=== PATIENT | male | born 1940 | race Caucasian/White ===

== ENCOUNTER → 2019-09-15 | Outpatient (REF) | payer OTHER ==
[2019-09-15 18:08] LABS: BASO % 0.5 % (0.0-1.0); EOS # 0.2 10^3/uL (0.0-0.5); EOS % 2.5 % (0.0-3.0); HEMATOCRIT 38.3 % (42.0-52.0); HEMOGLOBIN 11.7 g/dl (13.5-17.5); LYMPH # 1.2 10^3/uL (1.5-5.0); LYMPH % 20.1 % (24.0-44.0); MEAN CORPUSCULAR HEMOGLOBIN 26.5 pg (27.0-33.0); MEAN CORPUSCULAR HGB CONC 30.5 g/dl (32.0-36.5); MEAN CORPUSCULAR VOLUME 86.8 fl (80.0-96.0); MONO # 0.7 10^3/uL (0.0-0.8); MONO % 12.1 % (0.0-5.0); NEUTROPHILS # 3.9 10^3/uL (1.5-8.5); NEUTROPHILS % 64.1 % (36.0-66.0); PLATELET COUNT, AUTOMATED 141 10^3/uL (150-450); RED BLOOD COUNT 4.41 10^6/uL (4.30-6.10); WHITE BLOOD COUNT 6.1 10^3/uL (4.0-10.0)
[2019-09-15 18:18] LABS: ALBUMIN 3.7 GM/DL (3.2-5.2); ALT/SGPT 19 U/L (12-78); BILIRUBIN,TOTAL 0.6 MG/DL (0.2-1.0); BLOOD UREA NITROGEN 36 MG/DL (7-18); CALCIUM LEVEL 9.2 MG/DL (8.8-10.2); CARBON DIOXIDE LEVEL 29 MEQ/L (21-32); CHLORIDE LEVEL 104 MEQ/L (98-107); CREATININE FOR GFR 1.66 MG/DL (0.70-1.30); GLOMERULAR FILTRATION RATE 42.9 (>42); GLUCOSE, FASTING 181 MG/DL (70-100); POTASSIUM SERUM 4.1 MEQ/L (3.5-5.1); SODIUM LEVEL 139 MEQ/L (136-145); TOTAL PROTEIN 7.9 GM/DL (6.4-8.2)
[2019-09-15 19:20] LABS: HEMOGLOBIN A1c 6.3 %
[2019-09-17 08:06] LABS: HEPATITIS A IgG TOTAL Positive (Negative); HEPATITIS B CORE ANTIBODY IGG Negative (Negative)
[2019-09-17 11:13] LABS: HEPATITIS B SURFACE ANTIBODY NEGATIVE (POSITIVE)
[2019-09-17 11:24] LABS: HEPATITIS B SURFACE ANTIGEN NEGATIVE (NEGATIVE)
[2019-09-17 11:53] LABS: HEPATITIS C VIRUS ABY INDEX 0.1 INDEX (<0.8)
== END ==
LOC: M LAB REF 17:05
PROVIDERS: ATTEND Family Medicine Addiction Medicine
DX: R94.5 Abnormal results of liver function studies (principal); K70.30 Alcoholic cirrhosis of liver without ascites; Z79.899 Other long term (current) drug therapy

== ENCOUNTER → 2020-02-25 | Outpatient (REF) | payer OTHER ==
[2020-02-25 13:00] LABS: ALBUMIN 3.8 GM/DL (3.2-5.2); BILIRUBIN,TOTAL 0.8 MG/DL (0.2-1.0); CALCIUM LEVEL 9.8 MG/DL (8.8-10.2); CHOLESTEROL RISK RATIO 7.2 (<5); CREATININE FOR GFR 2.04 MG/DL (0.70-1.30); GLOMERULAR FILTRATION RATE 33.7 (>42); POTASSIUM SERUM 3.8 MEQ/L (3.5-5.1); THYROID STIMULATING HORMONE 6.99 uIU/ML (0.358-3.740); TOTAL PROTEIN 8.9 GM/DL (6.4-8.2)
[2020-02-25 13:03] LABS: HEMOGLOBIN A1c 7.1 %
== END ==
LOC: M LAB REF 12:13
PROVIDERS: ATTEND Family Medicine Addiction Medicine
DX: E11.9 Type 2 diabetes mellitus without complications (principal)

== ENCOUNTER → 2020-04-04 | Outpatient (REF) | payer OTHER ==
[2020-04-04 19:15] LABS: ALBUMIN 3.3 GM/DL (3.2-5.2); BILIRUBIN,TOTAL 0.7 MG/DL (0.2-1.0); CALCIUM LEVEL 9.2 MG/DL (8.8-10.2); CREATININE FOR GFR 1.9 MG/DL (0.70-1.30); GLOMERULAR FILTRATION RATE 36.6 (>42); POTASSIUM SERUM 4.2 MEQ/L (3.5-5.1); TOTAL PROTEIN 7.6 GM/DL (6.4-8.2)
== END ==
LOC: M LAB REF 18:05
PROVIDERS: ATTEND Family Medicine Addiction Medicine
DX: N18.2 Chronic kidney disease, stage 2 (mild) (principal)

== ENCOUNTER → 2020-05-17 | Outpatient (REF) | payer OTHER ==
[2020-05-17 18:44] LABS: ALBUMIN 3.3 GM/DL (3.2-5.2); CALCIUM LEVEL 9.3 MG/DL (8.8-10.2); CREATININE FOR GFR 1.66 MG/DL (0.70-1.30); GLOMERULAR FILTRATION RATE 42.8 (>42); POTASSIUM SERUM 4.1 MEQ/L (3.5-5.1); THYROID STIMULATING HORMONE 6.22 uIU/ML (0.358-3.740); TOTAL PROTEIN 7.5 GM/DL (6.4-8.2)
== END ==
LOC: M LAB REF 17:19
PROVIDERS: ATTEND Family Medicine Addiction Medicine
DX: N18.2 Chronic kidney disease, stage 2 (mild) (principal); E11.9 Type 2 diabetes mellitus without complications; E78.2 Mixed hyperlipidemia; E03.9 Hypothyroidism, unspecified; R94.5 Abnormal results of liver function studies

== ENCOUNTER 2020-09-17 10:48 | Inpatient (IN) | payer OTHER ==
[2020-09-17] VITALS (7 sets, daily range): BP systolic 100–112; BP diastolic 52–63
[~2020-09-17] VITALS: Ht 180.3 cm; Wt 80.6 kg
--- NOTE | 2020-09-17 12:00 | REP ---
INDICATION: distention/ascites suspected COMPARISON: None. TECHNIQUE: CT Scan of the abdomen and pelvis was performed without intravenous contrast. Sagittal and coronal reconstruction images performed. FINDINGS: Lung bases: There is a small left pleural effusion. There is a small hiatal hernia. Mild cardiomegaly. Liver: Grossly unremarkable. Gallbladder: Collapsed. Spleen: There is mild splenomegaly, the length of the spleen is 14 cm. Adrenals: Normal. Pancreas: Grossly unremarkable.. Kidneys: No hydronephrosis or nephrolithiasis. Ureters demonstrate no dilatation or calculus. Focal cortical calcification is seen in the lower pole the left kidney. Small and large bowel: Grossly unremarkable. No evidence of obstruction. Free fluid: There is a very large amount of abdominal and pelvic ascites diffusely. Abdominal aorta: No aneurysm. Adenopathy: None. Appendix: Not visualized. Osseous structures: There are degenerative changes of the spine without compression deformity.. Pelvis: The prostate is enlarged.. No bladder calculus seen. IMPRESSION: Large amount of diffuse abdominal and pelvic ascites. Small left pleural effusion. Mild splenomegaly. <Electronically signed by Gatito Isaacs > 09/17/20 [id number]
--- NOTE | 2020-09-17 12:02 | REP ---
INDICATION: edema. COMPARISON: None. TECHNIQUE: SINGLE PORTABLE AP VIEW OF THE CHEST WAS PERFORMED. FINDINGS: There is mild cardiomegaly. There is mild diffuse vascular congestion. A small left pleural effusion. No consolidative infiltrate is seen. There is calcification of the thoracic aorta. The mediastinal silhouette is otherwise unremarkable. IMPRESSION: Mild cardiomegaly and vascular congestion. Small left pleural effusion. <Electronically signed by Gatito Isaacs > 09/17/20 [id number]
--- NOTE | 2020-09-17 12:05 | REP ---
INDICATION: lateral pain, trauma COMPARISON: None. TECHNIQUE: Four views right ankle. FINDINGS: There is no evidence of acute fracture, dislocation, or intrinsic bone disease.Small calcific density adjacent to the medial malleolus may represent an old avulsion fracture. The ankle mortise is anatomic. There is lateral soft tissue swelling. Moderate tendinous calcifications are seen of the distal Achilles tendon along the posterior calcaneus. There is a tiny inferior calcaneal spur. I suspect a joint effusion. IMPRESSION: No acute fracture visualized. Lateral soft tissue swelling. Suspected joint effusion. <Electronically signed by Gatito Isaacs > 09/17/20 1203
[2020-09-17 12:09] LABS: BASO % 0.5 % (0.0-1.0); EOS # 0.2 10^3/uL (0.0-0.5); EOS % 1.9 % (0.0-3.0); HEMOGLOBIN 9.8 g/dl (13.5-17.5); LYMPH # 0.6 10^3/uL (1.5-5.0); LYMPH % 7.2 % (24.0-44.0); MEAN CORPUSCULAR HEMOGLOBIN 23.6 pg (27.0-33.0); MEAN CORPUSCULAR HGB CONC 30.6 g/dl (32.0-36.5); MEAN CORPUSCULAR VOLUME 77.1 fl (80.0-96.0); MONO # 1.1 10^3/uL (0.0-0.8); MONO % 13.7 % (0.0-5.0); NEUTROPHILS # 6.1 10^3/uL (1.5-8.5); NEUTROPHILS % 76.4 % (36.0-66.0); PLATELET COUNT, AUTOMATED 185 10^3/uL (150-450); RED BLOOD COUNT 4.15 10^6/uL (4.30-6.10)
[2020-09-17 12:21] LABS: INR 3.38
[2020-09-17 12:22] LABS: PARTIAL THROMBOPLASTIN TIME 56.3 SECONDS (24.2-38.5)
[2020-09-17] MEDS ORDERED: LISI40TA4 PO (12:29)
[2020-09-17] MEDS ORDERED: TAMS1CAP17 PO (12:29)
[2020-09-17] MEDS ORDERED: ELIQ5TAB PO (12:29)
[2020-09-17] MEDS ORDERED: HYDR-3490 PO (12:29)
[2020-09-17] MEDS ORDERED: LEVO75TA4 PO (12:29)
[2020-09-17] MEDS ORDERED: AMLO1TAB25 PO (12:29)
[2020-09-17] MEDS ORDERED: METF10004 PO (12:29)
[2020-09-17] MEDS ORDERED: ROPI0.253 PO (12:29)
[2020-09-17] MEDS ORDERED: CARV25TA PO (12:29)
[2020-09-17 12:33] LABS: ALBUMIN 2.5 GM/DL (3.2-5.2); ALT/SGPT 14 U/L (12-78); BILIRUBIN,DIRECT 0.9 MG/DL (0.0-0.2); BILIRUBIN,TOTAL 1.2 MG/DL (0.2-1.0); NT-PRO BNP 24471 PG/ML (<450); TOTAL PROTEIN 7.1 GM/DL (6.4-8.2)
[2020-09-17] MEDS ORDERED: THERTAB20 PO (12:54)
[2020-09-17] MEDS ORDERED: CALCIUM GLUCONATE 1,000 MG in D5W MINI-BAG PLUS 100 ML IV ONE (13:00)
[2020-09-17] MEDS ORDERED: SOD POLYSTYRENE SULFONATE SUSP 15 GM/60 ML UD PO ONE (13:00)
[2020-09-17] MEDS ORDERED: methylPREDNISolone 125MG 2ML VIAL IV ONE (13:00)
[2020-09-17 14:36] LABS: ACETAMINOPHEN LEVEL < 2.0 UG/ML (10.0-30.0); FERRITIN 111 NG/ML (26-388); IRON (FE) 11 UG/DL (65-175); PERCENT SATURATION 4.1 % (19.7-50.0); TOTAL IRON BINDING CAPACITY 268 UG/DL (250-450)
--- NOTE | 2020-09-17 15:11 | HPEPDOC ---
[facility] Medical History & Physical Date of Admission Sep 17, 2020 Date of Service: Sep 17, 2020 History and Physical CHIEF COMPLAINT: 30 pound weight gain, abdominal distention, lower extremity edema, shortness of breath HISTORY OF PRESENT ILLNESS: 79-year-old, DO NOT RESUSCITATE, DO NOT INTUBATE male with history of alcoholic liver cirrhosis, hypertension, diabetes, chronic kidney disease stage III ,previously seen in [place] by ampoule filler named Dr. KNOWLES, was taken off his to diuretics by his primary care physician for the past 2 months and has had increasing lower extremity edema, abdominal distention, 30 pound weight gain and shortness of breath, unable to lie down flat in bed and has been sleeping on his side over 3-4 pillows at home. Patient's balance has been compromised and he fell down and injured his right foot which prompted him to come to the emergency room. Patient said that when he tried to get up. His foot was very crampy and he felt like he lost some strength when he tried to sit and stand. He fell on his right side, landing on the dresser without any head trauma, loss of conscio usness or lacerations. In the ER he was found to be in decompensated liver failure with increased abdominal girth, 3+ pitting edema to the sacrum. CT abdomen and pelvis showed large amount of ascites. Chest x-ray shows vascular congestion and bilateral pleural effusions. Patient otherwise denies any fevers, chills, cough, nausea, vomiting. He complains of abdominal pain which is diffuse, rated at 3 out of 10, achy. He has not taken any medications for abdominal pain. Denies any recent history of GI bleed. Denies any coffee-ground emesis, hematemesis, bright red blood per rectum, melena, or black tarry stools. He denies any dizziness or lightheadedness, chest pain, pressure, tightness. He also denies any dysuria, urgency, frequency. He admits to having loss of appetite but has had some weight gain. His usual weight is 175 pounds and currently he is 205 pounds. Hospitalist was asked to admit the patient for acute decompensated liver cirrhosis with refractory ascites, bilateral pleural ef fusions, acute on chronic renal failure, creatinine of 3.4, hyperkalemia, coagulopathy with INR of 3.38 and steatohepatitis with elevated bilirubin and aminotransferases. PAST MEDICAL HISTORY: Hypertension, diabetes, hypercholesterolemia, alcoholic liver cirrhosis, chronic kidney disease stage III PAST SURGICAL HISTORY: None SOCIAL HISTORY: , Lives with significant other named Shira Bryan not legally , phone number [phone]. Patient is DO NOT RESUSCITATE, DO NOT INTUBATE. History of alcohol abuse 3-4 shots a day. 6 pack every day for over 50 years, quit 8 years ago, previous smoker, 1-1/2-2 packs a day since the age of 15, quit 30 years ago. Retired, worked in [employer] FAMILY HISTORY: Unknown medical history. Patient left home as a teenager and had lost contact ALLERGIES: Please see below. REVIEW OF SYSTEMS: 12 point review of systems negative aside from positive findings in HPI HOME MEDICATIONS: Please see below. PHYSICAL EXAMINATION: VITAL SIGNS: See below GENERAL APPEARANCE: Cachectic with bitemporal wasting, disheveled, no respiratory distress or use of respiratory accessory muscles HEENT: Positive JVD, no thyromegaly, cervical lymphadenopathy. Poor dentition. Dry mucous membranes missing teeth. No stridor. No carotid bruit CARDIOVASCULAR: S1, S2, positive S3. Regular rate rhythm. No murmurs noted. Nondisplaced point of maximal impulse LUNGS: Air entry is equal bilaterally. Diminished breath sounds with rales bilateral bases. No wheezing ABDOMEN: Distended, positive fluid wave, tense. Normoactive bowel sounds 4 quadrants. Unable to assess for hepatosplenomegaly . No rebound or guarding, nontender EXTREMITIES: Clubbing is noted. Bilateral fingernails both hands, 3+ pitting edema to the sacrum. Chronic venous stasis changes LABORATORY DATA: See below. IMAGING: INDICATION: distention/ascites suspected COMPARISON: None. TECHNIQUE: CT Scan of the abdomen and pelvis was performed without intravenous contrast. Sagittal and coronal reconstruction images performed. FINDINGS: Lung bases: There is a small left pleural effusion. There is a small hiatal hernia. Mild cardiomegaly. Liver: Grossly unremarkable. Gallbladder: Collapsed. Spleen: There is mild splenomegaly, the length of the spleen is 14 cm. Adrenals: Normal. Pancreas: Grossly unremarkable.. Kidneys: No hydronephrosis or nephrolithiasis. Ureters demonstrate no dilatation or calculus. Focal cortical calcification is seen in the lower pole the left kidney. Small and large bowel: Grossly unremarkable. No evidence of obstruction. Free fluid: There is a very large amount of abdominal and pelvic ascites diffusely. Abdominal aorta: No aneurysm. Adenopathy: None. Appendix: Not visualized. Osseous structures: There are degenerative changes of the spine without compression deformity.. Pelvis: The prostate is enlarged.. No bladder calculus seen. IMPRESSION: Large amount of diffuse abdominal and pelvic ascites. Small left pleural effusion. Mild splenomegaly. <Electronically signed by Gatito Isaacs > 09/17/20 1157 MICROBIOLOGY: Please see below. ASSESSMENT/plan: 79-year-old, DO NOT RESUSCITATE, DO NOT INTUBATE male with history of alcoholic liver cirrhosis, hypertension, diabetes, chronic kidney disease stage III ,previously seen in [place] by ampoule filler named Dr. KNOWLES, was taken off his to diuretics by his primary care physician for the past 2 months and has had increasing lower extremity edema, abdominal distention, 30 pound weight gain and shortness of breath, unable to lie down flat in bed and has been sleeping on his side over 3-4 pillows at home. Patient's balance has been compromised and he fell down and injured his right foot which prompted him to come to the emergency room. Patient said that when he tried to get up. His foot was very crampy and he felt like he lost some strength when he tried to sit and stand. He fell on his right side, landing on the dresser without any head trauma, loss of consciousness or lacerations. In the ER he was found to be in decompensated liver failure with increased abdominal girth, 3+ pitting edema to the sacrum. CT abdomen and pelvis showed large amount of ascites. Chest x-ray shows vascular congestion and bilateral pleural effusions. Patient otherwise denies any fevers, chills, cough, nausea, vomiting. He complains of abdominal pain which is diffuse, rated at 3 out of 10, achy. He has not taken any medications for abdominal pain. Denies any recent history of GI bleed. Denies any coffee-ground emesis, hematemesis, bright red blood per rectum, melena, or black tarry stools. He denies any dizziness or lightheadedness, chest pain, pressure, tightness. He also denies any dysuria, urgency, frequency. He admits to having loss of appet ite but has had some weight gain. His usual weight is 175 pounds and currently he is 205 pounds. Hospitalist was asked to admit the patient for acute decompensated liver cirrhosis with refractory ascites, bilateral pleural effusions, acute on chronic renal failure, creatinine of 3.4, hyperkalemia, c oagulopathy with INR of 3.38 and steatohepatitis with elevated bilirubin and aminotransferases. Acute decompensated alcoholic liver cirrhosis with portal hypertension and ascites -Patient's meld score is 32 with 52% mortality rate -Lettyiscriminant function of 62 -Patient's more immediate concern is renal dysfunction with fluid overload. -Patient will be given intravenous albumin infusions to improve intravascular volume and allow for diuresis with Lasix. -Goal mean arterial pressure greater than 75, to allow for enough renal perfusion perfusion to allow for diuresis -Will start on midodrine 10 mg at 8 noon and 1600 -Patient will be kept on strict I's and O's, daily weights -Paracentesis on 09/18/2020 for therapeutic purposes and diagnostic peritoneal fluid analysis -Check other etiology of liver cirrhosis including autoimmune viral hepatitis, primary biliary cirrhosis by checking RAMBO, anti-mitochondrial antibody, anti- smooth muscle antibody, hepatitis serology Acute alcoholic steatohepatitis -Leonela's discriminant function of 62. Will benefit from steroids -Patient has been started on steroids -Serial liver function tests Coagulopathy due to end-stage alcoholic liver cirrhosis with INR of 3.3 -No active signs of bleeding -Meld score of 32 with 52% mortality rate -Monitor for GI bleed -Protonix 40 mg twice a day Acute on chronic kidney disease stage III -Due to decompensated liver cirrhosis with ascites causing decrease intravascular volume -IV albumin infusion admitted to returning to increased blood pressure to mean O2 or pressure greater than 75 -[place] to gravity, strict I's and O's and daily weights -once Patient's abdominal distention has improved with paracentesis. Check renal ultrasound Hyperkalemia -Due to renal failure -avoid dehydration, but will need Kayexalate -Telemetry Hypertension -Currently with low blood pressure Diabetes -Insulin sliding scale, fingersticks before every meal CHS Hyperlipidemia -Check liver profile History of tobacco abuse -Obtain records from patient's primary care physician to determine if he has underlying emphysema or COPD or prior pulmonary function testing History of alcohol abuse -Now with decompensated end-stage liver cirrhosis with portal hypertension Diet: Renal diet DVT prophylaxis: Compression stockings CODE STATUS: DO NOT RESUSCITATE, DO NOT INTUBATE. Most form signed. Healthcare proxy significant other, not Shira Bryan telephone number is [phone] Vital Signs Vital Signs Date Time Temp Pulse Resp B/P (MAP) Pulse Ox O2 Delivery O2 Flow Rate FiO2 09/17/20 14:03 57 96 09/17/20 14:00 97/56 (70) 09/17/20 11:04 97.0 18 Laboratory Data Labs 24H Laboratory Tests 2 09/17/20 11:43: Coronavirus (COVID-19)(PCR) NEGATIVE 09/17/20 11:53: Immature Granulocyte % (Auto) 0.3, Neutrophils (%) (Auto) 76.4H, Lymphocytes (%) (Auto) 7.2L, Monocytes (%) (Auto) 13.7H, Eosinophils (%) (Auto) 1.9, Basophils (%) (Auto) 0.5, Neutrophils # (Auto) 6.1, Lymphocytes # (Auto) 0.6L, Monocytes # (Auto) 1.1H, Eosinophils # (Auto) 0.2, Basophils # (Auto) 0.0, Reticulocyte # (auto) 41.1, Nucleated Red Blood Cells % (auto) 0.0, Percent Reticulocyte Count 1.0, Reticulocyte Hemoglobin Equivalent 22.2L, Prothrombin Time 35.0H, Prothromb Time International Ratio 3.38, Activated Partial Thromboplast Time 56.3H, Iron Level 11L, Total Iron Binding Capacity 268, Transferrin % Saturation 4.1L, Ferritin 111, Total Bilirubin 1.2H, Direct Bilirubin 0.9H, Aspartate Amino Transf (AST/SGOT) 14, Alanine Aminotransferase (ALT/SGPT) 14, Alkaline Phosphatase 132H, Ammonia 28, YE-Krr-M-Type Natriuretic Peptide 11834D, Total Protein 7.1, Albumin 2.5L, Albumin/Globulin Ratio 0.5, Acetaminophen Level < 2.0L 09/17/20 11:58: POC Glucose (Misc Panel) 128H, POC Sodium (Misc Panel) 136, POC Potassium (Misc Panel) 5.7H, POC Chloride (Misc Panel) 104, POC Total CO2 (Misc Panel) 23.0, POC Blood Urea Nitrogen (Misc Panel 82H, POC Ionized Calcium (Misc Panel) 4.9, POC Creatinine (Misc Panel) 3.4H, POC Hematocrit (Misc Panel) 34.0L 09/17/20 13:45: CBC/BMP Laboratory Tests 09/17/20 11:53 Home Medications Scheduled Amlodipine Besylate (Amlodipine Besylate) 10 Mg Tablet, 10 MG PO DAILY Apixaban (Eliquis) 5 Mg Tablet, 5 MG PO BID Carvedilol (Carvedilol) 25 Mg Tablet, 25 MG PO BID Hydrochlorothiazide (Hydrochlorothiazide) 25 Mg Tablet, 25 MG PO DAILY Levothyroxine Sodium (Levothyroxine Sodium) 75 Mcg Tablet, 75 MCG PO DAILY Lisinopril (Lisinopril) 40 Mg Tablet, 40 MG PO DAILY Metformin HCl (Metformin HCl) 1,000 Mg Tablet, 1,000 MG PO DAILY Multivit,Calc,Mins/Iron/Folic (Thera-M Tablet) 1 Each Tablet, 1 TAB PO DAILY Ropinirole HCl (Ropinirole HCl) 0.25 Mg Tablet, 0.25 MG PO QHS Tamsulosin Hcl (Tamsulosin HCl) 0.4 Mg Capsule, 0.4 MG PO DAILY Allergies Coded Allergies: No Known Drug Allergies (Verified Allergy, Unknown, 09/17/20) A-FIB/CHADSVASC A-FIB History Current/History of A-Fib/PAF?: No Current PO Anticoag Therapy: No Age/Risk Factor Scoring CHADSVASC: CHADSVASC Response (Comments) Value Age Risk Factor Age >/= 75 years old 2 Gender Risk Factor Male 0 Hx of CHF No 0 Hx of HTN No 0 Hx of Stroke/TIA/or VTE No 0 Hx of Vascular Disease No 0 Total 2 Treatment Treatment ordered: NONE BRANDON ACUÑA MD Sep 17, 2020 14:47
[2020-09-17] MEDS: MIDODRINE 5 MG TAB PO SCH ×2 (15:53→19:23)
[2020-09-17] MEDS ORDERED: SLF 3 ML SYR IV PRN (16:30)
[2020-09-17 16:47] LABS: APPEARANCE, URINE HAZY (CLEAR); BILIRUBIN, URINE AUTO NEGATIVE (NEGATIVE); BLOOD, URINE BLOOD NEGATIVE (NEGATIVE); COLOR, URINE AMBER (YELLOW); GLUCOSE, URINE (UA) AUTO NEGATIVE (NEGATIVE); KETONE, URINE AUTO NEGATIVE (NEGATIVE); LEUKOCYTE ESTERASE, URINE AUTO NEGATIVE (NEGATIVE); NITRITE, URINE AUTO NEGATIVE (NEGATIVE); PROTEIN, URINE AUTO NEGATIVE (NEGATIVE); SPECIFIC GRAVITY URINE AUTO 1.016 (1.002-1.035)
--- NOTE | 2020-09-17 17:09 | ECGEPIP ---
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 Order Number: [id number] Reading MD: Debby Liu Measurements Intervals [place] Rate: 69 P: CO: 0 QRS: 18 QRSD: 117 T: 9 QT: 431 QTc: 462 Interpretive Statements ATRIAL FIBRILLATION POSSIBLE ANTERIOR MYOCARDIAL INFARCTION, PROBABLY OLD ABNORMAL RHYTHM ECG LOW QRS VOLTAGE LIMB LEADS NONSPECIFIC ST T WAVE CHANGES PROLONGED QTC NO PRIOR ECG FOR COMPARISON Electronically Signed on 09-17-2020 17:08:57 EST by Debby Liu
[2020-09-17 17:56] LABS: SQUAMOUS EPITHELIAL CELL URINE NONE SEEN /hpf (SMALL AMT)
[2020-09-17] MEDS ORDERED: metOLazone 5 MG TAB PO ONE (18:00)
[2020-09-17] MEDS ORDERED: oxyCODONE 5MG TAB PO ONE (18:00)
[2020-09-17 18:01] LABS: BLADDER EPITHELIAL CELLS, UR LARGE AMOUNT /hpf; RENAL EPITHELIAL CELLS, URINE MOD AMOUNT /hpf
[2020-09-17 18:04] LABS: BACTERIA, URINE NONE SEEN
[2020-09-17] MEDS ORDERED: FUROSEMIDE 40MG/4ML VIAL (J1940) IV ONE (18:30)
[2020-09-17 19:16] LABS: CALCIUM LEVEL 9.7 MG/DL (8.8-10.2); CREATININE FOR GFR 3.31 MG/DL (0.70-1.30); GLOMERULAR FILTRATION RATE 19.3 (>42); POTASSIUM SERUM 5.9 MEQ/L (3.5-5.1)
[2020-09-17 19:22] LABS: CK-MB VALUE MASS 1.8 NG/ML (<3.6); MB/CK RELATIVE INDEX 3.05 (< OR =4); TROPONIN I 0.04 NG/ML (< 0.10)
[2020-09-17] MEDS: PANTOPRAZOLE 40MG VIAL (C9113 PER 1) IV SCH (21:23)
[2020-09-17] MEDS: SLF 3 ML SYR IV SCH (21:23)
[2020-09-18] VITALS (8 sets, daily range): BP systolic 94–115; BP diastolic 54–68
[2020-09-18] MEDS: oxyCODONE 5MG TAB PO PRN ×3 (01:02→21:05)
[2020-09-18 04:26] LABS: BASO % 0.1 % (0.0-1.0); HEMATOCRIT 31.3 % (42.0-52.0); HEMOGLOBIN 9.7 g/dl (13.5-17.5); LYMPH # 0.6 10^3/uL (1.5-5.0); LYMPH % 6.2 % (24.0-44.0); MEAN CORPUSCULAR VOLUME 77.5 fl (80.0-96.0); MONO # 0.2 10^3/uL (0.0-0.8); MONO % 1.8 % (0.0-5.0); NEUTROPHILS # 8.2 10^3/uL (1.5-8.5); NEUTROPHILS % 91.6 % (36.0-66.0); PLATELET COUNT, AUTOMATED 203 10^3/uL (150-450); RED BLOOD COUNT 4.04 10^6/uL (4.30-6.10)
[2020-09-18 05:05] LABS: CREATININE FOR GFR 3.34 MG/DL (0.70-1.30)
[2020-09-18 05:06] LABS: ALBUMIN 2.9 GM/DL (3.2-5.2); BILIRUBIN,TOTAL 1.3 MG/DL (0.2-1.0); CALCIUM LEVEL 9.2 MG/DL (8.8-10.2); CK-MB VALUE MASS 1.6 NG/ML (<3.6); GLOMERULAR FILTRATION RATE 19.1 (>42); MAGNESIUM LEVEL 2.9 MG/DL (1.8-2.4); MB/CK RELATIVE INDEX 3.33 (< OR =4); POTASSIUM SERUM 5.7 MEQ/L (3.5-5.1); TOTAL PROTEIN 7.7 GM/DL (6.4-8.2); TROPONIN I 0.02 NG/ML (< 0.10)
[2020-09-18 05:12] LABS: INR 2.63; PROTHROMBIN TIME 28.7 SECONDS (12.5-14.3)
[2020-09-18 05:13] LABS: PARTIAL THROMBOPLASTIN TIME 55.6 SECONDS (24.2-38.5)
[2020-09-18] MEDS: SLF 3 ML SYR IV SCH ×3 (05:15→21:04)
[2020-09-18] MEDS ORDERED: FUROSEMIDE 100MG/10ML VIAL (J1940) IV ONE (08:00)
[2020-09-18] MEDS ORDERED: FUROSEMIDE 40MG/4ML VIAL (J1940) IV SCH (08:00)
[2020-09-18] MEDS: MIDODRINE 5 MG TAB PO SCH ×3 (08:33→17:08)
[2020-09-18] MEDS: PANTOPRAZOLE 40MG VIAL (C9113 PER 1) IV SCH ×2 (08:34→21:04)
[2020-09-18] MEDS: predniSONE 20 MG TAB PO SCH (08:34)
[2020-09-18] MEDS ORDERED: LIDOCAINE 1% MDV 20ML VIAL As Ordered ONE (08:42)
[2020-09-18] MEDS ORDERED: SODIUM BICARBONATE 8.4% INJ 50MEQ 50 ML VIAL As Ordered ONE (08:44)
[2020-09-18] MEDS ORDERED: SOD POLYSTYRENE SULFONATE SUSP 15 GM/60 ML UD PO ONE (10:00)
[2020-09-18 11:01] LABS: HEPATITIS B SURFACE ANTIGEN NEGATIVE (NEGATIVE)
--- NOTE | 2020-09-18 11:24 | IPNPDOC ---
Date Seen The patient was seen on 09/18/20. Progress Note SUBJECTIVE: SOB only slightly improved after paracentesis today. no fever or chills overnight. denies cough. oliguric with 500ml urine output overnight. PICC line ordered. s/p albumin infusion w albumin 2.7 today. denies chest pain,pressure tightness still w 3 pillow orthopnea hard to breathe when hob lower. lays on his left side. TELE: chronic afib -off eliquis for paracentesis and picc line PHYSICAL EXAMINATION: VITAL SIGNS: See below GENERAL APPEARANCE: Cachectic with bitemporal wasting, disheveled, no respiratory distress or use of respiratory accessory muscles HEENT: no thyromegaly, cervical lymphadenopathy. Poor dentition. Dry mucous membranes missing teeth. No stridor. No carotid bruit CARDIOVASCULAR: S1, S2, irregularly irregular No murmurs noted. Nondisplaced point of maximal impulse LUNGS: Air entry is equal bilaterally. Diminished breath sounds bibasilar coarse breath soundsNo wheezing ABDOMEN: less Distended, soft . Normoactive bowel sounds 4 quadrants. Unable to assess for hepatosplenomegaly . No rebound or guarding, nontender EXTREMITIES: Clubbing is noted. Bilateral fingernails both hands, 3+ pitting edema to the sacrum. Chronic venous stasis changes right forearm peripheral iv-no erythema or tenderness. LABORATORY DATA: See below. IMAGING: INDICATION: distention/ascites suspected COMPARISON: None. TECHNIQUE: CT Scan of the abdomen and pelvis was performed without intravenous contrast. Sagittal and coronal reconstruction images performed. FINDINGS: Lung bases: There is a small left pleural effusion. There is a small hiatal hernia. Mild cardiomegaly. Liver: Grossly unremarkable. Gallbladder: Collapsed. Spleen: There is mild splenomegaly, the length of the spleen is 14 cm. Adrenals: Normal. Pancreas: Grossly unremarkable.. Kidneys: No hydronephrosis or nephrolithiasis. Ureters demonstrate no dilatation or calculus. Focal cortical calcification is seen in the lower pole the left kidney. Small and large bowel: Grossly unremarkable. No evidence of obstruction. Free fluid: There is a very large amount of abdominal and pelvic ascites diffusely. Abdominal aorta: No aneurysm. Adenopathy: None. Appendix: Not visualized. Osseous structures: There are degenerative changes of the spine without compression deformity.. Pelvis: The prostate is enlarged.. No bladder calculus seen. IMPRESSION: Large amount of diffuse abdominal and pelvic ascites. Small left pleural effusion. Mild splenomegaly. <Electronically signed by Gatito Isaacs > 09/17/20 [id number] MICROBIOLOGY: Please see below. 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 KNOWLES, was taken off his to diuretics by his primary care physician for the past 2 months and has had increasing lower extremity edema, abdominal distention, 30 pound weight gain and shortness of breath, unable to lie down flat in bed and has been sleeping on his side over 3-4 pillows at home. Patient's balance has been compromised and he fell down and injured his right foot which prompted him to come to the emergency room. Patient said that when he tried to get up. His foot was very crampy and he felt like he lost some strength when he tried to sit and stand. He fell on his right side, landing on the dresser without any head trauma, loss of consciousness or lacerations. In the ER he was found to be in decompensated liver failure with increased abdominal girth, 3+ pitting edema to the sacrum. CT abdomen and pelvis showed large amount of ascites. Chest x-ray shows vascular congestion and bilateral pleural effusions. Patient otherwise denies any fevers, chills, cough, nausea, vomiting. He complains of abdominal pain which is diffuse, rated at 3 out of 10, achy. He has not taken any medications for abdominal pain. Denies any recent history of GI bleed. Denies any coffee-ground emesis, hematemesis, bright red blood per rectum, melena, or black tarry stools. He denies any dizziness or lightheadedness, chest pain, pressure, tightness. He also denies any dysuria, urgency, frequency. He admits to having loss of appetite but has had some weight gain. His usual weight is 175 pounds and currently he is 205 pounds. Hospitalist was asked to admit the patient for acute decompensated liver cirrhosis with refractory ascites, bilateral pleural effusions, acute on chronic renal failure, creatinine of 3.4, hyperkalemia, coagulopathy with INR of 3.38 and steatohepatitis with elevated bilirubin and aminotransferases. Acute decompensated alcoholic liver cirrhosis with portal hypertension and ascites -Patient's meld score is 32 with 52% mortality rate -Lettyiscriminant function of 62 -Patient's more immediate concern is renal dysfunction with fluid overload. -s/p intravenous albumin infusions to improve intravascular volume - on midodrine 10 mg at 8 noon and 1600 - on strict I's and O's, daily weights -s/p Paracentesis 09/18/2020 for therapeutic purposes and diagnostic peritoneal fluid analysis, but per IR, not much removed -requested records from [place] [facility] Dr. Knowles and pt's pcp. Acute alcoholic steatohepatitis -Leonela's discriminant function of 62. -s/p iv solumedrol 09/17/20 -po prednisone daily Chronic Atrial Fibrillation -rate controlled -off eliquis for paracentesis and picc line 09/18/20 -no signs of gi bleed -may resume eliquis after picc line is placed Oliguric Acute on chronic kidney disease stage III -Due to decompensated liver cirrhosis with ascites causing decrease intravascular volume -s/p iv albumin -cruz -on midodrine to increase blood pressure, but urine output only 500ml/24hrs -nephrology consulted. picc line placed in case vasopressor needed to improve intravascular volume Hyperkalemia -Due to renal failure -telemetry metabolic acidosios -due to renal failure -nephrology consulted Hypertension -Currently with low blood pressure -on midodrine Diabetes -Insulin sliding scale, fingersticks before every meal and qhs -consistent carbs /renal diet Hyperlipidemia -reviewed liver profile History of tobacco abuse -Obtain records from patient's primary care physician to determine if he has underlying emphysema or COPD or prior pulmonary function testing History of alcohol abuse -Now with decompensated end-stage liver cirrhosis with portal hypertension Diet: Renal diet DVT prophylaxis: Compression stockings CODE STATUS: DO NOT RESUSCITATE, DO NOT INTUBATE. Most form signed. Healthcare proxy significant other, not Shira Bryan telephone number is [phone] VS, I&O, 24H, Fishbone Vital Signs/I&O Vital Signs Date Time Temp Pulse Resp B/P (MAP) Pulse Ox O2 Delivery O2 Flow Rate FiO2 09/18/20 10:30 83 18 98 Room Air 09/18/20 09:07 99.2 2/8/21 07:39 115/65 (82) I&O- Last 24 Hours up to 6 AM 09/18/20 06:00 Intake Total 250.0 ml Output Total 900 ml Balance -650.0 ml Laboratory Data 24H LABS Laboratory Tests 2 09/17/20 11:43: Coronavirus (COVID-19)(PCR) NEGATIVE 09/17/20 11:53: Immature Granulocyte % (Auto) 0.3, Neutrophils (%) (Auto) 76.4H, Lymphocytes (%) (Auto) 7.2L, Monocytes (%) (Auto) 13.7H, Eosinophils (%) (Auto) 1.9, Basophils (%) (Auto) 0.5, Neutrophils # (Auto) 6.1, Lymphocytes # (Auto) 0.6L, Monocytes # (Auto) 1.1H, Eosinophils # (Auto) 0.2, Basophils # (Auto) 0.0, Reticulocyte # (auto) 41.1, Nucleated Red Blood Cells % (auto) 0.0, Percent Reticulocyte Count 1.0, Reticulocyte Hemoglobin Equivalent 22.2L, Prothrombin Time 35.0H, Prothromb Time International Ratio 3.38, Activated Partial Thromboplast Time 56.3H, Iron Level 11L, Total Iron Binding Capacity 268, Transferrin % Saturation 4.1L, Ferritin 111, Total Bilirubin 1.2H, Direct Bilirubin 0.9H, Aspartate Amino Transf (AST/SGOT) 14, Alanine Aminotransferase (ALT/SGPT) 14, Alkaline Phosphatase 132H, Ammonia 28, ZE-Lnr-D-Type Natriuretic Peptide 34295L, Total Protein 7.1, Albumin 2.5L, Albumin/Globulin Ratio 0.5, Acetaminophen Level < 2.0L 09/17/20 11:58: POC Glucose (Misc Panel) 128H, POC Sodium (Misc Panel) 136, POC Potassium (Misc Panel) 5.7H, POC Chloride (Misc Panel) 104, POC Total CO2 (Misc Panel) 23.0, POC Blood Urea Nitrogen (Misc Panel 82H, POC Ionized Calcium (Misc Panel) 4.9, POC Creatinine (Misc Panel) 3.4H, POC Hematocrit (Misc Panel) 34.0L 09/17/20 13:45: 09/17/20 16:30: Urine Color SHERIE, Urine Appearance HAZY, Urine pH 5.0, Urine Specific Watkins 1.016, Urine Protein NEGATIVE, Urine Glucose (Auto)(UA) NEGATIVE, Urine Ketones (Auto) NEGATIVE, Urine Blood NEGATIVE, Urine Nitrite NEGATIVE, Urine Bilirubin NEGATIVE, Urine Urobilinogen 4.0H, Urine Leukocyte Esterase (Auto) NEGATIVE, Urine Sediment Examination PERFORMED, Urine RBC 3-5H, Urine WBC 3-5H, Urine Bladder Epithelial Cells LARGE AMOUNTH, Urine Squamous Epithelial Cells NONE SEE N, Urine Renal Epithelial Cells MOD AMOUNTH, Urine Bacteria NONE SEEN, Urine Cellular Casts , Urine Hyaline Casts 1-3H, Urine Granular Casts 1-3H, Urine Sperm (Auto) 09/17/20 18:33: Anion Gap 10, Glomerular Filtration Rate 19.3L, Calcium Level 9.7, Total Creatine Kinase 59, Creatine Kinase MB 1.8, Creatine Kinase MB Relative Index 3.05, Troponin I 0.04 09/18/20 03:56: Anion Gap 14, Glomerular Filtration Rate 19.1L, Calcium Level 9.2, Total Creatine Kinase 48, Creatine Kinase MB 1.6, Creatine Kinase MB Relative Index 3.33, Troponin I 0.02#, Immature Granulocyte % (Auto) 0.3, Neutrophils (%) (Auto) 91.6H, Lymphocytes (%) (Auto) 6.2L, Monocytes (%) (Auto) 1.8, Eosinophils (%) (Auto) 0.0, Basophils (%) (Auto) 0.1, Neutrophils # (Auto) 8.2, Lymphocytes # (Auto) 0.6L, Monocytes # (Auto) 0.2, Eosinophils # (Auto) 0.0, Basophils # (Auto) 0.0, Nucleated Red Blood Cells % (auto) 0.0, Prothrombin Time 28.7H, Prothromb Time International Ratio 2.63, Activated Partial Thromboplast Time 55.6H, Magnesium Level 2.9H, Total Bilirubin 1.3H, Aspartate Amino Transf (AST/SGOT) 8, Alanine Aminotransferase (ALT/SGPT) 13, Alkaline Phosphatase 110, Total Protein 7.7, Albumin 2.9L, Albumin/Globulin Ratio 0.6 CBC/BMP Laboratory Tests 09/17/20 11:53 09/17/20 18:33 09/18/20 03:56 BRANDON ACUÑA MD Sep 18, 2020 10:37
[2020-09-18 11:28] LABS: HEPATITIS B CORE ANTIBODY IGM NEGATIVE (NEGATIVE); HEPATITIS C VIRUS ABY INDEX 0.1 INDEX (<0.8)
[2020-09-18 11:31] LABS: HEPATITIS A ANTIBODY IGM NEGATIVE (NEGATIVE)
[2020-09-18 12:02] LABS: APPEARANCE, BODY FLUID HAZY (CLEAR); PERITONEAL FL COLOR YELLOW (COLORLESS); SOURCE, BODY FLUID PERITONEAL
--- NOTE | 2020-09-18 12:19 | REP ---
INDICATION: RENAL FAILURE. COMPARISON: None. TECHNIQUE: Real-time sonographic evaluation of the kidneys is performed. FINDINGS: Renal cortical echogenicity pattern is normal bilaterally and contours are smooth. There is no evidence of hydronephrosis, cyst, mass, or calculus in either kidney. The right kidney measures 13.3 x 5.1 x 5.4 cm. Left renal dimensions are 13.2 x 5.1 x 5.0 cm. Cummings catheter is seen in a collapsed urinary bladder. IMPRESSION: Negative renal ultrasound. <Electronically signed by Gatito Isaacs > 09/18/20 [id number]
--- NOTE | 2020-09-18 12:54 | REP ---
INDICATION: s/p thoracentesis sob. r/o ptx COMPARISON: 09/17/2020 TECHNIQUE: Portable AP view of the chest FINDINGS: PICC line via the left upper extremity extends into the superior vena cava. Mediastinum and cardiac silhouette are stable. Vascular congestion with interstitial edema again noted. No consolidation, obvious effusion, or pneumothorax. IMPRESSION: Moderate pulmonary vascular congestion/interstitial edema. <Electronically signed by Wagner Farias > 09/18/20 [id number]
[2020-09-18 13:00] LABS: SOURCE, BODY FLUID ALBUMIN PERITONEAL; SOURCE, BODY FLUID GLUCOSE PERITONEAL; SOURCE, BODY FLUID TOT PROTEIN PERITONEAL; TOTAL PROTEIN, BODY FLUID 4.9 G/DL (NOT ESTABLISHED)
[2020-09-18] MEDS ORDERED: SODIUM CHLORIDE 0.9% INJ 10 ML SYR IV PRN (13:00)
--- NOTE | 2020-09-18 13:34 | REP ---
INDICATION: ASCITES The patient has a history of ascites COMPARISON: None. TECHNIQUE: The procedure was performed by VAMSHI Sinha, under the direct supervision of Dr. Singh The risks and benefits of the procedure were explained to the patient and an informed consent was obtained both verbally and written. Additional attention was paid to the fact that the patient had only been off their Eliquis for 24 hours, and that their INR was above 2. Directly prior to the start of the procedure a formal time-out was completed in the procedure room. The largest pocket of fluid was localized in the right flank using ultrasound guidance. The skin was prepped and draped in a sterile fashion. Eleven ML of buffered lidocaine was used as a local anesthetic. An 8-Polish multi side-hole catheter was inserted using trocar technique. FINDINGS: 12,450 mL of green colored ascites was removed in total, 1,250 mL was sent to the laboratory for further analysis, and the rest was discarded. The patient tolerated the procedure well and there were no immediate complications. After the appropriate amount of monitored convalescence, the patient was discharged from the department. IMPRESSION: Ultrasound-guided paracentesis with removal of 12,450 mL of green colored ascites. <Electronically signed by Mari Don > 09/18/20 1252 <Electronically signed by Joseph Singh > 09/18/20 1339
--- NOTE | 2020-09-18 13:34 | REP ---
PROCEDURE NAME: PICC LINE INSERTION W/SITERITE CLINICAL INFORMATION: levophed iv gtt -. COMPARISON: None. PROCEDURE DESCRIPTION: The procedure was performed by VAMSHI Sinha, under the direct supervision of Dr. Singh. The risks and benefits of the procedure were explained to the patient and an informed consent was obtained both verbally and written. Directly prior to the start of the procedure a formal time-out was completed in the procedure room. The left basilic vein was localized using ultrasound guidance. The skin was prepped and draped in sterile fashion. One mL of 1% lidocaine 10 mg/mL was used as a local anesthetic. Using ultrasound guidance the left basilic vein was cannulated, and a 0.018 guidewire was inserted and advanced to the level of SVC using fluoroscopic guidance. The needle was removed and a 5.5 Cook Islander dilator and peel-away sheath was inserted over the guidewire. A 5.5 [place] Islander dual lumen catheter was cut to a length of 45 cm. The dilator was removed and the catheter was inserted over the guidewire with the tip ending at the level of the SVC. The peel-away sheath was removed and the catheter was flushed with heparinized saline as per hospital protocol. The catheter was affixed to the skin and a sterile dressing was applied. The patient tolerated the procedure well and there were no immediate complications. CONCLUSION: PICC line insertion into the left basilic vein. 0.1 minutes of fluoroscopy time was utilized for this procedure. Some fluoroscopic images are performed with last image hold technology. These images require no additional radiation. <Electronically signed by Mari Don > 09/18/20 1258 <Electronically signed by Joseph Singh > 09/18/20 [id number]
[2020-09-18] MEDS: OCTREOTIDE ACETATE 1,200 MCG in NS 238.8 ML IV SCH (14:22)
[2020-09-18] MEDS: APIXABAN 2.5 MG TAB (ELIQUIS) PO SCH ×2 (14:22→21:04)
[2020-09-18 14:25] LABS: CK-MB VALUE MASS 1.6 NG/ML (<3.6); MB/CK RELATIVE INDEX 3.08 (< OR =4); TROPONIN I 0.02 NG/ML (< 0.10)
[2020-09-18] MEDS: SODIUM CHLORIDE 0.9% INJ 10 ML SYR IV SCH (17:08)
[2020-09-18 18:26] LABS: CREATININE FOR GFR 3.46 MG/DL (0.70-1.30); GLOMERULAR FILTRATION RATE 18.3 (>42); POTASSIUM SERUM 5.6 MEQ/L (3.5-5.1)
[2020-09-18 19:42] LABS: CALCIUM LEVEL 9.7 MG/DL (8.8-10.2); CREATININE FOR GFR 3.49 MG/DL (0.70-1.30); GLOMERULAR FILTRATION RATE 18.1 (>42); POTASSIUM SERUM 5.8 MEQ/L (3.5-5.1)
[2020-09-19] VITALS (9 sets, daily range): BP systolic 96–126; BP diastolic 54–61
[2020-09-19 00:32] LABS: CALCIUM LEVEL 8.8 MG/DL (8.8-10.2); CREATININE FOR GFR 3.41 MG/DL (0.70-1.30); GLOMERULAR FILTRATION RATE 18.6 (>42); POTASSIUM SERUM 5.2 MEQ/L (3.5-5.1)
[2020-09-19] MEDS: oxyCODONE 5MG TAB PO PRN ×3 (03:07→20:42)
[2020-09-19 05:34] LABS: BASO % 0.1 % (0.0-1.0); HEMATOCRIT 34.9 % (42.0-52.0); HEMOGLOBIN 10.8 g/dl (13.5-17.5); LYMPH # 0.5 10^3/uL (1.5-5.0); LYMPH % 4.3 % (24.0-44.0); MEAN CORPUSCULAR HEMOGLOBIN 23.4 pg (27.0-33.0); MEAN CORPUSCULAR HGB CONC 30.9 g/dl (32.0-36.5); MEAN CORPUSCULAR VOLUME 75.5 fl (80.0-96.0); MONO # 1.3 10^3/uL (0.0-0.8); MONO % 10.5 % (0.0-5.0); NEUTROPHILS # 10.5 10^3/uL (1.5-8.5); NEUTROPHILS % 84.6 % (36.0-66.0); PLATELET COUNT, AUTOMATED 230 10^3/uL (150-450); RED BLOOD COUNT 4.62 10^6/uL (4.30-6.10)
[2020-09-19] MEDS: SLF 3 ML SYR IV SCH ×3 (05:34→20:43)
[2020-09-19] MEDS: SODIUM CHLORIDE 0.9% INJ 10 ML SYR IV SCH ×2 (05:34→16:37)
[2020-09-19 05:37] LABS: WHITE BLOOD COUNT 12.4 10^3/uL (4.0-10.0)
[2020-09-19 05:43] LABS: INR 2.21
[2020-09-19 06:00] LABS: ALBUMIN 2.5 GM/DL (3.2-5.2); BILIRUBIN,TOTAL 0.8 MG/DL (0.2-1.0); CALCIUM LEVEL 8.6 MG/DL (8.8-10.2); CREATININE FOR GFR 3.31 MG/DL (0.70-1.30); GLOMERULAR FILTRATION RATE 19.3 (>42); MAGNESIUM LEVEL 2.8 MG/DL (1.8-2.4); POTASSIUM SERUM 4.8 MEQ/L (3.5-5.1); TOTAL PROTEIN 6.7 GM/DL (6.4-8.2)
[2020-09-19] MEDS: PANTOPRAZOLE 40MG VIAL (C9113 PER 1) IV SCH ×2 (08:35→20:42)
[2020-09-19] MEDS: predniSONE 20 MG TAB PO SCH (08:35)
[2020-09-19] MEDS: APIXABAN 2.5 MG TAB (ELIQUIS) PO SCH ×2 (08:35→20:42)
[2020-09-19] MEDS: MIDODRINE 5 MG TAB PO SCH ×3 (08:35→16:36)
[2020-09-19] MEDS: OCTREOTIDE ACETATE 1,200 MCG in NS 238.8 ML IV SCH (11:07)
[2020-09-19 12:06] LABS: CREATININE,RANDOM URINE 38.1 MG/DL
--- NOTE | 2020-09-19 14:53 | CR.PDOC ---
General Date of Consultation: Sep 19, 2020 Referring Provider: Edel Stoll MD Attending Physician: LUIS CARBONE MD Consultation Referring physician/ hospitalist: Dr. Stoll Reason for consult: suspected decompensated Liver Cirrhosis HPI: 79 year old male with history of HTN, DM type 2, CKD stage III, and atrial fibrillation, previously told to have liver cirrhosis ( patient told he saw GI outside [facility] around a year ago and was suspected to have liver cirrhosis but never followed up), prior alcohol use which he quit more than 8 years ago, is currently admitted to hospital for abdominal distention with fluid. Patient presented to the hospital with a 6 month history of abdominal distension and recent fall out of his bed which prompted him to come to the ED. He states he was diagnosed with cirrhosis about 1 year ago and was told it was due to his history of heavy alcohol use. Patient states at that time he was started on two fluid pills due to his leg swelling and distended abdomen. He states the swelling improved quickly and he was changed to only one fluid pill. Patient states that 6 months ago he suddenly developed worsening abdominal distension and leg swelling. Patient states that 5 days ago he was trying to get out of bed when he slipped and fell off the side, landing on his right ankle. He reports an aching pain in his right ankle which has not improved and prompted his ED visit. He also notes that he was concerned about his abdominal swelling, but this has been there for a while and gradual. Patient notes some intermittent generalized abdominal aching. Patient also notes no appetite for the past few months, he drinks ensure supplements daily to replace most meals. He states he has gained weight with all of the swelling but has noticed his muscle mass decreasing over his body. Patient also notes chronic diarrhea which he attributes to the Ensure that he drinks daily. Pertinent negative GI symptoms: Patient denies nausea, vomiting, diarrhea, abdominal pain, early satiety or unintentional weight loss, hematemesis, melena, or hematochezia. Review of Systems: GI: as stated above CVS: No chest pain. No palpitations. No leg swelling. RS: Positive for shortness of breath when lying flat. No Wheezing. No cough. FITTER UP: No loss of consciousness. No focal motor or sensory loss. Hematology: No easy bruising. No gum bleeding. Musculoskeletal: Positive for right ankle pain since injury 5 days ago. : No hematuria. No burning sensation of the urine. ENT: No ear discharge/pain. No dysphagia. Eyes: No photophobia. Skin: Noted skin changes in both lower limbs with hyper pigmentation. Home medications: reviewed. On an anticoagulant: Eliquis. Medical h/o: As above. Surgical h/o: None on abdomen. Social h/o: Heavy alcohol use with 3-4 shots and 6 beers daily, quit 8 years ago. 1-2ppd smoker from age 15, quit 35 years ago. Denies IVDA/other illicit substances Family h/o of GI cancers - Pt unsure of family hx Prior Endoscopies: None Prior GI evaluations: seen by Dr. Green (outside [facility] GI for suspected alcoholic cirrhosis). Patient does not actively follow with GI Exam: Vitals: reviewed General: Alert and oriented x 3, not in acute distress HEENT: No pallor, no icterus. Normal oropharynx, No cervical lymphadenopathy. Chest: symmetric with bilateral air entry, clear to auscultation. CVS: irregularly irregular, normal S1 and S2 no murmurs. Abdomen: Distended, soft, non-tender, no rigidity or guarding, no palpable masses, normal bowel sounds auscultated. Rectal exam: Deferred at this time. Extremities: Pulses palpable. 2+ pitting edema bilateral lower extremities up to the mid calf. FITTER UP: No focal motor or sensory deficits. Moves all extremities Skin: No jaundice. Bilateral venous stasis changes on the calfs. Labs: reviewed. Imaging: reviewed. Patient did undergo inpatient paracentesis yesterday with approximately 12.5 L removed. Fluid analysis reviewed in [employer]. Impression: -- 79 year old male patient with atrial fibrillation on anticoagulation, remote heavy alcohol use and suspected liver cirrhosis, presented with gradually worsening abdominal distention, therapeutic paracentesis is done - which showed SAAG <1.1 and patient having worsening Creatinine -- DDx-- Likely non-portal hypertensive ascites. DDx-- rule out nephrogenic vs CHF vs rule out malignant ascites ( high total protein levels). there is no evidence of hepatic encephalopathy and no alcoholic hepatitis, and less likely hepatorenal syndrome. Recommendations: -- Avoid NSAIDs -- Consider Ultrasound doppler of abdomen and evaluate for portal hypertension. -- Obtain ascitic fluid cytology -- Cardiac and renal work up and management as per the cardiology and nephrology respectively. -- Patient is educated about the need for EGD and Colonoscopy procedures. Patient is explained in detail about the indications, risks, benefits and alternative. Patient did not want to do those at this time. He want to think about EGD in future. -- Fluid restriction and low sodium diet -- Diuretic therapy as tolerated by renal function. -- poor prognosis discussed with patient. -- Upon discharge patient to follow up with his primary GI clinic. -- Routine liver care as outpatient. Plan of care discussed with patient and primary team. Patient verbalized understanding and agreed with the plan. Vital Signs/I&O Vital Signs Date Time Temp Pulse Resp B/P (MAP) Pulse Ox O2 Delivery O2 Flow Rate FiO2 09/19/20 11:55 98.4 73 18 115/58 (77) 97 Room Air I&O- Last 24 Hours up to 6 AM 09/19/20 05:59 Intake Total 530.0 ml Output Total 2100 ml Balance -1570.0 ml Laboratory Data Labs 24H Laboratory Tests 2 09/18/20 17:48: Anion Gap 12, Glomerular Filtration Rate 18.3L, Calcium Level 9.0 09/18/20 23:45: Anion Gap 10, Glomerular Filtration Rate 18.6L, Calcium Level 8.8 09/19/20 05:18: Anion Gap 10, Glomerular Filtration Rate 19.3L, Calcium Level 8.6L, Immature Granulocyte % (Auto) 0.5, Neutrophils (%) (Auto) 84.6H, Lymphocytes (%) (Auto) 4.3L, Monocytes (%) (Auto) 10.5H, Eosinophils (%) (Auto) 0.0, Basophils (%) (Auto) 0.1, Neutrophils # (Auto) 10.5H, Lymphocytes # (Auto) 0.5L, Monocytes # (Auto) 1.3H, Eosinophils # (Auto) 0.0, Basophils # (Auto) 0.0, Nucleated Red Blood Cells % (auto) 0.0, Prothrombin Time 25.0H, Prothromb Time International Ratio 2.21, Activated Partial Thromboplast Time 40.0H, Magnesium Level 2.8H, Total Bilirubin 0.8, Aspartate Amino Transf (AST/SGOT) 8, Alanine Aminotransferase (ALT/SGPT) 11L, Alkaline Phosphatase 91, Total Protein 6.7, Albumin 2.5L, Albumin/Globulin Ratio 0.6 09/19/20 11:29: Urine Random Creatinine 38.1, Urine Random Sodium 54 CBC/BMP Laboratory Tests 09/18/20 17:48 09/18/20 23:45 09/19/20 05:18 Microbiology Microbiology 09/18/20 Fungal Smear, Received Pending 09/18/20 Fungal Culture, Received Pending 09/18/20 Anaerobic Culture, Received Pending 09/18/20 Gram Stain - Final, Resulted 09/18/20 Body Fluid Culture, Resulted Pending Allergies Coded Allergies: shellfish derived (Verified Allergy, Severe, FACIAL SWELLING, 09/18/20) Home Medications Scheduled Apixaban (Eliquis) 5 Mg Tablet, 5 MG PO BID, (Reported) Levothyroxine Sodium (Levothyroxine Sodium) 75 Mcg Tablet, 75 MCG PO DAILY, (Reported) Metformin HCl (Metformin HCl) 1,000 Mg Tablet, 1,000 MG PO DAILY, (Reported) Multivit,Calc,Mins/Iron/Folic (Thera-M Tablet) 1 Each Tablet, 1 TAB PO DAILY, (Reported) Pantoprazole Sodium (Protonix) 20 Mg Tablet.dr, 20 MG PO DAILY for 30 Days, #30 Ropinirole HCl (Ropinirole HCl) 0.25 Mg Tablet, 0.25 MG PO QHS, (Reported) Tamsulosin Hcl (Tamsulosin HCl) 0.4 Mg Capsule, 0.4 MG PO DAILY, (Reported) Scheduled PRN Morphine Sulfate (Morphine Sulfate) 2 Mg/1 Ml Vial, 1 MG IV Q6H PRN for MODERATE PAIN (PS 5-7) for 1 Days, #1 Ondansetron (Ondansetron Odt) 4 Mg Tab.rapdis, 4 MG SL Q6HP PRN for NAUSEA OR VOMITING for 2 Days, #4 ANEEM HYDE D.O. Sep 19, 2020 14:53 LUIS CARBONE MD Sep 22, 2020 16:16
--- NOTE | 2020-09-19 17:03 | IPNPDOC ---
Date Seen The patient was seen on 09/19/20. Progress Note SUBJECTIVE: Consulted GI to see while here, as patient has not followed up or plans on going back to [place] to see GI specialist. Cr slightly improved, on octreotide gtt. Denies chest pain, incr SOB, fevers, chills. PHYSICAL EXAMINATION: VITAL SIGNS: See below GENERAL APPEARANCE: NAD, resting in bed, AAOx3 HEENT: no thyromegaly, cervical lymphadenopathy. Poor dentition. Dry mucous membranes missing teeth. CARDIOVASCULAR: S1, S2, no M/r/G LUNGS: Diminished breath sounds, No W/r/R ABDOMEN: Distended, soft . Normoactive bowel sounds 4 quadrants. Unable to assess for hepatosplenomegaly. No rebound or guarding, nontender EXTREMITIES: Clubbing is noted. Bilateral fingernails both hands, 3+ pitting edema to the sacrum. Chronic venous stasis changes right forearm peripheral iv- no erythema or tenderness. NEURO: No focal deficits, CN 2-12 intact LABORATORY DATA: See below. IMAGING: CT abd/pelvis: Large amount of diffuse abdominal and pelvic ascites. Small left pleural effusion. Mild splenomegaly. MICROBIOLOGY: Paracentesis fluid cx pending ASSESSMENT: 79-year-old with PMH of alcoholic liver cirrhosis, hypertension, diabetes, chronic kidney disease stage III admitted for acute decompensated alcoholic liver cirrhosis, portal HTN, ascites, MAXIME on CKD. PLAN: Acute decompensated alcoholic liver cirrhosis with portal hypertension and ascites -Patient's meld score is 32 -Does not follow regularly with GI, only seen in [place] once -S/p Paracentesis 09/18/2020 for therapeutic purposes and diagnostic peritoneal fluid analysis, but per IR, not much removed. Not suspecting SBP -Unable to obtain but have requested records from [place] [facility] Dr. Green -S/p intravenous albumin infusions to improve intravascular volume -C/w octreotide gtt, rifaximine, midodrine, strict I's and O's, daily weights Oliguric Acute on chronic kidney disease stage III -Cr 3.3, decreased from 3.4 -Per nephrology, it is unknown what this patient's baseline is, as he has told them that his numbers have been going up for some time. -C/w cruz catheter, monitor U/O closely -Holding home HCTZ, ACEi -Nephrology following closely -Daily labs Acute alcoholic steatohepatitis -Leonela's discriminant function of 62. -s/p iv solumedrol 09/17/20 -Po prednisone daily Chronic Atrial Fibrillation -rate controlled -C/w eliquis -Holding CCB and BB due to hypotension Hypotension likely 2/2 to decompensating liver disease -Hx of HTN -On midodrine -Monitor closely with fluid overload -Holding home antihypertensives. Diabetes -Insulin sliding scale, fingersticks before every meal and qhs -Consistent carbs /renal diet Hyperlipidemia -Not on home statin History of tobacco abuse -Obtain records from patient's primary care physician to determine if he has underlying emphysema or COPD or prior pulmonary function testing History of alcohol abuse -Now with decompensated end-stage liver cirrhosis with portal hypertension GI px -PPI DVT px -Eliquis DISPOSITION: GI and nephrology consulted, f/u recommendations. Plan is likely d/c home when medically improved. VS, I&O, 24H, Fishbone Vital Signs/I&O Vital Signs Date Time Temp Pulse Resp B/P (MAP) Pulse Ox O2 Delivery O2 Flow Rate FiO2 09/19/20 15:48 98.6 73 18 96/54 (68) 95 Room Air I&O- Last 24 Hours up to 6 AM 09/19/20 06:00 Intake Total 530.0 ml Output Total 2275 ml Balance -1745.0 ml Laboratory Data 24H LABS Laboratory Tests 2 09/18/20 17:48: Anion Gap 12, Glomerular Filtration Rate 18.3L, Calcium Level 9.0 09/18/20 23:45: Anion Gap 10, Glomerular Filtration Rate 18.6L, Calcium Level 8.8 09/19/20 05:18: Anion Gap 10, Glomerular Filtration Rate 19.3L, Calcium Level 8.6L, Immature Granulocyte % (Auto) 0.5, Neutrophils (%) (Auto) 84.6H, Lymphocytes (%) (Auto) 4.3L, Monocytes (%) (Auto) 10.5H, Eosinophils (%) (Auto) 0.0, Basophils (%) (Auto) 0.1, Neutrophils # (Auto) 10.5H, Lymphocytes # (Auto) 0.5L, Monocytes # (Auto) 1.3H, Eosinophils # (Auto) 0.0, Basophils # (Auto) 0.0, Nucleated Red Blood Cells % (auto) 0.0, Prothrombin Time 25.0H, Prothromb Time International Ratio 2.21, Activated Partial Thromboplast Time 40.0H, Magnesium Level 2.8H, Total Bilirubin 0.8, Aspartate Amino Transf (AST/SGOT) 8, Alanine Aminotransferase (ALT/SGPT) 11L, Alkaline Phosphatase 91, Total Protein 6.7, Albumin 2.5L, Albumin/Globulin Ratio 0.6 09/19/20 11:29: Urine Random Creatinine 38.1, Urine Random Sodium 54 CBC/BMP Laboratory Tests 09/18/20 17:48 09/18/20 23:45 09/19/20 05:18 Microbiology Microbiology 09/18/20 Fungal Smear, Received Pending 09/18/20 Fungal Culture, Received Pending 09/18/20 Anaerobic Culture, Received Pending 09/18/20 Gram Stain - Final, Resulted 09/18/20 Body Fluid Culture, Resulted Pending Current Medications Current Medications Medications (Trade) Dose Ordered Sig/Samantha Route PRN Reason Start Time Stop Time Status Last Admin Dose Admin Apixaban (Eliquis) 2.5 mg BID PO 09/18/20 09:00 09/19/20 08:35 Furosemide (LASIX injection) 40 mg Q4H IV 09/18/20 08:00 09/18/20 07:20 DC Heparin Sodium (Heparin (Flush)) 200 units ASDIRECTED PRN IV SEE LABEL COMMENTS 09/18/20 13:00 Heparin Sodium (Heparin (Flush)) 200 units PICC IV 09/18/20 18:00 09/19/20 16:37 Home Med (Med Rec Complete!) ASDIRECTED XX 09/17/20 13:00 09/17/20 12:55 DC Midodrine (Proamatine) 10 mg 08,12,16 PO 09/18/20 08:00 09/19/20 16:36 Midodrine (Proamatine) 10 mg 1400,1800 PO 09/17/20 14:00 09/17/20 18:01 DC 09/17/20 19:23 Octreotide Acetate 1200 mcg/ Sodium Chloride 240 ml @ 10 mls/hr Q24H IV 09/18/20 13:00 09/19/20 11:07 Oxycodone HCl (Roxicodone, Oxyir) 5 mg Q6HP PRN PO PAIN 09/17/20 17:30 2/9/21 06:28 Pantoprazole Sodium (Protonix) 40 mg BID IV 09/17/20 21:00 09/19/20 08:35 Prednisone (Deltasone) 60 mg DAILY PO 09/18/20 09:00 09/19/20 08:35 Rifaximin (Xifaxan) 400 mg BID PO 09/18/20 09:00 09/19/20 08:35 Sodium Chloride (Saline Lock Flush) 2 ml ASDIRECTED PRN IV SEE LABEL COMMENTS 09/17/20 16:30 Sodium Chloride (Saline Lock Flush) 2 ml SLF IV 09/17/20 22:00 09/19/20 14:05 Sodium Chloride (Saline Lock Flush) 10 ml ASDIRECTED PRN IV SEE LABEL COMMENTS 09/18/20 13:00 Sodium Chloride (Saline Lock Flush) 10 ml PICC IV 09/18/20 18:00 09/19/20 16:37 Allergies Coded Allergies: shellfish derived (Verified Allergy, Severe, FACIAL SWELLING, 09/18/20) Edel Stoll MD Sep 19, 2020 17:03
[2020-09-19 17:07] LABS: ANTI-SMOOTH MUSCLE ANTIBODY 13 Units (0-19); ANTINUCLEAR ANTIBODIES DIRECT Negative (Negative)
--- NOTE | 2020-09-19 20:56 | DS.PDOC ---
Discharge Summary General Date of Admission Sep 17, 2020 at 12:36 Date of Discharge 09/20/20 Attending Physician: Edel Stoll MD Vital Signs/I&Os Vital Signs Date Time Temp Pulse Resp B/P (MAP) Pulse Ox O2 Delivery O2 Flow Rate FiO2 09/19/20 20:42 18 09/19/20 20:00 99.1 93 100/55 (70) 95 Room Air I&O- Last 24 Hours up to 6 AM 09/19/20 06:00 Intake Total 530.0 ml Output Total 2275 ml Balance -1745.0 ml Laboratory Data Labs 24H Laboratory Tests 2 09/18/20 23:45: Anion Gap 10, Glomerular Filtration Rate 18.6L, Calcium Level 8.8 09/19/20 05:18: Anion Gap 10, Glomerular Filtration Rate 19.3L, Calcium Level 8.6L, Immature Granulocyte % (Auto) 0.5, Neutrophils (%) (Auto) 84.6H, Lymphocytes (%) (Auto) 4.3L, Monocytes (%) (Auto) 10.5H, Eosinophils (%) (Auto) 0.0, Basophils (%) (Auto) 0.1, Neutrophils # (Auto) 10.5H, Lymphocytes # (Auto) 0.5L, Monocytes # (Auto) 1.3H, Eosinophils # (Auto) 0.0, Basophils # (Auto) 0.0, Nucleated Red Blood Cells % (auto) 0.0, Prothrombin Time 25.0H, Prothromb Time International Ratio 2.21, Activated Partial Thromboplast Time 40.0H, Magnesium Level 2.8H, Total Bilirubin 0.8, Aspartate Amino Transf (AST/SGOT) 8, Alanine Aminotransferase (ALT/SGPT) 11L, Alkaline Phosphatase 91, Total Protein 6.7, Albumin 2.5L, Albumin/Globulin Ratio 0.6 09/19/20 11:29: Urine Random Creatinine 38.1, Urine Random Sodium 54 CBC/BMP Laboratory Tests 09/18/20 23:45 09/19/20 05:18 Microbiology Microbiology 09/18/20 Fungal Smear, Received Pending 09/18/20 Fungal Culture, Received Pending 09/18/20 Anaerobic Culture, Received Pending 09/18/20 Gram Stain - Final, Resulted 09/18/20 Body Fluid Culture, Resulted Pending Discharge Medications Scheduled Amlodipine Besylate (Amlodipine Besylate) 10 Mg Tablet, 10 MG PO DAILY, (Reported) Apixaban (Eliquis) 5 Mg Tablet, 5 MG PO BID, (Reported) Carvedilol (Carvedilol) 25 Mg Tablet, 25 MG PO BID, (Reported) Hydrochlorothiazide (Hydrochlorothiazide) 25 Mg Tablet, 25 MG PO DAILY, (Reported) Levothyroxine Sodium (Levothyroxine Sodium) 75 Mcg Tablet, 75 MCG PO DAILY, (Reported) Lisinopril (Lisinopril) 40 Mg Tablet, 40 MG PO DAILY, (Reported) Metformin HCl (Metformin HCl) 1,000 Mg Tablet, 1,000 MG PO DAILY, (Reported) Multivit,Calc,Mins/Iron/Folic (Thera-M Tablet) 1 Each Tablet, 1 TAB PO DAILY, (Reported) Ropinirole HCl (Ropinirole HCl) 0.25 Mg Tablet, 0.25 MG PO QHS, (Reported) Tamsulosin Hcl (Tamsulosin HCl) 0.4 Mg Capsule, 0.4 MG PO DAILY, (Reported) Allergies Coded Allergies: shellfish derived (Verified Allergy, Severe, FACIAL SWELLING, 09/18/20) Edel Stoll MD Sep 19, 2020 20:56
[2020-09-19] MEDS ORDERED: rOPINIRole 0.25 MG TAB(REQUIP) PO SCH (21:00)
[2020-09-19] MEDS ORDERED: ONDANSETRON 4 MG ORAL DISINTEGRATING TAB SL ONE (22:15)
[2020-09-19 23:08] LABS: CK-MB VALUE MASS 1.5 NG/ML (<3.6); CPK CREATINE PHOSPHOKINASE 37 U/L (39-308); MB/CK RELATIVE INDEX 4.05 (< OR =4); TROPONIN I < 0.02 NG/ML (< 0.10)
[2020-09-20] VITALS (12 sets, daily range): BP systolic 100–128; BP diastolic 56–74
[2020-09-20] MEDS ORDERED: ONDANSETRON 4MG/2ML VIAL IV PRN
[2020-09-20] MEDS ORDERED: ONDANSETRON 4MG/2ML VIAL IV ONE (00:15)
[2020-09-20 02:46] LABS: HEMATOCRIT 37.3 % (42.0-52.0); HEMOGLOBIN 11.3 g/dl (13.5-17.5); LYMPH # 0.4 10^3/uL (1.5-5.0); LYMPH % 4.7 % (24.0-44.0); MEAN CORPUSCULAR HEMOGLOBIN 23.4 pg (27.0-33.0); MEAN CORPUSCULAR HGB CONC 30.3 g/dl (32.0-36.5); MEAN CORPUSCULAR VOLUME 77.2 fl (80.0-96.0); MONO # 0.6 10^3/uL (0.0-0.8); MONO % 7.4 % (0.0-5.0); NEUTROPHILS # 7.2 10^3/uL (1.5-8.5); NEUTROPHILS % 87.2 % (36.0-66.0); PLATELET COUNT, AUTOMATED 209 10^3/uL (150-450); RED BLOOD COUNT 4.83 10^6/uL (4.30-6.10); WHITE BLOOD COUNT 8.2 10^3/uL (4.0-10.0)
[2020-09-20 02:57] LABS: INR 2.13; PARTIAL THROMBOPLASTIN TIME 38.4 SECONDS (24.2-38.5); PROTHROMBIN TIME 24.3 SECONDS (12.5-14.3)
[2020-09-20 03:08] LABS: ALBUMIN 2.9 GM/DL (3.2-5.2); ALT/SGPT 11 U/L (12-78); BLOOD UREA NITROGEN 88 MG/DL (7-18); CALCIUM LEVEL 9.1 MG/DL (8.8-10.2); CARBON DIOXIDE LEVEL 26 MEQ/L (21-32); CHLORIDE LEVEL 104 MEQ/L (98-107); CK-MB VALUE MASS 1.6 NG/ML (<3.6); CPK CREATINE PHOSPHOKINASE 32 U/L (39-308); CREATININE FOR GFR 2.91 MG/DL (0.70-1.30); GLOMERULAR FILTRATION RATE 22.4 (>42); GLUCOSE, FASTING 275 MG/DL (70-100); MAGNESIUM LEVEL 2.7 MG/DL (1.8-2.4); POTASSIUM SERUM 4.2 MEQ/L (3.5-5.1); SODIUM LEVEL 139 MEQ/L (136-145); TOTAL PROTEIN 7.2 GM/DL (6.4-8.2); TROPONIN I < 0.02 NG/ML (< 0.10)
[2020-09-20] MEDS: SLF 3 ML SYR IV SCH ×2 (05:57→13:04)
[2020-09-20] MEDS ORDERED: LEVOTHYROXINE 75MCG TABLET (0.075MG) PO SCH (06:00)
--- NOTE | 2020-09-20 07:42 | ECGEPIP ---
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
[2020-09-20] MEDS: MIDODRINE 5 MG TAB PO SCH ×2 (08:47→13:04)
[2020-09-20] MEDS: APIXABAN 2.5 MG TAB (ELIQUIS) PO SCH (08:47)
[2020-09-20] MEDS: PANTOPRAZOLE 40MG VIAL (C9113 PER 1) IV SCH (08:47)
[2020-09-20] MEDS: SODIUM CHLORIDE 0.9% INJ 10 ML SYR IV SCH ×2 (08:47→18:30)
[2020-09-20] MEDS: predniSONE 20 MG TAB PO SCH (08:47)
--- NOTE | 2020-09-20 09:27 | IPN ---
PROGRESS NOTE DATE: 09/19/2020 SUBJECTIVE: The patient is seen and examined this morning at the bedside. His urine output is significantly improving. He denies any shortness of breath at rest. PHYSICAL EXAMINATION: VITAL SIGNS: Temperature 98.0, pulse 73, respiratory rate 16, blood pressure 118/56, saturating 95% on room air. INTAKE AND OUTPUT: Intake yesterday was 530, urine output yesterday was 1975. Urine output thus far today is already more than 2.5 liters. Weight on the bed scale today is 80.6 kg. GENERAL APPEARANCE: The patient is seen sitting up in bed, elderly, frail male with bitemporal wasting, poor dentition. HEENT: Extraocular muscles are intact. Tongue is moist. NECK: Jugular veins are elevated. HEART: Heart sounds are S1 and S2, irregularly irregular with 1 to 2+ peripheral edema. LUNGS: Symmetric breath sounds which are diminished at the bases bilaterally. No accessory muscle use or tachypnea, seen comfortable on room air. ABDOMEN: Significantly distended and there is at least moderate ascites present. GENITOURINARY: Indwelling Cummings catheter. EXTREMITIES: Chronic venous stasis changes of the legs along with 1 to 2+ leg edema. NEUROLOGIC: He is oriented x3 and is at baseline mentation. LABORATORY DATA: Sodium is 137, potassium 4.8, bicarbonate 24, BUN 96, creatinine 3.3, magnesium 2.8, albumin 2.5, hemoglobin 10.8. INPATIENT MEDICATIONS: Patient continues on Octreotide drip, Midodrine 10 mg p.o. three times a day. He continues on albumin infusions, Eliquis, Synthroid, Protonix, prednisone 60 mg p.o. daily and he was started by primary team on Ropinirole 0.25 mg p.o. q.h.s. The remainder of medications are unchanged as compared to yesterday. PROBLEMS: 1. Non-oliguric acute renal failure superimposed on CKD Stage IIIB with baseline creatinine of 1.6 to 2.0. Patient reports heavy NSAID use at home prior to this admission (Ibuprofen 600 mg p.o. twice daily for at least one week). He also has decompensated cirrhosis with ascites and is status post his first large volume paracentesis was 12.5 liters of fluid drained yesterday. His ascitic cell count was not suspicious for peritonitis. He is being treated with Midodrine, Octreotide infusion and albumin q. 8 hourly and I note that his urine output is improving nicely. I would hold off on diuretic at this time. 2. Decompensated alcoholic liver cirrhosis with large volume ascites status post 12.5 liter therapeutic and diagnostic paracentesis. Continue at this time Midodrine, albumin and Octreotide. He is also on Rifaximin by the primary service and he is also on prednisone by the primary service. 3. Fluid overload in the setting of decompensated cirrhosis. I see no echocardiogram in the system. He is not suitable for diuresis at this time due to very large volume paracentesis yesterday (12.5 liters) and concomitant kidney injury in the setting of heavy NSAID use and cirrhosis. However, he does appear to be having improved urine output on the current treatment plan. 4. Hypertension. Blood pressures are all acceptable and he is not suitable for NAJMA or ARB going forward given that he is a cirrhotic patient with high risk of kidney injury. He does continue on Midodrine at this time because of hypotension associated with decompensated cirrhosis.
[2020-09-20] MEDS: OCTREOTIDE ACETATE 1,200 MCG in NS 238.8 ML IV SCH (10:25)
--- NOTE | 2020-09-20 11:36 | ECHO ---
DATE OF PROCEDURE: 09/18/2020 Age: 79 Gender: Male Height: 71 inches Weight: 209 pounds Body Surface Area: 2.15 m2 PATIENT LOCATION: Inpatient PCU Room 3225. REFERRING PHYSICIAN: Lizz Boss MD. INDICATION: Edema. MEASUREMENTS: 2D Measurements: RV 4.6 cm. LV 4.3 cm Septum 1.2 cm Posterior wall 1.2 cm Aortic Root 3.2 cm LA 4.0 cm LVEF 65% Doppler Measurements: AV 3.59 m/s LVOT velocity 0.79 m/s LVOT diameter 1.8 cm Mean AV systolic gradient 33 mmHg Dimensionless index 0.22 MV-E 108 Early mitral deceleration time 206 msec E prime medial 7.1, E prime lateral 10 Average E/E prime ratio 12.6/PCWP 17.6 mmHg PV 0.4 m/s Pulmonary artery acceleration time 66 msec RVSP 67 mmHg IVC 2.8 cm COMMENTS: Underlying atrial fibrillation with controlled ventricular response. No intraventricular conduction disturbance. M-mode and 2-dimensional echocardiography was performed with pulse, continuous wave, color flow, and tissue Doppler studies. Mild concentric left ventricular hypertrophy with slight straightening of the septum suggestive of a right ventricular pressure overload yet preserved global resting left ventricular systolic function. Mildly dilated left atrium with current estimated mean left atrial pressure borderline increased. At least mildly dilated right ventricle and moderately dilated right atrium with Doppler evidence of severe pulmonary hypertension. Prominently dilated inferior vena cava with absent respiratory collapse in keeping with significantly elevated central venous pressure/right heart failure. Normal aortic dimensions. Severely thickened three equal size aortic cusps with reduced cusp separation and Doppler evidence of severe aortic stenosis. No apparent insufficiency. Mildly thickened mitral valvular apparatus with adequate leaflet excursion and no posterior systolic buckling but moderate mitral insufficiency. Normal appearing tricuspid valve with moderately severe insufficiency. No apparent intracardiac mass or pericardial effusion. Based on the above test findings we would recommend consideration of referral for cardiac catheterization and tentative aortic valve replacement, possibly transaortic. MTDD
--- NOTE | 2020-09-20 11:39 | CR ---
CONSULTATION DATE: 09/18/2020 REQUESTING PHYSICIAN: BRANDON ACUÑA MD REASON FOR CONSULTATION: MAXIME superimposed on CKD Stage IIIB in this patient with hyperkalemia and decompensated cirrhosis with large volume ascites. HISTORY OF PRESENT ILLNESS: Naeem Robbins is previously unknown to me. He is a 79-year-old male with a past medical history of alcoholic liver cirrhosis with first lifetime paracentesis done today (12.5 liters of ascitic fluid removed), hypertension, Type 2 diabetes mellitus, hypothyroidism, CKD Stage IIIB with baseline creatinine 1.6 to 2.0 and other comorbid conditions mentioned below. The patient tells me that since the new year he has had progressive abdominal distention, weight gain and leg edema and that his water pills have been adjusted by his primary care provider. He also complains of a lot of pain and tenderness in his foot and says he was taking Ibuprofen 600 mg twice daily for at least one week. His foot pain was not subsiding and he also had increased dyspnea even at rest and subsequently came to the Emergency Room where he was found to have acute renal failure with potassium of 5.9, BUN 95 and creatinine of 3.3. His most recently prior blood work was in May 2020 which showed a creatinine of about 1.7. CT of the abdomen and pelvis subsequently demonstrated extremely large amount of abdominopelvic ascites along with an enlarged prostate. Cummings catheter was placed and primary team started the patient on albumin infusions along with Midodrine as his systolic blood pressures were mostly in the 90s and serum albumin was only 2.5. He had a large volume paracentesis this morning with 12.5 liters of fluid removed. His renal function shows no improvement and Nephrology evaluation was subsequently requested. PAST MEDICAL HISTORY: Alcoholic liver cirrhosis with ascites, hypertension, Type 2 diabetes mellitus, CKD Stage IIIB, baseline creatinine from 1.6 to 2.0, hypothyroidism, enlarged prostate, iron deficiency anemia. PAST SURGICAL HISTORY: Paracentesis x1. SOCIAL HISTORY: Lives with his significant other. 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 History of alcohol abuse. Drinks three to four shots a day. He is an ex-smoker. FAMILY HISTORY: Denies a family history of kidney failure. ALLERGIES: Shellfish. HOME MEDICATIONS: 1. Amlodipine 10 mg p.o. daily. 2. Eliquis 5 mg p.o. b.i.d. 3. Carvedilol 25 mg p.o. b.i.d. 4. Hydrochlorothiazide 25 mg p.o. daily. 5. Levothyroxine 75 mcg p.o. daily. 6. Lisinopril 40 mg p.o. daily. 7. Metformin 1000 mg p.o. daily. 8. Ropinirole 0.25 mg p.o. q.h.s. 9. Flomax 0.4 mg p.o. daily. REVIEW OF SYSTEMS: Constitutional: He reports fatigue. He denies fevers or chills. Eyes: He denies visual changes or tearing. ENT: He denies rhinorrhea or epistaxis. Cardiac: He reports leg swelling, shortness of breath or dyspnea. He could not tell me why he is on anticoagulant. Respiratory: He reports shortness of breath. He denies hemoptysis. Gastrointestinal: He reports cirrhosis and ascites and first of paracentesis. He denies nausea or vomiting. Musculoskeletal: He reports foot pain along with NSAID use. He denies a history of gout. Endocrine: He reports diabetes and hypothyroidism. Hematologic: There is iron deficiency anemia. The patient is on anticoagulant. Neurologic: He denies seizures or syncope. Psychiatric: He denies anxiety or depression. The remainder of the review of systems was negative or as per HPI. PHYSICAL EXAMINATION: VITAL SIGNS: Temperature 97.0, pulse 76, respiratory rate 20, blood pressure is 106/57, saturating 94 to 97% on room air. Intake was not recorded. Urine output thus far today was 1.4 liters. Weight on the bed scale today is 95.9 kg. GENERAL: The patient is seen lying on the stretcher, awake, alert and oriented, frail male in no apparent distress. He is cachectic with bitemporal wasting. HEENT: Extraocular muscles are intact. There is poor dentition. Mucous membranes are moist. NECK: Supple. Jugular veins are elevated. HEART: Heart sounds are regular S1 and S2. There is 2+ pitting edema in the peripheries. LUNGS: Symmetric air entry. No crackles or rales. ABDOMEN: Soft. He has just had a large volume paracentesis. GENITOURINARY: Indwelling Cummings catheter with clear yellow urine. NEUROLOGIC: He is oriented x3, interactive and at baseline mentation. LABORATORY DATA: Hemoglobin is 9.7, platelets are 203,000, sodium 136, potassium 5.6, bicarbonate 22, BUN 100, creatinine is 3.4. Total bilirubin 1.3. Albumin 2.9. BNP 24,000. Urinalysis negative for blood. Negative for protein. Ultrasound guided paracentesis removed 12.5 liters of fluid today. Chest x-ray today shows vascular congestion with interstitial edema. Renal ultrasound shows Cummings catheter and collapsed bladder and no other significant finding. INPATIENT MEDICATIONS: 1. Octreotide drip. 2. Eliquis 2.5 mg p.o. b.i.d. 3. Lasix 60 mg IV x1. 4. Midodrine 10 mg p.o. three times a day. 5. Oxycodone p.r.n. 6. Protonix 40 mg IV b.i.d. 7. Prednisone 60 mg p.o. daily. 8. Rifaximin 400 mg p.o. b.i.d. 9. Kayexalate 30 grams p.o. x1. PROBLEMS: 1. Acute kidney injury superimposed on CKD Stage IIIB. Review of prior labs from May 2020 shows baseline creatinine 1.6 to 2.0. Patient notes recent heavy NSAID use at home (Ibuprofen 600 mg twice daily for the past one week). He is also admitted with decompensated cirrhosis and status post first lifetime large volume paracentesis with 12.5 liters of fluid drained from the abdomen this morning. Renal failure is most likely due to NSAID use along with decompensated cirrhosis. He has as Cummings catheter placed and his urine output is adequate with 1.5 liters. I would hold off on any diuretic at this time given that the patient just had a large volume paracentesis. Please continue with albumin infusion. The patient is ordered for 25% albumin 25 grams x6 doses. He is also appropriately on Midodrine and Octreotide. There is no urgent indication for dialysis and indeed he would be a very poor candidate for dialysis given his concomitant liver failure. His current kidney injury is related to NSAID use at home along with NAJMA inhibitor and in the setting of decompensated cirrhosis. Please keep him off any nephrotoxic at this time. 2. Hyperkalemia. It is related to renal failure and use of Lisinopril and high dose Ibuprofen at home in the setting of decompensated cirrhosis. He has received a dose of Kayexalate and his hyperkalemia is slowly improving. He is making urine. He did receive one dose of Lasix this morning. I would hold off on further Lasix at this time given he just had a very large volume paracentesis earlier today. There is no significant acidosis predisposing him to hyperkalemia at this time. 3. Decompensated alcoholic liver cirrhosis with very large volume ascites. Patient is status post 12.5 liter large volume paracentesis. He is receiving albumin, he is receiving Midodrine and Octreotide, hold diuretic at this time. His MELD score is significantly elevated at 30. Primary team has started him also on steroids. His blood urea nitrogen may continue to rise with high dose steroids. 4. Coagulopathy related to alcoholic liver cirrhosis with supratherapeutic INR. He is on Protonix prophylaxis. His hemoglobin is stable. He is not thrombocytopenic. 5. Hypotension. It is mostly like due to cirrhosis. Otherwise I see no infectious signs. There is no leukocytosis. There is no fever. His cultures are pending. His ascitic cell count is noted. He is already appropriately on Midodrine and albumin. Thank you for involving me in the care of Mr. Rbobins. I would be happy to follow him along with you.
[2020-09-20] MEDS: MORPHINE 2 MG/ML 1ML VIAL (J2270) IV PRN ×2 (11:50→18:30)
[2020-09-20 12:05] LABS: C REACTIVE PROTEIN QUANTITATIV 7.04 MG/DL (0.00-0.30)
--- NOTE | 2020-09-20 12:49 | REP ---
INDICATION: WITHOUT CONTRAST, r/o fx. COMPARISON: None. TECHNIQUE: Axial CT right ankle performed, with sagittal and coronal reconstruction images. FINDINGS: There is a tiny calcific density adjacent to the inferolateral cuboid bone. A tiny avulsion fracture cannot totally be excluded. There are 2 tiny calcific densities just distal to the medial malleolus. Tiny avulsion fractures cannot be excluded. Otherwise no acute fracture or dislocation is seen. The ankle mortise is anatomic. There is moderate calcification in the distal Achilles tendon. There is mild inferior calcaneal spurring. There is mild arthritic change at the talocalcaneal joint with mild joint space narrowing, subchondral sclerosis and cystic change. There is diffuse edema in the soft tissues. There is mild joint effusion at the tibiotalar joint. IMPRESSION: Tiny calcific density adjacent to the inferolateral cuboid bone. Two tiny calcific densities just distal to the medial malleolus. Tiny avulsion fractures cannot be excluded. <Electronically signed by Gatito Isaacs > 09/20/20 [id number]
--- NOTE | 2020-09-20 12:55 | REP ---
INDICATION: WITHOUT CONTRAST, r/o fx. COMPARISON: None. TECHNIQUE: Axial CT right foot performed with sagittal and coronal reconstruction images. FINDINGS: Tiny calcific density at the inferolateral margin of the cuboid bone could represent a tiny avulsion fracture. Similarly a tiny calcific density at the medial base of the 1st proximal phalanx could represent a tiny avulsion fracture. There is no other evidence of acute fracture or dislocation. There is mild degenerative change at the 1st metatarsophalangeal joint. There is mild diffuse edema and soft tissues. IMPRESSION: Tiny calcific density adjacent to the inferolateral cuboid bone and another along the medial base of the 1st proximal phalanx could represent tiny avulsion fractures, of indeterminate age. No other evidence of acute fracture or dislocation. <Electronically signed by Gatito Isaacs > 09/20/20 [id number]
[2020-09-20] MEDS: ONDANSETRON 4 MG ORAL DISINTEGRATING TAB SL PRN ×2 (13:04→21:02)
--- NOTE | 2020-09-20 16:34 | DS.PDOC ---
Discharge Summary General Date of Admission Sep 17, 2020 at 12:36 Date of Discharge 09/20/20 Attending Physician: Edel Stoll MD Discharge Summary HISTORY OF PRESENT ILLNESS: 79-year-old M with PMH alcohol abuse, liver cirrhosis, hypertension, diabetes, chronic kidney disease stage III ,previously seen in [place] by adult basic education teacher named Dr. KNOWLES, was taken off his to diuretics by his primary care physician for the past 2 months and has had increasing lower extremity edema, abdominal distention, 30 pound weight gain and shortness of breath, unable to lie down flat in bed and has been sleeping on his side over 3- 4 pillows at home. Patient's balance has been compromised and he fell down and injured his right foot which prompted him to come to the emergency room. Patient said that when he tried to get up. His foot was very crampy and he felt like he lost some strength when he tried to sit and stand. He fell on his right side, landing on the dresser without any head trauma, loss of consciousness or lacerations. In the ER he was found to be in decompensated liver failure with increased abdominal girth, 3+ pitting edema to the sacrum. CT abdomen and pelvis showed large amount of ascites. Chest x-ray shows vascular congestion and bilateral pleural effusions. Patient otherwise denies any fevers, chills, cough, nausea, vomiting. He complains of abdominal pain which is diffuse, rated at 3 out of 10, achy. He has not taken any medications for abdominal pain. Denies any recent history of GI bleed. Denies any coffee-ground emesis, hematemesis, bright red blood per rectum, melena, or black tarry stools. He denies any dizziness or lightheadedness, chest pain, pressure, tightness. He also denies any dysuria, urgency, frequency. He admits to having loss of appetite but has had some weight gain. His usual weight is 175 pounds and currently he is 205 pounds. Hospitalist was asked to admit the patient for acute liver cirrhosis with refractory ascites, bilateral pleural effusions, ? CHF with elevated BNP, acute on chronic renal failure, creatinine of 3.4, hyperkalemia, coagulopathy with INR of 3.38 with elevated bilirubin and aminotransferases. HOSPITAL COURSE: Patient was treated for acute liver cirrhosis with severe ascites. States last alcohol drink was 8 years ago. He does not follow regularly with GI, only seen in [place] once. On 09/18/2020 he went for paracentesis and 12 L removed, for therapeutic purposes and diagnostic peritoneal fluid analysis. Not suspecting SBP. We were unsuccessful at obtaining requested records from [place] [facility] Dr. Knowles, have sent several requests. Dr. Pagan (gastroenterology) consulted here and believed this didn't look like alcoholic hepatitis or advanced liver disease per ascitic fluid analysis- therefore unlikely hepatorenal syndrome with MAXIME. The steroids he was previously on were stopped. He was treated with intravenous albumin infusions to improve intravascular volume as he remained slightly hypotensive this stay. Octreotide gtt, rifaximine, midodrine were also stopped. Strict I's and O's, daily weights were ordered. Nephrology followed closely for oliguric acute on chronic kidney disease stage III, Cr improved with cruz cath alone to 2.9. Per nephrology, it is unknown what this patient's baseline is, as he has told them that his numbers have been going up for some time. He was unable to be diuresed due to MAXIME but numbers improved with only rcuz catheter, monitoring U/O closely. His home HCTZ, ACEi was held. BNP was >24K, echocardiogram ordered. On 09/19/20 preliminary report was called to Dr. Stoll (myself) with concerning results: severe pulmonary HTN, EF 65%, severe , IVC 2.8 cm. Acute on chronic HFpEF (EF 65%) possible cardiac cirrhosis in addition to new findings of severe pulmonary HTN (PAP 67), severe (diameter 0.22). When further discussed with GI, this would explain ascitic fluid findings. Cardiology recommended transfer for cardiac cath, assessment for c ardiac surgery with findings above. Official echo report is currently being transcribed. On 09/20/20 [facility] was called, discussed case with Dr. Jones in great detail. He was ultimately transferred to [facility] under the care of Dr. Jones, hospitalist. At time of transfer, patient denied chest pain, n/v/d, shortness of breath, fevers, chills. PAST MEDICAL HISTORY: Hypertension, diabetes, hypercholesterolemia, alcoholic liver cirrhosis, chronic kidney disease stage III PAST SURGICAL HISTORY: None SOCIAL HISTORY: Lives with significant other named Shira Bryan not legally , phone number [phone]. Patient is DO NOT RESUSCITATE, DO NOT INTUBATE. History of alcohol abuse 3-4 shots a day. 6 pack every day for over 50 years, quit 8 years ago, previous smoker, 1-1/2-2 packs a day since the age of 15, quit 30 years ago. Retired, worked in [employer] industry FAMILY HISTORY: Unknown medical history. Patient left home as a teenager and had lost contact ALLERGIES: Please see below. DISCHARGE MEDICATIONS: Please see below. PHYSICAL EXAMINATION: VITAL SIGNS: See below GENERAL APPEARANCE: NAD, resting in bed, AAOx3 HEENT: no thyromegaly, cervical lymphadenopathy. Poor dentition. Dry mucous membranes missing teeth. CARDIOVASCULAR: S1, S2, no M/r/G LUNGS: Diminished breath sounds, No W/r/R ABDOMEN: Distended, soft . Normoactive bowel sounds 4 quadrants. Unable to assess for hepatosplenomegaly. No rebound or guarding, nontender EXTREMITIES: Clubbing is noted. Bilateral fingernails both hands, 3+ pitting edema in lower ext. Chronic venous stasis changes right forearm peripheral iv-no erythema or tenderness. NEURO: No focal deficits, CN 2-12 intact LABORATORY DATA: See below. IMAGING: CT right foot without: Tiny calcific density adjacent to the inferolateral cuboid bone and another along the medial base of the 1st proximal phalanx could represent tiny avulsion fractures, of indeterminate age. No other evidence of acute fracture or dislocation. CT right ankle without: Tiny calcific density adjacent to the inferolateral cuboid bone. Two tiny calcific densities just distal to the medial malleolus. Tiny avulsion fractures cannot be excluded. Echocardiogram: EF 65% Underlying atrial fibrillation with controlled ventricular response. No intraventricular conduction disturbance. M-mode and 2-dimensional echocardiography was performed with pulse, continuous wave, color flow, and tissue Doppler studies. Mild concentric left ventricular hypertrophy with slight straightening of the septum suggestive of a right ventricular pressure overload yet preserved global resting left ventricular systolic function. Mildly dilated left atrium with current estimated mean left atrial pressure borderline increased. At least mildly dilated right ventricle and moderately dilated right atrium with Doppler evidence of severe pulmonary hypertension. Prominently dilated inferior vena cava with absent respiratory collapse in keeping with significantly elevated central venous pressure/right heart failure. Normal aortic dimensions. Severely thickened three equal size aortic cusps with reduced cusp separation and Doppler evidence of severe aortic stenosis. No apparent insufficiency. Mildly thickened mitral valvular apparatus with adequate leaflet excursion and no posterior systolic buckling but moderate mitral insufficiency. Normal appearing tricuspid valve with moderately severe insufficiency. No apparent intracardiac mass or pericardial effusion. Based on the above test findings we would recommend consideration of referral for cardiac catheterization and tentative aortic valve replacement, possibly transaortic. CT abd/pelvis: Large amount of diffuse abdominal and pelvic ascites. Small left pleural effusion. Mild splenomegaly. MICROBIOLOGY: ascites fluid cx: NG ASSESSMENT: 79-year-old with PMH of alcoholic liver cirrhosis, hypertension, diabetes, chronic kidney disease stage III admitted for acute decompensated liver cirrhosis, alcohol abuse hx, portal HTN, ascites, MAXIME on CKD. Transferring today to [facility]. 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 -BNP >24K, trop neg -Echo above -Cardiology recommended transfer for cardiac cath, assessment for cardiac surgery with findings above -Holding off on BB due to soft BP, have been unable to diurese due to MAXIME, cruz in place Liver cirrhosis r/o 2/2 to cardiac cirrhosis vs. alcohol related -Patient's meld score is 32 -Quit alcohol 8 years ago per patient -Does not follow regularly with GI, only seen in [place] once. Unable to obtain but have requested records from [place] [facility] Dr. Knowles -S/p Paracentesis (12 L removed) 09/18/2020 for therapeutic purposes and diagnostic peritoneal fluid analysis. Not suspecting SBP -S/p intravenous albumin infusions to improve intravascular volume early this admission -GI here has seen him, do not believe he has advanced liver disease. Cirrhosis could be also from alcohol but possibly from cardiac cause with findings on echo? -C/ed octreotide gtt, rifaximine, midodrine. C/w Strict I's and O's, daily weights Acute on chronic kidney disease stage III possibly 2/2 to severe CHF- no longer suspecting hepatorenal syndrome -With ascitic fluid analysis fluid findings, unlikely 2/2 to hepatorenal syndrome -Cr 2.9, decreased from 3.4 -Per nephrology, it is unknown what this patient's baseline is, as he has told them that his numbers have been going up for some time. -Has cruz catheter, monitoring U/O closely -Holding home HCTZ, ACEi -Nephrology was consulted here Avulsion fractures of inferolateral cuboid bone and medial base of the 1st proximal phalanx -Please see CT above -Curbsided orthopedic surgery here. As patient was on way to be transferred, recommend hard soled shoe, pain control for now. -Would benefit from equalizer boot by orthopedics upon arrival to [facility], official ortho consult. -NWB on RLE for now Chronic Atrial Fibrillation -Rate controlled -C/w eliquis -Holding CCB and BB due to hypotension Hypotension likely 2/2 to decompensating liver disease -Hx of HTN -On midodrine -Monitor closely with fluid overload -Holding home antihypertensives. Diabetes -Insulin sliding scale, fingersticks before every meal and qhs -Consistent carbs /renal diet Hyperlipidemia -Not on home statin History of tobacco abuse -Obtain records from patient's primary care physician to determine if he has underlying emphysema or COPD or prior pulmonary function testing History of alcohol abuse -Now with decompensated end-stage liver cirrhosis with portal hypertension GI px -PPI DVT px -Eliquis DISPOSITION: Transferring today to [facility], Dr. Jones, Hospitalist TOTAL TIME SPENT ON DISCHARGE: 40 mins. Vital Signs/I&Os Vital Signs Date Time Temp Pulse Resp B/P (MAP) Pulse Ox O2 Delivery O2 Flow Rate FiO2 09/20/20 14:43 98.3 78 20 124/61 94 Room Air I&O- Last 24 Hours up to 6 AM 09/20/20 06:00 Intake Total 1224.0 ml Output Total 2800 ml Balance -1576.0 ml Laboratory Data Labs 24H Laboratory Tests 2 09/19/20 22:30: Total Creatine Kinase 37L, Creatine Kinase MB 1.5, Creatine Kinase MB Relative Index 4.05H, Troponin I < 0.02 09/20/20 02:26: Total Creatine Kinase 32L, Creatine Kinase MB 1.6, Creatine Kinase MB Relative Index 5.00H, Troponin I < 0.02, Immature Granulocyte % (Auto) 0.7, Neutrophils (%) (Auto) 87.2H, Lymphocytes (%) (Auto) 4.7L, Monocytes (%) (Auto) 7.4H, Eosinophils (%) (Auto) 0.0, Basophils (%) (Auto) 0.0, Neutrophils # (Auto) 7.2, Lymphocytes # (Auto) 0.4L, Monocytes # (Auto) 0.6, Eosinophils # (Auto) 0.0, Basophils # (Auto) 0.0, Nucleated Red Blood Cells % (auto) 0.0, Prothrombin Time 24.3H, Prothromb Time International Ratio 2.13, Activated Partial Thromboplast Time 38.4, Anion Gap 9, Glomerular Filtration Rate 22.4L, Calcium Level 9.1, Magnesium Level 2.7H, Total Bilirubin 1.0, Aspartate Amino Transf (AST/SGOT) 6L, Alanine Aminotransferase (ALT/SGPT) 11L, Alkaline Phosphatase 91, Total Protein 7.2, Albumin 2.9L, Albumin/Globulin Ratio 0.7 09/20/20 11:32: Uric Acid 13.0H, C-Reactive Protein, Quantitative 7.04H 09/20/20 11:33: Erythrocyte Sedimentation Rate 15 CBC/BMP Laboratory Tests 09/20/20 02:26 Microbiology Microbiology 09/18/20 Fungal Smear, Received Pending 09/18/20 Fungal Culture, Received Pending 09/18/20 Anaerobic Culture - Final, Complete 09/18/20 Gram Stain - Final, Complete 09/18/20 Body Fluid Culture - Final, Complete Discharge Medications Scheduled Amlodipine Besylate (Amlodipine Besylate) 10 Mg Tablet, 10 MG PO DAILY, (Reported) Apixaban (Eliquis) 5 Mg Tablet, 5 MG PO BID, (Reported) Carvedilol (Carvedilol) 25 Mg Tablet, 25 MG PO BID, (Reported) Hydrochlorothiazide (Hydrochlorothiazide) 25 Mg Tablet, 25 MG PO DAILY, (Reported) Levothyroxine Sodium (Levothyroxine Sodium) 75 Mcg Tablet, 75 MCG PO DAILY, (Reported) Lisinopril (Lisinopril) 40 Mg Tablet, 40 MG PO DAILY, (Reported) Metformin HCl (Metformin HCl) 1,000 Mg Tablet, 1,000 MG PO DAILY, (Reported) Multivit,Calc,Mins/Iron/Folic (Thera-M Tablet) 1 Each Tablet, 1 TAB PO DAILY, (Reported) Ropinirole HCl (Ropinirole HCl) 0.25 Mg Tablet, 0.25 MG PO QHS, (Reported) Tamsulosin Hcl (Tamsulosin HCl) 0.4 Mg Capsule, 0.4 MG PO DAILY, (Reported) Allergies Coded Allergies: shellfish derived (Verified Allergy, Severe, FACIAL SWELLING, 09/18/20) Edel Stoll MD Sep 20, 2020 16:34
[2020-09-20] MEDS ORDERED: MORP2INJ4 IV (16:40)
[2020-09-20] MEDS ORDERED: PROT20TA11 PO (16:40)
[2020-09-20] MEDS ORDERED: ONDA4TAB6 SL (16:40)
--- NOTE | 2020-09-20 23:32 | IPN ---
PROGRESS NOTE DATE: 09/20/2020 SUBJECTIVE: Patient is seen and examined this morning at the bedside. He complains of right foot pain. He is pending transfer to [place]. His renal function is improving. He denies shortness of breath. OBJECTIVE: VITAL SIGNS: Temperature 98.9, pulse 83, respiratory rate 18, blood pressure 126/56, saturating 95% on room air. INTAKE AND OUTPUT: Intake yesterday was 1.2 liters. Urine output yesterday was 2.9 liters. Net negative 1.7 liters. Weight in the bed scale today is 80.6 kg. GENERAL: Patient is seen awake, alert, in bed. An elderly frail male, cachectic appearing with prominent ascites and lean muscle wasting, HEENT: Bitemporal wasting. Poor dentition. Extraocular muscles are intact. NECK: Jugular veins are elevated. HEART: S1, S2. There is 1 to 2+ leg edema. LUNGS: Diminished breath sounds at the bases. No accessory muscle use or tachypnea. Seen comfortable on room air. ABDOMEN: Distended with moderate ascites. GENITOURINARY: Shows indwelling Cummings catheter. NEUROLOGIC: He is oriented x3 and at baseline mentation. LABORATORY STUDIES: Sodium 139, potassium 4.2, bicarbonate 26, BUN 88, creatinine 2.9. Magnesium 2.7. Hemoglobin 11.3. INPATIENT MEDICATIONS: Reviewed by myself. He was started on Morphine 1 mg I.V. every 6 hours p.r.n. pain and Zofran p.r.n. Nausea. The remainder of his medications are unchanged as compared to yesterday. PROBLEMS: 1. Nonoliguric acute renal failure superimposed on CKD stage 3B with baseline creatinine of 1.6 to 2.0. Patient reports recent heavy NSAID use at home. Ibuprofen 600 mg p.o. twice daily for at least one week due to right foot pain. Patient also has decompensated cirrhosis with ascites. His urine output is improving over the past day, he made almost 3 liters of urine and his renal function is improving as well. I would hold off on actively diuresing him given that he recently had large volume paracentesis. 2. Right heart failure with severe pulmonary hypertension and severe aortic stenosis. Patient is pending transfer to [facility].
== END 2020-09-20 22:04 | disposition short-term general hospital (02) | DRG 432 ==
LOC: EDBD 10:48 → M ED 10:48 → M ED INP 12:36 → M PCU 15:14
PROVIDERS: ADMIT General Practice; ATTEND General Practice
PROC: 30233J1 Transfusion of Nonautologous Serum Albumin into Peripheral Vein, Percutaneous Approach (ICD-10-PCS; 2020-09-17)
PROC: 0W9G3ZX Drainage of Peritoneal Cavity, Percutaneous Approach, Diagnostic (ICD-10-PCS; 2020-09-18)
PROC: 02HV33Z Insertion of Infusion Device into Superior Vena Cava, Percutaneous Approach (ICD-10-PCS; principal; 2020-09-18 14:40)
DX: K70.31 Alcoholic cirrhosis of liver with ascites (principal); I50.33 Acute on chronic diastolic (congestive) heart failure; J90 Pleural effusion, not elsewhere classified; N17.9 Acute kidney failure, unspecified; D68.4 Acquired coagulation factor deficiency; I48.20 Chronic atrial fibrillation, unspecified; E87.2 Acidosis; K76.6 Portal hypertension; R64 Cachexia; I13.0 Hypertensive heart and chronic kidney disease with heart failure and stage 1 through stage 4 chronic kidney disease, or unspecified chronic kidney disease; Z66 Do not resuscitate; E11.22 Type 2 diabetes mellitus with diabetic chronic kidney disease; N18.32 Chronic kidney disease, stage 3b; K76.1 Chronic passive congestion of liver; N40.0 Benign prostatic hyperplasia without lower urinary tract symptoms; I27.20 Pulmonary hypertension, unspecified; E87.5 Hyperkalemia; Z87.891 Personal history of nicotine dependence; Z79.84 Long term (current) use of oral hypoglycemic drugs; Z79.899 Other long term (current) drug therapy; Z91.013 Allergy to seafood; S92.211A Displaced fracture of cuboid bone of right foot, initial encounter for closed fracture; W19.XXXA Unspecified fall, initial encounter; Y92.9 Unspecified place or not applicable

== ENCOUNTER 2020-09-29 09:13 | Emergency (ER) | payer OTHER ==
[~2020-09-29] VITALS: Ht 180.3 cm; Wt 77.3 kg
[~2020-09-29 09:13] MED LIST: AMLO1TAB25 PO; CARV25TA PO; ELIQ5TAB PO; HYDR-3490 PO; LEVO75TA4 PO; LISI40TA4 PO; METF10004 PO; MORP2INJ4 IV; ONDA4TAB6 SL; PROT20TA11 PO; ROPI0.253 PO; TAMS1CAP17 PO; THERTAB20 PO
--- OUTSIDE RECORDS SUMMARY | 2020-09-29 09:20 | CCD ---
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 Name Role Phone ELIZABETH GILBERT MD Unavailable Unavailable ELIZABETH GILBERT MD Unavailable Unavailable ELIZABETH GILBERT MD Unavailable Unavailable ELIZABETH GILBERT MD Unavailable Unavailable ELIZABETH GILBERT MD Unavailable Unavailable ELIZABETH GILBERT MD Unavailable Unavailable ELIZABETH GILBERT MD Unavailable Unavailable ELIZABETH GILBERT MD Unavailable Unavailable ELIZABETH GILBERT MD Unavailable Unavailable ELIZABETH GILBERT MD Unavailable Unavailable ELIZABETH GILBERT MD Unavailable Unavailable ELIZABETH GILBERT MD Unavailable Unavailable ELIZABETH GILBERT MD Unavailable Unavailable ELIZABETH GILBERT MD Unavailable Unavailable ELIZABETH GILBERT MD Unavailable Unavailable Sue Hall MD Unavailable Unavailable Sue Hall MD Unavailable Unavailable Sue Hall MD Unavailable Unavailable Sue Hall MD Unavailable Unavailable Sue Hall MD Unavailable Unavailable Sue Hall MD Unavailable Unavailable Sue Hall MD Unavailable Unavailable Sue Hall MD Unavailable Unavailable Sue Hall MD Unavailable Unavailable Sue Hall MD Unavailable Unavailable Sue Hall MD Unavailable Unavailable Sue Hall MD Unavailable Unavailable Sue Hall MD Unavailable Unavailable Sue Hall MD Unavailable Unavailable Sue Hall MD Unavailable Unavailable Sue Hall MD Unavailable Unavailable Sue Hall MD Unavailable Unavailable Sue Hall MD Unavailable Unavailable Sue Hall MD Unavailable Unavailable Sue Hall MD Unavailable Unavailable Sue Hall MD Unavailable Unavailable Sue Hall MD Unavailable Unavailable Sue Hall MD Unavailable Unavailable Sue Hall MD Unavailable Unavailable Sue Hall MD Unavailable Unavailable Sue Hall MD Unavailable Unavailable Sue Hall MD Unavailable Unavailable Sue Hall MD Unavailable Unavailable Sue Hall MD Unavailable Unavailable Sue Hall MD Unavailable Unavailable Sue Hall MD Unavailable Unavailable Sue Hall MD Unavailable Unavailable Sue Hall MD Unavailable Unavailable Sue Hall MD Unavailable Unavailable Sue Hall MD Unavailable Unavailable Sue Hall MD Unavailable Unavailable Sue Hall MD Unavailable Unavailable Sue Hall MD Unavailable Unavailable Sue Hall MD Unavailable Unavailable Sue Hall MD Unavailable Unavailable Sue Hall MD Unavailable Unavailable Sue Hall MD Unavailable Unavailable Sue Hall MD Unavailable Unavailable Sue Hall MD Unavailable Unavailable Sue Hall MD Unavailable Unavailable Sue Hall MD Unavailable Unavailable Sue Hall MD Unavailable Unavailable Sue Hall MD Unavailable Unavailable Sue Hall MD Unavailable Unavailable Sue Hall MD Unavailable Unavailable uSe Hall MD Unavailable Unavailable Sue Hall MD Unavailable Unavailable Sue Hall MD Unavailable Unavailable Sue Hall MD Unavailable Unavailable Sue Hall MD Unavailable Unavailable Sue Hall MD Unavailable Unavailable Sue Hall MD Unavailable Unavailable Sue Hall MD Unavailable Unavailable Sue Hall MD Unavailable Unavailable Sue Hall MD Unavailable Unavailable Sue Hall MD Unavailable Unavailable Sue Hall MD Unavailable Unavailable Sue Hall MD Unavailable Unavailable Sue Hall MD Unavailable Unavailable Sue Hall MD Unavailable Unavailable Sue Hall MD Unavailable Unavailable Sue Hall MD Unavailable Unavailable Sue Hall MD Unavailable Unavailable Sue Hall MD Unavailable Unavailable Sue Hall MD Unavailable Unavailable Sue Hall MD Unavailable Unavailable Sue Hall MD Unavailable Unavailable Sue Hall MD Unavailable Unavailable Sue Hall MD Unavailable Unavailable Sue Hall MD Unavailable Unavailable Sue Hall MD Unavailable Unavailable Sue Hall MD Unavailable Unavailable Sue Hall MD Unavailable Unavailable Sue Hall MD Unavailable Unavailable Sue Hall MD Unavailable Unavailable Sue Hall MD Unavailable Unavailable Sue Hall MD Unavailable Unavailable Sue Hall MD Unavailable Unavailable Sue Hall MD Unavailable Unavailable Sue Hall MD Unavailable Unavailable Sue Hall MD Unavailable Unavailable Sue Hall MD Unavailable Unavailable Sue Hall MD Unavailable Unavailable Sue Hall MD Unavailable Unavailable Sue Hall MD Unavailable Unavailable Sue Hall MD Unavailable Unavailable Sue Hall MD Unavailable Unavailable Sue Hall MD Unavailable Unavailable Sue Hall MD Unavailable Unavailable Sue Hall MD Unavailable Unavailable Sue Hall MD Unavailable Unavailable Sue Hall MD Unavailable Unavailable Sue Hall MD Unavailable Unavailable Sue Hall MD Unavailable Unavailable Sue Hall MD Unavailable Unavailable Sue Hall MD Unavailable Unavailable Sue Hall MD Unavailable Unavailable Sue Hall MD Unavailable Unavailable Sue Hall MD Unavailable Unavailable Sue Hall MD Unavailable Unavailable Sue Hall MD Unavailable Unavailable Sue Hall MD Unavailable Unavailable Sue Hall MD Unavailable Unavailable Sue Hall MD Unavailable Unavailable Sue Hall MD Unavailable Unavailable Sue Hall MD Unavailable Unavailable Sue Hall MD Unavailable Unavailable Sue Hall MD Unavailable Unavailable Sue Hall MD Unavailable Unavailable Sue Hall MD Unavailable Unavailable Sue Hall MD Unavailable Unavailable Sue Hall MD Unavailable Unavailable Sue Hall MD Unavailable Unavailable Sue Hall MD Unavailable Unavailable Sue Hall MD Unavailable Unavailable Sue Hall MD Unavailable Unavailable Sue Hall MD Unavailable Unavailable Sue Hall MD Unavailable Unavailable Sue Hall MD Unavailable Unavailable Sue Hall MD Unavailable Unavailable Sue Hall MD Unavailable Unavailable Sue Hall MD Unavailable Unavailable Sue Hall MD Unavailable Unavailable Sue Hall MD Unavailable Unavailable Sue Hall MD Unavailable Unavailable Sue Hall MD Unavailable Unavailable Sue Hall MD Unavailable Unavailable Sue Hall MD Unavailable Unavailable Sue Hall MD Unavailable Unavailable Sue Hall MD Unavailable Unavailable Sue Hall MD Unavailable Unavailable Sue Hall MD Unavailable Unavailable Sue Hall MD Unavailable Unavailable Sue Hall MD Unavailable Unavailable Sue Hall MD Unavailable Unavailable Sue Hall MD Unavailable Unavailable Sue Hall MD Unavailable Unavailable Sue Hall MD Unavailable Unavailable Sue Hall MD Unavailable Unavailable Sue Hall MD Unavailable Unavailable Sue Hall MD Unavailable Unavailable Sue Hall MD Unavailable Unavailable Sue Hall MD Unavailable Unavailable Sue Hall MD Unavailable Unavailable Sue Hall MD Unavailable Unavailable Sue Hall MD Unavailable Unavailable Sue Hall MD Unavailable Unavailable Sue Hall MD Unavailable Unavailable Sue Hall MD Unavailable Unavailable Sue Hall MD Unavailable Unavailable Sue Hall MD Unavailable Unavailable Sue Hall MD Unavailable Unavailable Sue Hall MD Unavailable Unavailable Sue Hall MD Unavailable Unavailable Sue Hall MD Unavailable Unavailable Sue Hall MD Unavailable Unavailable Sue Hall MD Unavailable Unavailable Sue Hall MD Unavailable Unavailable Sue Hall MD Unavailable Unavailable Sue Hall MD Unavailable Unavailable Sue Hall MD Unavailable Unavailable Sue Hall MD Unavailable Unavailable Sue Hall MD Unavailable Unavailable Sue Hall MD Unavailable Unavailable Sue Hall MD Unavailable Unavailable Sue Hall MD Unavailable Unavailable Sue Hall MD Unavailable Unavailable Sue Hall MD Unavailable Unavailable Sue Hall MD Unavailable Unavailable Sue Hall MD Unavailable Unavailable Sue Hall MD Unavailable Unavailable Sue Hall MD Unavailable Unavailable Sue Hall MD Unavailable Unavailable Fred Francoism MD Unavailable Unavailable Hamad, Henry MD Unavailable Unavailable Hamad, Henry MD Unavailable Unavailable Hamad, Henry MD Unavailable Unavailable Hamad, Henry MD Unavailable Unavailable Hamad, Henry MD Unavailable Unavailable Hamad, Henry MD Unavailable Unavailable Hamad, Henry MD Unavailable Unavailable Hamad, Henry MD Unavailable Unavailable Hamad, Henry MD Unavailable Unavailable Hamad, Henry MD Unavailable Unavailable Hamad, Henry MD Unavailable Unavailable Bradleyad, Henry MD Unavailable Unavailable Haley DENNIS MD Unavailable Unavailable Haley DENNIS MD Unavailable Unavailable Haley DENNIS MD Unavailable Unavailable Haley DENNIS MD Unavailable Unavailable Haley DENNIS MD Unavailable Unavailable Haley DENNIS MD Unavailable Unavailable Haley DENNIS MD Unavailable Unavailable Haley DENNIS MD Unavailable Unavailable Haley DENNIS MD Unavailable Unavailable Haley DENNIS MD Unavailable Unavailable Haley DENNIS MD Unavailable Unavailable Haley DENNIS MD Unavailable Unavailable Haley DENNIS MD Unavailable Unavailable Haley DENNIS MD Unavailable Unavailable Haley DENNIS MD Unavailable Unavailable Haley DENNIS MD Unavailable Unavailable Haley DENNIS MD Unavailable Unavailable JASSAR, HARSHAL Unavailable Unavailable Terence, Alli MD Unavailable Unavailable Terence, Alli MD Unavailable Unavailable Terence, Alli MD Unavailable Unavailable Terence, Alli MD Unavailable Unavailable Terence, Alli MD Unavailable Unavailable Terence, Alli MD Unavailable Unavailable Terence, Alli MD Unavailable Unavailable Terence, Alli MD Unavailable Unavailable Terence, Alli MD Unavailable Unavailable Terence, Alli MD Unavailable Unavailable Terence, Alli MD Unavailable Unavailable Terence, Alli MD Unavailable Unavailable Terence, Alli MD Unavailable Unavailable Terence, Alli MD Unavailable Unavailable Terence, Alli MD Unavailable Unavailable Terence, Alli MD Unavailable Unavailable Terence, Alli MD Unavailable Unavailable Terence, Alli MD Unavailable Unavailable Terence, Alli MD Unavailable Unavailable Terence, Alli MD Unavailable Unavailable Terence, Alli MD Unavailable Unavailable Terence, Alli MD Unavailable Unavailable Terence, Alli MD Unavailable Unavailable Terence, Alli MD Unavailable Unavailable Terence, Alli MD Unavailable Unavailable Terence, Alli MD Unavailable Unavailable Terence, Alli MD Unavailable Unavailable Terence, Alli MD Unavailable Unavailable Terence, Alli MD Unavailable Unavailable Terence, Alli MD Unavailable Unavailable Terence, Alli MD Unavailable Unavailable Terence, Alli MD Unavailable Unavailable Terence, Alli MD Unavailable Unavailable Terence, Alli MD Unavailable Unavailable Terence, Alli MD Unavailable Unavailable Terence, Alli MD Unavailable Unavailable Terence, Alli MD Unavailable Unavailable Terence, Alli MD Unavailable Unavailable Terence, Alli MD Unavailable Unavailable Terence, Alli MD Unavailable Unavailable Terence, Alli MD Unavailable Unavailable Terence, Alli MD Unavailable Unavailable Terence, Alli MD Unavailable Unavailable Terence, Alli MD Unavailable Unavailable Terence, Alli MD Unavailable Unavailable Terence, Alli MD Unavailable Unavailable Terence, Alli MD Unavailable Unavailable Terence, Alli MD Unavailable Unavailable Terence, Alli MD Unavailable Unavailable Terence, Alli MD Unavailable Unavailable Re-disclosure Warning The records that you are about to access may contain information from federally-assisted alcohol or drug abuse programs. If such information is present, then the following federally mandated warning applies: This information has been disclosed to you from records protected by federal confidentiality rules (42 CFR part 2). The federal rules prohibit you from making any further disclosure of this information unless further disclosure is expressly permitted by the written consent of the person to whom it pertains or as otherwise permitted by 42 CFR part 2. A general authorization for the release of medical or other information is NOT sufficient for this purpose. The Federal rules restrict any use of the information to criminally investigate or prosecute any alcohol or drug abuse patient.The records that you are about to access may contain highly sensitive health information, the redisclosure of which is protected by Article 27-F of the [place] State Public Health law. If you continue you may have access to information: Regarding HIV / AIDS; Provided by facilities licensed or operated by the [facility] Office of Mental Health; or Provided by the [facility] Office for People With Developmental Disabilities. If such information is present, then the following [facility] mandated warning applies: This information has been disclosed to you from confidential records which are protected by state law. State law prohibits you from making any further disclosure of this information without the specific written consent of the person to whom it pertains, or as otherwise permitted by law. Any unauthorized further disclosure in violation of state law may result in a fine or nursing home sentence or both. A general authorization for the release of medical or other information is NOT sufficient authorization for further disc losure. Allergies and Adverse Reactions Type Description Substance Reaction Status Data Source(s ) Propensity to adverse reactions SHELLFISH-DERIVED PRODUCTS S hellfish-Derived Products Swelling High Active [facility] High Food allergy SHELLFISH SHELLFISH swelling [facility] Encounters Encounter Providers Location Date Indications Data Source(s ) Inpatient Attender: Henry Francois MDAtt fauzia: ELIZABETH GILBERT MDAttender: BHARATH DENNIS MDAttender: HARSHAL DOHERTYdmitter: BHARATH DENNIS MDConsultant: Alli Pratt MD [id number] 09/20/2020 11:22:56 PM [facility] 05:50:00 PM [facility] Patient discharged. Outpatient Attender: Mich Hall MD 06/27/2020 11:23:01 AM [facility] Mich Hall MD: [address] [place] [address] [phone], Ph. Attender: Mich Hall MD [facility] 06/16/2020 12:00:00 AM EST [facility] ([facility]) Mich Hall MD: [address] [place] [address] [phone], Ph. Attender: Mich Hall MD [facility] 06/16/2020 12:00:00 AM EST [facility] ([facility]) Outpatient Attender: Mich Hall MD 05/19/2020 08:39:00 AM EDT [facility] Outpatient Attender: Mich Hall MD FP 05/18/2020 04:39:04 PM EDT [facility] Outpatient Attender: Mich Hall MD FP 05/18/2020 04:39:02 PM EDT [facility] Outpatient Attender: Mich Hall MD FP 05/17/2020 01:21:02 PM EDT [facility] Outpatient Attender: Mich Hall MD FP 05/17/2020 08:19:01 AM EDT [facility] Outpatient Attender: Mich Hall MD FP 05/11/2020 10:54:01 AM EDT [facility] Outpatient Attender: Mich Hall MD FP 05/05/2020 08:01:23 PM EDT [facility] Outpatient Attender: Mich Hall MD FP 04/27/2020 08:14:01 AM EDT [facility] Outpatient Attender: Mich Hall MD FP 04/10/2020 05:25:03 PM EDT [facility] Outpatient Attender: Mich Hall MD FP 04/10/2020 05:25:00 PM EDT [facility] Outpatient Attender: Mich Hall MD FP 04/04/2020 05:30:04 PM EDT [facility] Outpatient Attender: Mich Hall MD FP 03/24/2020 08:01:23 PM EDT [facility] Outpatient Attender: Mich Hall MD FP 03/06/2020 08:31:00 AM EDT [facility] Outpatient Attender: Mich Hall MD FP 03/03/2020 11:15:03 AM EDT [facility] Outpatient Attender: Mich Hall MD FP 03/03/2020 11:06:01 AM EDT [facility] Outpatient Attender: Mich Hall MD FP 02/29/2020 12:36:01 PM EDT [facility] Outpatient Attender: Mich Hall MD FP 02/25/2020 04:57:01 PM EDT [facility] Outpatient Attender: Mich Hall MD FP 02/25/2020 04:57:00 PM EDT [facility] Outpatient Attender: Mich Hall MD FP 02/15/2020 04:33:01 PM EDT [facility] Outpatient Attender: Mich Hall MD FP 02/10/2020 05:51:02 PM EDT [facility] Outpatient Attender: Mich Hall MD FP 02/02/2020 11:12:00 AM EDT [facility] Outpatient Attender: Mich Hall MD FP 12/22/2019 08:38:01 AM EDT [facility] Outpatient Attender: Mich Hall MD FP 12/20/2019 02:45:00 PM EDT [facility] Outpatient Attender: Mich Hall MD FP 12/20/2019 09:18:00 AM EDT [facility] Outpatient Attender: Mich Hall MD FP 12/14/2019 04:14:01 PM EDT [facility] Outpatient Attender: Mich Hall MD FP 12/14/2019 04:06:59 PM EDT [facility] Outpatient Attender: Mich Hall MD FP 11/05/2019 11:41:00 AM EDT [facility] Outpatient Attender: Mich Hall MD FP 11/05/2019 07:48:00 AM EDT [facility] Outpatient Attender: Mich Hall MD FP 11/05/2019 07:47:02 AM EDT [facility] Outpatient Attender: Mich Hall MD FP 11/02/2019 09:15:01 AM EDT [facility] Outpatient Attender: Mich Hall MD FP 10/13/2019 11:06:04 AM EST [facility] Outpatient Attender: Mich Hall MD FP 10/13/2019 11:06:02 AM EST [facility] Outpatient Attender: Mich Hall MD FP 10/13/2019 09:11:01 AM [facility] Outpatient Attender: Mich Hall MD FP 10/01/2019 08:01:47 PM [facility] Outpatient Attender: Mich Hall MD FP 09/24/2019 08:02:22 PM EST [facility] Outpatient Attender: Mich Hall MD FP 09/18/2019 11:54:00 AM EST [facility] Outpatient Attender: Mich Hall MD FP 09/18/2019 11:53:59 AM [facility] [address] [place] [id number] 09/17/2019 12:00:00 AM EST eCW1 ([facility]) Outpatient Attender: Mich Hall MD FP 09/16/2019 12:07:00 PM EST [facility] Outpatient Attender: Mich Hall MD FP 09/16/2019 12:00:26 AM EST [facility] Outpatient Attender: Mich Hall MD FP 09/15/2019 01:25:02 PM [facility] Outpatient Attender: Mich Hall MD FP 09/15/2019 09:30:03 AM [facility] Outpatient Attender: Mich Hall MD FP 09/15/2019 09:26:00 AM [facility] Outpatient Attender: Mich Hall MD FP 09/15/2019 09:24:00 AM [facility] Outpatient Attender: Mich Hall MD FP 09/15/2019 09:23:00 AM [facility] Outpatient Attender: Mich Hall MD FP 09/15/2019 09:12:00 AM [facility] Outpatient Attender: Mich Hall MD FP 09/15/2019 08:50:01 AM [facility] Outpatient Attender: Mich Hall MD FP 09/15/2019 08:30:00 AM [facility] [address] [place] [id number] 09/13/2019 12:00:00 AM EST eCW1 ([facility]) Outpatient Attender: Mich Hall MD 09/08/2019 09:01:14 PM [facility] Outpatient Attender: Mich Hall MD FP 09/08/2019 12:04:01 PM [facility] [address] [place] [id number] 08/19/2019 12:00:00 AM EST eCW1 ([facility]) [facility] [address] [place] [address] [place] [id number] 08/18/2019 12:00:00 AM EST eCW1 ([facility]) Medications Medication Brand Name Start Date Product Form Dose Route Admi nistrative Instructions Pharmacy Instructions Status Indications Reaction Description Data Source(s) Folic Acid 1 MG Oral Tablet folic acid (FOLVITE) 1 MG tablet folic acid (FOLVITE) 1 MG tablet 09/29/2020 12:00:00 AM EST 1 mg Oral active Take 1 tablet (1 mg total) by mouth daily [facility] Lisinopril 2.5 MG Oral Tablet lisinopril (PRINIVIL,ZES TRIL) 2.5 MG tablet lisinopril (PRINIVIL,ZESTRIL) 2.5 MG tablet 09/29/2020 12:00:00 AM EST 2.5 mg Oral active Take 1 tablet (2.5 m g total) by mouth daily [facility] Thiamine 100 MG Oral Tablet thiamine 100 MG tablet thiamine 100 MG tablet 09/29/2020 12:00:00 AM EST 100 mg Oral active Take 1 tablet (100 mg total) by mouth daily [facility] Furosemide 40 MG Oral Tablet furosemide (LASIX) tablet 40 mg furosemide (LASIX) tablet 40 mg 09/28/2020 11:00:00 AM EST 40 mg Oral activ e 40 mg, Oral, Every morning, First dose on Silvana 09/28/20 at 1100 [facility] Medication administered onsite Spironolactone 25 MG Oral Tablet spironolactone (ALDAC TONE) tablet 25 mg spironolactone (ALDACTONE) tablet 25 mg 09/28/2020 11:00:00 AM EST 25 mg Oral active 25 mg, Oral, Da mode, First dose on Silvana 09/28/20 at 1100
For administration and preparation considerations, refer to Hazardous Drugs in the Workplace Policy on Intranet.
[facility] Medication administered onsite Lisinopril 5 MG Oral Tablet lisinopril (PRINIVIL,ZESTR IL) tablet 2.5 mg lisinopril (PRINIVIL,ZESTRIL) tablet 2.5 mg 09/28/2020 09:00:00 AM EST 2.5 mg Oral active 2.5 mg, Oral, Daily, First dose on Silvana 09/28/20 at 0900
Hold if SBP<90
[facility] Medication administered onsite Acetaminophen 325 MG / Hydrocodone Gustavo trate 7.5 MG Oral Tablet HYDROcodone- acetaminophen (NORCO) 7.5-325 MG per tablet HYDROcodone-acetaminophen (NORCO) 7.5-325 MG per tablet 09/28/2020 12:00:00 AM EST 1 {tbl} Oral active Take 1 tablet by mouth every 4 (four) hours as needed Max Daily Amount: 6 tablets [facility] gabapentin 100 MG Oral Capsule gabapentin (NEURONTIN) 100 MG capsule gabapentin (NEURONTIN) 100 MG capsule 09/28/2020 12:00:00 AM EST 200 mg Oral active Take 2 capsules (200 mg total) by mouth 3 (three) times a day [facility] Furosemide 40 MG Oral Tablet furosemide (LASIX) 40 MG tablet furosemide (LASIX) 40 MG tablet 09/28/2020 12:00:00 AM EST 40 mg Oral activ e Take 1 tablet (40 mg total) by mouth every morning [facility] Spironolactone 25 MG Oral Tablet spironolactone (ALDAC TONE) 25 MG tablet spironolactone (ALDACTONE) 25 MG tablet 09/28/2020 12:00:00 AM EST 25 mg Oral active Take 1 tablet (25 mg tota l) by mouth daily [facility] lidocaine (ASPERCREME) 4 % [facility] [id number] 09/28/2020 12:00:00 AM EST 1 {patch} Transdermal active Place 1 patch on the skin Every 24 hours as needed [facility] carvedilol 3.125 MG Oral Tablet carvedilol (COREG) 3.1 25 MG tablet carvedilol (COREG) 3.125 MG tablet 09/28/2020 12:00:00 AM EST 3.125 mg Oral active Take 1 tablet (3.125 mg total) by mouth 2 (two) times a day [facility] Dexamethasone 4 MG Oral Tablet dexamethasone (DECADRON ) tablet 4 mg dexamethasone (DECADRON) tablet 4 mg 09/27/2020 07:00:00 AM EST 4 mg Oral completed 4 mg, Oral, Once, Fri09/27/20 at 0700, For 1 dose [facility] Medication administered onsite normal saline flush 0.9 % injection 3 mL [id number] 09/26/2020 10:00:00 PM EST 3 mL Intravenous active 3 mL , Intravenous, Every 8 hours (scheduled), First dose on Fri09/26/20 at 2200, Pre-op
Rapid push positive pressure flushing shall be performed with a 10 cc normal saline syringe to check the PATENCY of a PIV site prior to any infusion therapy initiation unless resistance is met.
[facility] Medication administered onsite normal saline flush 0.9 % injection 3 mL [id number] 09/26/2020 10:00:00 PM EST 3 mL Intravenous active 3 mL , Intravenous, Every 8 hours (scheduled), First dose on Fri09/26/20 at 2200, Pre-op
Rapid push positive pressure flushing shall be performed with a 10 cc normal saline syringe to check the PATENCY of a PIV site prior to any infusion therapy initiation unless resistance is met.
[facility] Medication administered onsite normal saline flush 0.9 % injection 3 mL [id number] 09/26/2020 10:00:00 PM EST 3 mL Intravenous active 3 mL , Intravenous, PROTOCOL, First dose on Fri09/26/20 at 2200, Pre-op
flush per protocol, D/C Main IV fluid if appropriate
[facility] Medication administered onsite Dexamethasone 4 MG Oral Tablet dexamethasone (DECADRON ) tablet 4 mg dexamethasone (DECADRON) tablet 4 mg 09/26/2020 09:00:00 PM EST 4 mg Oral completed 4 mg, Oral, Once, Fri09/26/20 at 2100, For 1 dose [facility] Medication administered onsite gabapentin 100 MG Oral Capsule gabapentin (NEURONTIN) capsule 200 mg gabapentin (NEURONTIN) capsule 200 mg 09/26/2020 03:00:00 PM EST 200 mg Oral active 200 mg, Oral, 3 times daily, First dose on Fri09/26/20 at 1500 [facility] Medication administered onsite Acetaminophen 325 MG / Hydrocodone Gustavo trate 7.5 MG Oral Tablet HYDROcodone- acetaminophen (NORCO) 7.5-325 MG per tablet 1 tablet HYDROcodone-acetaminophen (NORCO) 7.5-325 MG per tablet 1 tablet 09/26/2020 09:03:16 AM EST 1 {tbl} Oral active 1 tablet, Oral , Every 4 hours PRN, severe pain (7-10), Starting Fri09/26/20 at 0903, For 7 days [facility] Medication administered onsite lidocaine (ASPERCREME) 4 % 1 patch [id number] 09/26/2020 05:54:18 AM EST 1 {patch} Transdermal active 1 patch, Transdermal, Administer over 12 Hours, Every 24 hours as needed, pain, Starting Fri09/26/20 at 0554
For right ankle pain
[facility] Medication administered onsite potassium chloride SA (K-DUR,KLOR-CON) CR tablet 40 mEq [id number] 09/25/2020 12:00:00 PM EST 40 meq Oral completed 40 mEq, Oral, Once, 09/25/20 at 1200, For 1 dose [facility] Medication administered onsite carvedilol 3.125 MG Oral Tablet carvedilol (COREG) tab let 3.125 mg carvedilol (COREG) tablet 3.125 mg 09/24/2020 10:00:00 AM EST 3.125 mg Oral active 3.125 mg, Oral, 2 times daily, First dose on Sun at 1000 [facility] Medication administered onsite Oxycodone Hydrochloride 5 MG Oral Tablet oxyCODONE (ROXICODONE) immediate release tablet 2.5 mg oxyCODONE (ROXICODONE) immediate release tablet 2.5 mg 09/24/2020 04:00:00 AM EST 2.5 mg Oral completed 2.5 mg, Oral, Once, 09/24/20 at 0400, For 1 dose [facility] Medication administered onsite Acetaminophen 325 MG / Oxycodone Hydroch loride 5 MG Oral Tablet oxyCODONE- acetaminophen (PERCOCET) 5-325 MG 1 tablet oxyCODONE-acetaminophen (PERCOCET) 5- 325 MG 1 tablet 09/23/2020 10:00:00 AM EST 1 {tbl} Oral a borted 1 tablet, Oral, Every 4 hours PRN, severe pain (7-10), Starting 09/23/20 at 1000, For 48 hours [facility] Medication administered onsite Diphenhydramine Hydrochloride 25 MG Oral Capsule diphenhydrAMINE (BENADRYL) capsule 25 mg diphenhydrAMINE (BENADRYL) capsule 25 mg 09/23/2020 10 :00:00 AM EST 25 mg Oral completed 25 mg, Oral, Once, 09/23/20 at 1000, For 1 dose [facility] Medication administered onsite 500 ML heparin sodium, porcine 50 UNT/ML Injection heparin infusion 25,000 units in 500 mL 0.45% NaCl heparin infusion 25,000 units in 500 mL 0.45% NaCl 09/23/2020 07:00:00 AM EST 22.9 U/kg/h Intravenous activ e 22.9 Units/kg/hr 83.9 kg (38.4262 mL/hr, rounded to 38.4 mL/hr), Intravenous, at 38.4 mL/hr, Continuous, Starting 09/23/20 at 0700
For Cardiac/BridgeaPTT (seconds) Heparin Dose (weight based)< 34 Bolus: 60 units/kg IV (Maximum bolus: 5,000 units) and increase infusion 3 units/kg/hr IV34 - 50 Bolus: 30 units/kg IV (Maximum bolus: 5,000 units) and increase infusion 2 units/kg/hr IV50.1 - 58 No bolus. Increase infusion 1 unit/kg/hr IV58.1 - 87 Therapeutic, No Meaugl47.1 - 97 Decrease infusion 1 unit/kg/hr IV 97.1 - 110Hold infusion for 30 minutes & decrease infusion 2 units/kg/hr IV> 110 Call MD if patient is bleeding. Hold infusion for 60 minutes & decrease infusion 3 units/kg/hr IVInitial heparin IV infusion rate:Do not exceed 1000 units/hr or 12 units/kg/hr initially (whichever is less)Infuse this medication only through single port tubing (SmartSite Infusion Set ref [id number]). Medication and tubing is to be discarded if infusion off for 4 hours.
[facility] Medication administered onsite Ceftriaxone 2000 MG Injection cefTRIAXone (ROCEPHIN) i njection 2 g cefTRIAXone (ROCEPHIN) injection 2 g 09/23/2020 01:00:00 AM EST 2 g active Bacteremia 2 g, Intravenous Push, Every 24 hours (relative), First dose on 09/23/20 at 0100, Until Discontinued [facility] Bacteremia Medication administered onsite ondansetron (ZOFRAN) injection 4 mg [id number] 09/22/2020 09:38:3 0 AM EST 4 mg Intravenous active 4 mg, In travenous, Every 6 hours PRN, nausea, vomiting, Starting Fri09/22/20 at 0938 [facility] Medication administered onsite Acetaminophen 325 MG / Oxycodone Hydroch loride 5 MG Oral Tablet oxyCODONE- acetaminophen (PERCOCET) 5-325 MG 1 tablet oxyCODONE-acetaminophen (PERCOCET) 5- 325 MG 1 tablet 09/22/2020 09:38:05 AM EST 1 {tbl} Oral a borted 1 tablet, Oral, Every 6 hours PRN, severe pain (7-10), Starting Fri09/22/20 at 0938, For 7 days [facility] Medication administered onsite ropinirole 0.25 MG Oral Tablet rOPINIRole (REQUIP) tab let 0.25 mg rOPINIRole (REQUIP) tablet 0.25 mg 09/21/2020 09:00:00 PM EST 0.25 mg Oral active 0.25 mg, Oral, Nightly, First dose on Fri09/21/20 at 2 100 [facility] Medication administered onsite Thiamine 100 MG Oral Tablet thiamine tablet 100 mg thiamine tablet 100 mg 09/21/2020 02:00:00 PM EST 100 mg Oral active 100 mg, Oral, Daily, First dose on Silvana 09/21/20 at 1400 [facility] Medication administered onsite Folic Acid 1 MG Oral Tablet folic acid (FOLVITE) table t 1 mg folic acid (FOLVITE) tablet 1 mg 09/21/2020 02:00:00 PM EST 1 mg Oral active 1 mg, Oral, Daily, First dose on Silvana 09/21/20 at 1400 [facility] Medication administered onsite Daily Veronica (THERAGRAN) 1 tablet [id number] 09/21/2020 02:00:00 PM EST 1 {tbl} Oral active 1 tablet, Oral, Daily, First dose on Silvana 09/21/20 at 1400 [facility] Medication administered onsite 1 ML Lorazepam 2 MG/ML Injection LORazepam (ATIVAN) in jection 1-3 mg LORazepam (ATIVAN) injection 1-3 mg 09/21/2020 01:13:50 PM EST Intrave nous completed 1-3 mg, Intravenous, As needed, GMAW, Starting Silvana 09/21/20 at 1313, For 7 days
GMAW Score IVP/IM dose 0 None 1 to 3 1 mg 4 to 7 2 mg 8 to 10 3 mg GMAW reassessment is every 2 hours for 5 days.If treatment is neededprior, notify provider.
[facility] Medication administered onsite Tamsulosin hydrochloride 0.4 MG Oral Cap andreina tamsulosin (FLOMAX) 24 hr capsule 0.4 mg tamsulosin (FLOMAX) 24 hr capsule 0.4 mg 09/21/2020 09:00:00 AM EST 0.4 mg Oral active 0.4 mg, Oral, Daily, Fir st dose on Silvana 09/21/20 at 0900 [facility] Medication administered onsite Amlodipine 10 MG Oral Tablet amLODIPine (NORVASC) tabl et 10 mg amLODIPine (NORVASC) tablet 10 mg 09/21/2020 09:00:00 AM EST 10 mg Oral aborted 10 mg, Oral, Daily, First dose on Silvana 09/21/20 at 0900 [facility] Medication administered onsite Insulin Lispro 100 UNT/ML Injectable Noelle ution insulin lispro (HumaLOG) injection 1-6 Units insulin lispro (HumaLOG) injection 1-6 Units 08:00:00 AM EST Subcutaneous active 1-6 Units, Subcutaneous, MEALSS, First dose on Silvana 09/21/20 at 0800
Frail 3 units Nutritional and Correction Insulin ScaleBlood Glucose (mg/dl) <70 start hypoglycemiaprotocolGlucose Eats >=50% Eats <50%Eats Nothing (mg/dl) of meal of mealor [id number] units 1 units 0 ewunw959- 1703 units 2 units 0 uukhx007-4727 units 2 units 1 lahzb294- 2704 units 3 units 1 yrozs593-3320 units 3 units 2 - 3705 units 4 units 2 [id number] units 4 units 3 units>420 call MD6 units 5 units 3 unitsTest glucose within 30 minutes of insulin administration.Administer insulin within 15 minutes (before or after) of the patient starting to eat.For patients that are NPO, use theNPO (correction) scale to cover POC glucose at 08:00, 12:00, 17:00.
[facility] Medication administered onsite 1 ML heparin sodium, porcine 1000 UNT/ML Injection heparin (porcine) injection 5,000 Units heparin (porcine) injection 5,000 Units 09/21/2020 07:00:00 AM EST 60 U/kg Intravenous completed 5,000 Unit s (rounded from 5,034 Units = 60 Units/kg 83.9 kg), Intravenous, Once, Silvana 09/21/20 at 0700, For 1 dose
Do not exceed 5,000 units or 60 units/kg (whichever is less)
[facility] Medication administered onsite 500 ML heparin sodium, porcine 50 UNT/ML Injection heparin infusion 25,000 units in 500 mL 0.45% NaCl heparin infusion 25,000 units in 500 mL 0.45% NaCl 09/21/2020 07:00:00 AM EST 16.91 U/kg/h Intravenous abor frank 16.91 Units/kg/hr 83.9 kg (28.375 mL/hr, rounded to 28.4 mL/hr), Intravenous, at 28.4 mL/hr, Continuous, Starting Silvana 09/21/20 at 0700
For Cardiac/BridgeaPTT (seconds) Heparin Dose (weight based)< 34 Bolus: 60 units/kg IV (Maximum bolus: 5,000 units) and increase infusion 3 units/kg/hr IV34 - 50 Bolus: 30 units/kg IV (Maximum bolus: 5,000 units) and increase infusion 2 units/kg/hr IV50.1 - 58 No bolus. Increase infusion 1 unit/kg/hr IV58.1 - 87 Therapeutic, No Egpwbq59.1 - 97 Decrease infusion 1 unit/kg/hr IV 97.1 - 110Hold infusion for 30 minutes & decrease infusion 2 units/kg/hr IV> 110 Call MD if patient is bleeding. Hold infusion for 60 minutes & decrease infusion 3 units/kg/hr IVInitial heparin IV infusion rate:Do not exceed 1000 units/hr or 12 units/kg/hr initially (whichever is less)Infuse this medication only through single port tubing (SmartSite Infusion Set ref [id number]). Medication and tubing is to be discarded if infusion off for 4 hours.
[facility] Medication administered onsite Levothyroxine Sodium 0.075 MG Oral Table t levothyroxine (SYNTHROID, LEVOTHROID) tablet 75 mcg levothyroxine (SYNTHROID, LEVOTHROID) tablet 75 mcg 07:00:00 AM EST 75 ug Oral active 75 mcg, Oral, Daily, First dose on Silvana 09/21/20 at 0700 [facility] Medication administered onsite 1 ML heparin sodium, porcine 1000 UNT/ML Injection heparin (porcine) injection 100-5,000 Units heparin (porcine) injection 100-5,000 Units 09/21/2020 06:25:07 AM EST Intravenous active 100- 5,000 Units, Intravenous, As needed, other, Starting Silvana 09/21/20 at 0625
Round dose to nearest 100 unitsaPTT:< 34 Bolus: 60 units/kg IV (Maximum bolus: 5,000 units) 34 - 50 Bolus: 30 units/kg IV (Maximum bolus: 5,000 units)
[facility] Medication administered onsite Morphine Sulfate (PF) injection 4 mg [id number] 09/21/2020 06:16: 46 AM EST 4 mg Intravenous completed 4 mg, In travenous, Every 4 hours PRN, severe pain (7-10), Starting Silvana 09/21/20 at 0616, For 1 day [facility] Medication administered onsite Acetaminophen 325 MG / Oxycodone Hydroch loride 5 MG Oral Tablet oxyCODONE- acetaminophen (PERCOCET) 5-325 MG 1 tablet oxyCODONE-acetaminophen (PERCOCET) 5- 325 MG 1 tablet 09/21/2020 04:00:00 AM EST 1 {tbl} Oral c ompleted 1 tablet, Oral, Once, Silvana 09/21/20 at 0400, For 1 dose [facility] Medication administered onsite Levothyroxine Sodium 0.025 MG Oral Tablet levothyroxin e 25 mcg tablet levothyroxine 25 mcg tablet completed levothyroxine sodium 0.025 MG Oral Tablet ANDRÉS ([facility]) Trazodone Hydrochloride 50 MG Oral Tablet trazodone 50 mg tablet trazodone 50 mg tablet completed trazodone hydro chloride 50 MG Oral Tablet ANDRÉS ([facility]) Trazodone Hydrochloride 50 MG Oral Tablet trazodone 50 mg tablet trazodone 50 mg tablet completed trazodone hydro chloride 50 MG Oral Tablet IRVINE ([facility]) Levothyroxine Sodium 0.025 MG Oral Tablet levothyroxin e 25 mcg tablet levothyroxine 25 mcg tablet completed levothyroxine sodium 0.025 MG Oral Tablet ANDRÉS ([facility]) Amlodipine 10 MG Oral Tablet amLODIPine (NORVASC) 10 M G tablet amLODIPine (NORVASC) 10 MG tablet 10 mg Oral aborted T german 10 mg by mouth daily [facility] apixaban 5 MG Oral Tablet [Eliquis] Eliquis 5 mg tablet Eliquis 5 m g tablet completed apixaban 5 MG Oral Tab let [Eliquis] IRVINE ([facility]) apixaban 5 MG Oral Tablet [Eliquis] Eliquis 5 mg tablet Eliquis 5 m g tablet completed apixaban 5 MG Oral Tab let [Eliquis] IRVINE ([facility]) carvedilol 25 MG Oral Tablet carvedilol (COREG) 25 MG tablet carvedilol (COREG) 25 MG tablet 25 mg Oral aborted Robert e 25 mg by mouth 2 (two) times a day [facility] Hydrochlorothiazide 25 MG Oral Tablet hy drochlorothiazide (HYDRODIURIL) 25 MG tablet hydrochlorothiazide (HYDRODIURIL) 25 MG tablet 25 mg O ral aborted Take 25 mg by mouth daily [facility] Lisinopril 40 MG Oral Tablet lisinopril (PRINIVIL,ZEST RIL) 40 MG tablet lisinopril (PRINIVIL,ZESTRIL) 40 MG tablet 40 mg Oral aborted Take 40 mg by mouth daily [facility] Insurance Providers Payer name Policy type / Coverage type Policy ID Covered constitution party ID Covered constitution party's relationship to gastelum Policy Gastelum Plan Information [employer] GOLD [id number] SP [id number] HUMANA MEDICARE [id number] HUMANA MEDICARE [id number] [facility] [id number] HUMANA GOLD [id number] SP [id number] [employer] P [id number] S [id number] [employer] P [id number] S [id number] [facility] MEDICARE ADVANTAGE [id number] S [id number] Problems, Conditions, and Diagnoses Code Display Name Description Problem Type Effective Dates Data Source(s) R78.81 Bacteremia due to Streptococcus pneumoni ae Bacteremia due to Streptococcus pneumoniae [id number] 09/23/2020 12:00:00 AM [facility] E03.9 Hypothyroidism Hypothyroidism [id number] 09/21/2020 12:00: 00 AM [facility] R18.8 Ascites Ascites [id number] 09/21/2020 12:00:[address] [facility] E11.9 Diabetes mellitus Diabetes mellitus 89767579 09/21/2020 12:00:00 AM [facility] K70.30 Alcoholic cirrhosis Alcoholic cirrhosis [id number] 0 09/21/2020 12:00:00 AM [facility] N18.30 CKD (chronic kidney disease) stage 3, GF R 30-59 ml/min CKD (chronic kidney disease) stage 3, GFR 30-59 ml/min [id number] 09/21/2020 12:00:0 0 AM [facility] I10 HTN (hypertension) HTN (hypertension) 75630303 12:00:00 AM [facility] I48.91 Atrial fibrillation Atrial fibrillation 66935227 0 09/21/2020 12:00:00 AM [facility] R53.1 Weakness Weakness [id number] 09/21/2020 12:00:[address] [facility] W19.XXXA Fall at home Fall at home [id number] 09/21/2020 12:00:00 A M [facility] M79.671 Right foot pain Right foot pain [id number] 09/21/2020 12:0 0:00 AM [facility] I51.7 LVH (left ventricular hypertrophy) LVH (left kalie tricular hypertrophy) [id number] 09/21/2020 12:00:00 AM [facility] I36.1 Nonrheumatic tricuspid valve regurgitati on Nonrheumatic tricuspid valve regurgitation 36271023 09/21/2020 12:00:00 AM [facility] I34.0 Moderate mitral insufficiency Moderate mitral insuffic iency [id number] 09/21/2020 12:00:00 AM [facility] I35.0 Aortic valve stenosis Aortic valve stenosis 59100421 09/21/2020 12:00:00 AM [facility] D64.9 Anemia Anemia 90882083 09/21/2020 12:00:[address] 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 Ascites due t o alcoholic cirrhosis [id number] 09/20/2020 12:00:00 AM [facility] D50.9 Iron deficiency anemia Iron deficiency anemia 09007869 09/20/2020 12:00:00 AM [facility] R68.81 Early satiety Early satiety 08490564 09/20/2020 12:00:00 AM [facility] [id number] Chronic atrial fibrillation Chronic Atrial Fibrillatio n Problem 06/09/2020 12:00:00 AM EDT ANDRÉS ([facility]) 235328728 Chronic atrial fibrillation Chronic Atrial Fibrillatio n Problem 06/09/2020 12:00:00 AM EDT ANDRÉS ([facility]) N18.2 Chronic kidney disease, stage 2 (mild) C hronic kidney disease, stage 2 (mild) 03/03/2020 11:04:17 AM EDT [facility] [id number] Chronic kidney disease stage 2 Chronic Kidney Disease Stage 2 Problem 03/03/2020 12:00:00 AM EDT ANDRÉS ([facility]) 699137165 Chronic kidney disease stage 2 Chronic Kidney Disease Stage 2 Problem 03/03/2020 12:00:00 AM EDChristiano BOWEN ([facility]) R25.2 Cramp and spasm Bilateral cramp of muscle of lower varner bs 10/13/2019 11:05:18 AM [facility] [id number] Cramp Cramp Problem 10/13/2019 12:00:00 AM MICHAEL BOWEN ([facility]) 75243210 Cramp Cramp Problem 10/13/2019 12:00:00 AM MICHAEL BOWEN ([facility]) 250.00 Diabetes mellitus without me ntion of complication, type II or unspecified type, not stated as uncontrolled Diabetes mellitus without mention of complication, type II or unspecified type, not stated as uncontrolled 09/15/2019 09:28:20 AM [facility] [id number] Mixed hyperlipidemia Mixed hyperlipidemia 09/15/2019 09:28:20 AM [facility] [id number] Hypothyroidism, unspecified Hypothyroidism, unspecifie d 09/15/2019 09:28:20 AM [facility] 794.8 Liver function tests abnormal Liver function tests abn ormal 09/15/2019 08:49:51 AM [facility] K70.30 Alcoholic cirrhosis of liver without asc ites Alcoholic cirrhosis of liver without ascites 09/15/2019 08:49:51 AM [facility] [id number] Clinical finding Clinical Finding Problem 09/15/2019 12 :00:00 AM FAMILIA BOWEN ([facility]) [id number] Liver function tests abnormal Liver Function Tests Abn ormal Problem 09/15/2019 12:00:00 AM EST ANDRÉS ([facility]) [id number] Alcoholic cirrhosis Alcoholic Cirrhosis Problem 0 09/15/2019 12:00:00 AM EST ANDRÉS ([facility]) [id number] Mixed hyperlipidemia Mixed Hyperlipidemia Problem 09/15/2019 12:00:00 AM EST ANDRÉS ([facility]) [id number] Hypothyroidism Hypothyroidism Problem 09/15/2019 12:00: 00 AM FAMILIA BOWEN ([facility]) [id number] Clinical finding Clinical Finding Problem 09/15/2019 12 :00:00 AM FAMILIA BOWEN ([facility]) [id number] Liver function tests abnormal Liver Function Tests Abn ormal Problem 09/15/2019 12:00:00 AM EST ANDRÉS ([facility]) [id number] Alcoholic cirrhosis Alcoholic Cirrhosis Problem 0 09/15/2019 12:00:00 AM EST ANDRÉS ([facility]) [id number] Mixed hyperlipidemia Mixed Hyperlipidemia Problem 09/15/2019 12:00:00 AM EST ANDRÉS ([facility]) 69176838 Hypothyroidism Hypothyroidism Problem 09/15/2019 12:00: 00 AM FAMILIA IRVINE ([facility]) I35.0 Nonrheumatic aortic (valve) stenosis Nonrheumati c aortic (valve) stenosis Diagnosis 09/20/2020 11:22:56 PM [facility] K70.31 Alcoholic cirrhosis of liver with ascite s Alcoholic cirrhosis of liver with ascite Diagnosis 09/20/2020 11:22:56 PM [facility] D50.9 Iron deficiency anemia, unspecified Iron deficie ncy anemia, unspecified Diagnosis 09/20/2020 11:22:56 PM [facility] R68.81 Early satiety Early satiety Diagnosis 09/20/2020 11:22:56 PM [facility] I27.20 Pulmonary hypertension, unspecified Pulmonary hy pertension, unspecified Diagnosis 09/20/2020 11:22:56 PM [facility] Surgeries/Procedures Procedure Description Date Indications Data Source(s) THROMBOPLASTIN TIME PARTIAL PLASMA/WHOLE BLOOD APTT STAT 09/28/2020 9:36 AM EST 09/28/2020 02:36:00 PM [facility] GLUC BLD GLUC MNTR DEV CLEARED FDA SPEC HOME USE POCT GLUCOSE Routine 09/28/2020 9:27 AM EST 09/28/2020 02:27:00 PM [facility] THROMBOPLASTIN TIME PARTIAL PLASMA/WHOLE BLOOD APTT Routine 09/28/2020 2:51 AM EST 09/28/2020 07:51:00 AM [facility] BLOOD COUNT COMPLETE AUTOMATED CBC Timed 09/28/2020 2:51 A M EST 09/28/2020 07:51:00 AM [facility] BASIC METABOLIC PANEL CALCIUM TOTAL BASIC METABOLIC PANEL Timed 09/28/2020 2:51 AM EST 09/28/2020 07:51:00 AM [facility] POTASSIUM SERUM PLASMA/WHOLE BLOOD POTASSIUM STAT 09/27/2020 10: 36 PM EST 09/28/2020 03:36:00 AM EST [facility] MAGNESIUM MAGNESIUM STAT 09/27/2020 10:36 PM EST 09/28/2020 03:36:00 AM EST [facility] GLUC BLD GLUC MNTR DEV CLEARED FDA SPEC HOME USE POCT GLUCOSE Routine 09/27/2020 7:02 PM EST 09/28/2020 12:02:00 AM EST [facility] GLUC BLD GLUC MNTR DEV CLEARED FDA SPEC HOME USE POCT GLUCOSE Routine 09/27/2020 2:38 PM EST 09/27/2020 07:38:00 PM EST [facility] GLUC BLD GLUC MNTR DEV CLEARED FDA SPEC HOME USE POCT GLUCOSE Routine 09/27/2020 11:38 AM EST 09/27/2020 04:38:00 PM EST [facility] GLUC BLD GLUC MNTR DEV CLEARED FDA SPEC HOME USE POCT GLUCOSE Routine 09/27/2020 8:28 AM EST 09/27/2020 01:28:00 PM [facility] ABDOM PARACENTESIS DX/THER W IMAGING GUIDANCE IR PARACENTESIS R outine 09/27/2020 8:20 AM EST 09/27/2020 01:20:00 PM [facility] BLOOD COUNT COMPLETE AUTOMATED CBC Timed 09/27/2020 2:30 A M EST 09/27/2020 07:30:00 AM [facility] BASIC METABOLIC PANEL CALCIUM TOTAL BASIC METABOLIC PANEL Timed 09/27/2020 2:30 AM EST 09/27/2020 07:30:00 AM [facility] THROMBOPLASTIN TIME PARTIAL PLASMA/WHOLE BLOOD APTT STAT 09/27/2020 12:28 AM EST 09/27/2020 05:28:00 AM [facility] THROMBOPLASTIN TIME PARTIAL PLASMA/WHOLE BLOOD APTT STAT 09/26/2020 6:07 PM EST 09/26/2020 11:07:00 PM EST [facility] GLUC BLD GLUC MNTR DEV CLEARED FDA SPEC HOME USE POCT GLUCOSE Routine 09/26/2020 5:50 PM EST 09/26/2020 10:50:00 PM EST [facility] GLUC BLD GLUC MNTR DEV CLEARED FDA SPEC HOME USE POCT GLUCOSE Routine 09/26/2020 1:13 PM EST 09/26/2020 06:13:00 PM EST [facility] GLUC BLD GLUC MNTR DEV CLEARED FDA SPEC HOME USE POCT GLUCOSE Routine 09/26/2020 8:59 AM EST 09/26/2020 01:59:00 PM [facility] THROMBOPLASTIN TIME PARTIAL PLASMA/WHOLE BLOOD APTT STAT 09/26/2020 7:00 AM EST 09/26/2020 12:00:00 PM [facility] BLOOD COUNT COMPLETE AUTOMATED CBC Routine 09/26/2020 4:30 A M EST 09/26/2020 09:30:00 AM [facility] BASIC METABOLIC PANEL CALCIUM TOTAL BASIC METABOLIC PANEL Timed 09/26/2020 4:30 AM EST 09/26/2020 09:30:00 AM [facility] THROMBOPLASTIN TIME PARTIAL PLASMA/WHOLE BLOOD APTT STAT 09/26/2020 12:00 AM EST 09/26/2020 05:00:00 AM EST [facility] GLUC BLD GLUC MNTR DEV CLEARED FDA SPEC HOME USE POCT GLUCOSE Routine 09/25/2020 5:37 PM EST 09/25/2020 10:37:00 PM [facility] LEVEL IV SURG PATHOLOGY GROSS&MICROSCOPIC EXAM [facility] HISTOLOGY Routine 09/25/2020 4:07 PM EST 09/25/2020 09:07:00 PM [facility] UPPER GI NDSC DX W/WO COLLECTION SPECIMEN ESOPHAGOGASTRODUODENO SCOPY (EGD) 09/25/2020 2:45 PM EST Early satiety Iron deficiency anemia, unspecified iron deficiency anemia type Ascites due to alcoholic cirrhosis 09/25/2020 07:45:00 PM EST - 09/25/2020 08:24:00 PM EST Ascites due to alcoholic cirrhosisIron d eficiency anemia, unspecified iron deficiency anemia typeEarly satiety [facility] Ascites due to alcoholic cirrhosis Iron deficiency anemia, unspecified iron deficiency anemia type Early satiety GLUC BLD GLUC MNTR DEV CLEARED FDA SPEC HOME USE POCT GLUCOSE Routine 09/25/2020 12:17 PM EST 09/25/2020 05:17:00 PM EST [facility] GLUC BLD GLUC MNTR DEV CLEARED FDA SPEC HOME USE POCT GLUCOSE Routine 09/25/2020 9:26 AM EST 09/25/2020 02:26:00 PM [facility] IAAD EIA MULT STEP METHOD NOS EACH ORGANISM LEGIONELLA ANTIGEN, URINE Routine 09/25/2020 8:35 AM EST 09/25/2020 01:35:00 PM [facility] ALPHA-FETOPROTEIN SERUM AFP TUMOR MARKER Add-On 09/25/2020 4:52 A M EST 09/25/2020 09:52:00 AM [facility] THROMBOPLASTIN TIME PARTIAL PLASMA/WHOLE BLOOD APTT STAT 09/25/2020 4:52 AM EST 09/25/2020 09:52:00 AM [facility] BLOOD COUNT COMPLETE AUTOMATED CBC Routine 09/25/2020 4:52 A M EST 09/25/2020 09:52:00 AM [facility] URIC ACID BLOOD URIC ACID Add-On 09/25/2020 4:52 AM EST 09/25/2020 09:52:00 AM [facility] CARCINOEMBRYONIC ANTIGEN CEA CEA Add-On 09/25/2020 4:52 AM EST 09/25/2020 09:52:00 AM [facility] COMPREHENSIVE METABOLIC PANEL COMPREHENSIVE METABOLIC PANEL Rou javon 09/25/2020 4:52 AM EST 09/25/2020 09:52:00 AM [facility] 2019 NCOV AMPLIFIED 2019 NCOV AMPLIFIED STAT 09/25/2020 12:59 AM EST 09/25/2020 05:59:00 AM EST [facility] THROMBOPLASTIN TIME PARTIAL PLASMA/WHOLE BLOOD APTT STAT 09/24/2020 6:22 PM EST 09/24/2020 11:22:00 PM EST [facility] GLUC BLD GLUC MNTR DEV CLEARED FDA SPEC HOME USE POCT GLUCOSE Routine 09/24/2020 6:20 PM EST 09/24/2020 11:20:00 PM EST [facility] THROMBOPLASTIN TIME PARTIAL PLASMA/WHOLE BLOOD APTT STAT 09/24/2020 12:10 PM EST 09/24/2020 05:10:00 PM EST [facility] GLUC BLD GLUC MNTR DEV CLEARED FDA SPEC HOME USE POCT GLUCOSE Routine 09/24/2020 10:38 AM EST 09/24/2020 03:38:00 PM EST [facility] THROMBOPLASTIN TIME PARTIAL PLASMA/WHOLE BLOOD APTT Add-On 09/24/2020 1:30 AM EST 09/24/2020 06:30:00 AM [facility] BLOOD COUNT COMPLETE AUTOMATED CBC Add-On 09/24/2020 1:30 A M EST 09/24/2020 06:30:00 AM EST [facility] BASIC METABOLIC PANEL CALCIUM TOTAL BASIC METABOLIC PANEL Add-O n 09/24/2020 1:30 AM EST 09/24/2020 06:30:00 AM EST [facility] GLUC BLD GLUC MNTR DEV CLEARED FDA SPEC HOME USE POCT GLUCOSE Routine 09/23/2020 6:41 PM EST 09/23/2020 11:41:00 PM EST [facility] THROMBOPLASTIN TIME PARTIAL PLASMA/WHOLE BLOOD APTT STAT 09/23/2020 6:40 PM EST 09/23/2020 11:40:00 PM EST [facility] THROMBOPLASTIN TIME PARTIAL PLASMA/WHOLE BLOOD APTT STAT 09/23/2020 12:38 PM EST 09/23/2020 05:38:00 PM EST [facility] GLUC BLD GLUC MNTR DEV CLEARED FDA SPEC HOME USE POCT GLUCOSE Routine 09/23/2020 12:36 PM EST 09/23/2020 05:36:00 PM EST [facility] GLUC BLD GLUC MNTR DEV CLEARED FDA SPEC HOME USE POCT GLUCOSE Routine 09/23/2020 10:52 AM EST 09/23/2020 03:52:00 PM EST [facility] CULTURE BACTERIAL BLOOD AEROBIC W/ID ISOLATES BLOOD CULTURE R outine 09/23/2020 2:40 AM EST 09/23/2020 07:40:00 AM EST [facility] CULTURE BACTERIAL BLOOD AEROBIC W/ID ISOLATES BLOOD CULTURE R outine 09/23/2020 2:40 AM EST 09/23/2020 07:40:00 AM [facility] THROMBOPLASTIN TIME PARTIAL PLASMA/WHOLE BLOOD APTT STAT 09/23/2020 2:40 AM EST 09/23/2020 07:40:00 AM [facility] BLOOD COUNT COMPLETE AUTOMATED CBC Routine 09/23/2020 2:40 A M EST 09/23/2020 07:40:00 AM [facility] BASIC METABOLIC PANEL CALCIUM TOTAL BASIC METABOLIC PANEL Routi ne 09/23/2020 2:40 AM EST 09/23/2020 07:40:00 AM [facility] MRI ABDOMEN W/O CONTRAST MATERIAL MRI ABDOMEN WO CONTRAST Routi ne 09/22/2020 8:34 PM EST 09/23/2020 01:34:05 AM [facility] URINE CULTURE HOLD SPECIMEN URINE CULTURE HOLD SPECIMEN Routine 09/22/2020 7:22 PM EST 09/23/2020 12:22:00 AM [facility] CHLORIDE URINE URINE ELECTROLYTES Routine 09/22/2020 7:22 PM EST 09/23/2020 12:22:00 AM [facility] CREATININE OTHER SOURCE CREATININE, URINE, RANDOM Routine 09/22/2020 7:22 PM EST 09/23/2020 12:22:00 AM [facility] URNLS DIP STICK/TABLET REAGENT AUTO MICROSCOPY URINALYSIS, MICROSCOPIC ONLY Routine 09/22/2020 7:22 PM EST 09/23/2020 12:22:00 AM [facility] CULTURE BCT ISOL&PRSMPTV ID ISOLATE EA URINE URINE CULTURE Ro utine 09/22/2020 7:22 PM EST 09/23/2020 12:22:00 AM [facility] GLUC BLD GLUC MNTR DEV CLEARED FDA SPEC HOME USE POCT GLUCOSE Routine 09/22/2020 6:41 PM EST 09/22/2020 11:41:00 PM EST [facility] THROMBOPLASTIN TIME PARTIAL PLASMA/WHOLE BLOOD APTT STAT 09/22/2020 6:30 PM EST 09/22/2020 11:30:00 PM EST [facility] GLUC BLD GLUC MNTR DEV CLEARED FDA SPEC HOME USE POCT GLUCOSE Routine 09/22/2020 1:28 PM EST 09/22/2020 06:28:00 PM EST [facility] THROMBOPLASTIN TIME PARTIAL PLASMA/WHOLE BLOOD APTT STAT 09/22/2020 9:14 AM EST 09/22/2020 02:14:00 PM EST [facility] GLUC BLD GLUC MNTR DEV CLEARED FDA SPEC HOME USE POCT GLUCOSE Routine 09/22/2020 9:05 AM EST 09/22/2020 02:05:00 PM EST [facility] PROCALCITONIN (PCT) PROCALCITONIN Routine 09/22/2020 6:25 AM EST 09/22/2020 11:25:00 AM [facility] BLOOD COUNT COMPLETE AUTOMATED CBC Routine 09/22/2020 6:25 A M EST 09/22/2020 11:25:00 AM [facility] LACTATE LACTIC ACID Timed 09/22/2020 6:25 AM EST 09/22/2020 11:25:00 AM [facility] BASIC METABOLIC PANEL CALCIUM TOTAL BASIC METABOLIC PANEL Routi ne 09/22/2020 6:25 AM EST 09/22/2020 11:25:00 AM [facility] CULTURE BACTERIAL BLOOD AEROBIC W/ID ISOLATES BLOOD CULTURE R outine 09/22/2020 1:52 AM EST 09/22/2020 06:52:00 AM [facility] CULTURE BACTERIAL BLOOD AEROBIC W/ID ISOLATES BLOOD CULTURE R outine 09/22/2020 1:52 AM EST 09/22/2020 06:52:00 AM EST [facility] THROMBOPLASTIN TIME PARTIAL PLASMA/WHOLE BLOOD APTT STAT 09/21/2020 11:10 PM EST 09/22/2020 04:10:00 AM EST [facility] GLUC BLD GLUC MNTR DEV CLEARED FDA SPEC HOME USE POCT GLUCOSE Routine 09/21/2020 7:28 PM EST 09/22/2020 12:28:00 AM EST [facility] PERITONEAL FLUID PERITONEAL FLUID Routine 09/21/2020 3:15 PM EST 09/21/2020 08:15:00 PM EST [facility] FLUID SOURCE FLUID SOURCE Routine 09/21/2020 3:15 PM EST 09/21/2020 08:15:00 PM EST [facility] CUL BACT XCPT URINE BLOOD/STOOL AEROBIC ISOL AEROBIC FLUID CULTURE / GS Routine 09/21/2020 3:15 PM EST 09/21/2020 08:15:00 PM EST [facility] CULTURE BACTERIAL ANY SOURCE ANAEROBIC ISO&ID ANAEROBIC CULTURE Routine 09/21/2020 3:15 PM EST 09/21/2020 08:15:00 PM EST [facility] SPECIFIC GRAVITY EXCEPT URINE SPECIFIC GRAVITY, BODY FLUID Rout ine 09/21/2020 3:15 PM EST 09/21/2020 08:15:00 PM [facility] PROTEIN TOTAL XCPT REFRACTOMETRY OTH SRC PROTEIN, BODY FLUID Ro utine 09/21/2020 3:15 PM EST 09/21/2020 08:15:00 PM EST [facility] LACTATE DEHYDROGENASE LDH LACTATE DEHYDROGENASE, BODY FLUID Rou javon 09/21/2020 3:15 PM EST 09/21/2020 08:15:00 PM EST [facility] GLUCOSE BODY FLUID OTHER THAN BLOOD GLUCOSE, BODY FLUID Routine 09/21/2020 3:15 PM EST 09/21/2020 08:15:00 PM EST [facility] AMYLASE AMYLASE, BODY FLUID Routine 09/21/2020 3:15 PM EST 09/21/2020 08:15:00 PM EST [facility] ALBUMIN URINE/OTHER SOURCE BHASKAR EACH SPECIMEN ALBUMIN, FLUID R outine 09/21/2020 3:15 PM EST 09/21/2020 08:15:00 PM EST [facility] GLUC BLD GLUC MNTR DEV CLEARED FDA SPEC HOME USE POCT GLUCOSE Routine 09/21/2020 2:13 PM EST 09/21/2020 07:13:00 PM EST [facility] XR CHEST PORTABLE XR CHEST PORTABLE STAT 09/21/2020 10:28 AM EST 09/21/2020 03:28:33 PM EST [facility] ECHO TTHRC R-T 2D W/WOM-MODE COMPL SPEC&COLR DOP ECHOCARDIO GRAM TRANSTHORACIC Routine 09/21/2020 10:00 AM EST 09/21/2020 03:00:47 PM EST [facility] GLUC BLD GLUC MNTR DEV CLEARED FDA SPEC HOME USE POCT GLUCOSE Routine 09/21/2020 9:38 AM EST 09/21/2020 02:38:00 PM EST [facility] RADEX FOOT COMPLETE MINIMUM 3 VIEWS XR FOOT COMPLETE RIGHT Rout ine 09/21/2020 8:22 AM EST 09/21/2020 01:22:51 PM [facility] THROMBOPLASTIN TIME PARTIAL PLASMA/WHOLE BLOOD APTT Routine 09/21/2020 6:40 AM EST 09/21/2020 11:40:00 AM [facility] PROTHROMBIN TIME PROTIME-INR Add-On 09/21/2020 6:40 AM EST 09/21/2020 11:40:00 AM [facility] NT PRO BNP NT PRO BNP Routine 09/21/2020 4:45 AM EST 09/21/2020 09:45:00 AM [facility] TROPONIN QUANTITATIVE TROPONIN I Timed 09/21/2020 4:45 AM EST 09/21/2020 09:45:00 AM [facility] BLOOD COUNT COMPLETE AUTO&AUTO DIFRNTL WBC COUNT CBC AND DIFFER ENTIAL STAT 09/21/2020 4:45 AM EST 09/21/2020 09:45:00 AM EST [facility] THYROID STIMULATING HORMONE TSH TSH Routine 09/21/2020 4:45 AM EST 09/21/2020 09:45:00 AM EST [facility] MAGNESIUM MAGNESIUM Routine 09/21/2020 4:45 AM EST 09/21/2020 09:45:00 AM EST [facility] HEMOGLOBIN GLYCOSYLATED A1C HEMOGLOBIN A1C Routine 09/21/2020 4:45 AM EST 09/21/2020 09:45:00 AM EST [facility] COMPREHENSIVE METABOLIC PANEL COMPREHENSIVE METABOLIC PANEL STA T 09/21/2020 4:45 AM EST 09/21/2020 09:45:00 AM EST [facility] CYTOLOGY [facility] CYTOLOGY Routine 09/21/2020 12:00 AM EST 09/21/2020 05:00:00 AM EST [facility] ECG ROUTINE ECG W/LEAST 12 LDS W/I&R ECG 12-LEAD Routine 09/20/2020 11:30 PM EST 09/21/2020 04:30:40 AM EST [facility] Results ID Date Data Source [id number] 09/28/2020 11:35:24 AM EST [facility] NT INFORMATIONPatient MRN Name Date of Age Gend*PT [id number] Naeem Robbins 1940 79 years M IPPT Location Admission Date/Time Visit ID Attending [id number] 09/20/202321 --- Henry Francois MD([id number]) EPI ID CSN Admitting Provider [id number] Bharath Dennis MD([id number]) [facility] DISCHARGE SUMMARYPatient Name: Naeem Robbins of : 1940 Age 79 yearsPrimary Physician: Mich Hall MD PCP Wbnylmqpi Date: 09/20/2020 Discharge Date:He will be discharged from [facility] to [facility] Diagnoses:Principal Problem: Aortic valve stenosisActive Problems: Anemia Moderate mitral insufficiency Nonrheumatic tricuspid valve regurgitation LVH (left ventricular hypertrophy) Right foot pain Fall at home Weakness Atrial fibrillation HTN (hypertension) CKD (chronic kidney disease) stage 3, GFR 30-59 ml/min Alcoholic cirrhosis Diabetes mellitus Ascites Hypothyroidism Bacteremia due to Streptococcus pneumoniae Early satiety Iron deficiency anemia Ascites due to alcoholic cirrhosis Nonrheumatic aortic valve stenosisDischarge Medications:Current Discharge Medication ListSTART taking these medications Detailsfolic acid (FOLVITE) 1 MG tablet Take 1 tablet (1 mg total) by mouth dailyQty: 30 tablet, Refills: 5furosemide (LASIX) 40 MG tablet Take 1 tablet (40 mg total) by mouth everymorningQty: 30 tablet, Refills: 0gabapentin (NEURONTIN) 100 MG capsule Take 2 capsules (200 mg total) by mouth 3(three) times a dayQty: 180 capsule, Refills: 0HYDROcodone-acetaminophen (NORCO) 7.5-325 MG per tablet Take 1 tablet by mouthevery 4 (four) hours as needed Max Daily Amount: 6 tabletsQty: 30 tablet, Refills: 0lidocaine (ASPERCREME) 4 % PTCH Place 1 patch on the skin Every 24 hours asneededQty: 15 patch, Refills: 0spironolactone (ALDACTONE) 25 MG tablet Take 1 tablet (25 mg total) by mouthdailyQty: 30 tablet, Refills: 0thiamine 100 MG tablet Take 1 tablet (100 mg total) by mouth dailyQty: 30 tablet, Refills: 0CONTINUE these medications which have CHANGED Detailscarvedilol (COREG) 3.125 MG tablet Take 1 tablet (3.125 mg total) by mouth 2(two) times a dayQty: 60 tablet, Refills: 0lisinopril (PRINIVIL,ZESTRIL) 2.5 MG tablet Take 1 tablet (2.5 mg total) bymouth dailyQty: 30 tablet, Refills: 0CONTINUE these medications which have NOT CHANGED DetailsApixaban (ELIQUIS) 5 MG TABS tablet Take by mouth 2 (two) times a dayDaily Veronica (THERAGRAN) per tablet Take 1 tablet by mouth dailylevothyroxine (SYNTHROID, LEVOTHROID) 75 MCG tablet Take 75 mcg by mouth dailymelatonin 3 MG tablet Take 6 mg by mouth nightlymetFORMIN (GLUCOPHAGE) 1000 MG tablet Take 1,000 mg by mouth daily withbreakfastOmega-3 Fatty Acids (FISH OIL PO) Take 1 tablet by mouth dailyrOPINIRole (REQUIP) 0.25 MG tablet Take 0.25 mg by mouth nightlytamsulosin (FLOMAX) 0.4 MG CAPS Take 0.4 mg by mouth dailySTOP taking these medications amLODIPine (NORVASC) 10 MG tablet hydrochlorothiazide (HYDRODIURIL) 25 MG tabletFollow Up Instructions:The patient was given an after visit summary.Patient will follow up with PCP in 3-7 days.Cardiology consultItems needing special attention:F/u cbc/bmp with pcpBrief Hospital Course:In summary this is 79 year old male with a PMH of alcohol use, smoking hx,atrial fibrillation chronically on AC, CKD, HTN, DM hypothyroidism presentsintially to outside facility with weakness and falls. The patient was found isaac fluid overload and ascites. Paracentesis was done. TTE was obtained whichshowed severe . The patient was transferred to [facility] for evaluation. GI andcardiology and nephrology are on board. GI states there does not look like thereis cirrhosis enough to cause the amount of ascites noted. Checking if malignancyinvolved. Patient found to have bacteremia of unknown source which was deemed ascontaminantPatient has cardiomyopathy EF 35% secondary to alcohol versus ischemia remainscompensated currently being treated appropriately and medications were adjustedHis alcoholic cirrhosis and ascites is stable he is being followed by GI he hadparacentesis for 3 L of clear yellow peritoneal fluidHe had an EGD that revealed long segment of Rucker's esophagus no evidence ofcirrhosis thus far per GIHis creatinine is stable and he has underlying CKD stage IIIRest of comorbidities appears to be stableHis right foot pain is currently controlled with gabapentin and pain medicationsPatient has severe aortic stenosis and he was deemed a poor candidate forprocedure, continue medical management-patient is hemodynamically stable todayfor discharge and can follow-up as an outpatientPrognosis guarded given multiple comorbiditiesDischarge Exam:Blood Pressure: BP: 136/71 Pulse: Heart Rate: 68Temperature: Temp: 97.5 F Respirations: Resp: 16Admission Weight: Weight: 83.9 kg (185 lb) O2 Saturation: SpO2: 95 %Discharge Weight: Weight: 79.7 kg (175 lb 12.8 oz) BMI: Body mass index is 24.52kg/m .Physical Exam General alert, in no apparent distress HEENT Normal Lungs normal Heart S1-S2 heard Abdomen soft, +ve ascites Musculoskeletal negative Neuro mental status, speech normal, alert and oriented [id number]:Imaging :Echocardiogram done 09/21/2020Interpretation Summary There is moderate mitral valve leaflet thickening. There is mild mitralannular calcification, mild MR Left ventricular ejection fraction is moderate to severely (30-35%) decreased,mild LVH, rhythm is atrial fibrillation. Mild biatrial enlargement. Severe aortic stenosis. Moderate elevation in PA systolic pressure.Procedures:EGDCons ultants:CardsCTSPalliativeGIRecent Labs:BMP:Lab ResultsComponent Value Date NA 150 (H) 09/28/2020 K 4.9 09/28/2020 CL 115 (H) 09/28/2020 CO2 28 09/28/2020 ANIONGAP 7 09/28/2020 CALCIUM 7.9 (L) 09/28/2020 GLU 155 (H) 09/28/2020 BUN 26 (H) 09/28/2020 CREATININE 1.24 09/28/2020 GFRAA >60 09/28/2020 GFRNONAA 56 (L) 09/28/2020ardiac:Lab ResultsComponent Value Date TROPONINI <0.05 09/21/2020 PROBNP 48,954 (H) 09/21/2020BC with Diff:Lab ResultsComponent Value Date WBC 9.1 09/28/2020 RBC 3.65 (L) 09/28/2020 HGB 8.8 (L) 09/28/2020 HCT 27.1 (L) 09/28/2020 MCV 74.2 (L) 09/28/2020 MCH 24.0 (L) 09/28/2020 MCHC 32.4 09/28/2020 RDW 18.2 (H) 09/28/2020 PLT 200 09/28/2020 MPV 8.2 09/28/2020 LYMPHOPCT 33 09/21/2020 LYMPHOPCT 3.0 (L) 09/21/2020 MONOPCT 10.4 (H) 09/21/2020 EOSPCT 0.0 09/21/2020 BASOPCT 2.2 09/21/2020 NEUTROABS 9.4 (H) 09/21/2020 MONOABS 1.2 (H) 09/21/2020 BASOSABS 0.2 09/21/2020HgbA1c:Lab ResultsComponent Value Date HGBA1C 5.8 09/21/2020Thyroid:Lab ResultsComponent Value Date TSH 0.380 09/21/2020Henry Francois MD11:08 AMTotal time spent for discharge on date of discharge: 40 minutes Name Value Range Interpretation Code Description Data Erlinda rce(s) Supporting Document(s) ID Date Data Source [id number] 09/28/2020 10:52:24 AM EST [facility] Name Value Range Interpretation Code Description Data Erlinda rce(s) Supporting Document(s) APTT 52.4 s (22.0-34.3) H [facility] ID Date Data Source [id number] 09/28/2020 09:36:20 AM EST [facility] Name Value Range Interpretation Code Description Data Erlinda rce(s) Supporting Document(s) POC NOVA GLU 122 mg/dL (70-99) H [facility] [place] PERFORMED BY [facility] CLINICAL STAFF ID Date Data Source [id number] 09/28/2020 04:49:20 AM EST [facility] Name Value Range Interpretation Code Description Data Erlinda rce(s) Supporting Document(s) SODIUM 150 mmol/L (136-145) H [facility] POTASSIUM 4.9 mmol/L (3.6-5.2) [facility] CHLORIDE 115 mmol/L (100-108) H [facility] CO2 28 mmol/L (22-31) [facility] ANION GAP 7 mmol/L (7-16) [facility] UREA NITROGEN 26 mg/dL (7-24) H [facility] CREATININE 1.24 mg/dL (0.80-1.30) [facility] BUN/CREAT RATIO 21.0 RATIO (10.0-20.0) H [facility] GLUCOSE 155 mg/dL (70-99) H [facility] CALCIUM 7.9 mg/dL (8.4-10.2) L [facility] GFR 56 ml/min/1.73m2 (>59) L [facility] GFR ( AMER) >60 ml/min/1.73m2 (>59) [facility] GFR INTERPRETATION [facility] --NORMAL KIDNEY FUNCTION OR MILD DISEASE - GFR >OR= 60CHRONIC KIDNEY DISEASE - GFR 15 - 59RENAL FAILURE - GFR <15 Est. GFR calculation based on the MDRDstudy equation, which assumes a steadystate for creatinine. Est. GFR should notbe used for medication dosing. ID Date Data Source [id number] 09/28/2020 03:24:18 AM EST [facility] Name Value Range Interpretation Code Description Data Erlinda rce(s) Supporting Document(s) APTT 88.1 s (22.0-34.3) H [facility] ID Date Data Source [id number] 09/28/2020 03:18:00 AM EST [facility] Name Value Range Interpretation Code Description Data Erlinda rce(s) Supporting Document(s) WBC 9.1 10*3/uL (4.1-11.0) [facility] RBC 3.65 10*6/uL (4.60-6.10) L [facility] HGB 8.8 g/dL (13.5-18.0) L [facility] HCT 27.1 % (41.0-53.0) L [facility] MCV 74.2 fL (80.0-95.0) L [facility] MCH 24.0 pg (27.0-32.0) L [facility] MCHC 32.4 g/dL (32.0-36.0) [facility] RDW 18.2 % (10.5-14.5) H [facility] PLT 200 10*3/uL (150-450) [facility] MPV 8.2 fL (7.1-10.7) [facility] ID Date Data Source [id number] 09/28/2020 12:38:37 AM EST [facility] Name Value Range Interpretation Code Description Data Erlinda rce(s) Supporting Document(s) MAGNESIUM 2.0 mg/dL (1.7-2.4) [facility] ID Date Data Source [id number] 09/28/2020 12:36:02 AM EST [facility] Name Value Range Interpretation Code Description Data Erlinda rce(s) Supporting Document(s) POTASSIUM 4.9 mmol/L (3.6-5.2) [facility] ID Date Data Source [id number] 09/27/2020 07:05:29 PM EST [facility] Name Value Range Interpretation Code Description Data Erlinda rce(s) Supporting Document(s) POC NOVA GLU 230 mg/dL (70-99) H [facility] CLINICAL STAFF ID Date Data Source [id number] 09/27/2020 02:43:19 PM EST [facility] Name Value Range Interpretation Code Description Data Erlinda rce(s) Supporting Document(s) POC NOVA GLU 196 mg/dL (70-99) H [facility] CLINICAL STAFF ID Date Data Source [id number] 09/27/2020 11:43:21 AM EST [facility] Name Value Range Interpretation Code Description Data Erlinda rce(s) Supporting Document(s) POC NOVA GLU 163 mg/dL (70-99) H [facility] CLINICAL STAFF ID Date Data Source [id number] 09/27/2020 10:14:22 AM EST [address] [address]Jgltzsh Name: NAEEM TRUJILLOOB: 1940ex: MOrdering Provider: ELIZABETH WALKERuthorigab Prov: ELIZABETH CANALESNReferring Provider: Procedure Performed: IR PARACENTESISExam Date: 09/27/2020 08:20MRN: [id number] Number: [id number] Class: InpatientAccount #: [id number] for Exam: distentionTechnique: Real-time sonographic images recordedComparison: NoneProcedure: This is a 79-year-old male with history of cirrhosis with ascites . Paracentesis has been requested. Informed consent was obtained. Potential complications of the procedure were explained to the patient to include but are not limited to: bleeding, infection, injury to surrounding blood vessels or adjacent structures or reaction to medication or products used. Patient expressed understanding of these risk factors. Ultrasound was used to localize a safe site in the abdomen for draining ascites. The overlying skin was marked, prepped and draped in the usual sterile fashion. A time out was performed verifying patient identity and procedure to be performed. Sterile barrier technique was utilized throughout the procedure. Local anesthesia was obtained with 1% Lidocaine. Under ultrasound guidance with image documentation, a 5-Niuean catheter was inserted into the right abdomen peritoneal space. Fluid was able to be aspirated through the catheter. The catheter was connected to wall suction and approximately 3 L of clear yellow fluid was drained. A fluid sample sent to lab for analysis The catheter was removed. Dressing was applied. There were no immediate complications noted. Patient tolerated procedure well.Procedure was performed by Gene COBOS under the direct supervision of Dr. Victoria.Impression: Ultrasound guided paracentesis as described above with no acute complications.Report electronically approved by: GENE MERIDA On 09/27/2020 9:02 AMThe procedure described above was performed under my supervision and I agree with this reportReport electronically signed by: JESSICA VICTORIA On 09/27/2020 10:14 AMWorkstation ID: [id number] Name Value Range Interpretation Code Description Data Erlinda rce(s) Supporting Document(s) ID Date Data Source [id number] 09/27/2020 08:31:42 AM EST [facility] Name Value Range Interpretation Code Description Data Erlinda rce(s) Supporting Document(s) POC NOVA GLU 170 mg/dL (70-99) H [facility] PERFORMED BY [facility] CLINICAL STAFF ID Date Data Source [id number] 09/27/2020 03:51:20 AM EST [facility] Name Value Range Interpretation Code Description Data Erlinda rce(s) Supporting Document(s) SODIUM 141 mmol/L (136-145) [facility] POTASSIUM 4.5 mmol/L (3.6-5.2) [facility] CHLORIDE 105 mmol/L (100-108) [facility] CO2 30 mmol/L (22-31) [facility] ANION GAP 6 mmol/L (7-16) L [facility] UREA NITROGEN 24 mg/dL (7-24) [facility] CREATININE 1.25 mg/dL (0.80-1.30) [facility] BUN/CREAT RATIO 19.2 RATIO (10.0-20.0) [facility] GLUCOSE 155 mg/dL (70-99) H [facility] CALCIUM 8.3 mg/dL (8.4-10.2) L [facility] GFR 56 ml/min/1.73m2 (>59) L [facility] GFR ( AMER) >60 ml/min/1.73m2 (>59) [facility] GFR INTERPRETATION [facility] --NORMAL KIDNEY FUNCTION OR MILD DISEASE - GFR >OR= 60CHRONIC KIDNEY DISEASE - GFR 15 - 59RENAL FAILURE - GFR <15 Est. GFR calculation based on the MDRDstudy equation, which assumes a steadystate for creatinine. Est. GFR should notbe used for medication dosing. ID Date Data Source [id number] 09/27/2020 03:03:32 AM EST [facility] Name Value Range Interpretation Code Description Data Erlinda rce(s) Supporting Document(s) WBC 8.7 10*3/uL (4.1-11.0) [facility] RBC 3.99 10*6/uL (4.60-6.10) L [facility] HGB 9.7 g/dL (13.5-18.0) L [facility] HCT 30.2 % (41.0-53.0) L [facility] MCV 75.7 fL (80.0-95.0) L [facility] MCH 24.4 pg (27.0-32.0) L [facility] MCHC 32.2 g/dL (32.0-36.0) [facility] RDW 18.2 % (10.5-14.5) H [facility] PLT 185 10*3/uL (150-450) [facility] MPV 8.5 fL (7.1-10.7) [facility] ID Date Data Source [id number] 09/27/2020 01:11:03 AM EST [facility] Name Value Range Interpretation Code Description Data Erlinda rce(s) Supporting Document(s) APTT 62.9 s (22.0-34.3) H [facility] ID Date Data Source [id number] 09/26/2020 07:08:40 PM EST [facility] Name Value Range Interpretation Code Description Data Erlinda rce(s) Supporting Document(s) APTT 59.3 s (22.0-34.3) H [facility] ID Date Data Source [id number] 09/26/2020 06:21:52 PM EST [facility] Name Value Range Interpretation Code Description Data Erlinda rce(s) Supporting Document(s) POC NOVA GLU 132 mg/dL (70-99) H [facility] [place] [facility] CLINICAL STAFF ID Date Data Source [id number] 09/26/2020 03:11:39 PM EST [facility] HospitalPAT[facility] NT INFORMATIONPatient MRN Name Date of Age Gend*PT [id number] Naeem Robbins 1940 79 years M IPPT Location Admission Date/Time Visit ID Attending [id number] 09/20/202321 --- Henry Francois MD([id number]) EPI ID CSN Admitting Provider [id number] Bharath Dennis MD([id number])PALLIATIVE CARE CONSULT NOTEREASON FOR CONSULTATION: Goals of care / advanced care planning and Education /counseling / supportConsultsASSESSMENT / RECOMMENDATIONS:Naeem Robbins is a 79 year old male with PMH of alcohol abuse, tobacco abuse,atrial fibrillation, cirrhosis, CKD III, HTN, DM II, hypothyroidism who wastransferred to [facility] on 09/20 for TAVR work up. The patient has undergoneextensive work-up for multiple services, including GI, nephrology, andcardiology. He is being considered for a TAVR procedure, and his preference isto proceed with this if it is offered. Overall, he wishes to continue withrestorative care in order to live as long as possible, and maintain as muchfunctional independence as possible.1. Primary or principal disease process: Management as per primary team. Proceed with TAVR procedure if this is a viable option.2. Pain and symptom management: Consider longer acting agent, like OxyContin, at bedtime for ankle pain.3. Coordination/goals of care: Remains full code. Wishes to pursue restorative care.PCP: Mich Hall, ROSSIONSULTING PROVIDERS: ROSSI VictorOMMUNICATION / DISCUSSION AREAPeople Present: PatientItems Discussed:Code Status: Patient presents remain full codeGoals of Care: YesOther discussion: I introduced myself to the patient, and was able to describefor him palliative care services. He appreciated my presence, and explained herfrustration "no one explains anything to me". We talked about his many problemsthat have been worked on during his admission, and he was relieved to know thathis EGD yesterday was essentially unremarkable. He did explain that thecardiology service has described the TAVR procedure for him quite well, and hismain concern about that his not feeling any pain. He is relieved to know thathe would be sedated and not aware of his surroundings during the TAVRprocedure.We talked about the different pathways, 1 including proceeding withthe TAVR procedure if offered, and the other being managed medically. Patriciaas able to voice to me that he prefer having the procedure done, understandingthat "it is not going to get any better" being treated medically.He also complained about pain in his ankle, which has been present during theadmi ssion and he wishes he had better pain control options. He states themedication he currently takes helps but wears off quickly.Daniel was able to share with me his treatment for his liver disease as anoutpatient, and having been on 2 diuretics previously. These were reduced toone after he experienced significant weight loss attributed to overdiuresis. Hestates he was lost to follow-up, and his PCP was unwilling to continue toprescribe his diuretic. As such, he ran out, and subsequently profound asciteswhich warranted his most recent admission. He admits to being somewhatconfused, and that he thought he had liver cirrhosis, though now is being toldthat perhaps he does not have this disease. We talked about his hope to returnhome with his significant other, and resume his previous lifestyle.Palliative recommendation: As per patient's above-stated values and goals,continue with restorative care. If TAVR is an option, patient wishes to proceedwith this procedure.CODE STATUS: Full CodeFAMILY C ONTACT/HCR/POA: Shira Montejojono (SO).HISTORY OF PRESENT ILLNESS:Naeem Robbins is a 79 year old male with PMH of alcohol abuse, tobacco abuse,atrial fibrillation, cirrhosis, CKD III, HTN, DM II, hypothyroidism who wastransferred to [facility] on [facility] for TAVR work up. Because of the patient's multiplecomorbidities, he has been followed closely by cardiology, nephrology, andgastroenterology. Work-up has included an MRI abdomen and liver, as well asparacentesis which was negative for malignancy, and not suggestive of cirrhosisas the etiology. The MRI showed slight nodularity of the surface of the liver,the rest was relatively unremarkable. Given his early satiety and weight loss,an EGD was performed on 09/25 and other than evidence of Rucker's esophagus,wasessentially normal. His renal function has steadily improved and diureticshave been held. It was opined that he likely does not have hepatorenalsyndrome. Of note, the patient was followed by a GI specialist and no other [place], and had been on 2 diuretics at one time. Because of significant weightloss, he was reduced down to 1 diuretic, and then he was lost to follow-up.Cardiology work-up has included a transthoracic echocardiogram whichdemonstrated severe aortic stenosis, moderate mitral insufficiency, moderate tosevere tricuspid insufficiency, and severe pulmonary hypertension. He is beingconsidered for a TAVR, and the GI service has essentially cleared him for thisprocedure. There has been some question as to whether or not the patient wantedto pursue TAVR if available, and the palliative care team was consulted to helpwith clarification of goals and assist with treatment decision making.PAST MEDICAL HISTORY: PAST SURGICAL HISTORYPast Medical History:Diagnosis Date Alcohol abuse Alcoholic cirrhosis Ascites Atrial fibrillation CKD (chronic kidney disease) stage 3, GFR 30-59 ml/min Diabetes mellitus HTN (hypertension) Hypothyroidism Moderate to severe pulmonary hypertension Tobacco abuse Past Surgical History:Procedure Laterality Date CATARACT EXTRACTION ESOPHAGOGASTRODUODENOSCOPY N/A 09/25/2020 Procedure: ESOPHAGOGASTRODUODENOSCOPY (EGD) W/ BIOPSY; Surgeon: Sheikh Chris MD; Laterality: N/A;SPIRITUALITY: Not explored.FAMILY/SOCIAL HISTORYSocial HistorySocioeconomic History Marital status: Single Spouse name: Not on file Number of children: Not on file Years of education: Not on file Highest education level: Not on fileOccupational History Not on fileSocial Needs Financial resource strain: Not on file Food insecurity: Worry: Not on file Inability: Not on file Transportation needs: Medical: Not on file Non-medical: Not on fileTobacco Use Smoking status: Former Smoker Packs/day: 2.00 Years: 30.00 Pack years: 60.00 Types: Cigarettes Last attempt to quit: 1980 Years since quittin.1 Smokeless tobacco: Never UsedSubstance and Sexual Activity Alcohol use: Not Currently Comment: scotch or beer Drug use: Not Currently Sexual activity: Not on fileLifestyle Physical activity: Days per week: Not on file Minutes per session: Not on file Stress: Not on fileRelationships Social connections: Talks on phone: Not on file Gets together: Not on file Attends mormonism service: Not on file Active member of club or organization: Not on file Attends meetings of clubs or organizations: Not on file Relationship status: Not on file Intimate partner violence: Fear of current or ex partner: Not on file Emotionally abused: Not on file Physically abused: Not on file Forced sexual activity: Not on fileOther Topics Concern Not on fileSocial History Narrative Not on fileFamily HistoryFamily history unknown: YesCURRENT MEDICATIONS:Scheduled Meds: carvedilol 3.125 mg Oral BID cefTRIAXone (ROCEPHIN) IV 2 g Intravenous Push Q24H Daily Veronica 1 tablet Oral Daily folic acid 1 mg Oral Daily gabapentin 200 mg Oral TID insulin lispro 1-6 Units Subcutaneous With meals sliding scale levothyroxine 75 mcg Oral Daily rOPINIRole 0.25 mg Oral Nightly tamsulosin 0.4 mg Oral Daily thiamine 100 mg Oral DailyContinuous Infusions: heparin (porcine) in NaCl 22.9 Units/kg/hr (09/26/20 1012)PRN Meds:heparin (porcine), HYDROcodone-acetaminophen, lidocaine, LORazepam,ondansetronALLERGIES:AllergiesAllergen Reactions Shellfish-Derived Products SwellingCLINICAL DATA: Laboratory data, microbiology, and diagnostic imaging reviewed.Labs Reviewed:BMP:Lab ResultsComponent Value Date NA 143 09/26/2020 K 4.0 09/26/2020 CL 107 09/26/2020 CO2 30 09/26/2020 ANIONGAP 6 (L) 09/26/2020 CALCIUM 7.9 (L) 09/26/2020 GLU 136 (H) 09/26/2020 BUN 22 09/26/2020 CREATININE 1.20 09/26/2020 GFRAA >60 09/26/2020 GFRNONAA 58 (L) 09/26/2020ardiac:Lab ResultsComponent Value Date TROPONINI <0.05 09/21/2020 PROBNP 48,954 (H) 09/21/2020BC Brief:Lab ResultsComponent Value Date WBC 8.6 09/26/2020 HGB 9.7 (L) 09/26/2020 HCT 29.6 (L) 09/26/2020 PLT 195 09/26/2020Imaging Reviewed: YesSignificant Findings:MRI abdomen without contrast, 09/22/2020:IMPRESSION:1. Moderate abdominal ascites. Small left pleu ral effusion.2. Liver slightly undulating surface contour. This is suggestive of but notpathognomonic for cirrhosis.Transthoracic echocardiogram, 09/21/2020:Interpretation Summary There is moderate mitral valve leaflet thickening. There is mild mitralannular calcification, mild MR Left ventricular ejection fraction is moderate to severely (30-35%) decreased,mild LVH, rhythm is atrial fibrillation. Mild biatrial enlargement. Severe aortic stenosis. 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: Had been relatively independentIndependent in ADL's: YesAssistive Devices: NoneDiet: Diet Regular; Not Thickened; Consistent Carb (Diabetic), Low SodiumPHYSICAL EXAM:BP 116/60 (BP Location: Right upper arm, Patient Position: Sitting) | Pulse 82| Temp 97.5 F (Tympanic) | Resp 17 | Ht 1.803 m (5' 11") | Wt 79.5 kg (175lb 3.2 oz) | SpO2 96% | BMI 24.44 kg/m Intake/Output Summary (Last 24 hours) at 09/26/2020 1447Last data filed at 09/26/2020 1400Gross per 24 hourIntake 877.47 mlOutput 920 mlNet -42.53 mlPleasant, comfortable, not in acute distress.General appearance: alert, no distress and Elderly appearing, converses easilyLungs: Breathing not labored, no audible wheezingNeurologic: Grossly normalThank you for this consult, and the opportunity to participate in this patient'scare.I spent 55 minutes on this encounter; 30 minutes were spent on counseling ongoals of care, assistance with treatment decision making, emotional support, andcoordination of care.Deni Lemus MD212:47 PM Name Value Range Interpretation Code Description Data Erlinda rce(s) Supporting Document(s) ID Date Data Source [id number] 09/26/2020 01:15:45 PM EST [facility] [place] [facility] [place] Name Value Range Interpretation Code Description Data [facility] rce(s) Supporting Document(s) POC NOVA GLU 166 mg/dL (70-99) H [facility] [place] [facility] [place] PERFORMED BY [facility] CLINICAL STAFF ID Date Data Source [id number] 09/26/2020 09:11:41 AM EST [facility] [place] [facility] [place] Name Value Range Interpretation Code Description Data Erlinda rce(s) Supporting Document(s) POC NOVA GLU 184 mg/dL (70-99) H [facility] [place] [facility] [place] PERFORMED BY [facility] CLINICAL STAFF ID Date Data Source [id number] 09/26/2020 10:01:00 AM EST [facility] [place] [facility] [place] Name Value Range Interpretation Code Description Data Erlinda rce(s) Supporting Document(s) APTT 54.1 s (22.0-34.3) H [facility] [place] [facility] [place] ID Date Data Source [id number] 09/26/2020 06:58:29 AM EST [facility] [place] [facility] [place] Name Value Range Interpretation Code Description Data Erlinda rce(s) Supporting Document(s) SODIUM 143 mmol/L (136-145) [facility] [place] [facility] POTASSIUM 4.0 mmol/L (3.6-5.2) [facility] [place] [facility] [place] CHLORIDE 107 mmol/L (100-108) [facility] [place] [facility] [place] CO2 30 mmol/L (22-31) [facility] [place] [facility] [place] ANION GAP 6 mmol/L (7-16) L [facility] [place] [facility] UREA NITROGEN 22 mg/dL (7-24) [facility] [place] [facility] [place] CREATININE 1.20 mg/dL (0.80-1.30) [facility] [place] [facility] [place] BUN/CREAT RATIO 18.3 RATIO (10.0-20.0) [facility] [place] GLUCOSE 136 mg/dL (70-99) H [facility] [place] [facility] [place] CALCIUM 7.9 mg/dL (8.4-10.2) L [facility] [place] [facility] [place] GFR 58 ml/min/1.73m2 (>59) L [facility] [place] [facility] [place] GFR ( AMER) >60 ml/min/1.73m2 (>59) [facility] [place] [facility] [place] GFR INTERPRETATION [facility] [place] --NORMAL KIDNEY FUNCTION OR MILD DISEASE - GFR >OR= 60CHRONIC KIDNEY DISEASE - GFR 15 - 59RENAL FAILURE - GFR <15 Est. GFR calculation based on the MDRDstudy equation, which assumes a steadystate for creatinine. Est. GFR should notbe used for medication dosing. ID Date Data Source [id number] 09/26/2020 06:35:42 AM EST [facility] [place] [facility] [place] Name Value Range Interpretation Code Description Data Erlinda rce(s) Supporting Document(s) WBC 8.6 10*3/uL (4.1-11.0) [facility] [place] [facility] [place] RBC 4.01 10*6/uL (4.60-6.10) L [facility] [place] [facility] [place] HGB 9.7 g/dL (13.5-18.0) L [facility] [place] [facility] [place] HCT 29.6 % (41.0-53.0) L [facility] [place] [facility] [place] MCV 73.8 fL (80.0-95.0) L [facility] [place] [facility] [place] MCH 24.2 pg (27.0-32.0) L [facility] [place] [facility] [place] MCHC 32.8 g/dL (32.0-36.0) [facility] [place] [facility] [place] RDW 18.1 % (10.5-14.5) H [facility] [place] [facility] [place] PLT 195 10*3/uL (150-450) [facility] [place] [facility] [place] MPV 8.7 fL (7.1-10.7) [facility] [place] [facility] [place] ID Date Data Source [id number] 09/26/2020 12:57:45 AM EST [facility] [place] [facility] [place] Name Value Range Interpretation Code Description Data Erlinda rce(s) Supporting Document(s) APTT 51.7 s (22.0-34.3) H [facility] [place] [facility] [place] ID Date Data Source [id number] 09/25/2020 07:04:18 PM EST [facility] [place] [facility] [place] Name Value Range Interpretation Code Description Data Erlinda rce(s) Supporting Document(s) POC NOVA GLU 114 mg/dL (70-99) H [facility] [place] [facility] [place] PERFORMED BY [facility] CLINICAL STAFF ID Date Data Source [id number] 09/26/2020 02:40:41 PM EST [facility] [place] [facility] [place] [facility] [place], [place] [address]Tel# Surgical Pathology ReportPatient Name: BERNADINE ROBBINS: 1940ccession #:[id number](s) ReceivedA: Esophageal biopsyClinical Diagnosis and HistoryAnemia, (for Rucker's esophagus)DIAGNOSISESOPHAGUS, BIOPSY: COLUMNAR MUCOSA WITH INTESTINAL METAPLASIA, NO ATYPIA ORDYSPLASIA IS PRESENT Gross DescriptionSpecimen is labeled "A esophageal biopsy for Rucker's esophagus". Thespecimen consists of a 0.3 cm wispy white fragment of tissue. Entirelysubmitted as A1, multilevel. jglpms/skl Reported: 09/26/2020Electronically Signed Out By Ramos Anderson MD [facility], [place] [address]conQusebzvmb component performed at [facility] bounce.io [facility] CenterCollect.itHENNEPIN COUNTY [facility], Histopathology, [address] [place] [address], [id number].Reported at [facility], [address] [place], [place], [address]. This report may includeimmunohistochemical or in-situ hybridization results. Testing wasdeveloped and the performance characteristics determined by [facility] CenterKaymbu as required by CLIA '88. The FDA hasdetermined that approval for specific use is not necessary for clinicaluse. The quality of Hematoxylin and Eosin stains and as applicable, forall immunohistochemical and/or special stains, including positive andnegative controls, were reviewed and considered appropriate.ICD codes D64.9 K22.70CPT codesA: 19369H Name Value Range Interpretation Code Description Data Erlinda rce(s) Supporting Document(s) ID Date Data Source [id number] 09/25/2020 03:11:34 PM EST [facility] HospitalPATI NT INFORMATIONPatient MRN Name Date of Age Gend*PT [id number] Naeem Robbins 1940 79 years M IPPT Location Admission Date/Time Visit ID Attending [id number] 09/20/202321 --- Elizabeth Gilbert MD([id number]) EPI ID CSN Admitting Provider [id number] Bharath Dennis MD([id number])EGD Procedure NoteIndication: 79-year-old male having EGD done for evaluation of his anemia,weight loss and varices.A full consultation was placed in the chart. 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 Risks included, but are not limited to bleeding,infection, perforation, possible need for immediate corrective surgery, andrisks of cardiopulmonary events. These were explained to the patient in detail.The patient requests that we proceed with the procedure.Sedation: MAC per anesthesiologist.Procedure description: Vital signs and pulse oximetry were monitored throughoutthe procedure, and they remained acceptable. The patient was placed in the leftlateral decubitus position, and a bite block was put in place. After adequatemonitored sedation wa s obtained, the endoscope was introduced into oropharynxand advanced under direct visualization to the 3rd portion of the duodenum. Thefindings are listed below. Subsequently, the endoscope was withdrawn withcareful examination of the mucosa.Findings:Duodenum: No ulcer, mass or erosions seen. No blood seen.Stomach: No ulcer, mass or erosions seen. No blood seen.Retroflexion: No mass or varices seen.Esophagus: Diaphragmatic pinch was at 40 cm, GE junction extended to 35 cmconsistent with long segment Rucker's esophagus-superficial biopsies were done.The tubular esophagus was otherwise normal. No esophageal varices seen.Specimens:ID Type Source Tests Collected by [facility] : ESOPHAGEAL BIOPSY ( FOR BARRETTS ESOPHAGUS) Tissue Tissue SURGICAL PATHOLOGYEXSUNIL Perez MD 09/25/2020 1459Grafts/Implants:NoneComplications: None; patient tolerated the procedure well.Impression:1. Long segment Rucker's esophagus- biopsies done2. No esophageal varices seen3. No ulcer, mass or blood seen on upper GI endoscopic examinationRecommendations:1. Return the patient to the inpatient [place] for ongoing care.2. Resume diet as tolerated.3. Follow pathology report.4. PPI daily5. Based on the work-up done so far unlikely to have liver cirrhosis and do notsee any contraindication to proceed with TAVR from liver standpoint6. Patient will benefit with a colonoscopy as part of work-up of his anemiawhich can be done after his valve replacement. No reported overt GI bleeding.7 Call with any questions..Sheikh Chris MD3:02 PM 09/25/2020 Name Value Range Interpretation Code Description Data Erlinda rce(s) Supporting Document(s) ID Date Data Source [id number] 09/25/2020 12:20:46 PM EST [facility] [place] [facility] Name Value Range Interpretation Code Description Data Erlinda rce(s) Supporting Document(s) POC NOVA GLU 124 mg/dL (70-99) H [facility] [place] [facility] [place] PERFORMED BY [facility] CLINICAL STAFF ID Date Data Source [id number] 09/25/2020 09:29:42 AM EST Lab [facility] [place] Name Value Range Interpretation Code Description Data Erlinda rce(s) Supporting Document(s) POC NOVA GLU 120 mg/dL (70-99) H [facility] [place] PERFORMED BY [facility] CLINICAL STAFF ID Date Data Source [id number] 09/26/2020 02:11:38 PM EST Lab [facility] [place] SPECIMEN DESCRIPTION URINE, COLLE CTION METHOD NOT SPECIFIEDRESULT NEGATIVE FOR LEGIONELLA PNEUMOPHILA TYPE 1 ANTIG EN BY EIAA NEGATIVE RESULT DOES NOT EXCLUDE INFECTION WITH LEGIONELLAPNEUMOPHILA SEROGROUP 1 NOR DOES IT RULE OUT OTHER MICROBIAL CAUSEDRESPIRATORY INFECTIONS OR DISEASE CAUSED BY OTHER SEROGROUPS OFLEGIONELLA PNEUMOPHILA. REPORT STATUS FINAL 09/26/2020 Name Value Range Interpretation Code Description Data Erlinda rce(s) Supporting Document(s) ID Date Data Source [id number] 09/28/2020 10:19:39 PM EST [facility] Name Value Range Interpretation Code Description Data Erlinda rce(s) Supporting Document(s) CANCER AG GI 19 9 13 [facility] Reference range: 0 to 37Unit: U/mL INTER PRETIVE INFORMATION: Cancer Antigen-GI (CA 19-9) This test uses Shelia CA 19-9 electrochemiluminescent immunoassay. Results obtained with different test methods or kits cannot be used interchangeably. CA 19-9 value is useful in monitoring pancreatic, hepatobiliary, gastric, hepatocellular, and colorectal cancer. CA 19-9 value, regardless of level, should not be interpreted as absolute evidence of the presence or absence of malignant disease. Performed By: [facility] [employer] [address] [place] [address] Court Magistrate: Venice Wagner MD ID Date Data Source [id number] 09/25/2020 08:04:47 AM EST [facility] [place] [facility] [place] Name Value Range Interpretation Code Description Data Erlinda rce(s) Supporting Document(s) SODIUM 142 mmol/L (136-145) [facility] [place] [facility] POTASSIUM 3.5 mmol/L (3.6-5.2) L [facility] [place] [facility] [place] CHLORIDE 104 mmol/L (100-108) [facility] [place] [facility] [place] CO2 30 mmol/L (22-31) [facility] [place] [facility] [place] ANION GAP 8 mmol/L (7-16) [facility] [place] [facility] [place] UREA NITROGEN 29 mg/dL (7-24) H [facility] [place] [facility] [place] CREATININE 1.40 mg/dL (0.80-1.30) H [facility] [place] [facility] [place] BUN/CREAT RATIO 20.7 RATIO (10.0-20.0) H [facility] GLUCOSE 147 mg/dL (70-99) H [facility] [place] [facility] [place] CALCIUM 8.2 mg/dL (8.4-10.2) L [facility] [place] [facility] [place] TOTAL PROTEIN 5.5 g/dL (6.4-8.2) L [facility] [place] [facility] [place] ALBUMIN 2.0 g/dL (3.2-4.5) L [facility] [place] [facility] [place] GLOBULIN 3.5 g/dL (2.7-4.3) [facility] [place] [facility] [place] ALB/GLOB RATIO 0.6 RATIO [facility] [place] [facility] [place] ALKALINE PHOSPHATASE 94 U/L (45-117) [facility] BILIRUBIN,TOTAL 2.7 mg/dL (0.0-1.0) H [facility] [place] [facility] [place] PLEASE NOTE:Total bilirubin results may be falselyelevated in patients taking Eltrombopag. AST (SGOT) 13 U/L (11-39) [facility] [place] [facility] [place] ALT (SGPT) 10 U/L (12-78) L [facility] [place] [facility] [place] GFR 49 ml/min/1.73m2 (>59) L [facility] [place] [facility] [place] GFR ( AMER) 59 ml/min/1.73m2 (>59) L [facility] [place] [facility] [place] GFR INTERPRETATION [facility] [place] --NORMAL KIDNEY FUNCTION OR MILD DISEASE - GFR >OR= 60CHRONIC KIDNEY DISEASE - GFR 15 - 59RENAL FAILURE - GFR <15 Est. GFR calculation based on the MDRDstudy equation, which assumes a steadystate for creatinine. Est. GFR should notbe used for medication dosing. ID Date Data Source [id number] 09/25/2020 07:12:56 AM EST [facility] [place] [facility] [place] Name Value Range Interpretation Code Description Data Erlinda rce(s) Supporting Document(s) APTT 62.6 s (22.0-34.3) H [facility] [place] [facility] [place] ID Date Data Source [id number] 09/25/2020 06:51:02 AM EST [facility] [place] [facility] [place] Name Value Range Interpretation Code Description Data Erlinda rce(s) Supporting Document(s) WBC 7.2 10*3/uL (4.1-11.0) [facility] [place] [facility] [place] RBC 3.83 10*6/uL (4.60-6.10) L [facility] [place] [facility] [place] HGB 9.4 g/dL (13.5-18.0) L [facility] [place] [facility] [place] HCT 28.3 % (41.0-53.0) L [facility] [place] [facility] [place] MCV 74.0 fL (80.0-95.0) L [facility] [place] [facility] [place] MCH 24.5 pg (27.0-32.0) L [facility] [place] [facility] [place] MCHC 33.1 g/dL (32.0-36.0) [facility] [place] [facility] [place] RDW 18.3 % (10.5-14.5) H [facility] [place] [facility] [place] PLT 178 10*3/uL (150-450) [facility] [place] [facility] [place] MPV 8.8 fL (7.1-10.7) [facility] [place] [facility] [place] ID Date Data Source [id number] 09/25/2020 02:54:15 PM EST Lab [place] Name Value Range Interpretation Code Description Data Erlinda rce(s) Supporting Document(s) URIC ACID 9.3 mg/dL (3.5-7.2) H [facility] [place] ID Date Data Source [id number] 09/25/2020 02:53:35 PM EST [facility] [place] Name Value Range Interpretation Code Description Data Erlinda rce(s) Supporting Document(s) AFP-TUMOR MARKER @ 1.1 ng/mL (<6.0) Lab [facility] [place] ASSAY BY IMMUNOCHEMILUMINOMETRIC ASSAYON THE SIEMENS IMMULITE 2000 XPi. VALUESOBTAINED WITH DIFFERENT METHODS OR KITSCANNOT BE USED INTERCHANGEABLY FOR PATIENTMONITORING. RESULTS CANNOT BE INTERPRETEDAS ABSOLUTE EVIDENCE OF THE PRESENCE ORABSENCE OF MALIGNANCY. THE TEST IS NOTINTERPRETABLE IN . AFP CAN BE INCREASED IN A VARIETY OFBENIGN DISEASES. SPECIFICITY FOR THE DETECTION OF MALIGNANCY INCREASES WITHINCREASING LEVELS. ID Date Data Source [id number] 09/25/2020 01:56:57 PM EST [facility] [place] Name Value Range Interpretation Code Description Data Erlinda rce(s) Supporting Document(s) CEA @ <0.5 ng/mL (0.0-10.1) [facility] Jose Manuel grover [facility] CEA REFERENCE RANGE: NON-SMOKERS 0.0 - 5.0 NG/ML SMOKERS 0.0 - 10.1 NG/MLSERUM CEA LEVEL SHOULD NOT BE INTERPRETEDAS ABSOLUTE EVIDENCE FOR THE PRESENCEOR ABSENCE OF MALIGNANCY. METHODIS ADVIA HuzcoAUR XPT CHEMILUMINOMETRICIMMUNOASSAY. VALUES OBTAINED WITHDIFFERENT ASSAY METHODS OR KITS CANNOTBE USED INTERCHANGEABLY. ID Date Data Source [id number] 09/25/2020 12:59:00 AM EST [facility] Name Value Range Interpretation Code Description Data Erlinda rce(s) Supporting Document(s) SARS coronavirus 2 RNA [Presence] in Res piratory specimen by TAY with probe detection NOT DETECTED [facility] This lab was reported by [facility]. ID Date Data Source [id number] 09/25/2020 08:39:34 AM EST [facility] Name Value Range Interpretation Code Description Data Erlinda rce(s) Supporting Document(s) SPECIMEN DESCRIPTION [facility] COVID19 RESULT (NDET) [facility] [place] [facility] NEGATIVE COVID-19 RESULTS DONOT PRECLUDE COVID-2019 INFECTION ANDSHOULD NOT BE USED THE SOLE BASISFOR PATIENT MANAGEMENT DECISIONS.THIS ASSAY AMPLIFIES AND DETECTS THE TARGETRNA USING ISOTHERMAL HELICASE DEPENDENTAMPLIFICATION.TESTING PERFORMED ON THE ZEKE.THE U.[place] FDA HAS MADE THIS TEST AVAILABLEUNDER AN EMERGENCY USE AUTHORIZATION(EUA) FOR THE DETECTION AND/OR DIAGNOSISOF THE VIRUS THAT CAUSES COVID-19. FIRST TEST [facility] [place] [facility] IN [facility] SYMPTOMATIC [facility] [place] DATE OF SYMPT ONSET [facility] HOSPITALIZED [facility] [place] [facility] [place] ICU [facility] [place] CONGREGATE CARE SET [facility] ID Date Data Source [id number] 09/24/2020 07:31:33 PM EST [facility] [place] Name Value Range Interpretation Code Description Data Erlinda rce(s) Supporting Document(s) APTT 61.7 s (22.0-34.3) H [facility] ID Date Data Source [id number] 09/24/2020 06:57:20 PM EST [facility] [place] [place] Name Value Range Interpretation Code Description Data Erlinda rce(s) Supporting Document(s) POC NOVA GLU 144 mg/dL (70-99) H [facility] [place] [facility] [place] PERFORMED BY [facility] CLINICAL STAFF ID Date Data Source [id number] 09/24/2020 01:39:24 PM EST [facility] [place] [facility] Name Value Range Interpretation Code Description Data Erlinda rce(s) Supporting Document(s) APTT 84.6 s (22.0-34.3) H [facility] [place] [facility] ID Date Data Source [id number] 09/24/2020 10:48:11 AM EST [facility] [place] [facility] [place] Name Value Range Interpretation Code Description Data Erlinda rce(s) Supporting Document(s) POC NOVA GLU 124 mg/dL (70-99) H [facility] [place] [facility] [place] [facility]FORMED [facility] CLINICAL STAFF ID Date Data Source [id number] 09/24/2020 02:35:20 AM EST [facility] [place] [facility] [place] Name Value Range Interpretation Code Description Data Erlinda rce(s) Supporting Document(s) APTT 49.7 s (22.0-34.3) H [facility] [place] [facility] ID Date Data Source [id number] 09/24/2020 02:33:20 AM EST [facility] Name Value Range Interpretation Code Description Data Erlinda rce(s) Supporting Document(s) WBC 6.5 10*3/uL (4.1-11.0) [facility] [place] [facility] [place] RBC 3.87 10*6/uL (4.60-6.10) L [facility] [place] HGB 9.5 g/dL (13.5-18.0) L [facility] [place] HCT 28.7 % (41.0-53.0) L [facility] MCV 74.2 fL (80.0-95.0) L [facility] [place] MCH 24.5 pg (27.0-32.0) L [facility] [place] MCHC 33.1 g/dL (32.0-36.0) [facility] RDW 18.2 % (10.5-14.5) H [facility] [place] PLT 152 10*3/uL (150-450) [facility] [place] MPV 8.2 fL (7.1-10.7) [facility] ID Date Data Source [id number] 09/24/2020 02:30:40 AM EST [facility] Name Value Range Interpretation Code Description Data Erlinda rce(s) Supporting Document(s) SODIUM 143 mmol/L (136-145) [facility] [place] [facility] POTASSIUM 3.7 mmol/L (3.6-5.2) [facility] [place] CHLORIDE 107 mmol/L (100-108) [facility] [place] [facility] CO2 28 mmol/L (22-31) [facility] [place] [facility] ANION GAP 8 mmol/L (7-16) [facility] [place] [facility] UREA NITROGEN 39 mg/dL (7-24) H [facility] [place] [facility] CREATININE 1.48 mg/dL (0.80-1.30) H [facility] BUN/CREAT RATIO 26.4 RATIO (10.0-20.0) H [facility] GLUCOSE 118 mg/dL (70-99) H [facility] [place] CALCIUM 7.8 mg/dL (8.4-10.2) L [facility] [place] [facility] GFR 46 ml/min/1.73m2 (>59) L [facility] [place] [facility] GFR ( AMER) 55 ml/min/1.73m2 (>59) L [facility] GFR INTERPRETATION [facility] --NORMAL KIDNEY FUNCTION OR MILD DISEASE - GFR >OR= 60CHRONIC KIDNEY DISEASE - GFR 15 - 59RENAL FAILURE - GFR <15 Est. GFR calculation based on the MDRDstudy equation, which assumes a steadystate for creatinine. Est. GFR should notbe used for medication dosing. ID Date Data Source [id number] 09/23/2020 06:52:39 PM EST [facility] Name Value Range Interpretation Code Description Data Erlinda rce(s) Supporting Document(s) POC NOVA GLU 135 mg/dL (70-99) H [facility] [place] [facility] [place] [facility] CLINICAL STAFF ID Date Data Source [id number] 09/23/2020 07:18:20 PM EST [facility] Name Value Range Interpretation Code Description Data Erlinda rce(s) Supporting Document(s) APTT 80.6 s (22.0-34.3) H [facility] [place] [facility] ID Date Data Source [id number] 09/23/2020 01:26:23 PM EST [facility] Name Value Range Interpretation Code Description Data Erlinda rce(s) Supporting Document(s) APTT 75.3 s (22.0-34.3) H [facility] [place] [facility] ID Date Data Source [id number] 09/23/2020 12:46:07 PM EST [facility] Name Value Range Interpretation Code Description Data Erlinda rce(s) Supporting Document(s) POC NOVA GLU 130 mg/dL (70-99) H [facility] [place] [facility] [place] [facility] CLINICAL STAFF ID Date Data Source [id number] 09/23/2020 12:13:04 PM EST [facility] Name Value Range Interpretation Code Description Data Erlinda rce(s) Supporting Document(s) POC NOVA GLU 138 mg/dL (70-99) H [facility] [place] [facility] [place] [facility] CLINICAL STAFF ID Date Data Source [id number] 09/28/2020 10:13:45 AM EST [facility] SPECIMEN DESCRIPTION BLOODSPECIAL REQUESTS NONECULTURE RESULTS NO GROWTH 5 DAYSREPORT STATUS FINAL 09/28/2020 Name Value Range Interpretation Code Description Data Erlinda rce(s) Supporting Document(s) ID Date Data Source [id number] 09/28/2020 10:13:45 AM EST [facility] SPECIMEN DESCRIPTION BLOODSPECIAL REQUESTS NONECULTURE RESULTS NO GROWTH 5 DAYSREPORT STATUS FINAL 09/28/2020 Name Value Range Interpretation Code Description Data Erlinda rce(s) Supporting Document(s) ID Date Data Source [id number] 09/23/2020 05:26:54 AM EST [facility] Name Value Range Interpretation Code Description Data Erlinda rce(s) Supporting Document(s) SODIUM 141 mmol/L (136-145) [facility] [place] [facility] POTASSIUM 3.8 mmol/L (3.6-5.2) [facility] [place] CHLORIDE 103 mmol/L (100-108) [facility] [place] CO2 30 mmol/L (22-31) [facility] [place] [facility] ANION GAP 8 mmol/L (7-16) [facility] [place] [facility] UREA NITROGEN 50 mg/dL (7-24) H [facility] [place] [facility] CREATININE 1.66 mg/dL (0.80-1.30) H [facility] [place] [facility] BUN/CREAT RATIO 30.1 RATIO (10.0-20.0) H [facility] GLUCOSE 126 mg/dL (70-99) H [facility] [place] [facility] CALCIUM 8.1 mg/dL (8.4-10.2) L [facility] [place] [facility] GFR 40 ml/min/1.73m2 (>59) L [facility] [place] [facility] GFR ( AMER) 49 ml/min/1.73m2 (>59) L [facility] [place] [facility] GFR INTERPRETATION [facility] --NORMAL KIDNEY FUNCTION OR MILD DISEASE - GFR >OR= 60CHRONIC KIDNEY DISEASE - GFR 15 - 59RENAL FAILURE - GFR <15 Est. GFR calculation based on the MDRDstudy equation, which assumes a steadystate for creatinine. Est. GFR should notbe used for medication dosing. ID Date Data Source [id number] 09/23/2020 05:10:38 AM EST [facility] Name Value Range Interpretation Code Description Data Erlinda rce(s) Supporting Document(s) WBC 10.8 10*3/uL (4.1-11.0) [facility] [place] [facility] RBC 4.17 10*6/uL (4.60-6.10) L [facility] [place] [facility] HGB 10.1 g/dL (13.5-18.0) L [facility] [place] [facility] HCT 31.4 % (41.0-53.0) L [facility] [place] [facility] MCV 75.4 fL (80.0-95.0) L [facility] [place] [facility] MCH 24.3 pg (27.0-32.0) L [facility] [place] [facility] MCHC 32.3 g/dL (32.0-36.0) [facility] [place] [facility] RDW 17.6 % (10.5-14.5) H [facility] [place] [facility] PLT 145 10*3/uL (150-450) L [facility] [place] [facility] MPV 8.6 fL (7.1-10.7) [facility] ID Date Data Source [id number] 09/23/2020 05:10:28 AM EST [facility] Name Value Range Interpretation Code Description Data Erlinda rce(s) Supporting Document(s) APTT 44.0 s (22.0-34.3) H [facility] [place] [facility] ID Date Data Source [id number] 09/22/2020 09:06:08 PM EST [address] [address] Name: Naeem TrujilloOB: 1940ex: MOrdering Provider: ELIZABETH WALKERuthtanjazing Prov: ELIZABETH DONALDeferring Provider: Procedure Performed: MRI ABDOMEN WO CONTRASTExam Date: 09/22/2020 20:00MRN: [id number] Number: [id number] Class: INFORMATION: Exam: MR Abdomen Without Contrast Exam date and time: 09/22/2020 8:00 PM Age: 79 years old Clinical indication: Condition or disease; Liver condition; Cirrhosis; Alcoholic; Additional info: Cirrhosis evaluation TECHNIQUE: Imaging protocol: MR of the abdomen without contrast. COMPARISON: NoneFINDINGS: Limitations: Motion artifact compromises the examination. No intravenous contrast administered. No prior diagnostic imaging studies for comparison Liver: Liver slightly undulating surface contour. No intrahepatic appreciated on this noncontrast examination. Gallbladder and bile ducts: Unremarkable. Pancreas: Unremarkable. No ductal dilation. Spleen: Spleen upper normal size. Adrenal glands: Unremarkable. No mass. Kidneys and ureters: No hydronephrosis. Left renal upper pole 1 cm cyst appears benign. No follow-up suggested. Stomach and bowel: No obstruction. Retroperitoneal space: No retroperitoneal bulky adenopathy. Intraperitoneal space: Moderate abdominal ascites. Arteries: No abdominal aortic aneurysm. Veins: Portal vein and splenic vein unremarkable flow void. Bones/joints: Degenerative changes thoracic lumbar spine.Other findings: Small left pleural effusion. IMPRESSION: 1. Moderate abdominal ascites. Small left pleural effusi on.2. Liver slightly undulating surface contour. This is suggestive of but not pathognomonic for cirrhosis. COMMENTS: Consistent with the [place] [employer] [employer]'s Incidental Findings Committee white paper (J Am Artem Radiol 2018): Any incidental renal lesion less than 1 cm or classified as too small to characterize, or any incidental cystic renal lesion characterized as simple- appearing, is likely benign. No follow-up imaging is recommended for these lesions per consensus recommendations based on imaging criteria. Report electronically signed by: BETO CHAMBERS MD on 09/22/2020 21:06:08 Name Value Range Interpretation Code Description Data Erlinda rce(s) Supporting Document(s) ID Date Data Source [id number] 09/24/2020 11:18:49 AM EST [facility] [place] [facility] SPECIMEN DESCRIPTION CATHETERIZED URINECULTURE RESULTS <10,000 CFU/ML REPRESENTING URETHRAL FLORAREPORT STATUS FINAL 09/24/2020 Name Value Range Interpretation Code Description Data Erlinda rce(s) Supporting Document(s) ID Date Data Source [id number] 09/23/2020 12:03:20 AM EST [facility] [facility] Name Value Range Interpretation Code Description Data Erlinda rce(s) Supporting Document(s) COLOR [facility] APPEARANCE [facility] SPEC GRAV URINE 1.020 (1.003-1.030) [facility] PH URINE 5.0 (5.0-7.5) [facility] [place] [facility] LEUK ESTERASE 2+ (NEG) A [facility] NITRITE URINE (NEG) [facility] PROTEIN URINE (NEG) A [facility] GLUCOSE URINE (NEG) [facility] KETONE URINE (NEG) [facility] [place] [facility] [place] UROBILINOGEN 1.0 mg/dL (0-1.0) [facility] [place] [facility] [place] BILIRUBIN URINE 1+ (NEG) A [facility] INTERFERING SUBSTANCES MAY CAUSE FALSEPO SITIVE BILIRUBIN, WHICH HAS BEENSHOWN TO BE CLINICALLY INSIGNIFICANT.CORRELATE WITH OTHER TESTING. BLOOD/HGB URINE (NEG) A [facility] [place] [facility] URINE WBC (0-5) [facility] URINE RBC (0-2) [facility] EPITHELIAL CELLS 1+ [HPF] [facility] [place] [facility] BACTERIA 1+ [HPF] [facility] AMORPHOUS 1+ [HPF] [facility] ID Date Data Source [id number] 09/22/2020 11:50:45 PM EST [facility] [place] [place] Name Value Range Interpretation Code Description Data Erlinda rce(s) Supporting Document(s) RANDOM URINE CREAT 71.10 mg/dL [facility] ID Date Data Source [id number] 09/22/2020 11:50:45 PM EST [facility] Name Value Range Interpretation Code Description Data Erlinda rce(s) Supporting Document(s) RANDOM URINE SODIUM 48 mmol/L [facility] RAND URINE POTASSIUM 30.5 mmol/L [facility] RAND. URINE CHLORIDE 47 mmol/L [facility] ID Date Data Source [id number] 09/22/2020 10:41:13 PM EST [facility] Name Value Range Interpretation Code Description Data Erlinda rce(s) Supporting Document(s) URN CULTURE HOLD [facility] [place] FOR ADD ON CULTURE ID Date Data Source [id number] 09/22/2020 06:49:43 PM EST [facility] Name Value Range Interpretation Code Description Data Erlinda rce(s) Supporting Document(s) POC NOVA GLU 169 mg/dL (70-99) H [facility] [place] [facility] [place] [facility] CLINICAL STAFF ID Date Data Source [id number] 09/22/2020 10:43:53 PM EST [facility] Name Value Range Interpretation Code Description Data Erlinda rce(s) Supporting Document(s) APTT 61.2 s (22.0-34.3) H [facility] [place] [facility] ID Date Data Source [id number] 09/22/2020 03:51:49 PM EST [facility] INFORMATIONPatient MRN Name Date of Age Gend*PT [id number] Naeem Robbins 1940 79 years M IPPT Location Admission Date/Time Visit ID Attending [id number] 09/20/202321 --- Elizabeth Gilbert MD([id number]) EPI ID CSN Admitting Provider [id number] Bharath Dennis MD([id number]) Attestation signed by Sheikh Chris MD at 09/22/2020 3:51 PMI saw and evaluated the patient and reviewed MARK[employer] RESEARCH ASSOCIATE's note. I agree with thehistory, physical and medical decision making with the following additions,exceptions, and/or observations: 79-year-old male with multiple medicalconditions including history of severe aortic stenosis, heart failure,pulmonary hypertension, hypothyroidism, hypertension on whom we have beenconsulted for evaluation of his ascites. Ascitic fluid examination fromparacentesis done on 09/21/2020 shows SAAG<1.1 and ascitic fluid protein of 3.8which does not suggest ascites secondary to portal hypertension/cirrhosis.Consider other possibilities for his ascites including malignancy andtuberculosis. Fluid count is not suggestive of SBP either. Patient does nothave any thrombocytopenia. CT abdomen done at [facility] notsuggestive of cirrhosis either. Can consider getting MRI liver to see if hehas early cirrhosis/liver nodularity.Call for any questions.Signature: Sheikh Chris MDDate: September 22, 2020Time: 3:44 PM Gastroenterology Nurse Practitioner Consult NoteLotan Robbins79 years, male, 1940MRN: [id number] Galindo Consulting MD: Dr. PerezInformant: PatientReason For Consult: AscitesHPI:This is a 79 year old male with a PMH significant for alcohol abuse, tobaccoabuse, possible cirrhosis, severe aortic stenosis, chronic kidney disease, DM,hypertension, hypothyroidism, and pulmonary hypertension. We are asked toconsult on the patient due to ascites.Patient initially presented to [facility] for right ankle pain after afall and increased abdominal girth. He was found to have abdominal and pelvicascites which was attributed to alcoholic cirrhosis. [facility] [place] [facility] but never followed up.He was on diuretic which he said was killing his kidneys.Patient denies fever. Reports chills, hot showed helps. Appetite is poor. Hasonly been drinking Ensure for the past 8 months. Reports gaining about 40 lbsover the past 6 months.Denies abdominal pain.Denies heartburn, dysphagia, odynophagia, regurgitation of food or foodimpaction, nausea or vomiting.Denies change in bowel habits. Reports constipation which he attributes to onlyconsuming Ensure. Denies diarrhea, brbpr or melena. Never had EGD/colonoscopybefore - says he never wants one.Denies chest pain or pressure, SOB, MARKHAM.Was taking ibuprofen 600 mg BID for 3-4 days prior to admission. Denies tylenoluse.No IV drug use or cocaine use. Reports no tobacco use for 40 years. Used todrink 3-4 beers daily but says he hasn't for nine years other than one oc casiontwo years ago.Past Medical History:Past Medical History:Diagnosis Date Alcohol abuse Alcoholic cirrhosis Ascites Atrial fibrillation CKD (chronic kidney disease) stage 3, GFR 30-59 ml/min Diabetes mellitus HTN (hypertension) Hypothyroidism Moderate to severe pulmonary hypertension Tobacco abusePast Surgical History:Past Surgical History:Procedure Laterality Date CATARACT EXTRACTIONMedications:Medications Prior to AdmissionMedication Sig Dispense Refill Last Dose amLODIPine (NORVASC) 10 MG tablet Take 10 mg by mouth daily Apixaban (ELIQUIS) 5 MG TABS tablet Take by mouth 2 (two) times a day carvedilol (COREG) 25 MG tablet Take 25 mg by mouth 2 (two) times a day Daily Veronica (THERAGRAN) per tablet Take 1 tablet by mouth daily hydrochlorothiazide (HYDRODIURIL) 25 MG tablet Take 25 mg by mouth daily levothyroxine (SYNTHROID, LEVOTHROID) 75 MCG tablet Take 75 mcg by mouth daily lisinopril (PRINIVIL,ZESTRIL) 40 MG tablet Take 40 mg by mouth daily melatonin 3 MG tablet Take 6 mg by mouth nightly metFORMIN (GLUCOPHAGE) 1000 MG tablet Take 1,000 mg by mouth daily withbreakfast Randolph-3 Fatty Acids (FISH OIL PO) Take 1 tablet by mouth daily rOPINIRole (REQUIP) 0.25 MG tablet Take 0.25 mg by mouth nightly tamsulosin (FLOMAX) 0.4 MG CAPS Take 0.4 mg by mouth dailyAllergies:Shellfish-derived productsFamily History:Family HistoryFamily history unknown: YesSocial History:Social HistorySocioeconomic History Marital status: Single Spouse name: None Number of children: None Years of education: None Highest education level: NoneOccupational History NoneSocial Needs Financial resource strain: None Food insecurity: Worry: None Inability: None Transportation needs: Medical: None Non-medical: NoneTobacco Use Smoking status: Former Smoker Packs/day: 2.00 Years: 30.00 Pack years: 6 0.00 Types: Cigarettes Last attempt to quit: 1980 Years since quittin.1 Smokeless tobacco: Never UsedSubstance and Sexual Activity Alcohol use: Not Currently Comment: scotch or beer Drug use: Not Currently Sexual activity: NoneLifestyle Physical activity: Days per week: None Minutes per session: None Stress: NoneRelationships Social connections: Talks on phone: None Gets together: None Attends mormonism service: None Active member of club or organization: None Attends meetings of clubs or organizations: None Relationship status: None Intimate partner violence: Fear of current or ex partner: None Emotionally abused: None Physically abused: None Forced sexual activity: NoneOther Topics Concern NoneSocial History Narrative NonePhysical Exam:Vitals: Temp: [99 F-100.7 F] 99.4 FHeart Rate: [81-109] 106Resp: [18-22] 22BP: (104-126)/(51-68) 112/58GENERAL PHYSICAL EXAM: NAD, sitting in chair, urinary catheterSKIN: warm and dryEYES: pink conjunctiva, sclera without ictericHEENT: oral mucosa is moist.CARDIOVASCULAR: + S1, + S2 irregular, +murmur heard best over left upper sternalborderRESPIRATORY: scattered wheezesABDOMINAL: + bowel sounds, soft, ascites, NTEXT: No edema, right foot in bootMENTAL: Alert, oriented X 3Labs, Imaging, and other Diagnostics:The most recent diagnostic tests were reviewed, including:Lab ResultsComponent Value Date WBC 9.5 09/22/2020 HGB 10.2 (L) 09/22/2020 HCT 31.3 (L) 09/22/2020 MCV 74.1 (L) 09/22/2020 PLT 163 09/22/2020esults from last 7 daysLab Units 09/21/2103SODIUM mmol/L 143 144POTASSIUM mmol/L 3.8 3.9CHLORIDE mmol/L 106 108CO2 mmol/L 28 29BUN mg/dL 55* 69*CREATININE mg/dL 1.83* 2.17*CALCIUM mg/dL 8.6 8.9ALK PHOS U/L -- 84ALT U/L -- 12AST U/L -- 6*Lab ResultsComponent Value Date LABBILI 1.4 (H) 09/21/2020 ALKPHOS 84 09/21/2020 ALT 12 09/21/2020 AST 6 (L) 09/21/2020 ALBUMIN 2.6 (L) 09/21/2020No results found for: LIPASENo results found for: AMYLASELab ResultsComponent Value Date PROTIME 15.6 (H) 09/21/2020 INR 1.52 09/21/2020 APTT 33.8 09/21/2020ssessment/Plan:This is a 79 year old male with a PMH significant for alcohol abuse, tobaccoabuse, possible cirrhosis, severe aortic stenosis, chronic kidney disease, DM,hypertension, hypothyroidism, and pulmonary hypertension.Recommend1. Ascites- ? Alcoholic cirrhosis diagnosis. Liver grossly unremarkable on CT scan [facility]. Drank 3-4 beers daily but stopped 9 years ago. Autoimmune hepatitismarkers negative at [facility].- S/p paracentesis with 3 L clear yellow fluid off yesterday.- Fluid analysis not suggestive of cirrhosis or portal hypertension. Wouldconsider cardiac, nephrotic, malignancy, hypothyroidism, TB, or malignancy, ascause. Has known severe aortic stenosis with CHF, BNP >48,000. Also has MAXIME onCKD. Hypothyroidism with normal TSH but would check T4.- Further recommendations per Dr. Perez.-We want to thank the primary team for allowing us the opportunity toparticipate in the care of this patient.-The care of plan was discussed at length with the patient, all questions wereanswered to satisfaction and they are in agreement.-The above stated care of plan was discussed at length with Dr. Perez,recommendations were made, and he will see and evaluate the patient.Signature: Yelitza Owusu, NPDate: September 22, 2020Time: 8:48 AMGastroenterology and Hepatology of [id number] Name Value Range Interpretation Code Description Data Erlinda rce(s) Supporting Document(s) ID Date Data Source [id number] 09/22/2020 01:30:38 PM EST [facility] [place] [facility] Name Value Range Interpretation Code Description Data Erlinda rce(s) Supporting Document(s) POC NOVA GLU 145 mg/dL (70-99) H [facility] [place] [facility] [place] [facility]FOR[facility] BY [facility] CLINICAL STAFF ID Date Data Source [id number] 09/22/2020 10:28:17 AM EST [facility] [place] [facility] Name Value Range Interpretation Code Description Data Erlinda rce(s) Supporting Document(s) APTT 41.9 s (22.0-34.3) H [facility] [place] [facility] ID Date Data Source [id number] 09/22/2020 09:08:03 AM EST [facility] [place] [facility] Name Value Range Interpretation Code Description Data Erlinda rce(s) Supporting Document(s) POC NOVA GLU 173 mg/dL (70-99) H [facility] [place] [facility] [place] [facility] CLINICAL STAFF ID Date Data Source [id number] 09/22/2020 08:42:56 AM EST [facility]PAT[facility] NT INFORMATIONPatient MRN Name Date of Age Gend*PT [id number] Naeem Robbins 1940 79 years M IPPT Location Admission Date/Time Visit ID Attending [id number] 09/20/202321 --- Hossein Galindo([id number]) EPI ID CSN Admitting Provider [id number] Bharath Dennis MD([id number]) Attestation signed by Jessica Victoria MD at 09/22/2020 8:42 AMProcedure performed under my supervision, I agree with above report.Jessica Victoria MD 09/22/2020 8:42 AMDepartment of Interventional Radiology ---------Brief Operative/Invasive Procedure NoteLonnlexi TrujilloATE OF : 1940MRN # [id number] DATE: 09/21/2020ROVIDER:Gene Merida NP 09/21/2020 4:05 PMASSISTANCE(S): NonePROCEDURE:Ultrasound guided paracentesis.Drained 3 liters of clear yellowperitoneal fluid.PRE-PROCEDURE DIAGNOSIS:AscitesPOST PROCEDURE DIAGNOSIS:AscitesANESTHESIA TYPE:local-1% Lidocaine (5cc)DRAINS:NoneSPECIMENS:Fluid sent to lab for analysis.ESTIMATED BLOOD LOSS: MinimalGRAFTS OR IMPLANTS:NoneFINDINGS: Consistent with operative diagnosisCOMPLICATIONS: NoneSee dictated note.Gene Merida NPDepartment of Interventional Radiology Name Value Range Interpretation Code Description Data Erlinda rce(s) Supporting Document(s) ID Date Data Source [id number] 09/22/2020 08:14:53 AM EST [facility] [place] [facility] [place] Name Value Range Interpretation Code Description Data Erlinda rce(s) Supporting Document(s) PROCALCITONIN @ 0.22 ng/mL (<0.10) H [facility] [place] [facility] INTERPRETATION OF RESULT < 0.51 Sepsis is not likely.0.51-2.00 Sepsis is possible, but other conditions are known to elevate PCT.2.01-9.99 Sepsis is likely, unless other causes are known. > 9.99 Important systemic inflammatory response, almost exclusively due to severe bacterial sepsis or septic shock.PERFORMED AT [address] [place] [address] ID Date Data Source [id number] 09/22/2020 08:09:27 AM EST [facility] Name Value Range Interpretation Code Description Data Erlinda rce(s) Supporting Document(s) SODIUM 143 mmol/L (136-145) [facility] POTASSIUM 3.8 mmol/L (3.6-5.2) [facility] CHLORIDE 106 mmol/L (100-108) [facility] CO2 28 mmol/L (22-31) [facility] ANION GAP 9 mmol/L (7-16) [facility] UREA NITROGEN 55 mg/dL (7-24) H [facility] CREATININE 1.83 mg/dL (0.80-1.30) H [facility] BUN/CREAT RATIO 30.1 RATIO (10.0-20.0) H [facility] GLUCOSE 191 mg/dL (70-99) H [facility] CALCIUM 8.6 mg/dL (8.4-10.2) [facility] GFR 36 ml/min/1.73m2 (>59) L [facility] GFR ( AMER) 43 ml/min/1.73m2 (>59) L [facility] GFR INTERPRETATION [facility] --NORMAL KIDNEY FUNCTION OR MILD DISEASE - GFR >OR= 60CHRONIC KIDNEY DISEASE - GFR 15 - 59RENAL FAILURE - GFR <15 Est. GFR calculation based on the MDRDstudy equation, which assumes a steadystate for creatinine. Est. GFR should notbe used for medication dosing. ID Date Data Source [id number] 09/22/2020 07:20:04 AM EST [facility] Name Value Range Interpretation Code Description Data Erlinda rce(s) Supporting Document(s) LACTIC ACID 1.1 mmol/L (0.4-2.0) [facility] ID Date Data Source [id number] 09/22/2020 07:07:24 AM EST [facility] Name Value Range Interpretation Code Description Data Erlinda rce(s) Supporting Document(s) WBC 9.5 10*3/uL (4.1-11.0) [facility] RBC 4.23 10*6/uL (4.60-6.10) L [facility] HGB 10.2 g/dL (13.5-18.0) L [facility] HCT 31.3 % (41.0-53.0) L [facility] MCV 74.1 fL (80.0-95.0) L [facility] MCH 24.0 pg (27.0-32.0) L [facility] MCHC 32.4 g/dL (32.0-36.0) [facility] RDW 17.9 % (10.5-14.5) H [facility] Shea Flores PLT 163 10*3/uL (150-450) [facility] She[facility] Flores MPV 8.1 fL (7.1-10.7) Lab [facility] ID Date Data Source [id number] 09/24/2020 10:57:08 AM EST [facility] lenore DAVIS SPECIMEN DESCRIPTION PERIPHERAL 1SPECIAL REQUESTS NONEGRAM STAIN GRAM POSITIVE COCCI IN CHAINSALERTED CRITICAL RESULT TO Stan HURTADO, ON [address] OF [facility] AT 19:39 ON09.22.20 [place] [id number]. CULTURE RESULTS STREPTOCOCCUS PNEUMONIAE STREPTOCOCCUS PNEUMONIAE BY MOLECULAR METHOD.MOLECULAR TESTING IS BEING PERFORMED WITH POSSIBLE PRELIMINARYIDENTIFICATION TO FOLLOWTHI MOLECULAR TEST SCREENS FOR THE FOLLOWING GRAM POSITIVE BACTERIA:STAPH SPECIES, STAPH AUREUS, STAPH EPIDERMIDIS, STAPH LUGDUNENSIS,STREP SPECIES, STREP PNEUMONIAE, STREP PYOGENES, STREP AGALACTIAE,STREP ANGINOSUS GROUP, ENTEROCOCCUS FAECALIS, ENTEROCOCCUS FAECIUM,LISTERIA SPECIES.ALL MOLECULAR TEST RESULTS WILL BE CONFIRMED USING CONVENTIONALLABORATORY METHODS.THIS MOLECULAR TEST SCREENS FOR THE FOLLOWING RESISTANCE GENES: mecA(MRSA AND MRSE), Corry (VRE), vanB (VRE).CALLED Stan HURTADO, ON [place] [address] OF [facility] AT 23:25 ON 09.22.20 BY [id number] EMAILED TO [facility] IC AT [id number] ON 09/23/20 [id number]. REPORT STATUS FINAL 09/24/2020ORGANISM STREPTOCOCCUS PNEUMONIAEMETHOD LANG BAUERERYTHROMYCIN RESISTANTCLINDAMYCIN RESISTANTORGANISM STREPTOCOCCUS PNEUMONIAEMETHOD MICCEFTRIAXONE 0.25 SUSCEPTIBLE FOR NONMENINGITIS INFECTIONSCLINDAMYCIN >=1 RESISTANTERYTHROMYCIN >=8 RESISTANTLEVOFLOXACIN 0.5 SUSCEPTIBLEMOXIFLOXACIN 0.12 SUSCEPTIBLETETRACYCLINE >=16 RESISTANT ISOLATES RESISTANT TO TETRACYCLINE MAY BE SUSCEPTIBLE TO DOXYCYCLINE AND MINOCYCLINE. TESTING WILL BE PERFORMED UPON REQUEST.TRIMETH/SULFA <=.5/9.5 SUSCEPTIBLEVANCOMYCIN 0.5 SUSCEPTIBLEPENICILLIN (STP) <=0.06 SUSCEPTIBLE FOR NONMENINGITIS INFECTIONS A PENICILLIN JEYSON OF LESS THAN OR EQUAL TO 0.06 MCG/ML PREDICTS SUSCEPTIBILITY TO AMPICILLIN, AMPICILLIN/SULBACTAM, AMOXICILLIN, AND AMOXICILLIN/CLAVULANATE. Name Value Range Interpretation Code Description Data Erlinda rce(s) Supporting Document(s) ID Date Data Source [id number] 09/24/2020 06:43:40 AM EST [facility] SPECIMEN DESCRIPTION PERIPHERAL 2SPECIAL REQUESTS NONEGRAM STAIN GRAM POSITIVE COCCI IN CHAINSALERTED CRITICAL RESULT TO GENESIS Stan, ON [address] OF [facility] AT 19:39 ON2.12.21 [place] [id number]. CULTURE RESULTS STREPTOCOCCUS PNEUMONIAEMOLECULAR TESTING IS BEING PERFORMED WITH POSSIBLE PRELIMINARYIDENTIFICATION TO FOLLOW REPORT STATUS FINAL 09/24/2020ORGANISM STREPTOCOCCUS PNEUMONIAEMETHOD LANG BAUERERYTHROMYCIN RESISTANTCLINDAMYCIN RESISTANTORGANISM STREPTOCOCCUS PNEUMONIAEMETHOD MICCEFTRIAXONE 0.5 SUSCEPTIBLE FOR NONMENINGITIS INFECTIONSCLINDAMYCIN >=1 RESISTANTERYTHROMYCIN >=8 RESISTANTLEVOFLOXACIN 0.5 SUSCEPTIBLEMOXIFLOXACIN 0.12 SUSCEPTIBLETETRACYCLINE >=16 RESISTANT ISOLATES RESISTANT TO TETRACYCLINE MAY BE SUSCEPTIBLE TO DOXYCYCLINE AND MINOCYCLINE. TESTING WILL BE PERFORMED UPON REQUEST.TRIMETH/SULFA <=.5/9.5 SUSCEPTIBLEVANCOMYCIN 0.5 SUSCEPTIBLEPENICILLIN (STP) <=0.06 SUSCEPTIBLE FOR NONMENINGITIS INFECTIONS A PENICILLIN JEYSON OF LESS THAN OR EQUAL TO 0.06 MCG/ML PREDICTS SUSCEPTIBILITY TO AMPICILLIN, AMPICILLIN/SULBACTAM, AMOXICILLIN, AND AMOXICILLIN/CLAVULANATE. Name Value Range Interpretation Code Description Data Erlinda rce(s) Supporting Document(s) ID Date Data Source [id number] 09/22/2020 12:19:23 AM EST [facility] NT INFORMATIONPatient MRN Name Date of Age Gend*PT [id number] Naeem Robbins 1940 79 years M IPPT Location Admission Date/Time Visit ID Attending [id number] 09/20/202321 --- Hossein Galindo([id number]) EPI ID CSN Admitting Provider [id number] Bharath Dennis MD([id number]) Attestation signed by Bharath Dennis MD at 09/22/2020 12:19 AMCase d/w MARKET RESEARCH ASSOCIATE Radhikajpchirag on 09/21 and I was immediately available for any questionsor concerns. Agree with H&P below. ------Inpatient History & PhysicalLonny GrJorge AlbertoRN: [id number] and Plan:Principal Problem: Severe aortic stenosisActive Problems: Anemia Moderate mitral insufficiency Nonrheumatic tricuspid valve regurgitation LVH (left ventricular hypertrophy) Right foot pain Fall at home Weakness Atrial fibrillation HTN (hypertension) CKD (chronic kidney disease) stage 3, GFR 30- 59 ml/min Alcoholic cirrhosis Diabetes mellitus Ascites Hypothyroidism1. Severe aortic stenosis: sent for cardiac catheterization/TAVR work up.Patient has multiple medical problems and is non-compliant. He has very poorinsight and judgment. His biggest concern is his foot pain and getting painmedication. He was disinterested in discussing the cardiac findings. TTEdemonstrated severe aortic stenosis, moderate mitral insufficiency, andmoderately severe tricuspid insufficiency, severe pulmonary HTN. Consultcardiology in am.2. Alcoholic cirrhosis: does not follow with GI. Had 30 lb weight gain over 2months. Underwent paracentesis at [facility]- it is unclear how much fluid wastaken off-- some reports indicate 1-2 liters, other reports say 3 liters, andyet other reports say twelve liters were removed. He reports that he "only dranka little" and quit years ago. The notes say he is taking 3-4 shots per day. Willneed GI consult for management.3. Acute on CKD III: has been taking large qty of ibuprofen for his foot pain.Avoid nephrotoxic agents. Monitor BMP. Baseline creatinine is reportedly1.6-2.0. Consult nephrology. Pt does not follow with nephrology outpatient.4. Atrial fibrillation: Rate controlled. Hold eliqius and start heparin gtt.Continue carvedilol with parameters5. DM II: hold oral agents and start SS coverage6. HTN: continue carvedilol and amlodipine and monitor7. Hypothyroidism: continue levothyroxine. Check TSH8. Right foot pain: S/p fall at home. Continue morphine for pain. Imaging wasnot sent from [facility]. xrays ordered. Notes mentioned possible avulsionfracture. Pt states he only had 10 minutes of relief with oxycodone and only had10 minutes of relief with morphine. States he wants to speak to a "pain doctor"and wants to know what his medication schedule will be so he can watch the clockfor his next dose.9. Malnutrition: has been taking only Ensure for weeks. Severely diminishedappetite. Dietitian consult for malnutrition score10. Weakness: Fall at home, injured right foot (see above). Has hadprogressive weakness. Worsening activity intolerance. Will need PT eval.DVT px: HeparinPatient was covid negative at [facility] on 09/18/20Patient is FULL CODE verified by discussion with patient.History of Present Illness: Naeem is a 79 year old male with PMH of alcoholabuse, tobacco abuse, atrial fibrillation, cirrhosis, CKD, HTN, DM II,hypothyroidism who was transferred to [facility] for TAVR work up. The patient had afall at home and injured his foot and had also had a 30 lb weight gain over 2months which he "figured he better get looked at". He has a longstandinghistory of CKD and alcoholic cirrhosis. It is unclear if he is still drinkingalcohol at this time. He does not follow with GI nor does he follow withnephrology. He had been on a diuretic, however, stopped it because his fluidstatus had improved, but it "crept right back" as soon as he stopped taking themedication which is when he gained the 30 lb. Last week the generalized weaknesswas worsening and he had a fall at home injuring his right foot. He finallypresented to the ED for the foot pain and weight gain. His creatinine isreportedly 1.6 to 2.0 at baseline, however, he has taking high amounts of NSAIDsfor the foot pain and his creatinine was 3.4 on arrival to [facility]. Nephrologywas consulted. He had paracentesis done on 09/18 but it is not clear how muchfluid was actually removed. Records indicate anywhere from 1 liter to 12 literswere removed- documentation is very poor. He was treated with octreotide andrifaximine. Due to the acute on chronic heart failure, he was referred forpossible surgical work up.Past Medical History:Past Medical History:Diagnosis Date Alcohol abuse Alcoholic cirrhosis Ascites Atrial fibrillation CKD (chronic kidney disease) stage 3, GFR 30-59 ml/min Diabetes mellitus HTN (hypertension) Hypothyroidism Moderate to severe pulmonary hypertension Tobacco abusePast Surgical History:Past Surgical History:Procedure Laterality Date CATARACT EXTRACTIONMedications:Medications Prior to AdmissionMedication Sig Dispense Refill Last Dose amLODIPine (NORVASC) 10 MG tablet Take 10 mg by mouth daily Apixaban (ELIQUIS) 5 MG TABS tablet Take by mouth 2 (two) times a day carvedilol (COREG) 25 MG tablet Take 25 mg by mouth 2 (two) times a day hydrochlorothiazide (HYDRODIURIL) 25 MG tablet Take 25 mg by mouth daily levothyroxine (SYNTHROID, LEVOTHROID) 75 MCG tablet Take 75 mcg by mouth daily lisinopril (PRINIVIL,ZESTRIL) 20 MG tablet Take 40 mg by mouth daily metFORMIN (GLUCOPHAGE) 1000 MG tablet Take 1,000 mg by mouth daily withbreakfast rOPINIRole (REQUIP) 0.25 MG tablet Take 0.25 mg by mouth nightly tamsulosin (FLOMAX) 0.4 MG CAPS Take 0.4 mg by mouth dailyAllergies :Shellfish-derived productsFamily History:Family HistoryFamily history unknown: YesSocial History:Social HistorySocioeconomic History Marital status: Single Spouse name: Not on file Number of children: Not on file Years of education: Not on file Highest education level: Not on fileOccupational History Not on fileSocial Needs Financial resource strain: Not on file Food insecurity: Worry: Not on file Inability: Not on file Transportation needs: Medical: Not on file Non-medical: Not on fileTobacco Use Smoking status: Former Smoker Packs/day: 2.00 Years: 30.00 Pack years: 60.00 Types: Cigarettes Last attempt to quit: 1980 Years since quittin.1 Smokeless tobacco: Never UsedSubstance and Sexual Activity Alcohol use: Not Currently Comment: scotch or beer Drug use: Not Currently Sexual activity: Not on fileLifestyle Physical activity: Days per week: Not on file Minutes per session: Not on file Stress: Not on fileRelationships Social connections: Talks on phone: Not on file Gets together: Not on file Attends mormonism service: Not on file Active member of club or organization: Not on file Attends meetings of clubs or organizations: Not on file Relationship status: Not on file Intimate partner violence: Fear of current or ex partner: Not on file Emotionally abused: Not on file Physically abused: Not on file Forced sexual activity: Not on fileOther Topics Concern Not on fileSocial History Narrative Not on fileReview of SystemsConstitutional: Positive for activity change, appetite change and unexpectedweight change (30 lb in 2 months). Negative for chills, diaphoresis, fatigue andfever.HENT: Negative for sore throat and trouble swallowing.Respiratory: Negative for cough, choking, chest tightness, shortness of breath,wheezing and stridor.Cardiovascular: Positive for leg swelling. Negative for chest pain andpalpitations.Gastrointestinal: Positive for constipation and nausea. Negative for abdominalpain, diarrhea and vomiting.Genitourinary: Positive for difficulty urinating.Musculoskeletal: Negative for arthralgias and myalgias.Skin: Negative for rash.Neurological: Negative for dizziness, syncope and light-headedness.Heart Rate: [79] 79Resp: [20] 20BP: (134)/(65) 134/65Physical ExamConstitutional:Frail, chronically ill appearingHENT:Head: Normocephalic.Eyes: Pupils are equal, round, and reactive to light. EOM are normal.Cardiovascular:Irregular rate and rhythm Peripheral Edema: lower extremity edema.Pulmonary/Chest: Effort normal and breath sounds normal.Abdominal: He exhibits distension. There is no tenderness. There is no guarding.Neurological: He is alert.Skin: He is not diaphoretic.BLE- Hyperpigmentation, dry, scalyPsychiatric:Exhibits poor insight and poor judgement with regard to medical conditionsVitals reviewed.Labs, Imaging and Other Diagnostic Tests:Diagnostic test reviewed for today's visit include: ECG and Labs.Significantfindings: [facility]. .Signature: DOREEN QuinonesDate: September 21, 2020Time: 6:17 AM Name Value Range Interpretation Code Description Data Erlinda rce(s) Supporting Document(s) ID Date Data Source [id number] 09/21/2020 11:59:52 PM EST [facility] Name Value Range Interpretation Code Description Data Erlinda rce(s) Supporting Document(s) APTT 33.8 s (22.0-34.3) [facility] ID Date Data Source [id number] 09/21/2020 07:31:10 PM EST [facility] Name Value Range Interpretation Code Description Data Erlinda rce(s) Supporting Document(s) POC NOVA GLU 149 mg/dL (70-99) H [facility] [place] PERFORMED BY [facility] CLINICAL STAFF ID Date Data Source [id number] 09/22/2020 09:17:35 PM EST [facility] Name Value Range Interpretation Code Description Data Erlinda rce(s) Supporting Document(s) COLOR [facility] APPEAR [facility] RBC (0) [facility] TOTAL NUCLEATED CNT 467 U/L (0-300) H [facility] NEUT % 29 % (0-25) H [facility] LYMPH % 33 % [facility] MONO/HISTIO % 32 % [facility] MESOTHELIAL CELLS % 6 % [facility] COMMENT [facility] PATHOLOGIST COMM [facility] Yenni CHAWLA 09/22/20PERFORMED AT [address] [place] [address] ID Date Data Source [id number] 09/21/2020 10:18:52 PM EST [facility] Name Value Range Interpretation Code Description Data Erlinda rce(s) Supporting Document(s) FLUID SG 1.025 [facility] ID Date Data Source [id number] 09/21/2020 09:49:37 PM EST [facility] Name Value Range Interpretation Code Description Data Erlinda rce(s) Supporting Document(s) FLUID GLUCOSE 167 mg/dL [facility] ID Date Data Source [id number] 09/21/2020 09:49:37 PM EST [facility] Name Value Range Interpretation Code Description Data Erlinda rce(s) Supporting Document(s) FLUID LDH 123 U/L [facility] FOR PLEURAL AND PERICARDIAL FLUID:<60% O F SERUM LD REPRESENTS TRANSUDATE>60% OF SERUM LD REPRESENTS EXUDATE ID Date Data Source [id number] 09/21/2020 09:49:37 PM EST [facility] Name Value Range Interpretation Code Description Data Erlinda rce(s) Supporting Document(s) FLUID ALBUMIN 1.8 g/dL [facility] ID Date Data Source [id number] 09/21/2020 09:49:37 PM EST [facility] Name Value Range Interpretation Code Description Data Erlinda rce(s) Supporting Document(s) FLUID TOTAL PROTEIN 3.8 g/dL [facility] FOR PLEURAL AND PERCARDIAL FLUID: <50% O F SERUM PROTEIN INDICATES TRANSUDATE >50% OF SERUM PROTEIN INDICATES EXUDATE ID Date Data Source [id number] 09/21/2020 09:49:37 PM EST [facility] Name Value Range Interpretation Code Description Data Erlinda rce(s) Supporting Document(s) FLUID AMYLASE 10 U/L [facility] ID Date Data Source [id number] 09/21/2020 09:12:22 PM EST [facility] Name Value Range Interpretation Code Description Data Erlinda rce(s) Supporting Document(s) FLUID SOURCE [facility] [place] ID Date Data Source [id number] 09/27/2020 08:34:24 AM EST [facility] SPECIMEN DESCRIPTION PERITONEAL F LUIDSPECIAL REQUESTS NONECULTURE RESULTS NO ANAEROBES ISOLATED AFTER 5 DAYSREPORT STATUS FINAL 09/27/2020 Name Value Range Interpretation Code Description Data Erlinda rce(s) Supporting Document(s) ID Date Data Source [id number] 09/27/2020 08:34:03 AM EST [facility] SPECIMEN DESCRIPTION PERITONEAL F LUIDSPECIAL REQUESTS NONEGRAM STAIN RARE (<1/LPF) WHITE BLOOD CELLS NO BACTERIACULTURE RESULTS NO GROWTH 5 DAYSREPORT STATUS FINAL 09/27/2020 Name Value Range Interpretation Code Description Data Erlinda rce(s) Supporting Document(s) ID Date Data Source [id number] 09/21/2020 03:13:48 PM EST [facility]PAT[facility] NT INFORMATIONPatient MRN Name Date of Age Gend*PT [id number] RobbinsNaeem zaldivar 1940 79 years M IPPT Location Admission Date/Time Visit ID Attending ProviderD-[id number] 09/20/202321 --- Elizabeth Gilbert MD([id number]) EPI ID CSN Admitting Provider [id number] Bharath Dennis MD([id number])Inpatient Consult NoteConsultLonnlexi [id number]/23/[id number] yearsReason for consult: MAXIME vs CKD.History:HPI:Mr. Robbins is a 79 year old male with PMH of alcohol abuse, tobacco abuse,atrial fibrillation, cirrhosis, CKD III, HTN, DM II, hypothyroidism who wastransferred to [facility] for TAVR work [facility].He never followed with a Taxi Dancer, his baseline creatinine is reportedly ~1.6-2.0 mg/dl, he presented to [facility] with weight gain/increased abdominalgirth, he had paracentesis done there, I am not sure if he was on diureticsthere, patient claimed that his legs edema has much improved c/w previous. [facility] he stopped diuretics fwe months ago as he was told so by his PCP becauseof worsening renal function and since then he has been noticing increasedabdominal girth. Workup in [facility] showed severe and he was transferredhere for evaluation of TAVR, he had paracentesis there, reportedly ~ 1 L offluids removed.Patient's creatinine today is 2.17 mg/dl, he has cruz catheter placed.Past Medical History:Past Medical History:Diagnosis Date Alcohol abuse Alcoholic cirrhosis Ascites Atrial fibrillation CKD (chronic kidney disease) stage 3, GFR 30-59 ml/min Diabetes mellitus HTN (hypertension) Hypothyroidism Moderate to severe pulmonary hypertension Tobacco abusePast Surgical History:Past Surgical History:Procedure La terality Date CATARACT EXTRACTIONMedications:Medications Prior to AdmissionMedication Sig Dispense Refill Last Dose amLODIPine (NORVASC) 10 MG tablet Take 10 mg by mouth daily Apixaban (ELIQUIS) 5 MG TABS tablet Take by mouth 2 (two) times a day carvedilol (COREG) 25 MG tablet Take 25 mg by mouth 2 (two) times a day Daily Veronica (THERAGRAN) per tablet Take 1 tablet by mouth daily hydrochlorothiazide (HYDRODIURIL) 25 MG tablet Take 25 mg by mouth daily levothyroxine (SYNTHROID, LEVOTHROID) 75 MCG tablet Take 75 mcg by mouth daily lisinopril (PRINIVIL,ZESTRIL) 40 MG tablet Take 40 mg by mouth daily melatonin 3 MG tablet Take 6 mg by mouth nightly metFORMIN (GLUCOPHAGE) 1000 MG tablet Take 1,000 mg by mouth daily withbreakfast Randolph-3 Fatty Acids (FISH OIL PO) Take 1 tablet by mouth daily rOPINIRole (REQUIP) 0.25 MG tablet Take 0.25 mg by mouth nightly tamsulosin (FLOMAX) 0.4 MG CAPS Take 0.4 mg by mouth dailyCurrent Meds: Scheduled Meds: amLODIPine 10 mg Oral Daily Daily Veronica 1 tablet Oral Daily folic acid 1 mg Oral Daily insulin lispro 1-6 Units Subcutaneous With meals sliding scale levothyroxine 75 mcg Oral Daily rOPINIRole 0.25 mg Oral Nightly tamsulosin 0.4 mg Oral Daily thiamine 100 mg Oral DailyContinuous Infusions: heparin (porcine) in NaCl Stopped (09/21/20 9578)PRN Meds:.atropine sulfate, heparin (porcine), LORazepam, Morphine Sulfate (PF)Allergies:Shellfish-derived productsFamily History:Family HistoryFamily history unknown: YesSocial History:Social HistorySocioeconomic History Marital status: Single Spouse name: None Number of children: None Years of education: None Highest education level: NoneOccupational History NoneSocial Needs Financial resource strain: None Food insecurity: Worry: None Inability: None Transportation needs: Medical: None Non-medical: NoneTobacco Use Smoking status: Former Smoker Packs/day: 2.00 Years: 30.00 Pack years: 60.00 Types: Cigarettes Last attempt to quit: 1980 Years since quittin.1 Smokeless tobacco: Never UsedSubstance and Sexual Activity Alcohol use: Not Currently Comment: scotch or beer Drug use: Not Currently Sexual activity: NoneLifestyle Physical activity: Days per week: None Minutes per session: None Stress: NoneRelationships Social connections: Talks on phone: None Gets together: None Attends mormonism service: None Active member of club or organization: None Attends meetings of clubs or organizations: None Relationship status: None Intimate partner violence: Fear of current or ex partner: None Emotionally abused: None Physically abused: None Forced sexual activity: NoneOther Topics Concern NoneSocial History Narrative NoneReview of Systems:Worsening abdominal girth.Physical Examination:Blood Pressure: BP: 119/68 Pulse: Heart Rate: 81Temperature: Temp: 98 F Respirations: Resp: 20Admission Weight: Weight: 83.9 kg (185 lb) O2 Saturation: SpO2: 94 %Today's Weight: Weight: 83.9 kg (185 lb) BMI: Body mass index is 25.8 kg/m .Physical Examination:General appearance - Malnourished, disheveled.Eyes - pupils reactive, EOMI, sclera anictericMouth - mucous membranes moist, pharynx without lesionsNeck - supple, no masses or thyromegalyChest - clear, diminished at bases, symmetric air entryHeart - normal S1, S2, no murmur or rubAbdomen - + ascites, nontender, mildly distended, no reboundNeurological - alert, oriented, normal speech, no movement disorder notedMusculoskeletal - no joint tenderness or swellingExtremities - 1+ peripheral pulses, + trace woody LEs edema b/l, extremitiesnot cold.Skin - normal coloration and turgor, no rash notedLabs, Imaging and Diagnostic Review:Diagnostic tests reviewed for today's visit:Results from last 7 daysLab Units SODIUM mmol/L 144POTASSIUM mmol/L 3.9CHLORIDE mmol/L 108CO2 mmol/L 29BUN mg/dL 69*CREATININE mg/dL 2.17*CALCIUM mg/dL 8.9ALBUMIN g/dL 2.6*Results from last 7 daysLab Units WBC 10*3/uL 11.1*HEMOGLOBIN g/dL 11.6*HEMATOCRIT % 35.5*PLATELETS 10*3/uL 202Impression & PlanPrincipal Problem: Severe aortic stenosisActive Problems: Anemia Moderate mitral insufficiency Nonrheumatic tricuspid valve regurgitation LVH (left ventricular hypertrophy) Right foot pain Fall at home Weakness Atrial fibrillation HTN (hypertension) CKD (chronic kidney disease) stage 3, GFR 30-59 ml/min Alcoholic cirrhosis Diabetes mellitus Ascites HypothyroidismMrLatha Robbins is a 79 year old male with PMH of alcohol abuse, tobacco abuse,atrial fibrillation, cirrhosis, CKD III, HTN, DM II, hypothyroidism who wastransferred [facility] for [facility]R work [facility].He never followed with a Tax[employer], his baseline creatinine is reportedly ~1.6-2.0 mg/dl, he presented to [facility] with weight gain/increased abdominalgirth, he had paracentesis done there, I am not sure if he was on diureticsthere, patient claimed that his legs edema has much improved c/w previous. Heclaims he stopped diuretics fwe months ago as he was told so by his PCP becauseof worsening renal function and since then he has been noticing increasedabdominal girth. Workup in [facility] showed severe and he was transferredhere for evaluation of TAVR, he had paracentesis there, reportedly ~ 1 L offluids removed.Patient's creatinine today is 2.17 mg/dl, he has cruz catheter placed.1. MAXIME on CKD: Reportedly his baseline creatinine is ~ 1.6-2.0 mg/dl, and his crtoday is 2.17 mg/dl.I am not sure if he has been receiving diuretic at [facility].He has trace woody edema, large ascites, 2D echo showed EF of 30-35% and severeaortic stenosis which complicates management and treatment.Recommenda tions:I don't think he is in heart failure at current time, I think he needs largevolume paracentesis (with albumin to prevent further worsening of renal functionif paracentesis volume is > 4 L).I recommend not to give IVF or diuretics at this time, I will order urineelectrolytes, BP is not low, do NOT start midodrine or octreotide at currenttime. I think his MAXIME is pre-renal (but again I am not sure if he was givendiuretics and how much at [facility]).Monitor BMP daily and UOP, tomorrow I may try gentle IV hydration and see ifthis improves his renal function (for diagnostic purposes), eventually he willneed to be on diuretics to prevent recurrent paracentesis. Severe Aorticstenosis and systolic dysfunction further complicates management.GI consult.2. Cirrhosis: With ascites, plan as above.3. CHF: Compensated. Cardio on board, await GI input to decide on TAVR.Avoid nonsteroidals and IV contrast. Adjust Meds and Abx for GFR < 20 ml/minuntil renal recovery.Thank you for this consult. Will follow.Cherelle Mitchelluary :54 PM Name Value Range Interpretation Code Description Data Erlinda rce(s) Supporting Document(s) ID Date Data Source [id number] 09/21/2020 02:23:37 PM EST [facility] [place] [facility] Name Value Range Interpretation Code Description Data Erlinda rce(s) Supporting Document(s) POC NOVA GLU 152 mg/dL (70-99) H [facility] [place] [facility] [place] PERFORMED BY [facility] CLINICAL STAFF ID Date Data Source [id number] 09/21/2020 10:47:12 AM EST [address] [place], [place] [address]Guewudf Name: NAEEM TRUJILLOOB: 1940ex: MOrdering Provider: ELIZABETH Salazar Prov: ELIZABETH Marx Provider: Procedure Performed: XR CHEST PORTABLEExam Date: 09/21/2020 10:28MRN: [id number] Number: [id number] Class: InpatientAccount #: [id number] for Exam: verify picc placement Left upper armTechnique: AP portable view obtained.Comparison: NoneFindings: A left-sided PICC line is present with the tip projecting over the superior vena cava. Lungs are clear. There are no pleural effusions.Cardiac and mediastinal contours are within normal limits.IMPRESSION: The PICC line is in satisfactory position. The lungs are clear.Report electronically signed by: ADAMA ROWLEY On 09/21/2020 10:47 AMWorkstation ID: [id number] Name Value Range Interpretation Code Description Data Erlinda rce(s) Supporting Document(s) ID Date Data Source [id number] 09/21/2020 10:14:01 AM EST [facility] Name Value Range Interpretation Code Description Data Erlinda rce(s) Supporting Document(s) &PDF [facility] JWIZHp6rUlNEAwQr50/DLNrtTWVlm9TvRHajNGj0KNmsKABwB8PpjPdoHSyIHB7RWqqXY00NFEIxQNCa waW [file] AgICAgICAgICAgICAgICAgICAgICAgICAgICAgICAg ICAgICAgICAgICAgICAgICAgICAgICAgICAgICAgICAgDQogICAgICAgICAgICAgICAgICAgICAgICAg ICAgICAgICAgICAgICAgICAgICAgICAgICAgICAgICAgICAgICAgICAgICAgICAgICAgICAgICAgICAg ICAgICAgICAgICAgICAgDQogICAgICAgICAgICAgIC AgICAgICAgICAgICAgICAgICAgICAgICAgICAgICAgICAgICAgICAgICAgICAgICAgICAgICAgICAgIC AgICAgICAgICAgICAgICAgICAgICAgICAgDQogICAgICAgICAgICAgICAgICAgICAgICAgICAgICAgIC AgICAgICAgICAgICAgICAgICAgICAgICAgICAgICAg ICAgICAgICAgICAgICAgICAgICAgICAgICAgICAgICAgICAgDQogICAgICAgICAgICAgICAgICAgICAg ICAgICAgICAgICAgICAgICAgICAgICAgICAgICAgICAgICAgICAgICAgICAgICAgICAgICAgICAgICAg ICAgICAgICAgICAgICAgICAgDQogICAgICAgICAgIC AgICAgICAgICAgICAgICAgICAgICAgICAgICAgICAgICAgICAgICAgICAgICAgICAgICAgICAgICAgIC AgICAgICAgICAgICAgICAgICAgICAgICAgICAgDQogICAgICAgICAgICAgICAgICAgICAgICAgICAgIC AgICAgICAgICAgICAgICAgICAgICAgICAgICAgICAg ICAgICAgICAgICAgICAgICAgICAgICAgICAgICAgICAgICAgICAgDQogICAgICAgICAgICAgICAgICAg ICAgICAgICAgICAgICAgICAgICAgICAgICAgICAgICAgICAgICAgICAgICAgICAgICAgICAgICAgICAg ICAgICAgICAgICAgICAgICAgICAgDQogICAgICAgIC AgICAgICAgICAgICAgICAgICAgICAgICAgICAgICAgICAgICAgICAgICAgICAgICAgICAgICAgICAgIC AgICAgICAgICAgICAgICAgICAgICAgICAgICAgICAgDQogICAgICAgICAgICAgICAgICAgICAgICAgIC AgICAgICAgICAgICAgICAgICAgICAgICAgICAgICAg WMJbSLEwWCOeSXAnGNYySYPfNXHbVSZnVANnRLYzXZXgLOZhELZsQIXfSWo9E9tjOOGmREJcXZ5rHOi6 Jz8+SXjAUlSgBTI3tkJxiU5YZA4ft0HuLVtiNHFpe0WtVFo3DT9YOYPmMUhsDK8LOGldgt5KEECyKSOp bVHOi7awZhIbQXY2HPBiFiruUE8MKMNmI9xzlqTcUA LyILVXXXcuCDBSYW6BUdJdD0AwdX84SWWJVi4+XTisreXnLekVFuH2BQSmb8NfEFh8PJ2SDTFuOPgwKW 0LYIVxrA7wYUqnSC7TSkNzSHIlDQTJZsCwE37lnGEaWRe9D6TqQxErEVClGfnzMVBlFWpoEyFkMQHoUu BdDQogID4+ID4+AUdfTF0NXFfnvvUzQSObLv5FWDKo CHX8MEQroOIbIpFjTSSVITtsFT4JsMLmZWS0zD4uRCqcFANuVCNvH8cWBcRleKvtKU16cYdxdjTvdAFz DQo+Cb7FEW6op0QbCWq3tiXyPSlrECM7IXkxYKKeZSRiPWNlORP3PBC8VIFMZjAhLNUeESUiRDitOVLf STQeiz2NWQZnELZwVMA2SCMnXQGlIHUaZDeuWYByMF G9MnY6SMVwKETtQT0UGoNzQMMfYZRtTLhkDRJjGSBkti9SGURwCBVfBnV0NOWnYOTiVSBlOZwjHYIlAT WoUcS4EPTkCTDjRM1IHyRwDYCsPPTgLiIaSQRwBDTdjh3NYAQcYRPaTgV8LROaQBYfEOKbCWldSQBnVT D9OwQ8URDfLSZdMB0LHzPaXUFhJJy6VxFrMDUvXOFz ym6KPAPoHGFtErpvBqHjPVPqZNXnIVgbDJXuWAL2Fdy3CJDhUMDzZW9GIgPgYZTaWUy3NakhFUZyLHRq vu1YLUKeAWMqXCZ2CUGeMQZgZKMzPIfyJEVdQMGiDWGdTRTzUYVfAO9VMhUnWKHrMJLuBolnWBUjQUVq id6HSWRvSNDyBZT9RHFwBRZhDFMzQLinMUQlKMF7Br flBYOuQZUtSP6MXkUwHSIwUNG2DglwRJLrSLUatw5FDRHxMCJvJDv5JWQlUOBsTRZdGWenPHQmRNL6DC P5QELnVNDbCW2OEpDsKSYuRIZpYyadKNMvXKUjvd4LJCRwVEBhWAPySqCeBVJlIUPhUZfsNQFxIPR4UK N1JALnIKMhRN7YWlOjCAEsIdBvCPUgSPWiYVJlhc8U DHUvXDYcFjG8VHNtYVXwCRSeJPn1ozQznFLwPAp9TH4IN7RnkyNzYtmVFu9Um292FTY3YUTrLw5ZE5qn Pv9pXSKsASIHAj5ARMs4Hne8GKzpRmS6YhAmBds4RIw7YDe1YLxsKIVfYgzlRJJ+BOg4HLXnLNQnGORz QPT5Pvn5MicqXKjnLVIfIKUoAjAgXB1sYRNHLu9+VNuwvOXssZbvNLXGNuL5ZhR4SMyoLDYRJf7G ID Date Data Source [id number] 09/21/2020 10:03:00 AM EST [facility] Name Value Range Interpretation Code Description Data Erlinda rce(s) Supporting Document(s) EKG [facility] CTLTCy9lPmIEWgFdq0EuAyFkDCVnHA3cpms4G6S4cYAqG7BuhYCkc2zyR3QkS5ApQWSzRDYMUO5XdFXw jb2 [file] tJ2Z86C+5X3G+790Xh47Ibat8G+7Kin3vW1+14vn2i /KJ8bDYs1/01bekC3jg8dKukqi0dhZlo9C18g+0919/3Q3qdt0d5OtUs2uXrm+30pIeD1/nkjgnqaP3y fQ7ia+80XX/juoAGr87z9wOsxoEj8/kftzYkwO5gl2L701/7XR83+Ak0Rn22eb8r9VEDR2CjjIELXXKV jZSecq59h8ydTQk1y2muvhUR/JQFlGVM/235EBBn40 9o9fev/QUn62Agpp8/z7OUurb+P/1h2QrldI0p2+nv/myr4m95GeC78rv0y9p506K/y47ta145CwBNT5 +0ff827Ea1UOE+vsyLmbdNbSTvgr1c/T1K4U/t199/v/f0/P08YO94/J4b3ut//M3Gdf1hW0n8J56zwl /v3+8r//71d+S9+j6ksMe2rJQJWvsOxYj3aKQ3G3T+ 7f89I/zp2x0pSQ2xSgotZO/X3+g125zpVX/d78ng+/v9/TmfWN8q71/klH8Ak70+dbD7Hun473H8ydc4 45G/4sopbz2h59/4xp3wCy/f5/fzHzo/5/7ev3+/P3lN3t/1401lI81yqb/9rb9D+pStj9mqszp4EhG6 h82vmS9+7/J7/+tvN50j5oi2BVp0/fu7f+1v/vXrp+ lzn1Xss61+rZRz8UD5owbJ+hUfz/309zsNocbLOQzh+9u/v0536Sw+CbWA83514j6dykB8wh4kk9kEDX HsO8O1U57s3k5c5tpYZhox7G4/pL/jkd/bd/2Q/o7+6AOHo1g+fvp7/5brTcox+d3lev/6lfrq/i3lr3 s46Wou0y5ex/W/PWFg950kXuZ/TVtia/f+vR Vy3R1uojys7mfpM/D/n9W4/M9Vpx2j0/n/XorAXnaIOaw8/FCxKJr7KILxyjn+T3feb5/H3L7yG/x7su cJJD2i5ZN9JFM1+a29J1wGbpLg/k9kMeOxP+fdajlteMr/1HX71/y+8u10t/j756//74Ofrq/ds/3y2/ 74/n1FfJ/9TJno7MM5UB1ifHm6rhK7cqn/r73N+d1/ Tvvqe+qt+HXH/iuco0+d2nmInc80pD5Qwjc+T6JfV+fpj5al8LN/VMEURx7KjbRbEYzueH+nbHVS9Yo/ dvXCzpb+qr+/fE34HV16l0yxroanbs928GewQT2z+X/L6k/C2/x9xqFUcfzxg3O0fdZN269jJ/t69fu7 36/qiL4E9k/d3jq3d/o7XoFQJn1ho70jB7s8+n/D6l PUt+A9G24GbY/d3xyN/a0gP7C5F/IfNVyHwV/ZG/6PmL05s0pb/qp8FJrV3P8bSwO+U30Jg0gclBhfXU 95ot12/5PeT6b/ye4wa+v9/ee5CW00/vPHCOGniv7/L7kN+HlG/vvHROGXj/kbty9tn8dfpbwZXuI24B TdXhcaAU7kj5QG/p52Wh2pf/6KucD8/JAu/l4HhU5L l13t1Er/PzOVTg+/fj33VC29/y+/g4uA4OkHPfXTyk/c07fbNvxyHpY1e99hjPecJmO2++6oid1sugu1 5fMiIwe3it01/yj756/64Rj3A9sUhK+fe3y/Uu13/k5el87ZmpY4/1hug5aDI72ZU/j76q34++qj6Ob/ 56Tmd586q/l48598l+evqe/s7627+/TX4//F4SMIzq [file] LJ60xb23Pmk2951f3m2i8sfo4qqvtQM5a7BK4GcDj8 feHfbr4q93Gab+zbi6/nqP1c7sY+OF7V/pIZprS6ao/1v+h3a5Vhhd5FTC+Kr6yrOI723mlV1e3ee4qU v/28jAmuu0Mb+Oqptnq/H0/d3hv2Y9+L4kVroYcjOssbAPC1Kya2lNnNU+nSulL740uL1c5qc0wysg7q ph5d8mo4xw+rqb+ouTG6qyCxiu1h2vy/aAqoqm1kv/ 7wqlJR2jn2l80q/yg5T9o1w2e/9/5Xob/C5zyf7UI51fpA0clOy//BAk3PtmUvMc4Jm0ljH2C4/kg31q tO9Qh2laLWL96p0f18ncJvFWo+vwf/6gECa5y0ZuZsKo1H7/R+UE/v9/LyySgO4h9bPnXQDulz8496Il Ya5dB4CFe2pfJm61+W+OqGv/MYSwX2bW8O4Ts83UxS 3BSlmmlw7WwZ05q6iH2Kx1p1jnohgL7+SO/21Pfb49b2SceArSSO1Z0/w5k6Pr22B4+m9/4onrvVHiRe u9V/JB67LZ+ZJ/PBV0EZ0pX/umHrPPE/jev6WQ9yfRx92X/SzL+RHv+juiIe+1Otd7suOzwkypO5kojk F4qjDVHkBD/l9zpqZuT1j9ZeVuRBuZnID1l4gI9lVj 0L+Mtwk3W35Y9q9LUMKimpd/kQ+NdGBq9SKtl2wO0YD/u7BL4q/ge++sLWeRz5/kFJ0W0pc8jK7w50Pm IQ+YuU9445v1k4Jvmpj4OsyxXMr48rg2l+fpFiwT3tKzjPwYOqADFVqWxJ6j/BE6VhbbljWcqeJ/l3z6 QZH6QtuZ4k/V61Yul6a7I6WJrMGR0BJme7Veh0z5km N1Qp4m39qqPDtcw8HHneB+kb/dmo/aR24QyrTh5UIV/gqy/c/Vh66p4fxB4hOfK/nQfW3i0gRWgJoccs Jkxcvm7w+Pj96Y4ljPP8I/2gXcjzgjyn/rkKjLzjadx9B4tT31Wbjf2w4uggE/Wk9fH6wb3iqENPT78w qb+qYPJ20Lnoh+sgvfVXtlu/XLmuAh97NRCq/1fiq/ x/OX0bemZ/BA4A7IUbGZSR0rvrzuC0H3oE+bw3bCPE4srqdFS4zaGvGM5B+rhPxQTvqdKKi0kZhGpkE0 OHe9poV3qebgu6skOD9KMD5ckJX9vx/mK4wZksn4CI7i3yi/an97/+2V1Cd11/+wAX1llOS7V6wd/1xF gTjt9nJ67e+dPz1x+zDvsn//60PkgxIi6/rW/3p/U5 jvNBz/PBJ9uN+9Uzy7Ixa/o5036VvqWs7QQzo3n6oAE558g5nD5flw0Pwc/Elaina/lo+/dYU8DKrdlEt8f 5bgCX+Ue1vN+e/Gs0VSh9mrb0tw1Eg1ZqQxsH8p7zb31y6/ey4pigY/udk540qE+u+o23zROrD+uFf7u t3veb4/zX8/54zCB6yroEadmMb+3Wj5irJX+vef99s rzjndU/XG//WFo4u93foNI4/8tM78dG0gK++60Mod8eD7636ldMf3dm1b8agQ6qOuipNN9jNSwuqZ+n+ Oz9XWO+1c+e//rs/N2jlfwFygR90x2hLsK0vM4Sa9Nib+RwRIVfHf6WkzNY3ponlvw49XRqkO/389x7f Tz34MPmkfuX/As7aG1wah6i9zP8k0yP/M3zwcr/SB/ 3yf01F/xpHs28op3ub2IUb3iJeaM236nfZgn+afKw93AqMw0new7x2wp/ZWX/lzQrrrSaiEY2PqSilty me6vMP72dIxV562/9yuerMB5+qawe1DD6frJ/Tf5KU8s3o/7k+3YD1t1aEfA610k53/cD+jytmar6hd9 laPi53H32o8FJ26/w+v+VYb7/pWvPu/15dv4viVpqt /42V0Y1ESnzO+B2pwvhhnqM2T3vG9zi18CkFt5vo2B9U1i0flsjb/NM442mlBIPP2R/Pj/6upMoe088I e5Du8+L/PtH+7yvZB/oZ4+D/XEV5V+3X6oArpkg85fKW0E9QwoNqIV8vaTOl9R+hw/rc/x0/cZ/OD7Qn /lB9/9UFPB0ay7fbNCF5ii4prL9fdu6LlH16v6Bs+f j1fqo5PU4/Y2DAX2KKDc+7VuMeF1iUbE+7xsPX3/hV1Y3PgdCA/Xs5F+kL/9aOf3G6r++n+6nvN2NFvh vf+/C/am2hd38tI+QtTYh8LrQr6D/U78VS4TzE6aO7fD66LB28DPVjhy6c7i6qscG/r/u6T/L9dI9OD9 1Ut60jyu1ojwkwkzLARCeVrd4J/kx/fF/fbG18QIkt /ST/xwMt8JfU2X8E6aFkMDKp7tch505+f5Qqb3+6LA1bb6zda4qZQcU3rzBeR50FmfG+Rf1uF+r7HmRv 1pzaLCnV/7fcrSfp+c0l9e7LoEV3qInWy8mRQyWaVr1ycRqd+sdEN+L5yd0SY/xqsL+TfSN/IfjKvvT6 58P+hlJ8C+vhnGa/2kQsbVy4M4/V5yWe+VapZ7tYFq B/PvuHGm2ziIXnru2x0IMfOw74q7qi/4vnm//vnasGTfyiyuTe8uuY/Ij/G6vhzUz07zqYe6ivKE62U7 guecp2YpIrQa/R5n+VN08Zy2Mp0F89JKpon06u2BssQ+bi8nVee/u3KyURf4kk+q6pbfqHoem0+r76us mOhx2i01QK5BB/Ht3rgeH07DH13Y/lA87810cHyzjx 9bga/y/tKvuM1sNsi2xgK8Hdf1K/RO3pdA2Mj3I181cfCXxscH09LCx/c8280eaymL4xu84qI7Xd5aG+ Cr6tvO+8/Bs5a1M3wj+OqxrPMdb+7fV+Cr3C+uL27COZlA+77igmz3+Dn6eLWN+h0lihzb7P86vgooS3 A9w2/6yPTxnUevk/v9qP/Kiw0i12O9a+wY71j17vNc 3/1+guVtwu2uOedlor68dk27uuRg0fF6bqem16lT3nVbenuree/hj5nEd1d/dTuG40Jk+knulTs1QP92 wIan89R9f9m17xI9G3U9+ejNuk4UF89R8/02lbHpxt6q4tu7F8cWgS66zwV9JHWN2a/oz/7m+3428h/U 0/D9a01Zz7zU2GW6Bf02dk+3JvPZexckZ5FRYA21W3 f/f/xc5Rx21/1gpi/Gh5QCasbF5tvfb0+Ajxr5umAU4Yum7WlHfmp80dhQcX+Wd6kqBp8/0ZLsN2XoV8 j21k6a23vopwygb/RnI/9wLxlm6Yq6AxvJ9haR9gr/aM++o7Sf3708X/Aw2jEEp+74AyhIjNa0A+1ivH Lz5cTtv/D29C94QhnM/h9tfZA+sT4qN0vhmjx+8OTW fo+qkbrBH5m/sKG/2hy6ju6X2Q2kpyFDmwK/2pKIkzHW0XK75/GOq5VFn8Y9td2unPlA3/gDpz8g2Tm1 32w2owJm/nY6We1qB+8CA5MnqY3f5960brK7krj90gc97TF+i7Vz8Rqr+64oKt9ZhYkP+z3O9n6/v73f /27v/zK02fss5Q+125h68UoaF4+lLAFfbeCrnfqrKr oHH1303btmoquNc9ILwJ310sjUQqhS+6p48wY5zfpo+OX6f4XNgw5k3UL/1oA8TDP3/I+Ar/bCeBfGu/ z9883McymJ38NeSk5JI82VI0da/oLAU9l85eZj1em85hfim+41FlayPWRHxVryI0Hh+iBlp0KbzVes8G /9xt6Yv/gnz89g3jchWl0/7xd97tw4/nfn+8FT4e7/ bQ90mh5PwgDhKHU2hbDZo+/T+ud9+u4dOmrmJdrg+qvq/8a4IM+p14HbaNi+T6/P5+n3++jguT7Zg+8+ zbX9xn88h0Ne/v+exFdlmbD/v+fp/t29vw50Knb9T/1Z1m31/ug8G+kH/Mi6hSbktAM3T7cH4750r/HG gX2Gk/fJRjeNf6P7IO/AeAfGOwzpjnRH/WkfqcIfTj 6Jr+Ic8yS+3dwr4gVtvU2hlztAG/QW1a4wQ+iXOZ84F9VSjN93m2A5vtTn6ksN4eyC9+ehB/jfWJ2m9G [facility]+gC7EqwS+pTz0I7xBD5vdbb/Pg4fYgYvKN7B7+d2fv9M/H7Q7V1AxCwqFUdv9J6O+OdGC/z2Fi8Jb [file] 7Rdti3FiaUK/Sandra/LF+EZdoWiJQ/cdtpYcixMTqcpulvgKDONYKuslGvVOv0W6W0cPvLx9OvtpgEFxdR VqBtN0/EU9rnG2nPD39tnRwa/li+iH0/8fTHUr/39M tCivZEve74evALhEsqAjbAgW8ypAFYGmWI0HLuFYcBPA1nEQab+HdgD6uDJ8uZ2SHnWvrIvOdYDrIH6c aEpD+Xh2KFMaNK7rw+KMEQdWkriDROzLysOGlyhqVm8lpkd+BCKN9mxVKexyzg/Jason+WL5sA1/OKQeOO5 rlj+ZUDWhYLbVoI37y75McmY26Tn5ajBW+YvljuWU2 2+Co0AQzFqedjFucRWNkB4FFXVWC9Zhpm+SvqnFYrdy4gByWwR/YIg+Om7S0KC9EYxmdRZtsRGqxY+cL Jvg8Ozp11ElIMSu19QJfa4oYQogMKvDbezGvHOC1suHuAGU125LrFRSpeOhwCQ7oZ9XIB1mWQxarMQ0W m3Qq6rBEKdG/UjAhi1xe5oDV6zmpWZ4MeDV9ZJjdFg 5ks2UcTW5Zf8xp8s9HdQ+CC2X0N90w55w3g+iCjCEeDuBBiUqOv1zpn+OgKi1tyodQHC6NHAFXwQK/UR j4S4SaD3JGD7a2fnHoL2l+9c9//diOcAYQ36h//r9//uO/x//58+//9+e//u1CjO68L/performance test consultant//4TT1x+/5 CwivEiyB8/VoZ/6SffjL/51qvf9Lmtyp/eVDCmD4x0 IU3P8C/6Yz3yfyYAtJVzP52ddEicV31b+K1/AY891280S3CV455fko7D7ZB51QWfW35J1gz+5Ho3BqT/ C9kmMK6tpG+fIcNv+p00d5dWSb/nnv89eHo/6CebR24qgL8qnXQjv0GyucL+eRB+0zXzTOR/xytpWejF wI83hdZ1yPX2Uy/gOoTdo7vovZk44DVnRj560dKK44 p6SiYq6NntJaeqfUa0+70Hda9xZHzrYNLAN5v1V6yinonrnwTcPAWr+M4nFNwpduUaeSAg5Uz4cFUrd+ 94LWXphYNf+umnA9VUCa3QY60d+CI7uYvbMeOx55nylEaoihcHmqF10T/4xuEXGs6e2DX0WZUF0WwhyT DS3/H+an7CrnCU+e873h+0azU9XUQi6eJh5d3gA55w b1a3Q5D5pMU18kHv+2w674O8fFq7suFhsgugzu92UbQQvK0Ez4QXhLLk3064+qwZtm+UYoLzR49h8fu6 FauDDzQVKHzd4elm96TM011rhATBU7wx71ShgSgiRcEshF6v2z++99ocsz9syi9U8Vz/Q57Lt0/Is1a4 +aHo1ahKv+shzzlnPeTZ0+DC6W41kRy7Hf07Wp87Xh 81brRuPh2YjFrr8+ou23gFvMyEhap52256LX+hB7lKp5b+9XS76+z9T02iLX/PK1cisX6gShjr+bK058 rGiqhcYn0toFxX9u+AUjEUTh52y/ZgRnyy4ZbVat3lIW+bCfqDgdLaj9N9Q9Sd/GK22+5AvU86ohFdrN z3b1zy9Tu8EF33/OtqDquo5m1g36aa52gm708nhQz/ [file] RqOBVbWOFDZc5Ht289YNPmURKFGfs+OtzffQOtiUpmSXMNCWrnGjuJNUIQO1J= ID Date Data Source [id number] 09/21/2020 09:40:31 AM EST Lab [facility] Name Value Range Interpretation Code Description Data Erlinda rce(s) Supporting Document(s) POC NOVA GLU 150 mg/dL (70-99) H [facility] [place] [facility] PERFORMED BY [facility] CLINICAL STAFF ID Date Data Source [id number] 09/21/2020 09:27:26 AM EST [facility] NT INFORMATIONPatient MRN Name Date of Age Gend*PT [id number] Naeem Robbins 1940 79 years M IPPT Location Admission Date/Time Visit ID Attending [id number] 09/20/202321 --- Elizabeth Gilbert MD([id number]) EPI ID CSN Admitting Provider [id number] Bharath Dennis MD([id number])Cardiology NoteLonny TusMRN: [id number]: 79-year-old quit alcohol abuse 8 years ago still smoking atrialfibrillation cirrhosis CKD ascites hypertension diabetes hypothyroidism wastransferred from outside hospital for TAVR work-up after was found to severe ASis unclear if he is compliant with medications had a peritoneal tap in [facility] 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 denies any angina has complainedof fatigue shortness of breath and abdominal distentionROS:As above otherwise negativePhysical Exam:Body mass index is 25.8 kg/m .Weight: [83.9 kg (185 lb)] 83.9 kg (185 lb)Intake/Output Summary (Last 24 hours) at 09/21/2020 0922Last data filed at 09/21/2020 0705Gross per 24 hourIntake Output 1100 mlNet -1100 mlTemp: [98 F-98.8 F] 98 FHeart Rate: [79-86] 86Resp: [20] 20BP: (126-134)/(65-71) 126/71CachecticNeck: No JVD, no bruitsChest: GAE, no added soundsCardiac: PMI present, RRR, S1 and S2, 4 out of 6 systolic murmurAbdomen: B distended plus fluid wave in the abdomen positiveExtremities: No Cyanosis, no clubbing, no edemaNeurological: AAOx3, CN II-VII are grossly intact, no focal motor or sensorydeficitAllergiesAllergen Reactions Shellfish-Derived Products SwellingPast Medical History:Diagnosis Date Alcohol abuse Alcoholic cirrhosis Ascites Atrial fibrillation CKD (chronic kidney disease) stage 3, GFR 30-59 ml/min Diabetes mellitus HTN (hypertension) Hypothyroidism Moderate to severe pulmonary hypertension Tobacco abusePast Surgical History:Procedure Laterality Date CATARACT EXTRACTIONSocial HistorySocioeconomic History Marital status: Single Spouse name: Not on file Number of children: Not on file Years of education: Not on file Highest education level: Not on fileOccupational History Not on fileSocial Needs Financial resource strain: Not on file Food insecurity: Worry: Not on file Inability: Not on file Transportation needs: Medical: Not on file Non-medical: Not on fileTobacco Use Smoking status: Former Smoker Packs/day: 2.00 Years: 30.00 Pack years: 60.00 Types: Cigarettes Last attempt to quit: 1979 Years since quittin.1 Smokeless tobacco: Never UsedSubstance and Sexual Activity Alcohol use: Not Currently Comment: scotch or beer Drug use: Not Currently Sexual activity: Not on fileLifestyle Physical activity: Days per week: Not on file Minutes per session: Not on file Stress: Not on fileRelationships Social connections: Talks on phone: Not on file Gets together: Not on file Attends mormonism service: Not on file Active member of club or organization: Not on file Attends meetings of clubs or organizations: Not on file Relationship status: Not on file Intimate partner violence: Fear of current or ex partner: Not on file Emotionally abused: Not on file Physically abused: Not on file Forced sexual activity: Not on fileOther Topics Concern Not on fileSocial History Narrative Not on fileFamily HistoryFamily history unknown: YesMedications: Scheduled Meds: amLODIPine 10 mg Oral Daily insulin lispro 1-6 Units Subcutaneous With meals sliding scale levothyroxine 75 mcg Oral Daily rOPINIRole 0.25 mg Oral Nightly tamsulosin 0.4 mg Oral DailyContinuous Infusions: heparin (porcine) in NaCl 11.91 Units/kg/hr (09/21/20 0904)PRN Meds:.atropine sulfate, heparin (porcine), Morphine Sulfate (PF)Labs, Imaging, and other Diagnostics:Labs reviewed at 9:22 AMLab ResultsComponent Value Date WBC 11.1 (H) 09/21/2020 HGB 11.6 (L) 09/21/2020 HCT 35.5 (L) 09/21/2020 MCV 73.7 (L) 09/21/2020 PLT 202 1Results from last 7 daysLab Units [id number] I ng/mL <0.05Results from last 7 daysLab Units SODIUM mmol/L 144POTASSIUM mmol/L 3.9CHLORIDE mmol/L 108CO2 mmol/L 29BUN mg/dL 69*CREATININE mg/dL 2.17*GFRAA ml/min/1.73m2 36*GFRNAA ml/min/1.73m2 29*GLUCOSE mg/dL 174*CALCIUM mg/dL 8.9Results from last 7 daysLab Units [id number] I ng/mL <0.05Assessment and Plan:Principal Problem: Severe aortic stenosisActive Problems: Anemia Moderate mitral insufficiency Nonrheumatic tricuspid valve regurgitation LVH (left ventricular hypertrophy) Right foot pain Fall at home Weakness Atrial fibrillation HTN (hypertension) CKD (chronic kidney disease) stage 3, GFR 30-59 ml/min Alcoholic cirrhosis Diabetes mellitus Ascites HypothyroidismClinically severe with evidence of CKD and cirrhosis and ascites post.Per[facility] we will order a repeat echo since the echo report isnot available. I spoke with the attending hospitalist to get GI and nephrologyon board cirrhosis midodrine end-stage in light of the severe abdominaldistention and ascites we will ask GI for GI assessment of cirrhosis outcome.If patient is end-stage we will not proceed with TAVR work-up. We will continuefollowing up along with you.Signature: Júnior Shaw MDDate: September 21, 2020Time: 9:22 AM Name Value Range Interpretation Code Description Data Erlinda rce(s) Supporting Document(s) ID Date Data Source [id number] 09/21/2020 08:40:[address] [address]Ytborvs Name: NAEEM TRUJILLOOB: 1940ex: MOrdering Provider: AHSAN Laddhorizing Prov: AHSAN FRARCHINReferrmyron Provider: Procedure Performed: XR FOOT COMPLETE RIGHTExam Date: 09/21/2020 08:22MRN: [id number] Number: [id number] Class: InpatientAccount #: [id number] for Exam: s/p fall at home/traumaTechnique: AP, lateral and obliques obtained.Comparison: NoneFINDINGS:The osseous structures of the foot are unremarkableNo fractures identifiedThere are degenerative changes in the talonavicular joint with proliferative changes. Dorsal osteophytes are noted.Calcifications noted in the distal Achilles tendon.No foreign body identifiedSoft tissues within normal limitsIMPRESSION:Degenerative changes. No acute diseaseReport electronically signed by: ALYSSA EDGE On 09/21/2020 8:40 AMWorkstation ID: [id number] Name Value Range Interpretation Code Description Data Erlinda rce(s) Supporting Document(s) ID Date Data Source [id number] 09/21/2020 02:30:05 PM EST [facility] [place] [facility] Name Value Range Interpretation Code Description Data Erlinda rce(s) Supporting Document(s) PT 15.6 s (9.2-11.9) H [facility] [place] [facility] INR 1.52 [facility] [place] SUGGESTED THERAPEUTIC RANGES USING INR F ORSTABILIZED ANTICOAGULATED PATIENTS:STANDARD DOSE THERAPY INR 2.0-3.0 DVT, PE, PREVENT DVT OR EMBOLISMHIGH DOSE THERAPY INR 2.5-3.5 PREVENT EMBOLISM FROM MECHANICAL HEART VALVE ID Date Data Source [id number] 09/21/2020 07:49:23 AM EST [facility] [place] [facility] Name Value Range Interpretation Code Description Data Erlinda rce(s) Supporting Document(s) APTT 31.4 s (22.0-34.3) [facility] [place] [facility] ID Date Data Source [id number] 09/21/2020 06:50:38 AM EST [facility] Name Value Range Interpretation Code Description Data Erlinda rce(s) Supporting Document(s) NT PRO BNP 31771 pg/mL (0-450) H [facility] [place] [facility] [place] ID Date Data Source [id number] 09/21/2020 06:50:38 AM EST [facility] [place] [facility] Name Value Range Interpretation Code Description Data Erlinda rce(s) Supporting Document(s) TSH,ULTRASENSITIVE @ 0.380 mIU/L (0.360-4.170) [facility] [place] PERFORMED AT [address] [place] [address] ELEONORA Flores [id number] ID Date Data Source [id number] 09/21/2020 06:50:38 AM EST [facility] Name Value Range Interpretation Code Description Data Erlinda rce(s) Supporting Document(s) SODIUM 144 mmol/L (136-145) [facility] POTASSIUM 3.9 mmol/L (3.6-5.2) [facility] CHLORIDE 108 mmol/L (100-108) [facility] CO2 29 mmol/L (22-31) [facility] [place] ANION GAP 7 mmol/L (7-16) [facility] UREA NITROGEN 69 mg/dL (7-24) H [facility] [place] [facility] CREATININE 2.17 mg/dL (0.80-1.30) H [facility] [place] BUN/CREAT RATIO 31.8 RATIO (10.0-20.0) H [facility] GLUCOSE 174 mg/dL (70-99) H [facility] [place] [facility] CALCIUM 8.9 mg/dL (8.4-10.2) [facility] TOTAL PROTEIN 6.5 g/dL (6.4-8.2) [facility] ALBUMIN 2.6 g/dL (3.2-4.5) L [facility] GLOBULIN 3.9 g/dL (2.7-4.3) [facility] ALB/GLOB RATIO 0.7 RATIO [facility] ALKALINE PHOSPHATASE 84 U/L (45-117) [facility] BILIRUBIN,TOTAL 1.4 mg/dL (0.0-1.0) H [facility] [place] [facility] PLEASE NOTE:Total bilirubin results may be falselyelevated in patients taking Eltrombopag. AST (SGOT) 6 U/L (11-39) L [facility] [place] [facility] ALT (SGPT) 12 U/L (12-78) [facility] GFR 29 ml/min/1.73m2 (>59) L [facility] [place] GFR ( AMER) 36 ml/min/1.73m2 (>59) L [facility] GFR INTERPRETATION [facility] --NORMAL KIDNEY FUNCTION OR MILD DISEASE - GFR >OR= 60CHRONIC KIDNEY DISEASE - GFR 15 - 59RENAL FAILURE - GFR <15 Est. GFR calculation based on the MDRDstudy equation, which assumes a steadystate for creatinine. Est. GFR should notbe used for medication dosing. ID Date Data Source [id number] 09/21/2020 06:50:38 AM EST [facility] [place] Name Value Range Interpretation Code Description Data Erlinda rce(s) Supporting Document(s) TROPONIN I <0.05 ng/mL (<0.05) [facility] [place] [facility] [place] Less than 0.05: Myocardial injury unlike lyGreater than or equal to 0.05: Highly suggestive of myocardial injuryCorrelation with rise and/or fall ofserial troponins, clinical symptomsand ECG changes is necessary. ID Date Data Source [id number] 09/21/2020 06:32:20 AM EST Lab [facility] Name Value Range Interpretation Code Description Data Erlinda rce(s) Supporting Document(s) MAGNESIUM 2.5 mg/dL (1.7-2.4) H [facility] [place] [facility] [place] ID Date Data Source [id number] 09/21/2020 06:06:37 AM EST [facility] [place] [facility] Name Value Range Interpretation Code Description Data Erlinda rce(s) Supporting Document(s) HEMOGLOBIN A1C @ 5.8 % (4.0-6.0) [facility] [place] [facility] Performed using Siemens Conifer immunoassa y.Care must be taken when interpreting [id number] in patients with a hemoglobin variantor decreased erythrocyte lifespan. Values 5.7 - 6.4% suggest prediabetes.Values >=6.5% are diagnostic for diabetes.REFERENCE: DIABETES CARE 2018: 41(S13-S27).PERFORMED AT [address] [place] [id number] EST AVERAGE GLUCOSE 120 mg/dL [facility] [place] ID Date Data Source [id number] 09/21/2020 05:35:02 AM EST [facility] [place] [facility] [place] Name Value Range Interpretation Code Description Data Erlinda rce(s) Supporting Document(s) WBC 11.1 10*3/uL (4.1-11.0) H [facility] [place] [facility] [place] RBC 4.82 10*6/uL (4.60-6.10) [facility] [place] [facility] [place] HGB 11.6 g/dL (13.5-18.0) L [facility] [place] [facility] [place] HCT 35.5 % (41.0-53.0) L [facility] [place] [facility] [place] MCV 73.7 fL (80.0-95.0) L [facility] [place] [facility] [place] MCH 24.1 pg (27.0-32.0) L [facility] [place] [facility] [place] MCHC 32.7 g/dL (32.0-36.0) [facility] [place] [facility] [place] RDW 18.1 % (10.5-14.5) H [facility] [place] [facility] [place] PLT 202 10*3/uL (150-450) [facility] [place] [facility] [place] MPV 8.1 fL (7.1-10.7) [facility] [place] [facility] [place] NEUT % 84.4 % (35.0-75.0) H [facility] [place] [facility] [place] LYMPH % 3.0 % (16.0-52.0) L [facility] [place] [facility] [place] MONO % 10.4 % (0.0-8.0) H [facility] [place] [facility] [place] EOS % 0.0 % (0.0-5.0) [facility] [place] [facility] [place] BASO % 2.2 % (0.0-4.0) [facility] [place] [facility] NEUT # 9.4 10*3/uL (1.8-7.7) H [facility] [place] [facility] [place] LYMPH # 0.3 10*3/uL (1.2-4.8) L [facility] [place] [facility] [place] MONO # 1.2 10*3/uL (0.0-0.8) H [facility] [place] [facility] [place] Eosinophils [#/volume] in Blood by Automated count 0.0 10*3/uL (0.0-0 .5) [facility] [place] [facility] [place] BASO # 0.2 10*3/uL (0.0-0.2) [facility] [place] [facility] [place] ID Date Data Source [id number] 09/22/2020 05:04:23 PM EST [facility] [place] [facility] [facility] [place], [place] [address]Tel# MISCELLANEOUS CYTOLOGY REPORTAccession Number: [id number] of Specimen(s): A: Ascites FluidClinical Diagnosis and History: Ascites, paracentesisGross DescriptionAscites Fluid: 35 cc of cloudy yellow fluid with 2 prepared slidesreceived Final DiagnosisSpecimen AdequacySatisfactoryFinal DiagnosisNEGATIVE FOR MALIGNANCYMesothelial cells, histiocytes, scant neutrophils and lymphocytes. Processed and screened at [facility] [place] [facility],Cytology, [address] [place] [address], [facility].As applicable, positive and negative controls for all immunohistochemicaland/or special stains were reviewed and considered appropriate. Reported: 09/22/2020E lectronically Signed Out By Beto Chawla MDEastern [facility] PatholoCytotechnologist: Liseth Nicolas CT(ASCP)[facility].jjfICD code: R18.8CPT code: A: 54476A Name Value Range Interpretation Code Description Data Erlinda rce(s) Supporting Document(s) ID Date Data Source [id number] 09/17/2020 11:43:00 AM EST [place] Name Value Range Interpretation Code Description Data Erlinda rce(s) Supporting Document(s) SARS coronavirus 2 RNA [Presence] in Res piratory specimen by TAY with probe detection NEGATIVE [place] This lab was ordered by [facility] a nd reported by [facility]. ID Date Data Source [id number] 05/17/2020 01:17:38 PM EDT [facility] Labs In-House Blood TestsDate/Time Colle cted: May 17, 2020 1:18 PMTest Result Reference Range Normal ValueComments: bood drawn in right AC Pt tolerated well. Denver Chen AVIONICS SUPERVISOR, May 17, 2020 1:18 PMAssessment & Plan Orders:[id number] Vst-Est Level I [CPT-82973] 08079 - Venipuncture [CPT- 34559] Name Value Range Interpretation Code Description Data Erlinda rce(s) Supporting Document(s) ID Date Data Source [id number] 05/17/2020 12:00:00 PM EDT [facility] Name Value Range Interpretation Code Description Data Erlinda rce(s) Supporting Document(s) HGBA1C 6.0 % N [facility] ID Date Data Source [id number] 05/17/2020 12:00:00 PM EDT [facility] Name Value Range Interpretation Code Description Data Erlinda rce(s) Supporting Document(s) BG FASTING 83 mg/dL 70-100 N [facility] TSH 6.220 microintl units/mL 0.358-3.740 H [facility] ID Date Data Source [id number] 04/04/2020 11:28:15 AM EDT [facility] Labs In-House Blood TestsDate/Time Colle cted: April 04, 2020 10:50 AMTest Result Reference Range Normal ValueComments: Taken in office. Taken from L[facility]. Tolerated well Linn Salazar MA, April 04, 2020 11:29 AMAssessment & Plan Orders:[id number] Vst-Est Level I [CPT-52103] 53733 - Venipuncture [CPT-34266] Name Value Range Interpretation Code Description Data Erlinda rce(s) Supporting Document(s) ID Date Data Source [id number] 04/04/2020 10:50:00 AM EDT [facility] Name Value Range Interpretation Code Description Data Erlinda rce(s) Supporting Document(s) BG FASTING 120 mg/dL 70-100 H [facility] ID Date Data Source [id number] 03/03/2020 10:33:05 AM EDT [facility] Vital SignsPulse Rate: 65 beats/ minuteBlood Pressure: 109/57 left arm sitting automaticO2 Saturation: 97% room air sittingVital Signs performed by: Carmelita Gallo , March 03, 2020 10:34 AMInformation From: patientPhone Number: Visit Type: phone/audio onlyTechnology Used: PhoneStart Time: 10:33 AMConsent Provided by PtMedical Necessity ReviewedPatient Location: HomeProvider Location: HomeInfectious Disease / Travel ScreeningRecent travel for you or any close contacts? NoHave you had any close contact with anyone diagnosed with or under investigation for COVID-19 (coronavirus)? NoFever? NoRespiratory symptoms: cough, cold, congestion, shortness of breath, difficulty breathing? NoLoss of smell? NoLoss of taste? NoSmoking, Tobacco, Vaping or Smoke Exposure StatusSmoke Status: never smokerTobacco Use: NoDo you vape? NoHealthcare HistorySince your last office visit...Have you been admitted to the hospital? NoHave you been to an emergency room (ER) or urgent care clinic? NoHave you seen another healthcare provider? NoHave you seen a dentist? NoIntake performed by: Carmelita Gallo , March 03, 2020 10:34 AMRate Your HealthIn general, would you say your health is? GoodPain AssessmentAre you currently having any pain which... You would like your provider to address? No Affects your activity level? NoDepression Screening - PHQ-2Over the last two weeks, have you... Had little interest or pleasure in doing things? Not at all Been feeling down, depressed, or hopeless? Not at all PHQ-2 Score: 0Anxiety Screening - NIKOLAS-2Over the last two weeks, have you been... Feeling nervous, anxious, or on edge? Not at all Unable to stop or control worrying? Not at all NIKOLAS-2 Score: 0Screening, Brief Intervention, & Referral to Treatment (SBIRT)Pre-Screening Questions How many times have you have 5 or more drinks in a day? 0How many times have you used an illegal drug or used a prescription medication for a non-medical reason? 0Performed by: Carmelita Gallo , March 03, 2020 10:35 AMPatient History Medical History:liver dxSurgical History:eye sxFamily History:Social/Personal History: History of Present Illness (HPI)Has been taking an old Xanax presription from 5 years ago lately for his leg cramps at night with some relief. I explain that this is not safe for him because of the risk of dizziness, confusion and falls with severe injury. He voices understanding but does not seem to commit to stopping this.Has been having issues lately with weight gain and leg swelling. Increased his furosemide from 1/2 pill daily to 1 pill daily with good results.His labs show an elevated TSH and a depressed kidney function.This visit was conducted via telephone. The VS as noted were vitals the patient took himself at home and gave us over the phone.Mich Hall MD has received verbal consent from the patient/guardian to conduct this visit via telehealth. The patient has been made aware that they have the right to refuse telehealth; of my location and the security of the telehealth software; any other parties present in the session; and that they have a right to select another provider if chosen for a face to face visit.HPI performed by: Mich Hall MD, March 03, 2020 11:06 AMProblem ReviewProblem List was reviewed and/or updated during this visit.Medication Reconciliation & ReviewMedication List was reviewed and/or updated during this visit, including review of any vwce-pue-yxxfxvg medications, herbal therapies, and/or supplements.Allergy ReviewAllergy List was reviewed and/or updated during this visit.Review of Systems General: Denies chills, dizziness, fatigue, fever. Cardiovascular: Denies chest pain. Respiratory: Denies shortness of breath. Gastrointestinal: Denies diarrhea, constipation. Rate Your HealthIn general, would you say your health is? GoodAssessment & Plan Problems:Added: Chronic kidney disease, stage 2 (mild) (RTB09-Q08.2) Assessment: Instructions: I am wondering if this is to some extent his increasing his Lasix.He will stop the Lasix and we will recheck his kidney function in 2 weeks. If it is the Lasux then this should improve. If not we need to explore other etiologies.15 minutes spend on phone with patient.Assessed:Hypothyroidism, unspecified (UTK90-A31.9) Assessment: Instructions: Poor control and this may be some of the cauase of his weight gain, leg swelling and possibly his leg discomfort.Increase levothyroxine from 25 to 50 daily and recheck labs in 2-3 months.Diabetes mellitus without mention of complication, type II or unspecified type, not stated as uncontrolled (ICD- 250.00) (CBV30-I25.9) Assessment: Instructions: A1C is 7.1.Continued efforts at diet and exercise.We will continue Metformin for now although we should keep an eye on his kidney function.Recheck CMP in 2 weeks and if persistently low will switch to a different medication for his diabetes.Patient Instructions/Care Plan: Hypothyroidism- unspecified: Poor control and this may be some of the cauase of his weight gain, leg swelling and possibly his leg discomfort.Increase levothyroxine from 25 to 50 daily and recheck labs in 2-3 months.Diabetes mellitus without mention of complication- type II or unspecified type- not stated as uncontrolled: A1C is 7.1.Continued efforts at diet and exercise.We will continue Metformin for now although we should keep an eye on his kidney function.Recheck CMP in 2 weeks and if persistently low will switch to a different medication for his diabetes.Chronic kidney disease- stage 2 (mild): I am wondering if this is to some extent his increasing his Lasix.He will stop the Lasix and we will recheck his kidney function in 2 weeks. If it is the Lasux then this should improve. If not we need to explore other etiologies.15 minutes spend on phone with patient. Plan developed in collaboration with patient and/or familyMedications:LEVO-T 50 MCG ORAL TABLETCENTRUM SILVER 50+MEN ORAL TABLETFISH OIL 1200 MG ORAL CAPSULEKETOCONAZOLE 2 % EXTERNAL SHAMPOOTRAZODONE HCL 50 MG ORAL TABLETTAMSULOSIN HCL 0.4 MG ORAL CAPSULEELIQUIS 5 MG ORAL TABLETCARVEDILOL 25 MG ORAL TABLETLISINOPRIL 40 MG ORAL TABLETAMLODIPINE BESYLATE 10 MG ORAL TABLETHYDROCHLOROTHIAZIDE 12.5 MG ORAL TABLETMETFORMIN HCL 1000 MG ORAL TABLETMedication Changes:Refilled:LEVO-T 50 MCG ORAL TABLET-One tablet by mouth every day Qty: 30[Tablet] Refills: 2 Method: ElectronicKETOCONAZOLE 2 % EXTERNAL SHAMPOO-Aplly every other day as needed to scalp seborrhea. Qty: 2[Container] Refills: 1 Method: ElectronicRemoved:FUROSEMIDE 40 MG ORAL TABLET-one half tab daily Qty: 90[Tablet] Refills: 0Changed:From: ORAL LEVOTHYROXINE SODIUM 25 MCG ORAL TABLET Qty: [id number] Refills: 30[Tablet] To: LEVO-T 50 MCG ORAL TABLET-One tablet by mouth every day Qty: 30[Tablet] Refills: 2 To: KETOCONAZOLE 2 % EXTERNAL SHAMPOO-Aplly every other day as needed to scalp seborrhea. Qty: 2[Container] Refills: 1Allergies:* SHELLFISH (Severe)Orders:Telephone E&M 11-20 min Medical Discussion [CPT-07366] COMP METABOLIC PANEL [CPT-42484] Medications:KETOCONAZOLE 2 % EXTERNAL SHAMPOO (KETOCONAZOLE) Aplly every other day as needed to scalp seborrhea. #2[Container] x 1 Entered and Authorized by: Mich Hall MD Method used: Electronically to [facility] (retail) [address] [place] [address] Note to Pharmacy: Route: EXT; RxID: [id number] FUROSEMIDE 40 MG ORAL TABLET (FUROSEMIDE) one half tab daily #90[Tablet] x 0 Route:ORAL Entered and Authorized by: Mich Hall MD Method used: Electronically to [facility] (retail) [address] [place] [address] RxID: [id number] 50 MCG ORAL TABLET (LEVOTHYROXINE SODIUM) One tablet by mouth every day #30[Tablet] x 2 Route:ORAL Entered and Authorized by: Mich Hall MD Method used: Electronically to [facility] (retail) [address] [place] [address] Fax: Note to Pharmacy: Route: ORAL; RxID: [id number] signed by Mich Hall MD on 03/03/2020 at 11:14 AM Name Value Range Interpretation Code Description Data Erlinda rce(s) Supporting Document(s) ID Date Data Source [id number] 02/25/2020 11:05:37 AM EDT [facility] Labs In-House Blood TestsDate/Time Colle cted: February 25, 2020 9:42 AMTest Result Reference Range Normal ValueComments: Blood drawn in office. Taken from left forearm. Tolerated well.Linn Salazar MA, February 25, 2020 11:06 AMAssessment & Plan Orders:[id number] Vst-Est Level I [CPT-48758] 79888 - Venipuncture [CPT-09371] Name Value Range Interpretation Code Description Data Erlinda rce(s) Supporting Document(s) ID Date Data Source [id number] 02/25/2020 09:42:00 AM EDT [facility] Name Value Range Interpretation Code Description Data Erlinda rce(s) Supporting Document(s) BG FASTING 108 mg/dL 70-100 H [facility] TSH 6.990 microintl units/mL 0.358-3.740 H [facility] ID Date Data Source [id number] 02/25/2020 09:42:00 AM EDT [facility] Name Value Range Interpretation Code Description Data Erlinda rce(s) Supporting Document(s) HGBA1C 7.1 % N [facility] ID Date Data Source [id number] 10/13/2019 10:20:10 AM EST [facility] Measurements & CalculationsHeight: 71 inches (5 ft. 11 in.) 180.34 cm Weight: 183 pounds 83.18 kg Body Mass Index (BMI): 25.62BMI Interpretation: OverweightBody Surface Area (BSA): 2.03Weight Management Education Done (Nutrition/Physical Activity)Vital SignsTemperature: 97.0F oral Pulse Rate: 58 beats/minuteRespiratory Rate: 18 respirations/minuteBlood Pressure: 130/67 left arm sitting automaticO2 Saturation: 96% room airVital Signs performed by: Brian Gastelum LPN, October 13, 2019 10:25 AMInitial Intake Information from: patientRoom #: 15Smoking, Tobacco, Vaping or Smoke Exposure StatusSmoke Status: never smokerTobacco Use: NoDo you vape? NoPassive Smoke Exposure: NoHealthcare HistorySince your last office visit...Have you been admitted to the hospital? NoHave you been to an emergency room (ER) or urgent care clinic? NoHave you seen another healthcare provider? NoHave you seen a dentist? NoIntake performed by: Brian Gastelum LPN, October 13, 2019 10:22 AMRate Your HealthIn general, would you say your health is? GoodPain AssessmentAre you currently having any pain which... You would like your provider to address? No Affects your activity level? NoDepression Screening - PHQ-2Over the last two weeks, have you... Had little interest or pleasure in doing things? Not at all Been feeling down, depressed, or hopeless? Not at all PHQ-2 Score: 0Anxiety Screening - NIKOLAS-2Over the last two weeks, have you been... Feeling nervous, anxious, or on edge? Not at all Unable to stop or control worrying? Not at all NIKOLAS-2 Score: 0Infectious Disease / Travel ScreeningRecent travel for you, your family, and/or any sexual partners? NoScreening, Brief Intervention, & Referral to Treatment (SBIRT)Pre- Screening Questions How many times have you have 5 or more drinks in a day? 0How many times have you used an illegal drug or used a prescription medication for a non-medical reason? 0Performed by: Brian Gastelum LPN, October 13, 2019 10:22 AMPatient History Medical History:liver dxSurgical History:eye sxFamily History:Social/Personal History: Chief Complaintf/u labs, psoriasis, scorsisHistory of Present Illness (HPI)Main concern today is that for the past few years the great toes on both feet extend almost every night shorttly after he gets in to bed. Not painful but enough to keep him awake. Hss seen doctors in the past and was given klonopin for this as well as to help him sleep. I have reviewed his labs and his potassium and calcium are normal. His kidney function is depressed with a GFR of 42.He has had problem last year with sudden onset bilateral leg swelling that extended into his lower abdomen. He was put on diuretics and this helped. He was told that he had chronic liver disease and this was the cause. His LFTs are normal.Problem ReviewProblem List was reviewed and/or updated during this visit.Medication Reconciliation & ReviewMedication List was reviewed and/or updated during this visit, including review of any zzkh-yjx-usdokaz medications, herbal therapies, and/or supplements.Allergy ReviewAllergy List was reviewed and/or updated during this visit.Adult Preventive CareProvider Calculated and Reviewed all Clinical Protocols for patient today. Labs/Meds/Other Counseling-Nutrition and Physical Activity:BMI Interpretation: Overweight (10/13/2019) Counseling: Done (10/13/2019) Physical Activity: Done (10/13/2019)Review of Systems General: Denies dizziness, fatigue. Cardiovascular: Denies chest pain. Respiratory: Denies shortness of breath. Physical ExamGeneral Appearance: well nourished, well hydrated, no acute distressRespiratory, Auscultation: clear to auscultation bilaterally; no rales, rhonchi, or wheezesRespiratory, Effort: no intercostal retractions or use of accessory musclesCardiovascular, Auscultation: S1, S2 audible; no murmur, rub, or gallop; RRRPeripheral Circulation: no clubbing, cyanosis, edema, or varicosities. Good Dp and tP pulses bilaterally.Gait & Station: normalSkin, Inspection: no rashes, lesions, or ulcerationsOrientation: oriented to time, place, and personMood & Affect: no depression, anxiety, or agitationJudgment & Insight: intactRate Your HealthIn general, would you say your health is? GoodAssessment & Plan Problems:Added: Bilateral cramp of muscle of lower limbs (NKB26-A90.2) Assessment: Instructions: Drink more fluids and work on stretching.No evidence of electrolyte disturbance in spite of being on diuretics.Does have some renal insufficiency so there may be an element of mild dehydration.We discussed how Klonopin and Xanax are not indicated for the treatment of leg cramps or anxiety and that they are risky medications to use in general.Recheck one month, sooner as needed.Patient Instructions/Care Plan: Bilateral cramp of muscle of lower limbs: Drink more fluids and work on stretching.No evidence of electrolyte disturbance in spite of being on diuretics.Does have some renal insufficiency so there may be an element of mild dehydration.We discussed how Klonopin and Xanax are not indicated for the treatment of leg cramps or anxiety and that they are risky medications to use in general.Recheck one month, sooner as needed. Plan developed in collaboration with patient and/or familyMedications:CENTRUM SILVER 50+MEN ORAL TABLETFISH OIL 1200 MG ORAL CAPSULEKETOCONAZOLE 2 % EXTERNAL SHAMPOOSPIRONOLACTONE 25 MG ORAL TABLETFUROSEMIDE 40 MG ORAL TABLETTRAZODONE HCL 50 MG ORAL TABLETTAMSULOSIN HCL 0.4 MG ORAL CAPSULEELIQUIS 5 MG ORAL TABLETCARVEDILOL 25 MG ORAL TABLETLISINOPRIL 40 MG ORAL TABLETAMLODIPINE BESYLATE 10 MG ORAL TABLETHYDROCHLOROTHIAZIDE 12.5 MG ORAL TABLETMETFORMIN HCL 1000 MG ORAL TABLETMedication Changes:Refilled:ELIQUIS 5 MG ORAL TABLET-twice daily Qty: 90[Tablet] Refills: 0 Method: ElectronicRemoved:SIMVASTATIN 20 MG ORAL TABLET-once a day 90 day supplyAllergies:* SHELLFISH (Severe)Orders:Adult - Ofc Vst, EST, Level III [CPT-90699] Medications:ELIQUIS 5 MG ORAL TABLET (APIXABAN) twice daily #90[Tablet] x 0 Route:ORAL Entered and Authorized by: Mich Hall MD Method used: Electronically to [facility] ([facility]) [address] [place] [address] Note to Pharmacy: Route: ORAL; RxID: [id number]] Name Value Range Interpretation Code Description Data Erlinda rce(s) Supporting Document(s) ID Date Data Source [id number] 09/15/2019 09:20:00 AM [facility] Name Value Range Interpretation Code Description Data Erlinda rce(s) Supporting Document(s) HCT 38.3 % 42.0-52.0 L [facility] HGB 11.7 g/dL 13.5-17.5 L [facility] MCH 30.5 G/DL pg 32.0-36.5 L [facility] MCHC 26.5 PG % 27.0-33.0 L [facility] PLATELETS 141 10 10*3/mm3 150-450 L [facility] RBC 4.41 10 10*6/mm3 4.30-6.10 N [facility] RDW 18.9 % 11.5-14.5 H [facility] WBC TOTAL 6.1 4.0-10.0 N [facility] ID Date Data Source [id number] 09/15/2019 09:20:00 AM [facility] Name Value Range Interpretation Code Description Data Erlinda rce(s) Supporting Document(s) HGBA1C 6.3 % N [facility] ID Date Data Source [id number] 09/15/2019 09:20:00 AM [facility] Name Value Range Interpretation Code Description Data Erlinda rce(s) Supporting Document(s) HEP C AB 0.1 <0.8 [facility] BG FASTING 181 mg/dL 70-100 H [facility] TSH 4.960 microintl units/mL 0.358-3.740 H [facility] ID Date Data Source [id number] 09/15/2019 08:29:29 AM [facility] Measurements & CalculationsHeight: 71 inches (5 ft. 11 in.) 180.34 cm Weight: 186 pounds 84.55 kg Body Mass Index (BMI): 26.04BMI Interpretation: OverweightBody Surface Area (BSA): 2.05Weight Management Education Done (Nutrition/Physical Activity)Vital SignsTemperature: 98.0FPulse Rate: 65 beats/minuteRespiratory Rate: 17 respirations/minuteBlood Pressure: 128/62 O2 Saturation: 97% Vital Signs performed by: Roma Katz MA, September 15, 2019 8:38 AMInitial Intake Information from: patientRoom #: 14Infectious Disease- Travel Have you or your sexual partner travelled outside of the country recently? NoSmoking, Tobacco or Smoke Exposure StatusSmoke Status: never smokerTobacco Use: NoPassive Smoke Exposure: NoHealthcare HistorySince your last office visit...Have you been admitted to the hospital? NoHave you been to an emergency room (ER) or urgent care clinic? NoHave you seen another healthcare provider? YesHave you seen a dentist? NoIntake performed by: Roma Katz MA, September 15, 2019 8:32 AMRate Your HealthIn general, would you say your health is? GoodPain AssessmentAre you currently having any pain which... You would like your provider to address? No Affects your activity level? NoDepression Screening - PHQ-2Over the last two weeks, have you... Had little interest or pleasure in doing things? Not at all Been feeling down, depressed, or hopeless? Not at all PHQ-2 Score: 0Anxiety Screening - NIKOLAS-2Over the last two weeks, have you been... Feeling nervous, anxious, or on edge? Nearly every day Unable to stop or control worrying? Not at all NIKOLAS-2 Score: 3Screening, Brief Intervention, & Referral to Treatment (SBIRT)Pre-Screening Questions How many times have you have 5 or more drinks in a day? 0How many times have you used an illegal drug or used a prescription medication for a non-medical reason? 0Performed by: Roma Katz MA, September 15, 2019 8:33 AMPatient History Medical History:liver dxSurgical History:eye sxSocial/Personal History: Smoking Status: never smokerChief ComplaintmedsHistory of Present Illness (HPI)Here for imitia visit. Old records unavailable. Was being seen in [facility] by a PCP and GI doctor for recent diagnosis of cirrhosis. Last visit with them was 3 months ago. No changes in his health since then. Gets leg swelling and abdominal distension at times. Drank alcohol heavily until about 6 years ago when he quit. Issues as well with thyroid, cholesterol. HPI performed by: Mich Hall MD, September 15, 2019 9:20 AMTransitions of Care InboundProblem ReviewProblem List was reviewed and/or updated during this visit.Medication Reconciliation & ReviewMedication List was reviewed and/or updated during this visit, including review of any [id number] medications, herbal therapies, and/or supplements.Allergy ReviewAllergy List was reviewed and/or updated during this visit.Adult Preventive CareProvider Calculated and Reviewed all Clinical Protocols for patient today. Labs/Meds/Other Counseling-Nutrition and Physical Activity:BMI Interpretation: Overweight (09/15/2019) Counseling: Done (09/15/2019) Physical Activity: Done (09/15/2019)Review of Systems General: Denies chills, dizziness, fatigue, fever, headache. Cardiovascular: Denies chest pain, palpitations. Respiratory: Denies shortness of breath. Gastrointestinal: Denies constipation. Genitourinary: Denies pain with urination, burning with urination, urinary frequency, incomplete emptying. Musculoskeletal: Denies joint pain, muscle aches. Diffuse and chronic. No relief with Tylenol. Some relief with occasional Advil.Physical ExamGeneral Appearance: well nourished, well hydrated, no acute distressEyes, External: conjunctivae and lids normal, EOMIRespiratory, Auscultation: clear to auscultation bilaterally; no rales, rhonchi, or wheezesRespiratory, Effort: no intercostal retractions or use of accessory musclesCardiovascular, Auscultation: S1, S2 audible; no murmur, rub, or gallop; RRRPeripheral Circulation: no clubbing, cyanosis, edema, or varicositiesAbdomen: Somewhat distended. No tenderness, no rebound and no guarding. Moderate hepatomegaly.Gait & Station: normalSkin, Inspection: no rashes, lesions, or ulcerationsOrientation: oriented to time, place, and personMood & Affect: no depression, anxiety, or agitationJudgment & Insight: intactCare Management Plan Transitions of CareInboundRate Your HealthIn general, would you say your health is? GoodAssessment & Plan Problems:Added: Alcoholic cirrhosis of liver without ascites (QYO55-K61.30)Hypothyroidism, unspecified (GTX17-H24.9)Diabetes mellitus without mention of complication, type II or unspecified type, not stated as uncontrolled (ICD-250.00) (EMI78-E60.9)Liver function tests abnormal (ICD-794.8) (PSN55-K37.5) Assessment: Instructions: Check labs today including hepatitis panel.Work on referral to GI.Mixed hyperlipidemia (FLP94-J25.2) Assessment: Instructions: Hold Zocor for now due to kidney dysfunction.Check fasting blood tests today to assess diabetes and thyroid as well.Continue current plan for now.Patient Instructions/Care Plan: Liver function tests abnormal: Check labs today including hepatitis panel.Work on referral to GI.Mixed hyperlipidemia: Hold Zocor for now due to liver dysfunction.Check fasting blood tests today to assess diabetes and thyroid as well.Continue current plan for now. Plan developed in collaboration with patient and/or familyMedications:CENTRUM SILVER 50+MEN ORAL TABLETFISH OIL 1200 MG ORAL CAPSULEKETOCONAZOLE 2 % EXTERNAL SHAMPOOSPIRONOLACTONE 25 MG ORAL TABLETFUROSEMIDE 40 MG ORAL TABLETTRAZODONE HCL 50 MG ORAL TABLETTAMSULOSIN HCL 0.4 MG ORAL CAPSULESIMVASTATIN 20 MG ORAL TABLETELIQUIS 5 MG ORAL TABLETCARVEDILOL 25 MG ORAL TABLETLISINOPRIL 40 MG ORAL TABLETAMLODIPINE BESYLATE 10 MG ORAL TABLETHYDROCHLOROTHIAZIDE 12.5 MG ORAL TABLETMETFORMIN HCL 1000 MG ORAL TABLETMedication Changes:Added: SIMVASTATIN 20 MG ORAL TABLET-once a day 90 day supplyKETOCONAZOLE 2 % EXTERNAL SHAMPOO-prnFISH OIL 1200 MG ORAL CAPSULE-two pills twice dailyCENTRUM SILVER 50+MEN ORAL TABLET-once dailyNew Prescription:SPIRONOLACTONE 25 MG ORAL TABLET-once daily Qty: 90[Tablet] Refills: 0 Method: ElectronicFUROSEMIDE 40 MG ORAL TABLET-one half tab daily Qty: 90[Tablet] Refills: 0 Method: ElectronicTRAZODONE HCL 50 MG ORAL TABLET-prn Qty: 90[Tablet] Refills: 0 Method: ElectronicTAMSULOSIN HCL 0.4 MG ORAL CAPSULE-once a day Qty: 90[Capsule] Refills: 0 Method: ElectronicELIQUIS 5 MG ORAL TABLET-twice daily Qty: 90[Tablet] Refills: 0 Method: ElectronicCARVEDILOL 25 MG ORAL TABLET-twice a day 90 day supply Qty: 180[Tablet] Refills: 0 Method: ElectronicLISINOPRIL 40 MG ORAL TABLET-once a day 90 day supply Qty: 90[Tablet] Refills: 0 Method: ElectronicAMLODIPINE BESYLATE 10 MG ORAL TABLET-once in evening 90 day supply Qty: 90[Tablet] Refills: 0 Method: ElectronicHYDROCHLOROTHIAZIDE 12.5 MG ORAL TABLET-once daily Qty: 90[Tablet] Refills: 0 Method: ElectronicMETFORMIN HCL 1000 MG ORAL TABLET-once daily Qty: 90[Tablet] Refills: 0 Method: ElectronicAllergies:* SHELLFISH (Severe)Orders:CBC W/DIFF [CPT-05259] COMP METABOLIC PANEL [CPT-51455] HgBA1c [CPT-71230] TSH [CPT-68314] HepA IgG [CPT- 70723] HBsAg [CPT-10455] HEPATITIS B SURF ANTIBODY HBSAB [CPT-24367] HEPATITIS B CORE ANTIBODY HBCAB TOTAL [CPT-34558] Hep C Virus Ab [781255] Adult - Ofc Vst, NEW, Level III [CPT-84948] 61368 - Venipuncture [CPT-76525] Follow-Up Return to clinic: 1 month for follow upVaccines Administered/Entered:Vaccination Group: H1N1 InfluenzaSeries: 1 NOT GIVENVaccination: Influenza A (H1N1) Monoval PF Intramuscular SuspensionReason Not Given: Patient decisionEntered Date: 09/15/2019 12:00 AMComments: pt refusedEntered by: Roma Katz MA Labs In-House Blood TestsDate/Time Collected: September 15, 2019 9:26 AMTest Result Reference Range Normal ValueComments: blood draw done in office done in the right ac tolerated well Trevin Gary MA, September 15, 2019 9:26 AM Name Value Range Interpretation Code Description Data Erlinda rce(s) Supporting Document(s) Procedure Social History Code Duration Value Status Description Data Source(s ) Alcohol intake 09/26/2020 12:00:00 AM EST Not Currently completed [facility] Cigarette pack-years 09/26/2020 12:00:00 AM EST UNK completed [facility] Cigarettes smoked current (pack per day) - Reported 09/26/19 12:00:00 AM EST UNK completed [facility] Smoking 09/26/2020 12:00:00 AM EST Former smoker completed Former smoker [facility] Vital Signs ID Date Data Source UNK Name Value Range Interpretation Code Description Data Source(s) Heart rate 74 /min 74 /min [facility] Diastolic blood pressure 63 mm[Hg] 63 mm[Hg] [facility] Systolic blood pressure 135 mm[Hg] 135 mm[Hg] [facility] Oxygen saturation in Arterial blood by Pulse oximetry 95 % 95 % [facility] Respiratory rate 16 /min 16 /min [facility] Body temperature 36.39 Lisset 36.39 Lisset [facility] Body mass index (BMI) [Ratio] 24.52 kg/m2 24.52 kg/m2 [facility] Body weight 79.742 kg 79.742 kg [facility] Body height 180.3 cm 180.3 cm [facility] Body weight 3296 [oz_av] 3296 [oz_av] [facility] ([facility]) Systolic blood pressure 112 mm[Hg] 112 mm[Hg] A [facility] ([facility]) Body mass index (BMI) [Ratio] 28.7 kg/m2 28.7 k g/m2 [facility] ([facility]) Body height 71 [in_i] 71 [in_i] [facility] ([facility]) Diastolic blood pressure 58 mm[Hg] 58 mm[Hg] [facility] ([facility]) Body weight 3296 [oz_av] 3296 [oz_av] [facility] ([facility]) Systolic blood pressure 112 mm[Hg] 112 mm[Hg] A [facility] ([facility]) Body mass index (BMI) [Ratio] 28.7 kg/m2 28.7 k g/m2 [facility] ([facility]) Body height 71 [in_i] 71 [in_i] [facility] ([facility]) Diastolic blood pressure 58 mm[Hg] 58 mm[Hg] [facility] ([facility]) Systolic blood pressure 109 mm[Hg] 109 mm[Hg] A [facility] ([facility]) Diastolic blood pressure 57 mm[Hg] 57 mm[Hg] [facility] ([facility]) Systolic blood pressure 109 mm[Hg] 109 mm[Hg] A [facility] ([facility]) Diastolic blood pressure 57 mm[Hg] 57 mm[Hg] [facility] ([facility]) Body weight 2928 [oz_av] 2928 [oz_av] [facility] ([facility]) Systolic blood pressure 130 mm[Hg] 130 mm[Hg] A [facility] ([facility]) Body height 71 [in_i] 71 [in_i] [facility] ([facility]) Diastolic blood pressure 67 mm[Hg] 67 mm[Hg] [facility] ([facility]) Body weight 2928 [oz_av] 2928 [oz_av] [facility] ([facility]) Systolic blood pressure 130 mm[Hg] 130 mm[Hg] A [facility] ([facility]) Body height 71 [in_i] 71 [in_i] [facility] ([facility]) Diastolic blood pressure 67 mm[Hg] 67 mm[Hg] [facility] ([facility]) Body weight 2976 [oz_av] 2976 [oz_av] [facility] ([facility]) Systolic blood pressure 128 mm[Hg] 128 mm[Hg] A [facility] ([facility]) Body height 71 [in_i] 71 [in_i] [facility] ([facility]) Diastolic blood pressure 62 mm[Hg] 62 mm[Hg] [facility] ([facility]) Body weight 2976 [oz_av] 2976 [oz_av] [facility] ([facility]) Systolic blood pressure 128 mm[Hg] 128 mm[Hg] A [facility] ([facility]) Body height 71 [in_i] 71 [in_i] [facility] ([facility]) Diastolic blood pressure 62 mm[Hg] 62 mm[Hg] [facility] ([facility]) Patient Treatment Plan of Care Planned Activity Planned Date Details Description Data Source (s) Thiamine 100 MG Oral Tablet 09/29/2020 12:00:00 AM [facility] Folic Acid 1 MG Oral Tablet 09/29/2020 12:00:00 AM EST [facility] Lisinopril 2.5 MG Oral Tablet 09/29/2020 12:00:00 AM [facility] Spironolactone 25 MG Oral Tablet 09/28/2020 12:00:00 AM EST [facility] lidocaine (ASPERCREME) 4 % [facility] 09/28/2020 12:00:00 AM EST [facility] Acetaminophen 325 MG / Hydrocodone Bitartrate 7.5 MG O ral Tablet 09/28/2020 12:00:00 AM EST [facility] gabapentin 100 MG Oral Capsule 09/28/2020 12:00:00 AM [facility] Furosemide 40 MG Oral Tablet 09/28/2020 12:00:00 AM [facility] carvedilol 3.125 MG Oral Tablet 09/28/2020 12:00:00 AM EST [facility] Lisinopril 40 MG Oral Tablet [facility] Hydrochlorothiazide 25 MG Oral Tablet [facility] carvedilol 25 MG Oral Tablet [facility] Amlodipine 10 MG Oral Tablet [facility] Trazodone Hydrochloride 50 MG Oral Tablet [facility] ([facility]) Levothyroxine Sodium 0.025 MG Oral Tablet [facility] ([facility]) apixaban 5 MG Oral Tablet [Eliquis] [facility] ([facility]) Trazodone Hydrochloride 50 MG Oral Tablet [facility] ([facility]) Levothyroxine Sodium 0.025 MG Oral Tablet [facility] ([facility]) apixaban 5 MG Oral Tablet [Eliquis] [facility] ([facility])
--- OUTSIDE RECORDS SUMMARY | 2020-09-29 10:33 | CCD ---
Author Author [facility] Organization [facility] Address Unknown Phone Unavailable Care Team Providers Care Audio Visual Secretary Name Role Phone ELIZABETH GILBERT MD Unavailable [...] Unavailable Sue Hall MD Unavailable Unavailable Sue aHll MD Unavailable Unavailable Sue Hall MD Unavailable [...] Unavailable Unavailable Sue Hall MD Unavailable Unavailable Hamhimanshu, Henry MD Unavailable Unavailable Hamad, Henry MD [...] Unavailable Unavailable Terence, Alli MD Unavailable Unavailable Etrence, Alli MD Unavailable Unavailable Terence, Alli MD [...] is protected by Article 27-F of the [place] Public Health law. If you continue you may have access to information: Regarding HIV / AIDS; Provided by facilities licensed or operated by the [facility] Office of Mental Health; or Provided by the [facility] Office for People With Developmental Disabilities. If such information is present, then the following [facility] mandated warning applies: This information has [...] law may result in a fine or half-way sentence or both. A general authorization for the release of medical or other information is NOT sufficient authorization for further disc losure. Allergies and Adverse Reactions Type Description Substance Reaction Status Data Source(s ) Propensity to adverse reactions SHELLFISH-DERIVED PRODUCTS S hellfish-Derived Products Swelling High Active [facility] High Food allergy SHELLFISH SHELLFISH swelling [facility] Encounters Encounter Providers Location Date Indications Data Source(s ) Inpatient Attender: Henry Francois MDAtt fauzia: ELIZABETH GILBERT MDAttender: BHARATH DENNIS MDAttender: HARSHAL DOHERTYdmitter: BHARATH DENNIS MDConsultant: Alli Pratt MD [id number] 09/20/2020 11:22:56 PM [facility] - 09/28/2020 05:50:00 PM [facility] Patient discharged. Outpatient Attender: Mich Hall MD 06/27/2020 11:23:01 AM EST [facility] Mich Hall MD: [address] [place] [address] [phone], Ph. Attender: Mich Hall MD [facility] 06/16/2020 12:00:00 AM EST [facility] ([facility]) Mich Hall MD: [address] [place] [address] [phone], Ph. Attender: Mich Hall MD [facility] 06/16/2020 12:00:00 AM EST [facility] ([facility]) Outpatient Attender: Mich Hall MD 05/19/2020 08:39:00 AM EDT [facility] Outpatient Attender: Mich Hall MD FP 05/18/2020 04:39:04 PM EDT [facility] Outpatient Attender: Mich Hall MD FP 05/18/2020 04:39:02 PM EDT [facility] Outpatient Attender: Mich Hall MD FP 05/17/2020 01:21:02 PM EDT [facility] Outpatient Attender: Mich Hall MD FP 05/17/2020 08:19:01 AM EDT [facility] Outpatient Attender: Mich Hall MD FP 05/11/2020 10:54:01 AM EDT [facility] Outpatient Attender: Mich Hall MD FP 05/05/2020 08:01:23 PM EDT [facility] Outpatient Attender: Mich Hall MD FP 04/27/2020 08:14:01 AM EDT [facility] Outpatient Attender: Mich Hall MD FP 04/10/2020 05:25:03 PM EDT [facility] Outpatient Attender: Mich Hall MD FP 04/10/2020 05:25:00 PM EDT [facility] Outpatient Attender: Mich Hall MD FP 04/04/2020 05:30:04 PM EDT [facility] Outpatient Attender: Mich Hall MD FP 03/24/2020 08:01:23 PM EDT [facility] Outpatient Attender: Mich Hall MD FP 03/06/2020 08:31:00 AM EDT [facility] Outpatient Attender: Mich Hall MD FP 03/03/2020 11:15:03 AM EDT [facility] Outpatient Attender: Mich Hall MD FP 03/03/2020 11:06:01 AM EDT [facility] Outpatient Attender: Mich Hall MD FP 02/29/2020 12:36:01 PM EDT [facility] Outpatient Attender: Mich Hall MD FP 02/25/2020 04:57:01 PM EDT [facility] Outpatient Attender: Mich Hall MD FP 02/25/2020 04:57:00 PM EDT [facility] Outpatient Attender: Mich Hall MD FP 02/15/2020 04:33:01 PM EDT [facility] Outpatient Attender: Mich Hall MD FP 02/10/2020 05:51:02 PM EDT [facility] Outpatient Attender: Mich Hall MD FP 02/02/2020 11:12:00 AM EDT [facility] Outpatient Attender: Mich Hall MD FP 12/22/2019 08:38:[address] [facility] Outpatient Attender: Mich Hall MD FP 12/20/2019 02:45:[address] [facility] Outpatient Attender: Mich Hall MD FP 12/20/2019 09:18:00 AM EDT [facility] Outpatient Attender: Mich Hall MD FP 12/14/2019 04:14:01 PM EDT [facility] Outpatient Attender: Mich Hall MD FP 12/14/2019 04:06:59 PM EDT [facility] Outpatient Attender: Mich Hall MD FP 11/05/2019 11:41:00 AM EDT [facility] Outpatient Attender: Mich Hall MD FP 11/05/2019 07:48:00 AM EDT [facility] Outpatient Attender: Mich Hall MD FP 11/05/2019 07:47:02 AM EDT [facility] Outpatient Attender: Mich Hall MD FP 11/02/2019 09:15:01 AM EDT [facility] Outpatient Attender: Mich Hall MD FP 10/13/2019 11:06:04 AM EST [facility] Outpatient Attender: Mich Hall MD FP 10/13/2019 11:06:02 AM [facility] Outpatient Attender: Mich Hall MD FP 10/13/2019 09:11:01 AM [facility] Outpatient Attender: Mich Hall MD FP 10/01/2019 08:01:47 PM [facility] Outpatient Attender: Mich Hall MD FP 09/24/2019 08:02:22 PM EST [facility] Outpatient Attender: Mich Hall MD FP 09/18/2019 11:54:00 AM [facility] Outpatient Attender: Mich Hall MD FP 09/18/2019 11:53:59 AM [facility] [address] [place] [id number] 09/17/2019 12:00:00 AM EST eCW1 ([facility] Outpatient Attender: Mich Hall MD FP 09/16/2019 12:07:00 PM [facility] Outpatient Attender: Mich Hall MD FP 09/16/2019 12:00:26 AM EST [facility] Outpatient Attender: Mich Hall MD FP 09/15/2019 01:25:02 PM [facility] Outpatient Attender: Mich Hall MD FP 09/15/2019 09:30:03 AM [facility] Outpatient Attender: Mich Hall MD FP 09/15/2019 09:26:00 AM [facility] Outpatient Attender: Mich Hall MD FP 09/15/2019 09:24:00 AM [facility] Outpatient Attender: Mich Hall MD FP 09/15/2019 09:23:00 AM [facility] Outpatient Attender: Mich Hall MD FP 09/15/2019 09:12:00 AM [facility] Outpatient Attender: Mich Hall MD FP 09/15/2019 08:50:01 AM [facility] Outpatient Attender: Mich Hall MD FP 09/15/2019 08:30:00 AM [facility] [address] [place] [id number] 09/13/2019 12:00:00 AM EST eCW1 ([facility]) Outpatient Attender: Mich Hall MD FP 09/08/2019 09:01:14 PM [facility] Outpatient Attender: Mich Hall MD FP 09/08/2019 12:04:01 PM [facility] [address] [place] [address] 08/19/2019 12:00:00 AM EST eCW1 ([facility]) [facility] [address] [place] [address] [place] [address] 08/18/2019 12:00:00 AM EST eCW1 ([facility]) Medications Medication Brand Name Start Date Product Form Dose Route Admi nistrative Instructions Pharmacy Instructions Status Indications Reaction Description Data Source(s) Folic Acid 1 MG Oral Tablet folic acid (FOLVITE) 1 MG tablet folic acid (FOLVITE) 1 MG tablet 09/29/2020 12:00:00 AM EST 1 mg Oral active Take 1 tablet (1 mg total) by mouth daily [facility] Lisinopril 2.5 MG Oral Tablet lisinopril (PRINIVIL,ZES TRIL) 2.5 MG tablet lisinopril (PRINIVIL,ZESTRIL) 2.5 MG tablet 09/29/2020 12:00:00 AM EST 2.5 mg Oral active Take 1 tablet (2.5 m g total) by mouth daily [facility] Thiamine 100 MG Oral Tablet thiamine 100 MG tablet thiamine 100 MG tablet 09/29/2020 12:00:00 AM EST 100 mg Oral active Take 1 tablet (100 mg total) by mouth daily [facility] Furosemide 40 MG Oral Tablet furosemide (LASIX) tablet 40 mg furosemide (LASIX) tablet 40 mg 09/28/2020 11:00:00 AM EST 40 mg Oral activ e 40 mg, Oral, Every morning, First dose on Silvana 09/28/20 at 1100 [facility] Medication administered onsite Spironolactone 25 MG Oral Tablet spironolactone (ALDAC TONE) tablet 25 mg spironolactone (ALDACTONE) tablet 25 mg 09/28/2020 11:00:00 AM EST 25 mg Oral active 25 mg, Oral, Da mode, First dose on Silvana 09/28/20 at 1100
For administration and preparation considerations, refer to Hazardous Drugs in the Workplace Policy on Intranet.
[facility] Medication administered onsite Lisinopril 5 MG Oral Tablet lisinopril (PRINIVIL,ZESTR IL) tablet 2.5 mg lisinopril (PRINIVIL,ZESTRIL) tablet 2.5 mg 09/28/2020 09:00:00 AM EST 2.5 mg Oral active 2.5 mg, Oral, Daily, First dose on Silvana 09/28/20 at 0900
Hold if SBP<90
[facility] Medication administered onsite Acetaminophen 325 MG / Hydrocodone Gustavo trate 7.5 MG Oral Tablet HYDROcodone- acetaminophen (NORCO) 7.5-325 MG per tablet HYDROcodone-acetaminophen (NORCO) 7.5-325 MG per tablet 09/28/2020 12:00:00 AM EST 1 {tbl} Oral active Take 1 tablet by mouth every 4 (four) hours as needed Max Daily Amount: 6 tablets [facility] gabapentin 100 MG Oral Capsule gabapentin (NEURONTIN) 100 MG capsule gabapentin (NEURONTIN) 100 MG capsule 09/28/2020 12:00:00 AM EST 200 mg Oral active Take 2 capsules (200 mg total) by mouth 3 (three) times a day [facility] Furosemide 40 MG Oral Tablet furosemide (LASIX) 40 MG tablet furosemide (LASIX) 40 MG tablet 09/28/2020 12:00:00 AM EST 40 mg Oral activ e Take 1 tablet (40 mg total) by mouth every morning [facility] Spironolactone 25 MG Oral Tablet spironolactone (ALDAC TONE) 25 MG tablet spironolactone (ALDACTONE) 25 MG tablet 09/28/2020 12:00:00 AM EST 25 mg Oral active Take 1 tablet (25 mg tota l) by mouth daily [facility] lidocaine (ASPERCREME) 4 % [facility] [id number] 09/28/2020 12:00:00 AM EST 1 {patch} Transdermal active Place 1 patch on the skin Every 24 hours as needed [facility] carvedilol 3.125 MG Oral Tablet carvedilol (COREG) 3.1 25 MG tablet carvedilol (COREG) 3.125 MG tablet 09/28/2020 12:00:00 AM EST 3.125 mg Oral active Take 1 tablet (3.125 mg total) by mouth 2 (two) times a day [facility] Dexamethasone 4 MG Oral Tablet dexamethasone (DECADRON ) tablet 4 mg dexamethasone (DECADRON) tablet 4 mg 09/27/2020 07:00:00 AM EST 4 mg Oral completed 4 mg, Oral, Once, Fri09/27/20 at 0700, For 1 dose [facility] Medication administered onsite normal saline flush 0.9 % injection 3 mL [id number] 09/26/2020 10:00:00 PM EST 3 mL Intravenous active 3 mL , Intravenous, Every 8 hours (scheduled), First dose on Fri09/26/20 at 2200, Pre-op
Rapid push positive pressure flushing shall be performed with a 10 cc normal saline syringe to check the PATENCY of a PIV site prior to any infusion therapy initiation unless resistance is met.
[facility] Medication administered onsite normal saline flush 0.9 % injection 3 mL [id number] 09/26/2020 10:00:00 PM EST 3 mL Intravenous active 3 mL , Intravenous, Every 8 hours (scheduled), First dose on Fri09/26/20 at 2200, Pre-op
Rapid push positive pressure flushing shall be performed with a 10 cc normal saline syringe to check the PATENCY of a PIV site prior to any infusion therapy initiation unless resistance is met.
[facility] Medication administered onsite normal saline flush 0.9 % injection 3 mL [id number] 09/26/2020 10:00:00 PM EST 3 mL Intravenous active 3 mL , Intravenous, PROTOCOL, First dose on Fri09/26/20 at 2200, Pre-op
flush per protocol, D/C Main IV fluid if appropriate
[facility] Medication administered onsite Dexamethasone 4 MG Oral Tablet dexamethasone (DECADRON ) tablet 4 mg dexamethasone (DECADRON) tablet 4 mg 09/26/2020 09:00:00 PM EST 4 mg Oral completed 4 mg, Oral, Once, Fri09/26/20 at 2100, For 1 dose [facility] Medication administered onsite gabapentin 100 MG Oral Capsule gabapentin (NEURONTIN) capsule 200 mg gabapentin (NEURONTIN) capsule 200 mg 09/26/2020 03:00:00 PM EST 200 mg Oral active 200 mg, Oral, 3 times daily, First dose on Fri09/26/20 at 1500 [facility] Medication administered onsite Acetaminophen 325 MG / Hydrocodone Gustavo trate 7.5 MG Oral Tablet HYDROcodone- acetaminophen (NORCO) 7.5-325 MG per tablet 1 tablet HYDROcodone-acetaminophen (NORCO) 7.5-325 MG per tablet 1 tablet 09/26/2020 09:03:16 AM EST 1 {tbl} Oral active 1 tablet, Oral , Every 4 hours PRN, severe pain (7-10), Starting Fri09/26/20 at 0903, For 7 days [facility] Medication administered onsite lidocaine (ASPERCREME) 4 % 1 patch [id number] 09/26/2020 05:54:18 AM EST 1 {patch} Transdermal active 1 patch, Transdermal, Administer over 12 Hours, Every 24 hours as needed, pain, Starting Fri09/26/20 at 0554
For right ankle pain
[facility] Medication administered onsite potassium chloride SA (K-DUR,KLOR-CON) CR tablet 40 mEq [id number] 09/25/2020 12:00:00 PM EST 40 meq Oral completed 40 mEq, Oral, Once, 09/25/20 at 1200, For 1 dose [facility] Medication administered onsite carvedilol 3.125 MG Oral Tablet carvedilol (COREG) tab let 3.125 mg carvedilol (COREG) tablet 3.125 mg 09/24/2020 10:00:00 AM EST 3.125 mg Oral active 3.125 mg, Oral, 2 times daily, First dose on Sun at 1000 [facility] Medication administered onsite Oxycodone Hydrochloride 5 MG Oral Tablet oxyCODONE (ROXICODONE) immediate release tablet 2.5 mg oxyCODONE (ROXICODONE) immediate release tablet 2.5 mg 09/24/2020 04:00:00 AM EST 2.5 mg Oral completed 2.5 mg, Oral, Once, 09/24/20 at 0400, For 1 dose [facility] Medication administered onsite Acetaminophen 325 MG / Oxycodone Hydroch loride 5 MG Oral Tablet oxyCODONE- acetaminophen (PERCOCET) 5-325 MG 1 tablet oxyCODONE-acetaminophen (PERCOCET) 5- 325 MG 1 tablet 09/23/2020 10:00:00 AM EST 1 {tbl} Oral a borted 1 tablet, Oral, Every 4 hours PRN, severe pain (7-10), Starting 09/23/20 at 1000, For 48 hours [facility] Medication administered onsite Diphenhydramine Hydrochloride 25 MG Oral Capsule diphenhydrAMINE (BENADRYL) capsule 25 mg diphenhydrAMINE (BENADRYL) capsule 25 mg 09/23/2020 10 :00:00 AM EST 25 mg Oral completed 25 mg, Oral, Once, 09/23/20 at 1000, For 1 dose [facility] Medication administered onsite 500 ML heparin [...] 1 unit/kg/hr IV58.1 - 87 Therapeutic, No [place]77.1 - 97 Decrease infusion 1 unit/kg/hr IV [...] single port tubing (SmartSite Infusion Set ref [id number]). Medication and tubing is to be discarded if infusion off for 4 hours.
[facility] Medication administered onsite Ceftriaxone 2000 MG Injection cefTRIAXone (ROCEPHIN) i njection 2 g cefTRIAXone (ROCEPHIN) injection 2 g 09/23/2020 01:00:00 AM EST 2 g active Bacteremia 2 g, Intravenous Push, Every 24 hours (relative), First dose on 09/23/20 at 0100, Until Discontinued [facility] Bacteremia Medication administered onsite ondansetron (ZOFRAN) injection 4 mg [id number] 09/22/2020 09:38:3 0 AM EST 4 mg Intravenous active 4 mg, In travenous, Every 6 hours PRN, nausea, vomiting, Starting Fri09/22/20 at 0938 [facility] Medication administered onsite Acetaminophen 325 MG / Oxycodone Hydroch loride 5 MG Oral Tablet oxyCODONE- acetaminophen (PERCOCET) 5-325 MG 1 tablet oxyCODONE-acetaminophen (PERCOCET) 5- 325 MG 1 tablet 09/22/2020 09:38:05 AM EST 1 {tbl} Oral a borted 1 tablet, Oral, Every 6 hours PRN, severe pain (7-10), Starting Fri09/22/20 at 0938, For 7 days [facility] Medication administered onsite ropinirole 0.25 MG Oral Tablet rOPINIRole (REQUIP) tab let 0.25 mg rOPINIRole (REQUIP) tablet 0.25 mg 09/21/2020 09:00:00 PM EST 0.25 mg Oral active 0.25 mg, Oral, Nightly, First dose on Fri09/21/20 at 2 100 [facility] Medication administered onsite Thiamine 100 MG Oral Tablet thiamine tablet 100 mg thiamine tablet 100 mg 09/21/2020 02:00:00 PM EST 100 mg Oral active 100 mg, Oral, Daily, First dose on Fri09/21/20 at 1400 [facility] Medication administered onsite Folic Acid 1 MG Oral Tablet folic acid (FOLVITE) table t 1 mg folic acid (FOLVITE) tablet 1 mg 09/21/2020 02:00:00 PM EST 1 mg Oral active 1 mg, Oral, Daily, First dose on Fri09/21/20 at 1400 [facility] Medication administered onsite Daily Veronica (THERAGRAN) 1 tablet [id number] 09/21/2020 02:00:00 PM EST 1 {tbl} Oral active 1 tablet, Oral, Daily, First dose on Fri09/21/20 at 1400 [facility] Medication administered onsite 1 ML Lorazepam [...] 5 days.If treatment is neededprior, notify provider.
[facility] Medication administered onsite Tamsulosin hydrochloride 0.4 MG Oral Cap andreina tamsulosin (FLOMAX) 24 hr capsule 0.4 mg tamsulosin (FLOMAX) 24 hr capsule 0.4 mg 09/21/2020 09:00:00 AM EST 0.4 mg Oral active 0.4 mg, Oral, Daily, Fir st dose on Silvana 09/21/20 at 0900 [facility] Medication administered onsite Amlodipine 10 MG Oral Tablet amLODIPine (NORVASC) tabl et 10 mg amLODIPine (NORVASC) tablet 10 mg 09/21/2020 09:00:00 AM EST 10 mg Oral aborted 10 mg, Oral, Daily, First dose on Silvana 09/21/20 at 0900 [facility] Medication administered onsite Insulin Lispro 100 UNT/ML Injectable Noelle ution insulin lispro (HumaLOG) injection 1-6 Units insulin lispro (HumaLOG) injection 1-6 Units 08:00:00 AM EST Subcutaneous active 1-6 Units, Subcutaneous, MEALSS, First dose on Silvana 09/21/20 at 0800
Frail 3 units Nutritional and Correction Insulin ScaleBlood Glucose (mg/dl) <70 start hypoglycemiaprotocolGlucose Eats >=50% Eats <50%Eats Nothing (mg/dl) of meal of mealor [id number] units 1 units 0 xsugf228- 1703 units 2 units 0 garez533-6160 units 2 units 1 eqikj720- 2704 units 3 units 1 kovbd138-6143 units 3 units 2 pdgio705- 3705 units 4 units 2 aikgl414-4570 units 4 units 3 units>420 call MD6 units 5 units 3 unitsTest glucose within 30 minutes of insulin administration.Administer insulin within 15 minutes (before or after) of the patient starting to eat.For patients that are NPO, use theNPO (correction) scale to cover POC glucose at 08:00, 12:00, 17:00.
[facility] Medication administered onsite 1 ML heparin sodium, porcine 1000 UNT/ML Injection heparin (porcine) injection 5,000 Units heparin (porcine) injection 5,000 Units 09/21/2020 07:00:00 AM EST 60 U/kg Intravenous completed 5,000 Unit s (rounded from 5,034 Units = 60 Units/kg 83.9 kg), Intravenous, Once, Silvana 09/21/20 at 0700, For 1 dose
Do not exceed 5,000 units or 60 units/kg (whichever is less)
[facility] Medication administered onsite 500 ML heparin [...] 1 unit/kg/hr IV58.1 - 87 Therapeutic, No Cdwrkf03.1 - 97 Decrease infusion 1 unit/kg/hr IV [...] single port tubing (SmartSite Infusion Set ref [id number]). Medication and tubing is to be discarded if infusion off for 4 hours.
[facility] Medication administered onsite Levothyroxine Sodium 0.075 MG Oral Table t levothyroxine (SYNTHROID, LEVOTHROID) tablet 75 mcg levothyroxine (SYNTHROID, LEVOTHROID) tablet 75 mcg 07:00:00 AM EST 75 ug Oral active 75 mcg, Oral, Daily, First dose on Silvana 09/21/20 at 0700 [facility] Medication administered onsite 1 ML heparin [...] 30 units/kg IV (Maximum bolus: 5,000 units)
[facility] Medication administered onsite Morphine Sulfate (PF) injection 4 mg [id number] 09/21/2020 06:16: 46 AM EST 4 mg Intravenous completed 4 mg, In travenous, Every 4 hours PRN, severe pain (7-10), Starting Silvana 09/21/20 at 0616, For 1 day [facility] Medication administered onsite Acetaminophen 325 MG / Oxycodone Hydroch loride 5 MG Oral Tablet oxyCODONE- acetaminophen (PERCOCET) 5-325 MG 1 tablet oxyCODONE-acetaminophen (PERCOCET) 5- 325 MG 1 tablet 09/21/2020 04:00:00 AM EST 1 {tbl} Oral c ompleted 1 tablet, Oral, Once, Silvana 09/21/20 at 0400, For 1 dose [facility] Medication administered onsite Levothyroxine Sodium 0.025 MG Oral Tablet levothyroxin e 25 mcg tablet levothyroxine 25 mcg tablet completed levothyroxine sodium 0.025 MG Oral Tablet ANDR[facility]S ([facility]) Trazodone Hydrochloride 50 MG Oral Tablet trazodone 50 mg tablet trazodone 50 mg tablet completed trazodone hydro chloride 50 MG Oral Tablet ANDRÉS ([facility]) Trazodone Hydrochloride 50 MG Oral Tablet trazodone 50 mg tablet trazodone 50 mg tablet completed trazodone hydro chloride 50 MG Oral Tablet [place] ([facility]) Levothyroxine Sodium 0.025 MG Oral Tablet levothyroxin e 25 mcg tablet levothyroxine 25 mcg tablet completed levothyroxine sodium 0.025 MG Oral Tablet [facility]S ([facility]) Amlodipine 10 MG Oral Tablet amLODIPine (NORVASC) 10 M G tablet amLODIPine (NORVASC) 10 MG tablet 10 mg Oral aborted T german 10 mg by mouth daily [facility] apixaban 5 MG Oral Tablet [Eliquis] Eliquis 5 mg tablet Eliquis 5 m g tablet completed apixaban 5 MG Oral Tab let [Eliquis] [facility]) apixaban 5 MG Oral Tablet [Eliquis] Eliquis 5 mg tablet Eliquis 5 m g tablet completed apixaban 5 MG Oral Tab let [Eliquis] [place] ([facility]) carvedilol 25 MG Oral Tablet carvedilol (COREG) 25 MG tablet carvedilol (COREG) 25 MG tablet 25 mg Oral aborted Robert e 25 mg by mouth 2 (two) times a day [facility] Hydrochlorothiazide 25 MG Oral Tablet hy drochlorothiazide (HYDRODIURIL) 25 MG tablet hydrochlorothiazide (HYDRODIURIL) 25 MG tablet 25 mg O ral aborted Take 25 mg by mouth daily [facility] Lisinopril 40 MG Oral Tablet lisinopril (PRINIVIL,ZEST RIL) 40 MG tablet lisinopril (PRINIVIL,ZESTRIL) 40 MG tablet 40 mg Oral aborted Take 40 mg by mouth daily [facility] Insurance Providers Payer name Policy type / Coverage type Policy ID Covered constitution party ID Covered constitution party's relationship to gastelum Policy Gastelum Plan Information [employer]NA GOLD [id number] SP [id number] HU[employer]NA MEDICARE [id number] HUMANA MEDICARE [id number] [facility] [id number] HUMANA GOLD [id number] SP [id number] [employer] P [id number] S [id number] [employer] P [id number] S [id number] [place] [employer] [id number] S [id number] Problems, Conditions, and Diagnoses Code Display Name Description Problem Type Effective Dates Data Source(s) R78.81 Bacteremia due to Streptococcus pneumoni ae Bacteremia due to Streptococcus pneumoniae [id number] 09/23/2020 12:00:00 AM [facility] E03.9 Hypothyroidism Hypothyroidism [id number] 09/21/2020 12:00: 00 AM [facility] R18.8 Ascites Ascites [id number] 09/21/2020 12:00:[address] 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 W19.XXXA Fall at home Fall at home [id number] 09/21/2020 12:00:00 A M [facility] M79.671 Right foot pain Right foot pain [id number] 09/21/2020 12:0 0:00 AM [facility] I51.7 LVH (left ventricular hypertrophy) LVH (left kalie tricular hypertrophy) [id number] 09/21/2020 12:00:00 AM [facility] I36.1 Nonrheumatic tricuspid valve regurgitati on Nonrheumatic tricuspid valve regurgitation [id number] 09/21/2020 12:00:00 AM [facility] I34.0 Moderate mitral insufficiency Moderate mitral insuffic iency [id number] 09/21/2020 12:00:00 AM [facility] I35.0 Aortic valve stenosis Aortic valve stenosis 26702946 09/21/2020 12:00:00 AM [facility] D64.9 Anemia Anemia 84254891 09/21/2020 12:00:[address] 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 Ascites due t o alcoholic cirrhosis 68743593 09/20/2020 12:00:00 AM [facility] D50.9 Iron deficiency anemia Iron deficiency anemia [id number] 09/20/2020 12:00:00 AM [facility] R68.81 Early satiety Early satiety [id number] 09/20/2020 12:00:00 AM [facility] [id number] Chronic atrial fibrillation Chronic Atrial Fibrillatio n Problem 06/09/2020 12:00:00 AM EDT ANDRÉS ([facility]) 477418945 Chronic atrial fibrillation Chronic Atrial Fibrillatio n Problem 06/09/2020 12:00:00 AM EDT ANDR[facility]S ([facility]) N18.2 Chronic kidney disease, stage 2 (mild) C hronic kidney disease, stage 2 (mild) 03/03/2020 11:04:17 AM EDT [facility] [id number] Chronic kidney disease stage 2 Chronic Kidney Disease Stage 2 Problem 03/03/2020 12:00:00 AM EDT ANDRÉS ([facility]) 222785130 Chronic kidney disease stage 2 Chronic Kidney Disease Stage 2 Problem 03/03/2020 12:00:00 AM EDT ANDR[facility]S ([facility]) R25.2 Cramp and spasm Bilateral cramp of muscle of lower varner bs 10/13/2019 11:05:18 AM [facility] [id number] Cramp Cramp Problem 10/13/2019 12:00:00 AM MICHAEL BOWEN ([facility]) [id number] Cramp Cramp Problem 10/13/2019 12:00:00 AM MICHAEL BOWEN ([facility]) 250.00 Diabetes mellitus without me ntion of complication, type II or unspecified type, not stated as uncontrolled Diabetes mellitus without mention of complication, type II or unspecified type, not stated as uncontrolled 09/15/2019 09:28:20 AM [facility] 028110448 Mixed hyperlipidemia Mixed hyperlipidemia 09/15/2019 09:28:20 AM [facility] 206949688 Hypothyroidism, unspecified Hypothyroidism, unspecifie d 09/15/2019 09:28:20 AM [facility] 794.8 Liver function tests abnormal Liver function tests abn ormal 09/15/2019 08:49:51 AM [facility] K70.30 Alcoholic cirrhosis of liver without asc ites Alcoholic cirrhosis of liver without ascites 09/15/2019 08:49:51 AM [facility] [id number] Clinical finding Clinical Finding Problem 09/15/2019 12 :00:00 AM FAMILIA BOWEN ([facility]) [id number] Liver function tests abnormal Liver Function Tests Abn ormal Problem 09/15/2019 12:00:00 AM EST NADRÉS ([facility]) 461483803 Alcoholic cirrhosis Alcoholic Cirrhosis Problem 0 09/15/2019 12:00:00 AM EST ANDRÉS ([facility]) 613831126 Mixed hyperlipidemia Mixed Hyperlipidemia Problem 09/15/2019 12:00:00 AM FAMILIA BOWEN ([facility]) 38084443 Hypothyroidism Hypothyroidism Problem 09/15/2019 12:00: 00 AM FAMILIA MORENOENA ([facility]) [id number] Clinical finding Clinical Finding Problem 09/15/2019 12 :00:00 AM FAMILIA BOWEN ([facility]) [id number] Liver function tests abnormal Liver Function Tests Abn ormal Problem 09/15/2019 12:00:00 AM EST ANDRÉS ([facility]) 299546460 Alcoholic cirrhosis Alcoholic Cirrhosis Problem 0 09/15/2019 12:00:00 AM EST ANDRÉS ([facility]) [id number] Mixed hyperlipidemia Mixed Hyperlipidemia Problem 09/15/2019 12:00:00 AM EST ANDRÉS ([facility]) 56794095 Hypothyroidism Hypothyroidism Problem 09/15/2019 12:00: 00 AM FAMILIA SEMINOLE ([facility]) I35.0 Nonrheumatic aortic (valve) stenosis Nonrheumati c aortic (valve) stenosis Diagnosis 09/20/2020 11:22:56 PM [facility] K70.31 Alcoholic cirrhosis of liver with ascite s Alcoholic cirrhosis of liver with ascite Diagnosis 09/20/2020 11:22:56 PM [facility] D50.9 Iron deficiency anemia, unspecified Iron deficie ncy anemia, unspecified Diagnosis 09/20/2020 11:22:56 PM [facility] R68.81 Early satiety Early satiety Diagnosis 09/20/2020 11:22:56 PM [facility] I27.20 Pulmonary hypertension, unspecified Pulmonary hy pertension, unspecified Diagnosis 09/20/2020 11:22:56 PM [facility] Surgeries/Procedures Procedure Description Date Indications Data Source(s) THROMBOPLASTIN TIME PARTIAL PLASMA/WHOLE BLOOD APTT STAT 09/28/2020 9:36 AM EST 09/28/2020 02:36:00 PM [facility] GLUC BLD GLUC MNTR DEV CLEARED FDA SPEC HOME USE POCT GLUCOSE Routine 09/28/2020 9:27 AM EST 09/28/2020 02:27:00 PM [facility] THROMBOPLASTIN TIME PARTIAL PLASMA/WHOLE BLOOD APTT Routine 09/28/2020 2:51 AM EST 09/28/2020 07:51:00 AM [facility] BLOOD COUNT COMPLETE AUTOMATED CBC Timed 09/28/2020 2:51 A M EST 09/28/2020 07:51:00 AM [facility] BASIC METABOLIC PANEL CALCIUM TOTAL BASIC METABOLIC PANEL Timed 09/28/2020 2:51 AM EST 09/28/2020 07:51:00 AM [facility] POTASSIUM SERUM PLASMA/WHOLE BLOOD POTASSIUM STAT 09/27/2020 10: 36 PM EST 09/28/2020 03:36:00 AM [facility] MAGNESIUM MAGNESIUM STAT 09/27/2020 10:36 PM EST 09/28/2020 03:36:00 AM EST [facility] GLUC BLD GLUC MNTR DEV CLEARED FDA SPEC HOME USE POCT GLUCOSE Routine 09/27/2020 7:02 PM EST 09/28/2020 12:02:00 AM EST [facility] GLUC BLD GLUC MNTR DEV CLEARED FDA SPEC HOME USE POCT GLUCOSE Routine 09/27/2020 2:38 PM EST 09/27/2020 07:38:00 PM EST [facility] GLUC BLD GLUC MNTR DEV CLEARED FDA SPEC HOME USE POCT GLUCOSE Routine 09/27/2020 11:38 AM EST 09/27/2020 04:38:00 PM EST [facility] GLUC BLD GLUC MNTR DEV CLEARED FDA SPEC HOME USE POCT GLUCOSE Routine 09/27/2020 8:28 AM EST 09/27/2020 01:28:00 PM [facility] ABDOM PARACENTESIS DX/THER W IMAGING GUIDANCE IR PARACENTESIS R outine 09/27/2020 8:20 AM EST 09/27/2020 01:20:00 PM [facility] BLOOD COUNT COMPLETE AUTOMATED CBC Timed 09/27/2020 2:30 A M EST 09/27/2020 07:30:00 AM [facility] BASIC METABOLIC PANEL CALCIUM TOTAL BASIC METABOLIC PANEL Timed 09/27/2020 2:30 AM EST 09/27/2020 07:30:00 AM [facility] THROMBOPLASTIN TIME PARTIAL PLASMA/WHOLE BLOOD APTT STAT 09/27/2020 12:28 AM EST 09/27/2020 05:28:00 AM [facility] THROMBOPLASTIN TIME PARTIAL PLASMA/WHOLE BLOOD APTT STAT 09/26/2020 6:07 PM EST 09/26/2020 11:07:00 PM EST [facility] GLUC BLD GLUC MNTR DEV CLEARED FDA SPEC HOME USE POCT GLUCOSE Routine 09/26/2020 5:50 PM EST 09/26/2020 10:50:00 PM EST [facility] GLUC BLD GLUC MNTR DEV CLEARED FDA SPEC HOME USE POCT GLUCOSE Routine 09/26/2020 1:13 PM EST 09/26/2020 06:13:00 PM EST [facility] GLUC BLD GLUC MNTR DEV CLEARED FDA SPEC HOME USE POCT GLUCOSE Routine 09/26/2020 8:59 AM EST 09/26/2020 01:59:00 PM [facility] THROMBOPLASTIN TIME PARTIAL PLASMA/WHOLE BLOOD APTT STAT 09/26/2020 7:00 AM EST 09/26/2020 12:00:00 PM [facility] BLOOD COUNT COMPLETE AUTOMATED CBC Routine 09/26/2020 4:30 A M EST 09/26/2020 09:30:00 AM [facility] BASIC METABOLIC PANEL CALCIUM TOTAL BASIC METABOLIC PANEL Timed 09/26/2020 4:30 AM EST 09/26/2020 09:30:00 AM [facility] THROMBOPLASTIN TIME PARTIAL PLASMA/WHOLE BLOOD APTT STAT 09/26/2020 12:00 AM EST 09/26/2020 05:00:00 AM [facility] GLUC BLD GLUC MNTR DEV CLEARED FDA SPEC HOME USE POCT GLUCOSE Routine 09/25/2020 5:37 PM EST 09/25/2020 10:37:00 PM [facility] LEVEL IV SURG PATHOLOGY GROSS&MICROSCOPIC EXAM [facility] HISTOLOGY Routine 09/25/2020 4:07 PM EST 09/25/2020 09:07:00 PM [facility] UPPER GI NDSC DX W/WO COLLECTION SPECIMEN ESOPHAGOGASTRODUODENO SCOPY (EGD) 09/25/2020 2:45 PM EST Early satiety Iron deficiency anemia, unspecified iron deficiency anemia type Ascites due to alcoholic cirrhosis 09/25/2020 07:45:00 PM EST - 09/25/2020 08:24:00 PM EST Ascites due to alcoholic cirrhosisIron d eficiency anemia, unspecified iron deficiency anemia typeEarly satiety [facility] Ascites due to alcoholic cirrhosis Iron deficiency anemia, unspecified iron deficiency anemia type Early satiety GLUC BLD GLUC MNTR DEV CLEARED FDA SPEC HOME USE POCT GLUCOSE Routine 09/25/2020 12:17 PM EST 09/25/2020 05:17:00 PM EST [facility] GLUC BLD GLUC MNTR DEV CLEARED FDA SPEC HOME USE POCT GLUCOSE Routine 09/25/2020 9:26 AM EST 09/25/2020 02:26:00 PM [facility] IAAD EIA MULT STEP METHOD NOS EACH ORGANISM LEGIONELLA ANTIGEN, URINE Routine 09/25/2020 8:35 AM EST 09/25/2020 01:35:00 PM [facility] ALPHA-FETOPROTEIN SERUM AFP TUMOR MARKER Add-On 09/25/2020 4:52 A M EST 09/25/2020 09:52:00 AM [facility] THROMBOPLASTIN TIME PARTIAL PLASMA/WHOLE BLOOD APTT STAT 09/25/2020 4:52 AM EST 09/25/2020 09:52:00 AM [facility] BLOOD COUNT COMPLETE AUTOMATED CBC Routine 09/25/2020 4:52 A M EST 09/25/2020 09:52:00 AM [facility] URIC ACID BLOOD URIC ACID Add-On 09/25/2020 4:52 AM EST 09/25/2020 09:52:00 AM [facility] CARCINOEMBRYONIC ANTIGEN CEA CEA Add-On 09/25/2020 4:52 AM EST 09/25/2020 09:52:00 AM [facility] COMPREHENSIVE METABOLIC PANEL COMPREHENSIVE METABOLIC PANEL Rou javon 09/25/2020 4:52 AM EST 09/25/2020 09:52:00 AM [facility] 2019 NCOV AMPLIFIED 2019 NCOV AMPLIFIED STAT 09/25/2020 12:59 AM EST 09/25/2020 05:59:[address] [facility] THROMBOPLASTIN TIME PARTIAL PLASMA/WHOLE BLOOD APTT STAT 09/24/2020 6:22 PM EST 09/24/2020 11:22:00 PM EST [facility] GLUC BLD GLUC MNTR DEV CLEARED FDA SPEC HOME USE POCT GLUCOSE Routine 09/24/2020 6:20 PM EST 09/24/2020 11:20:00 PM EST [facility] THROMBOPLASTIN TIME PARTIAL PLASMA/WHOLE BLOOD APTT STAT 09/24/2020 12:10 PM EST 09/24/2020 05:10:00 PM EST [facility] GLUC BLD GLUC MNTR DEV CLEARED FDA SPEC HOME USE POCT GLUCOSE Routine 09/24/2020 10:38 AM EST 09/24/2020 03:38:00 PM EST [facility] THROMBOPLASTIN TIME PARTIAL PLASMA/WHOLE BLOOD APTT Add-On 09/24/2020 1:30 AM EST 09/24/2020 06:30:00 AM [facility] BLOOD COUNT COMPLETE AUTOMATED CBC Add-On 09/24/2020 1:30 A M EST 09/24/2020 06:30:[address] [facility] BASIC METABOLIC PANEL CALCIUM TOTAL BASIC METABOLIC PANEL Add-O n 09/24/2020 1:30 AM EST 09/24/2020 06:30:00 AM EST [facility] GLUC BLD GLUC MNTR DEV CLEARED FDA SPEC HOME USE POCT GLUCOSE Routine 09/23/2020 6:41 PM EST 09/23/2020 11:41:00 PM EST [facility] THROMBOPLASTIN TIME PARTIAL PLASMA/WHOLE BLOOD APTT STAT 09/23/2020 6:40 PM EST 09/23/2020 11:40:00 PM EST [facility] THROMBOPLASTIN TIME PARTIAL PLASMA/WHOLE BLOOD APTT STAT 09/23/2020 12:38 PM EST 09/23/2020 05:38:00 PM EST [facility] GLUC BLD GLUC MNTR DEV CLEARED FDA SPEC HOME USE POCT GLUCOSE Routine 09/23/2020 12:36 PM EST 09/23/2020 05:36:00 PM EST [facility] GLUC BLD GLUC MNTR DEV CLEARED FDA SPEC HOME USE POCT GLUCOSE Routine 09/23/2020 10:52 AM EST 09/23/2020 03:52:00 PM EST [facility] CULTURE BACTERIAL BLOOD AEROBIC W/ID ISOLATES BLOOD CULTURE R outine 09/23/2020 2:40 AM EST 09/23/2020 07:40:00 AM EST [facility] CULTURE BACTERIAL BLOOD AEROBIC W/ID ISOLATES BLOOD CULTURE R outine 09/23/2020 2:40 AM EST 09/23/2020 07:40:00 AM [facility] THROMBOPLASTIN TIME PARTIAL PLASMA/WHOLE BLOOD APTT STAT 09/23/2020 2:40 AM EST 09/23/2020 07:40:00 AM [facility] BLOOD COUNT COMPLETE AUTOMATED CBC Routine 09/23/2020 2:40 A M EST 09/23/2020 07:40:00 AM [facility] BASIC METABOLIC PANEL CALCIUM TOTAL BASIC METABOLIC PANEL Routi ne 09/23/2020 2:40 AM EST 09/23/2020 07:40:00 AM [facility] MRI ABDOMEN W/O CONTRAST MATERIAL MRI ABDOMEN WO CONTRAST Routi ne 09/22/2020 8:34 PM EST 09/23/2020 01:34:05 AM [facility] URINE CULTURE HOLD SPECIMEN URINE CULTURE HOLD SPECIMEN Routine 09/22/2020 7:22 PM EST 09/23/2020 12:22:00 AM [facility] CHLORIDE URINE URINE ELECTROLYTES Routine 09/22/2020 7:22 PM EST 09/23/2020 12:22:00 AM [facility] CREATININE OTHER SOURCE CREATININE, URINE, RANDOM Routine 09/22/2020 7:22 PM EST 09/23/2020 12:22:00 AM [facility] URNLS DIP STICK/TABLET REAGENT AUTO MICROSCOPY URINALYSIS, MICROSCOPIC ONLY Routine 09/22/2020 7:22 PM EST 09/23/2020 12:22:00 AM [facility] CULTURE BCT ISOL&PRSMPTV ID ISOLATE EA URINE URINE CULTURE Ro utine 09/22/2020 7:22 PM EST 09/23/2020 12:22:00 AM [facility] GLUC BLD GLUC MNTR DEV CLEARED FDA SPEC HOME USE POCT GLUCOSE Routine 09/22/2020 6:41 PM EST 09/22/2020 11:41:00 PM EST [facility] THROMBOPLASTIN TIME PARTIAL PLASMA/WHOLE BLOOD APTT STAT 09/22/2020 6:30 PM EST 09/22/2020 11:30:00 PM EST [facility] GLUC BLD GLUC MNTR DEV CLEARED FDA SPEC HOME USE POCT GLUCOSE Routine 09/22/2020 1:28 PM EST 09/22/2020 06:28:00 PM [facility] THROMBOPLASTIN TIME PARTIAL PLASMA/WHOLE BLOOD APTT STAT 09/22/2020 9:14 AM EST 09/22/2020 02:14:00 PM EST [facility] GLUC BLD GLUC MNTR DEV CLEARED FDA SPEC HOME USE POCT GLUCOSE Routine 09/22/2020 9:05 AM EST 09/22/2020 02:05:00 PM [facility] PROCALCITONIN (PCT) PROCALCITONIN Routine 09/22/2020 6:25 AM EST 09/22/2020 11:25:00 AM [facility] BLOOD COUNT COMPLETE AUTOMATED CBC Routine 09/22/2020 6:25 A M EST 09/22/2020 11:25:00 AM [facility] LACTATE LACTIC ACID Timed 09/22/2020 6:25 AM EST 09/22/2020 11:25:00 AM [facility] BASIC METABOLIC PANEL CALCIUM TOTAL BASIC METABOLIC PANEL Routi ne 09/22/2020 6:25 AM EST 09/22/2020 11:25:00 AM [facility] CULTURE BACTERIAL BLOOD AEROBIC W/ID ISOLATES BLOOD CULTURE R outine 09/22/2020 1:52 AM EST 09/22/2020 06:52:00 AM [facility] CULTURE BACTERIAL BLOOD AEROBIC W/ID ISOLATES BLOOD CULTURE R outine 09/22/2020 1:52 AM EST 09/22/2020 06:52:00 AM EST [facility] THROMBOPLASTIN TIME PARTIAL PLASMA/WHOLE BLOOD APTT STAT 09/21/2020 11:10 PM EST 09/22/2020 04:10:00 AM EST [facility] GLUC BLD GLUC MNTR DEV CLEARED FDA SPEC HOME USE POCT GLUCOSE Routine 09/21/2020 7:28 PM EST 09/22/2020 12:28:00 AM EST [facility] PERITONEAL FLUID PERITONEAL FLUID Routine 09/21/2020 3:15 PM EST 09/21/2020 08:15:[address] [facility] FLUID SOURCE FLUID SOURCE Routine 09/21/2020 3:15 PM EST 09/21/2020 08:15:00 PM EST [facility] CUL BACT XCPT URINE BLOOD/STOOL AEROBIC ISOL AEROBIC FLUID CULTURE / GS Routine 09/21/2020 3:15 PM EST 09/21/2020 08:15:00 PM EST [facility] CULTURE BACTERIAL ANY SOURCE ANAEROBIC ISO&ID ANAEROBIC CULTURE Routine 09/21/2020 3:15 PM EST 09/21/2020 08:15:00 PM EST [facility] SPECIFIC GRAVITY EXCEPT URINE SPECIFIC GRAVITY, BODY FLUID Rout ine 09/21/2020 3:15 PM EST 09/21/2020 08:15:00 PM EST [facility] PROTEIN TOTAL XCPT REFRACTOMETRY OTH SRC PROTEIN, BODY FLUID Ro utine 09/21/2020 3:15 PM EST 09/21/2020 08:15:00 PM EST [facility] LACTATE DEHYDROGENASE LDH LACTATE DEHYDROGENASE, BODY FLUID Rou javon 09/21/2020 3:15 PM EST 09/21/2020 08:15:00 PM EST [facility] GLUCOSE BODY FLUID OTHER THAN BLOOD GLUCOSE, BODY FLUID Routine 09/21/2020 3:15 PM EST 09/21/2020 08:15:00 PM EST [facility] AMYLASE AMYLASE, BODY FLUID Routine 09/21/2020 3:15 PM EST 09/21/2020 08:15:00 PM EST [facility] ALBUMIN URINE/OTHER SOURCE BH[place] EACH SPECIMEN ALBUMIN, FLUID R outine 09/21/2020 3:15 PM EST 09/21/2020 08:15:00 PM EST [facility] GLUC BLD GLUC MNTR DEV CLEARED FDA SPEC HOME USE POCT GLUCOSE Routine 09/21/2020 2:13 PM EST 09/21/2020 07:13:00 PM EST [facility] XR CHEST PORTABLE XR CHEST PORTABLE STAT 09/21/2020 10:28 AM EST 09/21/2020 03:28:33 PM EST [facility] ECHO TTHRC R-T 2D W/WOM-MODE COMPL SPEC&COLR DOP ECHOCARDIO GRAM TRANSTHORACIC Routine 09/21/2020 10:00 AM EST 09/21/2020 03:00:47 PM EST [facility] GLUC BLD GLUC MNTR DEV CLEARED FDA SPEC HOME USE POCT GLUCOSE Routine 09/21/2020 9:38 AM EST 09/21/2020 02:38:00 PM EST [facility] RADEX FOOT COMPLETE MINIMUM 3 VIEWS XR FOOT COMPLETE RIGHT Rout ine 09/21/2020 8:22 AM EST 09/21/2020 01:22:51 PM [facility] THROMBOPLASTIN TIME PARTIAL PLASMA/WHOLE BLOOD APTT Routine 09/21/2020 6:40 AM EST 09/21/2020 11:40:00 AM [facility] PROTHROMBIN TIME PROTIME-INR Add-On 09/21/2020 6:40 AM EST 09/21/2020 11:40:00 AM [facility] NT PRO BNP NT PRO BNP Routine 09/21/2020 4:45 AM EST 09/21/2020 09:45:00 AM [facility] TROPONIN QUANTITATIVE TROPONIN I Timed 09/21/2020 4:45 AM EST 09/21/2020 09:45:00 AM [facility] BLOOD COUNT COMPLETE AUTO&AUTO DIFRNTL WBC COUNT CBC AND DIFFER ENTIAL STAT 09/21/2020 4:45 AM EST 09/21/2020 09:45:00 AM EST [facility] THYROID STIMULATING HORMONE TSH TSH Routine 09/21/2020 4:45 AM EST 09/21/2020 09:45:[address] [facility] MAGNESIUM MAGNESIUM Routine 09/21/2020 4:45 AM EST 09/21/2020 09:45:00 AM EST [facility] HEMOGLOBIN GLYCOSYLATED A1C HEMOGLOBIN A1C Routine 09/21/2020 4:45 AM EST 09/21/2020 09:45:[address] [facility] COMPREHENSIVE METABOLIC PANEL COMPREHENSIVE METABOLIC PANEL STA T 09/21/2020 4:45 AM EST 09/21/2020 09:45:00 [facility] 09/21/2020 12:00 AM EST 09/21/2020 05:00:00 AM EST [facility] ECG ROUTINE ECG W/LEAST 12 LDS W/I&R ECG 12-LEAD Routine 09/20/2020 11:30 PM EST 09/21/2020 04:30:40 AM EST [facility] Results ID Date Data Source [id number] 09/28/2020 11:35:24 AM [facility] INFORMATIONPatient MRN Name Date of Age Gend*PT [id number] Naeem Robbins 1940 79 years M IPPT Location Admission Date/Time Visit ID Attending [id number] 09/20/202321 --- Henry Francois MD([id number]) EPI ID CSN Admitting Provider [id number] Bharath Dennis MD([id number]) [facility] DISCHARGE SUMMARYPatient Name: Naeem Robbins of : 1940 Age 79 yearsPrimary Physician: Mich Hall MD PCP Wcuoceatm Date: 09/20/2020 [facility]charge Date:[facility] Diagnoses:Principal Problem: Aortic valve stenosisActive Problems: Anemia [...] severe . The patient was transferred to [facility] for evaluation. GI andcardiology and nephrology are [...] mental status, speech normal, alert and oriented [id number]:Imaging :Echocardiogram done 09/21/2020Interpretation Summary There is moderate [...] rce(s) Supporting Document(s) ID Date Data Source [id number] 09/28/2020 10:52:24 AM EST [facility] Name Value Range Interpretation Code Description Data Erlinda rce(s) Supporting Document(s) APTT 52.4 s (22.0-34.3) H [facility] ID Date Data Source [id number] 09/28/2020 09:36:20 AM EST [facility] Name Value Range Interpretation Code Description Data Erlinda rce(s) Supporting Document(s) POC NOVA GLU 122 mg/dL (70-99) H [facility] PERFORMED BY [facility] CLINICAL STAFF ID Date Data Source [id number] 09/28/2020 04:49:20 AM EST [facility] Name Value Range Interpretation Code Description Data Erlinda rce(s) Supporting Document(s) SODIUM 150 mmol/L (136-145) [facility] POTASSIUM 4.9 mmol/L (3.6-5.2) [facility] CHLORIDE 115 mmol/L (100-108) [facility] CO2 28 mmol/L (22-31) [facility] ANION GAP 7 mmol/L (7-16) [facility] UREA NITROGEN 26 mg/dL (7-24) [facility] CREATININE 1.24 mg/dL (0.80-1.30) [facility] BUN/CREAT RATIO 21.0 RATIO (10.0-20.0) [facility] GLUCOSE 155 mg/dL (70-99) [facility] CALCIUM 7.9 mg/dL (8.4-10.2) L [facility] GFR 56 ml/min/1.73m2 (>59) L [facility] GFR ( AMER) >60 ml/min/1.73m2 (>59) [facility] GFR INTERPRETATION [facility] --NORMAL KIDNEY FUNCTION OR MILD DISEASE - GFR >OR= 60CHRONIC KIDNEY DISEASE - GFR 15 - 59RENAL FAILURE - GFR <15 Est. GFR calculation based on the MDRDstudy equation, which assumes a steadystate for creatinine. Est. GFR should notbe used for medication dosing. ID Date Data Source [id number] 09/28/2020 03:24:18 AM EST [facility] Name Value Range Interpretation Code Description Data Erlinda rce(s) Supporting Document(s) APTT 88.1 s (22.0-34.3) [facility] ID Date Data Source [id number] 09/28/2020 03:18:00 AM EST [facility] Name Value Range Interpretation Code Description Data Erlinda rce(s) Supporting Document(s) WBC 9.1 10*3/uL (4.1-11.0) [facility] RBC 3.65 10*6/uL (4.60-6.10) [facility] HGB 8.8 g/dL (13.5-18.0) [facility] HCT 27.1 % (41.0-53.0) [facility] MCV 74.2 fL (80.0-95.0) [facility] MCH 24.0 pg (27.0-32.0) [facility] MCHC 32.4 g/dL (32.0-36.0) [facility] RDW 18.2 % (10.5-14.5) [facility] PLT 200 10*3/uL (150-450) [facility] MPV 8.2 fL (7.1-10.7) [facility] ID Date Data Source [id number] 09/28/2020 12:38:37 AM EST [facility] Name Value Range Interpretation Code Description Data Erlinda rce(s) Supporting Document(s) MAGNESIUM 2.0 mg/dL (1.7-2.4) [facility] ID Date Data Source [id number] 09/28/2020 12:36:02 AM EST [facility] Name Value Range Interpretation Code Description Data Erlinda rce(s) Supporting Document(s) POTASSIUM 4.9 mmol/L (3.6-5.2) [facility] ID Date Data Source [id number] 09/27/2020 07:05:29 PM EST [facility] Name Value Range Interpretation Code Description Data Erlinda rce(s) Supporting Document(s) POC NOVA GLU 230 mg/dL (70-99) H [facility] PERFORMED BY [facility] ID Date Data Source [id number] 09/27/2020 02:43:19 PM EST [facility] Name Value Range Interpretation Code Description Data Erlinda rce(s) Supporting Document(s) POC NOVA GLU 196 mg/dL (70-99) [facility] PERFORMED BY [facility] STA[facility] ID Date Data Source [id number] 09/27/2020 11:43:21 AM EST [facility] Name Value Range Interpretation Code Description Data Erlinda rce(s) Supporting Document(s) POC NOVA GLU 163 mg/dL (70-99) H [facility] PERFORMED BY [facility] ID Date Data Source [id number] 09/27/2020 10:14:22 AM EST [address] [id number] Name: NAEEM TRUJILLOOB: 1940ex: MOrdering Provider: ELIZABETH WALKERuthorigab Prov: ELIZABETH CANALESNReferring Provider: Procedure Performed: IR PARACENTESISExam Date: 09/27/2020 08:20MRN: [id number] Number: [id number] Class: InpatientAccount #: [id number] for Exam: distentionTechnique: Real-time sonographic images recordedComparison: [...] Under ultrasound guidance with image documentation, a 5-Colombian catheter was inserted into the right abdomen [...] JESSICA VICTORIA On 09/27/2020 10:14 AMWorkstation ID: [id number] Name Value Range Interpretation Code Description Data Erlinda rce(s) Supporting Document(s) ID Date Data Source [id number] 09/27/2020 08:31:42 AM EST [facility] Name Value Range Interpretation Code Description Data Erlinda rce(s) Supporting Document(s) POC NOVA GLU 170 mg/dL (70-99) H [facility] [place] PERFORMED [facility] ID Date Data Source [id number] 09/27/2020 03:51:20 AM EST [facility] Name Value Range Interpretation Code Description Data Erlinda rce(s) Supporting Document(s) SODIUM 141 mmol/L (136-145) [facility] POTASSIUM 4.5 mmol/L (3.6-5.2) [facility] CHLORIDE 105 mmol/L (100-108) [facility] CO2 30 mmol/L (22-31) [facility] ANION GAP 6 mmol/L (7-16) L [facility] UREA NITROGEN 24 mg/dL (7-24) [facility] CREATININE 1.25 mg/dL (0.80-1.30) [facility] BUN/CREAT RATIO 19.2 RATIO (10.0-20.0) [facility] GLUCOSE 155 mg/dL (70-99) H [facility] [place] CALCIUM 8.3 mg/dL (8.4-10.2) L [facility] GFR 56 ml/min/1.73m2 (>59) L [facility] [place] GFR ( AM) >60 ml/min/1.73m2 (>59) [facility] GFR INTERPRETATION [facility] [place] --NORMAL KIDNEY FUNCTION OR MILD DISEASE - GFR >OR= 60CHRONIC KIDNEY DISEASE - GFR 15 - 59RENAL FAILURE - GFR <15 Est. GFR calculation based on the MDRDstudy equation, which assumes a steadystate for creatinine. Est. GFR should notbe used for medication dosing. ID Date Data Source [id number] 09/27/2020 03:03:32 AM EST [facility] Name Value Range Interpretation Code Description Data Erlinda rce(s) Supporting Document(s) WBC 8.7 10*3/uL (4.1-11.0) [facility] [place] RBC 3.99 10*6/uL (4.60-6.10) L [facility] HGB 9.7 g/dL (13.5-18.0) L [facility] [place] HCT 30.2 % (41.0-53.0) L [facility] [place] MCV 75.7 fL (80.0-95.0) L [facility] [place] MCH 24.4 pg (27.0-32.0) L [facility] MCHC 32.2 g/dL (32.0-36.0) [facility] RDW 18.2 % (10.5-14.5) [facility] [place] PLT 185 10*3/uL (150-450) [facility] MPV 8.5 fL (7.1-10.7) [facility] ID Date Data Source [id number] 09/27/2020 01:11:03 AM EST [facility] Name Value Range Interpretation Code Description Data Erlinda rce(s) Supporting Document(s) APTT 62.9 s (22.0-34.3) H [facility] [place] ID Date Data Source [id number] 09/26/2020 07:08:40 PM EST [facility] Name Value Range Interpretation Code Description Data Erlinda rce(s) Supporting Document(s) APTT 59.3 s (22.0-34.3) H [facility] ID Date Data Source [id number] 09/26/2020 06:21:52 PM EST [facility] Name Value Range Interpretation Code Description Data Erlinda rce(s) Supporting Document(s) POC NOVA GLU 132 mg/dL (70-99) H [facility] [place] [facility] ID Date Data Source [id number] 09/26/2020 03:11:39 PM EST [facility] CenterPATIE NT INFORMATIONPatient MRN Name Date of Age Gend*PT [id number] Naeem Robbins 1940 79 years M IPPT Location Admission Date/Time Visit ID Attending ProviderD-[id number] 09/20/202321 --- Henry Francois MD([id number]) EPI ID CSN Admitting Provider [id number] Bharath Dennis MD([id number])PALLIATIVE CARE CONSULT NOTEREASON FOR CONSULTATION: Goals of care / advanced care planning and Education /counseling / supportConsultsASSESSMENT / RECOMMENDATIONS:Naeem Robbins is a 79 year old male with PMH of alcohol abuse, tobacco abuse,atrial fibrillation, cirrhosis, CKD III, HTN, DM II, hypothyroidism who [facility] work up. The [...] HTN, DM II, hypothyroidism who wastransferred to [facility] for TAVR work up. 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 ID Date Data Source [id number] 09/26/2020 09:11:41 AM EST [facility] [place] Name Value Range Interpretation Code Description Data Erlinda rce(s) Supporting Document(s) POC NOVA GLU 184 mg/dL (70-99) H [facility] [place] [facility] ID Date Data Source [id number] 09/26/2020 10:01:00 AM EST [facility] Name Value Range Interpretation Code Description Data Erlinda rce(s) Supporting Document(s) APTT 54.1 s (22.0-34.3) H [facility] [place] ID Date Data Source [id number] 09/26/2020 06:58:29 AM EST [facility] Name Value Range Interpretation Code Description Data Erlinda rce(s) Supporting Document(s) SODIUM 143 mmol/L (136-145) [facility] POTASSIUM 4.0 mmol/L (3.6-5.2) [facility] CHLORIDE 107 mmol/L (100-108) [facility] CO2 30 mmol/L (22-31) [facility] ANION GAP 6 mmol/L (7-16) L [facility] UREA NITROGEN 22 mg/dL (7-24) [facility] CREATININE 1.20 mg/dL (0.80-1.30) [facility] BUN/CREAT RATIO 18.3 RATIO (10.0-20.0) [facility] GLUCOSE 136 mg/dL (70-99) H [facility] CALCIUM 7.9 mg/dL (8.4-10.2) L [facility] GFR 58 ml/min/1.73m2 (>59) L [facility] GFR ( AMER) >60 ml/min/1.73m2 (>59) [facility] GFR INTERPRETATION [facility] --NORMAL KIDNEY FUNCTION OR MILD DISEASE - GFR >OR= 60CHRONIC KIDNEY DISEASE - GFR 15 - 59RENAL FAILURE - GFR <15 Est. GFR calculation based on the MDRDstudy equation, which assumes a steadystate for creatinine. Est. GFR should notbe used for medication dosing. ID Date Data Source [id number] 09/26/2020 06:35:42 AM EST [facility] Name Value Range Interpretation Code Description Data Erlinda rce(s) Supporting Document(s) WBC 8.6 10*3/uL (4.1-11.0) [facility] [place] RBC 4.01 10*6/uL (4.60-6.10) L [facility] HGB 9.7 g/dL (13.5-18.0) L [facility] [place] HCT 29.6 % (41.0-53.0) L [facility] [place] MCV 73.8 fL (80.0-95.0) L [facility] [place] MCH 24.2 pg (27.0-32.0) L [facility] [place] MCHC 32.8 g/dL (32.0-36.0) [facility] [place] RDW 18.1 % (10.5-14.5) H [facility] [place] PLT 195 10*3/uL (150-450) [facility] [place] MPV 8.7 fL (7.1-10.7) [facility] ID Date Data Source [id number] 09/26/2020 12:57:45 AM EST [facility] [place] Name Value Range Interpretation Code Description Data Erlinda rce(s) Supporting Document(s) APTT 51.7 s (22.0-34.3) H [facility] [place] ID Date Data Source [id number] 09/25/2020 07:04:18 PM EST [facility] [place] Name Value Range Interpretation Code Description Data Erlinda rce(s) Supporting Document(s) POC NOVA GLU 114 mg/dL (70-99) H [facility] [place] [facility] ID Date Data Source [id number] 09/26/2020 02:40:41 PM EST [facility] [place] [facility] [place], [place] [address]Tel# Surgical Pathology ReportPatient Name: CHRISTOFER ROBBINSB: 1940ccession #:[id number](s) ReceivedA: Esophageal biopsyClinical Diagnosis and HistoryAnemia, (for Rucker's esophagus)DIAGNOSISESOPHAGUS, BIOPSY: COLUMNAR MUCOSA WITH INTESTINAL METAPLASIA, NO ATYPIA ORDYSPLASIA IS PRESENT Gross DescriptionSpecimen is labeled "A esophageal biopsy for Rucker's esophagus". Thespecimen consists of a 0.3 cm wispy white fragment of tissue. Entirelysubmitted as A1, multilevel. jglpms/skl Reported: 09/26/2020Electronically Signed Out By Ramos Anderson MD [facility], [place] [address]nsfNtwlimbyn component performed at [facility] inWe[employer] Technologies United Health ServicesRefund ExchangeLAKEWOOD HEALTH CENTER, Histopathology, [address] [place] [address], [phone].Reported at [facility], [address], [place], [address]. This report may includeimmunohistochemical or in-situ hybridization results. Testing wasdeveloped and the performance characteristics determined by SolmentumG. [facility] ([facility] CenterMusicnotes [facility] Summly as required by CLIA '88. The FDA hasdetermined that approval for specific use is not necessary for clinicaluse. The quality of Hematoxylin and Eosin stains and as applicable, forall immunohistochemical and/or special stains, including positive andnegative controls, were reviewed and considered appropriate.ICD codes D64.9 K22.70CPT codesA: 34622Z Name Value Range Interpretation Code Description Data Erlinda rce(s) Supporting Document(s) ID Date Data Source [id number] 09/25/2020 03:11:34 PM EST [facility] CenterPATI NT INFORMATIONPatient MRN Name Date of Age Gend*PT [id number] Naeem Robbins 1940 79 years M IPPT Location Admission Date/Time Visit ID Attending ProviderD-[id number] 09/20/202321 --- Elizabeth Gilbert MD([id number]) EPI ID CSN Admitting Provider [id number] Bharath Dennis MD([id number])EGD Procedure NoteIndication: 79-year-old male having EGD done for evaluation of his anemia,weight loss and varices.A full consultation was placed in the chart. Please refer to that note forfurther details.Participants:Surgeon(s):Sheikh Chris MDENDO Nurse: Ellen Marie RNENDO Tech: Alejandra LutheroPre-operative [...] ( FOR BARRETTS ESOPHAGUS) Tissue Tissue SURGICAL PATHOLOGYEXAM Sheikh Chris MD 09/25/2020 1459Grafts/Implants:NoneComplications: None; patient tolerated the [...] rce(s) Supporting Document(s) ID Date Data Source [id number] 09/25/2020 12:20:46 PM EST [facility] Name Value Range Interpretation Code Description Data Erlinda rce(s) Supporting Document(s) POC NOVA GLU 124 mg/dL (70-99) H [facility] [place] [facility] ID Date Data Source [id number] 09/25/2020 09:29:42 AM EST [facility] [place] Name Value Range Interpretation Code Description Data Erlinda rce(s) Supporting Document(s) POC NOVA GLU 120 mg/dL (70-99) H [facility] [place] PER[facility] ID Date Data Source [id number] 09/26/2020 02:11:38 PM EST [facility] [place] SPECIMEN DESCRIPTION URINE, COLLE CTION METHOD [...] rce(s) Supporting Document(s) ID Date Data Source [id number] 09/28/2020 10:19:39 PM EST [facility] Name Value Range Interpretation Code Description Data Erlinda rce(s) Supporting Document(s) CANCER AG GI 19 9 13 Lab [facility] Reference range: 0 to 37Unit: U/mL INTER [...] or absence of malignant disease. Performed By: [employer] [address] [place] [address] Waiter/Waitress Bar: Venice Wagner MD ID Date Data Source [id number] 09/25/2020 08:04:47 AM EST [facility] Name Value Range Interpretation Code Description Data Erlinda rce(s) Supporting Document(s) SODIUM 142 mmol/L (136-145) [facility] POTASSIUM 3.5 mmol/L (3.6-5.2) L [facility] CHLORIDE 104 mmol/L (100-108) [facility] CO2 30 mmol/L (22-31) [facility] ANION GAP 8 mmol/L (7-16) [facility] UREA NITROGEN 29 mg/dL (7-24) H [facility] CREATININE 1.40 mg/dL (0.80-1.30) H [facility] BUN/CREAT RATIO 20.7 RATIO (10.0-20.0) H [facility] GLUCOSE 147 mg/dL (70-99) H [facility] CALCIUM 8.2 mg/dL (8.4-10.2) L [facility] TOTAL PROTEIN 5.5 g/dL (6.4-8.2) L [facility] ALBUMIN 2.0 g/dL (3.2-4.5) L [facility] GLOBULIN 3.5 g/dL (2.7-4.3) [facility] ALB/GLOB RATIO 0.6 RATIO [facility] ALKALINE PHOSPHATASE 94 U/L (45-117) [facility] BILIRUBIN,TOTAL 2.7 mg/dL (0.0-1.0) H [facility] PLEASE NOTE:Total bilirubin results may be falselyelevated in patients taking Eltrombopag. AST (SGOT) 13 U/L (11-39) [facility] ALT (SGPT) 10 U/L (12-78) L [facility] GFR 49 ml/min/1.73m2 (>59) L [facility] GFR ( AMER) 59 ml/min/1.73m2 (>59) L [facility] GFR INTERPRETATION [facility] [place] --NORMAL KIDNEY FUNCTION OR MILD DISEASE - GFR >OR= 60CHRONIC KIDNEY DISEASE - GFR 15 - 59RENAL FAILURE - GFR <15 Est. GFR calculation based on the MDRDstudy equation, which assumes a steadystate for creatinine. Est. GFR should notbe used for medication dosing. ID Date Data Source [id number] 09/25/2020 07:12:56 AM EST [facility] Name Value Range Interpretation Code Description Data Erlinda rce(s) Supporting Document(s) APTT 62.6 s (22.0-34.3) H [facility] [place] ID Date Data Source [id number] 09/25/2020 06:51:02 AM EST [facility] Name Value Range Interpretation Code Description Data Erlinda rce(s) Supporting Document(s) WBC 7.2 10*3/uL (4.1-11.0) [facility] [place] RBC 3.83 10*6/uL (4.60-6.10) L [facility] HGB 9.4 g/dL (13.5-18.0) L [facility] [place] HCT 28.3 % (41.0-53.0) L [facility] [place] MCV 74.0 fL (80.0-95.0) L [facility] [place] MCH 24.5 pg (27.0-32.0) L [facility] [place] MCHC 33.1 g/dL (32.0-36.0) [facility] RDW 18.3 % (10.5-14.5) H [facility] [place] PLT 178 10*3/uL (150-450) [facility] MPV 8.8 fL (7.1-10.7) [facility] ID Date Data Source [id number] 09/25/2020 02:54:15 PM EST [facility] Name Value Range Interpretation Code Description Data Erlinda rce(s) Supporting Document(s) URIC ACID 9.3 mg/dL (3.5-7.2) H [facility] [place] ID Date Data Source [id number] 09/25/2020 02:53:35 PM EST [facility] [place] Name Value Range Interpretation Code Description Data Erlinda rce(s) Supporting Document(s) AFP-TUMOR MARKER @ 1.1 ng/mL (<6.0) Lab [facility] [place] ASSAY BY IMMUNOCHEMILUMINOMETRIC ASSAYON THE SIEMENS IMMULITE 2000 XPi. VALUESOBTAINED WITH DIFFERENT METHODS OR KITSCANNOT BE USED INTERCHANGEABLY FOR PATIENTMONITORING. RESULTS CANNOT BE INTERPRETEDAS ABSOLUTE EVIDENCE OF THE PRESENCE ORABSENCE OF MALIGNANCY. THE TEST IS NOTINTERPRETABLE IN . AFP CAN BE INCREASED IN A VARIETY OFBENIGN DISEASES. SPECIFICITY FOR THE DETECTION OF MALIGNANCY INCREASES WITHINCREASING LEVELS. ID Date Data Source [id number] 09/25/2020 01:56:57 PM EST [facility] [place] Name Value Range Interpretation Code Description Data Erlinda rce(s) Supporting Document(s) CEA @ <0.5 ng/mL (0.0-10.1) [facility] Jose Manuel grover [facility] CEA REFERENCE RANGE: NON-SMOKERS 0.0 - 5.0 NG/ML SMOKERS 0.0 - 10.1 NG/MLSERUM CEA LEVEL SHOULD NOT BE INTERPRETEDAS ABSOLUTE EVIDENCE FOR THE PRESENCEOR ABSENCE OF MALIGNANCY. METHODIS ADVIA BioTimeAUR XPT CHEMILUMINOMETRICIMMUNOASSAY. VALUES OBTAINED WITHDIFFERENT ASSAY METHODS OR KITS CANNOTBE USED INTERCHANGEABLY. ID Date Data Source [id number] 09/25/2020 12:59:00 AM EST [facility] Name Value Range Interpretation Code Description Data Erlinda rce(s) Supporting Document(s) SARS coronavirus 2 RNA [Presence] in Res piratory specimen by TAY with probe detection NOT DETECTED [place] This lab was reported by [facility]. ID Date Data Source [id number] 09/25/2020 08:39:34 AM EST [facility] [place] Name Value Range Interpretation Code Description Data Erlinda rce(s) Supporting Document(s) SPECIMEN DESCRIPTION [facility] COVID19 RESULT (NDET) [facility] NEGATIVE COVID-19 RESULTS DONOT PRECLUDE COVID-2019 INFECTION ANDSHOULD NOT BE USED THE SOLE BASISFOR PATIENT MANAGEMENT DECISIONS.THIS ASSAY AMPLIFIES AND DETECTS THE TARGETRNA USING ISOTHERMAL HELICASE DEPENDENTAMPLIFICATION.TESTING PERFORMED ON THE ZEKE.THE U.[place]. FDA HAS MADE THIS TEST AVAILABLEUNDER AN EMERGENCY USE AUTHORIZATION(EUA) FOR THE DETECTION AND/OR DIAGNOSISOF THE VIRUS THAT CAUSES COVID-19. FIRST TEST [facility] [place] [employer]ED IN HLTHCARE [facility] SYMPTOMATIC [facility] [place] DATE OF SYMPT ONSET [facility] HOSPITALIZED [facility] [place] [facility] [place] CONGREGATE CARE SET [facility] [place] [facility] [place] ID Date Data Source [id number] 09/24/2020 07:31:33 PM EST [facility] [place] Name Value Range Interpretation Code Description Data Erlinda rce(s) Supporting Document(s) APTT 61.7 s (22.0-34.3) H [facility] [place] ID Date Data Source [id number] 09/24/2020 06:57:20 PM EST [facility] [place] Name Value Range Interpretation Code Description Data Erlinda rce(s) Supporting Document(s) POC NOVA GLU 144 mg/dL (70-99) H [facility] [place] [facility] ID Date Data Source [id number] 09/24/2020 01:39:24 PM EST [facility] [place] Name Value Range Interpretation Code Description Data Erlinda rce(s) Supporting Document(s) APTT 84.6 s (22.0-34.3) H [facility] [place] ID Date Data Source [id number] 09/24/2020 10:48:11 AM EST [facility] [place] Name Value Range Interpretation Code Description Data Erlinda rce(s) Supporting Document(s) POC NOVA GLU 124 mg/dL (70-99) H [facility] [place] [facility] ID Date Data Source [id number] 09/24/2020 02:35:20 AM EST [facility] [place] Name Value Range Interpretation Code Description Data Erlinda rce(s) Supporting Document(s) APTT 49.7 s (22.0-34.3) H [facility] [place] ID Date Data Source [id number] 09/24/2020 02:33:20 AM EST [facility] Name Value Range Interpretation Code Description Data Erlinda rce(s) Supporting Document(s) WBC 6.5 10*3/uL (4.1-11.0) [facility] [place] RBC 3.87 10*6/uL (4.60-6.10) L [facility] HGB 9.5 g/dL (13.5-18.0) L [facility] HCT 28.7 % (41.0-53.0) L [facility] MCV 74.2 fL (80.0-95.0) L [facility] MCH 24.5 pg (27.0-32.0) L [facility] MCHC 33.1 g/dL (32.0-36.0) [facility] RDW 18.2 % (10.5-14.5) H [facility] PLT 152 10*3/uL (150-450) [facility] MPV 8.2 fL (7.1-10.7) [facility] ID Date Data Source [id number] 09/24/2020 02:30:40 AM EST [facility] Name Value Range Interpretation Code Description Data Erlinda rce(s) Supporting Document(s) SODIUM 143 mmol/L (136-145) [facility] POTASSIUM 3.7 mmol/L (3.6-5.2) [facility] CHLORIDE 107 mmol/L (100-108) [facility] CO2 28 mmol/L (22-31) [facility] ANION GAP 8 mmol/L (7-16) [facility] UREA NITROGEN 39 mg/dL (7-24) H [facility] CREATININE 1.48 mg/dL (0.80-1.30) H [facility] BUN/CREAT RATIO 26.4 RATIO (10.0-20.0) H [facility] GLUCOSE 118 mg/dL (70-99) H [facility] [place] CALCIUM 7.8 mg/dL (8.4-10.2) L [facility] GFR 46 ml/min/1.73m2 (>59) L [facility] GFR ( AMER) 55 ml/min/1.73m2 (>59) L [facility] GFR INTERPRETATION [facility] --NORMAL KIDNEY FUNCTION OR MILD DISEASE - GFR >OR= 60CHRONIC KIDNEY DISEASE - GFR 15 - 59RENAL FAILURE - GFR <15 Est. GFR calculation based on the MDRDstudy equation, which assumes a steadystate for creatinine. Est. GFR should notbe used for medication dosing. ID Date Data Source [id number] 09/23/2020 06:52:39 PM EST [facility] Name Value Range Interpretation Code Description Data Erlinda rce(s) Supporting Document(s) POC NOVA GLU 135 mg/dL (70-99) H [facility] [place] [facility] ID Date Data Source [id number] 09/23/2020 07:18:20 PM EST [facility] Name Value Range Interpretation Code Description Data Erlinda rce(s) Supporting Document(s) APTT 80.6 s (22.0-34.3) H [facility] [place] ID Date Data Source [id number] 09/23/2020 01:26:23 PM EST [facility] Name Value Range Interpretation Code Description Data Erlinda rce(s) Supporting Document(s) APTT 75.3 s (22.0-34.3) H [facility] [place] ID Date Data Source [id number] 09/23/2020 12:46:07 PM EST [facility] Name Value Range Interpretation Code Description Data Erlinda rce(s) Supporting Document(s) POC NOVA GLU 130 mg/dL (70-99) H [facility] [place] [facility] ID Date Data Source [id number] 09/23/2020 12:13:04 PM EST [facility] Name Value Range Interpretation Code Description Data Erlinda rce(s) Supporting Document(s) POC NOVA GLU 138 mg/dL (70-99) H [facility] [place] [facility] ID Date Data Source [id number] 09/28/2020 10:13:45 AM EST [facility] SPECIMEN DESCRIPTION BLOODSPECIAL REQUESTS NONECULTURE RESULTS NO GROWTH 5 DAYSREPORT STATUS FINAL 09/28/2020 Name Value Range Interpretation Code Description Data Erlinda rce(s) Supporting Document(s) ID Date Data Source [id number] 09/28/2020 10:13:45 AM EST [facility] SPECIMEN DESCRIPTION BLOODSPECIAL REQUESTS NONECULTURE RESULTS NO GROWTH 5 DAYSREPORT STATUS FINAL 09/28/2020 Name Value Range Interpretation Code Description Data Erlinda rce(s) Supporting Document(s) ID Date Data Source [id number] 09/23/2020 05:26:54 AM EST [facility] Name Value Range Interpretation Code Description Data Erlinda rce(s) Supporting Document(s) SODIUM 141 mmol/L (136-145) [facility] POTASSIUM 3.8 mmol/L (3.6-5.2) [facility] CHLORIDE 103 mmol/L (100-108) [facility] CO2 30 mmol/L (22-31) [facility] ANION GAP 8 mmol/L (7-16) [facility] UREA NITROGEN 50 mg/dL (7-24) H [facility] CREATININE 1.66 mg/dL (0.80-1.30) H [facility] BUN/CREAT RATIO 30.1 RATIO (10.0-20.0) H [facility] GLUCOSE 126 mg/dL (70-99) H [facility] CALCIUM 8.1 mg/dL (8.4-10.2) L [facility] GFR 40 ml/min/1.73m2 (>59) L [facility] GFR ( AMER) 49 ml/min/1.73m2 (>59) L [facility] GFR INTERPRETATION [facility] --NORMAL KIDNEY FUNCTION OR MILD DISEASE - GFR >OR= 60CHRONIC KIDNEY DISEASE - GFR 15 - 59RENAL FAILURE - GFR <15 Est. GFR calculation based on the MDRDstudy equation, which assumes a steadystate for creatinine. Est. GFR should notbe used for medication dosing. ID Date Data Source [id number] 09/23/2020 05:10:38 AM EST [facility] Name Value Range Interpretation Code Description Data Erlinda rce(s) Supporting Document(s) WBC 10.8 10*3/uL (4.1-11.0) [facility] RBC 4.17 10*6/uL (4.60-6.10) L [facility] HGB 10.1 g/dL (13.5-18.0) L [facility] HCT 31.4 % (41.0-53.0) L [facility] MCV 75.4 fL (80.0-95.0) L [facility] MCH 24.3 pg (27.0-32.0) L [facility] MCHC 32.3 g/dL (32.0-36.0) [facility] RDW 17.6 % (10.5-14.5) H [facility] PLT 145 10*3/uL (150-450) L [facility] MPV 8.6 fL (7.1-10.7) [facility] ID Date Data Source [id number] 09/23/2020 05:10:28 AM EST [facility] Name Value Range Interpretation Code Description Data Erlinda rce(s) Supporting Document(s) APTT 44.0 s (22.0-34.3) H [facility] ID Date Data Source [id number] 09/22/2020 09:06:08 PM EST [address] [address]Ppmhumx Name: Naeem TrujilloOB: 1940ex: MOrdering Provider: ELIZABETH Crawfordorizing Prov: HARNICK DHILLONReferring Provider: Procedure Performed: MRI ABDOMEN WO CONTRASTExam Date: 09/22/2020 20:00MRN: [id number] Number: [id number] Class: INFORMATION: Exam: MR Abdomen Without Contrast [...] pathognomonic for cirrhosis. COMMENTS: Consistent with the [employer]'s Incidental Findings Committee white [...] rce(s) Supporting Document(s) ID Date Data Source [id number] 09/24/2020 11:18:49 AM EST [facility] [place] [facility] SPECIMEN DESCRIPTION CATHETERIZED URINECULTURE RESULTS <10,000 CFU/ML REPRESENTING URETHRAL FLORAREPORT STATUS FINAL 09/24/2020 Name Value Range Interpretation Code Description Data Erlinda rce(s) Supporting Document(s) ID Date Data Source [id number] 09/23/2020 12:03:20 AM EST [facility] [place] [facility] Name Value Range Interpretation Code Description Data Erlinda rce(s) Supporting Document(s) COLOR [facility] APPEARANCE [facility] SPEC GRAV URINE 1.020 (1.003-1.030) [facility] PH URINE 5.0 (5.0-7.5) [facility] LEUK ESTERASE 2+ (NEG) A [facility] NITRITE URINE (NEG) [facility] PROTEIN URINE (NEG) A [facility] GLUCOSE URINE (NEG) [facility] KETONE URINE (NEG) [facility] [place] UROBILINOGEN 1.0 mg/dL (0-1.0) [facility] [place] BILIRUBIN URINE 1+ (NEG) A [facility] INTERFERING SUBSTANCES MAY CAUSE FALSEPO SITIVE BILIRUBIN, WHICH HAS BEENSHOWN TO BE CLINICALLY INSIGNIFICANT.CORRELATE WITH OTHER TESTING. BLOOD/HGB URINE (NEG) A [facility] URINE WBC (0-5) [facility] URINE RBC (0-2) [facility] EPITHELIAL CELLS 1+ [HPF] [facility] BACTERIA 1+ [HPF] [facility] AMORPHOUS 1+ [HPF] [facility] ID Date Data Source [id number] 09/22/2020 11:50:45 PM EST [facility] [place] Name Value Range Interpretation Code Description Data Erlinda rce(s) Supporting Document(s) RANDOM URINE CREAT 71.10 mg/dL [facility] ID Date Data Source [id number] 09/22/2020 11:50:45 PM EST [facility] Name Value Range Interpretation Code Description Data Erlinda rce(s) Supporting Document(s) RANDOM URINE SODIUM 48 mmol/L [facility] RAND URINE POTASSIUM 30.5 mmol/L [facility] RAND. URINE CHLORIDE 47 mmol/L [facility] ID Date Data Source [id number] 09/22/2020 10:41:13 PM EST [facility] Name Value Range Interpretation Code Description Data Erlinda rce(s) Supporting Document(s) URN CULTURE HOLD [facility] FOR ADD ON CULTURE ID Date Data Source [id number] 09/22/2020 06:49:43 PM EST [facility] Name Value Range Interpretation Code Description Data Erlinda rce(s) Supporting Document(s) POC NOVA GLU 169 mg/dL (70-99) H [facility] [place] PER[facility]MED [facility] ID Date Data Source [id number] 09/22/2020 10:43:53 PM EST [facility] Name Value Range Interpretation Code Description Data Erlinda rce(s) Supporting Document(s) APTT 61.2 s (22.0-34.3) H [facility] ID Date Data Source [id number] 09/22/2020 03:51:49 PM EST [facility] NT INFORMATIONPatient MRN Name Date of Age Gend*PT [id number] Neaem Robbins 1940 79 years M IPPT Location Admission Date/Time Visit ID Attending ProviderD-[id number] 09/20/202321 --- Elizabeth Gilbert MD([id number]) EPI ID CSN Admitting Provider [id number] Bharath Dennis MD([id number]) Attestation signed by Sheikh Chris MD at 09/22/2020 3:51 PMI saw and evaluated the patient and reviewed GROUND OPERATIONS SUPERINTENDENT's note. I agree with thehistory, physical and [...] nothave any thrombocytopenia. CT abdomen done at [facility] notsuggestive of cirrhosis either. Can consider getting MRI liver to see if hehas early cirrhosis/liver nodularity.Call for any questions.Signature: ADAN Morseate: September 22, 2020Time: 3:44 PM Gastroenterology Nurse Practitioner Consult NoteLotan Robbins79 years, male, 1940MRN: [id number] Galindo Consulting MD: Dr. PerezInformant: PatientReason For Consult: AscitesHPI:This is a 79 year old male with a PMH significant for alcohol abuse, tobaccoabuse, possible cirrhosis, severe aortic stenosis, chronic kidney disease, DM,hypertension, hypothyroidism, and pulmonary hypertension. We are asked toconsult on the patient due to ascites.Patient initially presented to [facility] for right ankle pain after afall and increased abdominal girth. He was found to have abdominal and pelvicascites which was attributed to alcoholic cirrhosis. [facility] diagnosed with cirrhosis last year based on [...] Take 1,000 mg by mouth daily withbreakfast [place]-3 Fatty Acids (FISH OIL PO) Take 1 [...] on phone: None Gets together: None Attends faith service: None Active member of club or [...] diagnosis. Liver grossly unremarkable on CT scan [facility]. Drank 3-4 beers daily but stopped 9 years ago. Autoimmune hepatitismarkers negative at [facility].- S/p paracentesis with 3 L clear yellow [...] 22, 2020Time: 8:48 AMGastroenterology and Hepatology of [phone] Name Value Range Interpretation Code Description Data Erlinda rce(s) Supporting Document(s) ID Date Data Source [id number] 09/22/2020 01:30:38 PM EST [facility] Name Value Range Interpretation Code Description Data Erlinda layne(s) Supporting Document(s) POC NOVA GLU 145 mg/dL (70-99) H [facility] [place] PERFORMED BY [facility] ID Date Data Source [id number] 09/22/2020 10:28:17 AM EST [facility] Name Value Range Interpretation Code Description Data Erlinda rce(s) Supporting Document(s) APTT 41.9 s (22.0-34.3) H [facility] ID Date Data Source [id number] 09/22/2020 09:08:03 AM EST [facility] Name Value Range Interpretation Code Description Data Erlinda rce(s) Supporting Document(s) POC NOVA GLU 173 mg/dL (70-99) H [facility] [place] [facility] ID Date Data Source [id number] 09/22/2020 08:42:56 AM EST [facility] CenterPATIE NT INFORMATIONPatient MRN Name Date of Age Gend*PT [id number] Naeem Robbins 1940 79 years M IPPT Location Admission Date/Time Visit ID Attending ProviderD-[id number] 09/20/202321 --- Hossein Galindo([id number]) EPI ID CSN Admitting Provider [id number] Bharath Dennis MD([id number]) Attestation signed by Jessica Victoria MD at 09/22/2020 8:42 AMProcedure performed under my supervision, I agree with above report.Jessica Victoria MD 09/22/2020 8:42 AMDepartment of Interventional Radiology ---------Brief Operative/Invasive Procedure NoteLonnlexi TrujilloATE OF : 1940MRN # [id number] DATE: 2/11/2021PROVIDER:Gene Merida NP 09/21/2020 4:05 PMASSISTANCE(S): NonePROCEDURE:Ultrasound guided paracentesis.Drained 3 liters of clear yellowperitoneal fluid.PRE-PROCEDURE DIAGNOSIS:AscitesPOST PROCEDURE DIAGNOSIS:AscitesANESTHESIA TYPE:local-1% Lidocaine (5cc)DRAINS:NoneSPECIMENS:Fluid sent to lab for analysis.ESTIMATED BLOOD LOSS: MinimalGRAFTS OR IMPLANTS:NoneFINDINGS: Consistent with operative diagnosisCOMPLICATIONS: NoneSee dictated note.Gene Merida NPDepartment of Interventional Radiology Name Value Range Interpretation Code Description Data Erlinda rce(s) Supporting Document(s) ID Date Data Source [id number] 09/22/2020 08:14:53 AM EST [facility] Name Value Range Interpretation Code Description Data Erlinda rce(s) Supporting Document(s) PROCALCITONIN @ 0.22 ng/mL (<0.10) H [facility] INTERPRETATION OF RESULT < 0.51 Sepsis is not likely.0.51-2.00 Sepsis is possible, but other conditions are known to elevate PCT.2.01-9.99 Sepsis is likely, unless other causes are known. > 9.99 Important systemic inflammatory response, almost exclusively due to severe bacterial sepsis or septic shock.PERFORMED AT [address] [place], [place] [address] ID Date Data Source [id number] 09/22/2020 08:09:27 AM EST [facility] Name Value Range Interpretation Code Description Data Erlinda rce(s) Supporting Document(s) SODIUM 143 mmol/L (136-145) [facility] POTASSIUM 3.8 mmol/L (3.6-5.2) [facility] CHLORIDE 106 mmol/L (100-108) [facility] CO2 28 mmol/L (22-31) [facility] ANION GAP 9 mmol/L (7-16) [facility] UREA NITROGEN 55 mg/dL (7-24) H [facility] CREATININE 1.83 mg/dL (0.80-1.30) H [facility] BUN/CREAT RATIO 30.1 RATIO (10.0-20.0) H [facility] GLUCOSE 191 mg/dL (70-99) H [facility] CALCIUM 8.6 mg/dL (8.4-10.2) [facility] GFR 36 ml/min/1.73m2 (>59) L [facility] GFR ( AMER) 43 ml/min/1.73m2 (>59) L [facility] GFR INTERPRETATION [facility] --NORMAL KIDNEY FUNCTION OR MILD DISEASE - GFR >OR= 60CHRONIC KIDNEY DISEASE - GFR 15 - 59RENAL FAILURE - GFR <15 Est. GFR calculation based on the MDRDstudy equation, which assumes a steadystate for creatinine. Est. GFR should notbe used for medication dosing. ID Date Data Source [id number] 09/22/2020 07:20:04 AM EST [facility] [place] Name Value Range Interpretation Code Description Data Erlinda rce(s) Supporting Document(s) LACTIC ACID 1.1 mmol/L (0.4-2.0) [facility] [place] MCCOLLUM ID Date Data Source [id number] 09/22/2020 07:07:24 AM EST [facility] [place] Name Value Range Interpretation Code Description Data Erlinda rce(s) Supporting Document(s) WBC 9.5 10*3/uL (4.1-11.0) [facility] [place] RBC 4.23 10*6/uL (4.60-6.10) L [facility] HGB 10.2 g/dL (13.5-18.0) L [facility] HCT 31.3 % (41.0-53.0) L [facility] MCV 74.1 fL (80.0-95.0) L [facility] MCH 24.0 pg (27.0-32.0) L [facility] MCHC 32.4 g/dL (32.0-36.0) [facility] RDW 17.9 % (10.5-14.5) H [facility] Shea Flores PLT 163 10*3/uL (150-450) [facility] She[facility] Flores MPV 8.1 fL (7.1-10.7) [facility] ID Date Data Source [id number] 09/24/2020 10:57:08 AM EST [facility] [place] SPECIMEN DESCRIPTION PERIPHERAL 1SPECIAL REQUESTS NONEGRAM STAIN GRAM POSITIVE COCCI IN CHAINSALERTED CRITICAL RESULT TO Stan HURTADO, ON [facility] OF [facility] AT 19:39 ON09.22.20 [place] [id number]. CULTURE RESULTS STREPTOCOCCUS PNEUMONIAE STREPTOCOCCUS PNEUMONIAE BY [...] (VRE).CALLED Stan HURTADO, ON [place] [address] OF [facility] AT 23:25 ON 09.22.20 BY [id number] EMAILED TO [facility] IC AT 2425 ON 09/23/20 [id number]. REPORT STATUS FINAL 09/24/2020ORGANISM STREPTOCOCCUS PNEUMONIAEMETHOD LANG [...] rce(s) Supporting Document(s) ID Date Data Source [id number] 09/24/2020 06:43:40 AM EST [facility] [place] SPECIMEN DESCRIPTION PERIPHERAL 2SPECIAL REQUESTS NONEGRAM STAIN GRAM POSITIVE COCCI IN CHAINSALERTED CRITICAL RESULT TO GENESIS Stan, ON D5 OF [facility] AT 19:39 ON2.12.21 [place] [id number]. CULTURE RESULTS STREPTOCOCCUS PNEUMONIAEMOLECULAR TESTING IS BEING [...] rce(s) Supporting Document(s) ID Date Data Source [id number] 09/22/2020 12:19:23 AM EST [facility] CenterPATIE NT INFORMATIONPatient MRN Name Date of Age Gend*PT [id number] Naeem Robbins 1940 79 years M IPPT Location Admission Date/Time Visit ID Attending ProviderD-[id number] 09/20/202321 --- Hossein Galindo([id number]) EPI ID CSN Admitting Provider [id number] Bharath Dennis MD([id number]) Attestation signed by Bharath Dennis MD at 09/22/2020 12:19 AMCase d/w GROUND OPERATIONS SUPERINTENDENT Radhikajpchirag on 09/21 and I was immediately available for any questionsor concerns. Agree with H&P below. ------Inpatient History & PhysicalLonny GrJorge AlbertoRN: [id number] and Plan:Principal Problem: Severe aortic stenosisActive Problems: [...] weight gain over 2months. Underwent paracentesis at [facility]- it is unclear how much fluid wastaken [...] morphine for pain. Imaging wasnot sent from [facility]. xrays ordered. Notes mentioned possible avulsionfracture. Pt [...] eval.DVT px: HeparinPatient was covid negative [facility] on 09/18[facility]20Patient is FULL CODE verified by discussion with patient.History of Present Illness: Naeem is a 79 year old male with PMH of alcoholabuse, tobacco abuse, atrial fibrillation, cirrhosis, CKD, HTN, DM II,hypothyroidism who was transferred to [facility] for TAVR work up. The patient had [...] his creatinine was 3.4 on arrival to [facility]. Nephrologywas consulted. He had paracentesis done on [...] file Gets together: Not on file Attends faith service: Not on file Active member of [...] visit include: ECG and Labs.Significantfindings: [facility] reviewed. .Signature: DOREEN QuinonesDate: September 21, 2020Time: 6:17 AM Name Value Range Interpretation Code Description Data Erlinda rce(s) Supporting Document(s) ID Date Data Source [id number] 09/21/2020 11:59:52 PM EST [facility] Name Value Range Interpretation Code Description Data Erlinda rce(s) Supporting Document(s) APTT 33.8 s (22.0-34.3) [facility] ID Date Data Source [id number] 09/21/2020 07:31:10 PM EST [facility] Name Value Range Interpretation Code Description Data Erlinda rce(s) Supporting Document(s) POC NOVA GLU 149 mg/dL (70-99) H [facility] [place] [facility] ID Date Data Source [id number] 09/22/2020 09:17:35 PM EST [facility] Name Value Range Interpretation Code Description Data Erlinda rce(s) Supporting Document(s) COLOR [facility] APPEAR [facility] RBC (0) [facility] TOTAL NUCLEATED CNT 467 U/L (0-300) H [facility] NEUT % 29 % (0-25) H [facility] LYMPH % 33 % [facility] MONO/HISTIO % 32 % [facility] MESOTHELIAL CELLS % 6 % [facility] COMMENT [facility] PATHOLOGIST COMM [facility] Yenni CHAWLA 09/22/20PERFORMED AT [address] [place] [address] ID Date Data Source [id number] 09/21/2020 10:18:52 PM EST [facility] Name Value Range Interpretation Code Description Data Erlinda rce(s) Supporting Document(s) FLUID SG 1.025 [facility] ID Date Data Source [id number] 09/21/2020 09:49:37 PM EST [facility] Name Value Range Interpretation Code Description Data Erlinda rce(s) Supporting Document(s) FLUID GLUCOSE 167 mg/dL [facility] ID Date Data Source [id number] 09/21/2020 09:49:37 PM EST [facility] Name Value Range Interpretation Code Description Data Erlinda rce(s) Supporting Document(s) FLUID LDH 123 U/L [facility] FOR PLEURAL AND PERICARDIAL FLUID:<60% O F SERUM LD REPRESENTS TRANSUDATE>60% OF SERUM LD REPRESENTS EXUDATE ID Date Data Source [id number] 09/21/2020 09:49:37 PM EST [facility] [place] Name Value Range Interpretation Code Description Data Erlinda rce(s) Supporting Document(s) FLUID ALBUMIN 1.8 g/dL [facility] ID Date Data Source [id number] 09/21/2020 09:49:37 PM EST [facility] [place] Name Value Range Interpretation Code Description Data Erlinda rce(s) Supporting Document(s) FLUID TOTAL PROTEIN 3.8 g/dL [facility] FOR PLEURAL AND PERCARDIAL FLUID: <50% O F SERUM PROTEIN INDICATES TRANSUDATE >50% OF SERUM PROTEIN INDICATES EXUDATE ID Date Data Source [id number] 09/21/2020 09:49:37 PM EST [facility] Name Value Range Interpretation Code Description Data Erlinda rce(s) Supporting Document(s) FLUID AMYLASE 10 U/L [facility] ID Date Data Source [id number] 09/21/2020 09:12:22 PM EST [facility] Name Value Range Interpretation Code Description Data Erlinda rce(s) Supporting Document(s) FLUID SOURCE [facility] [place] ID Date Data Source [id number] 09/27/2020 08:34:24 AM EST [facility] SPECIMEN DESCRIPTION PERITONEAL F LUIDSPECIAL REQUESTS NONECULTURE RESULTS NO ANAEROBES ISOLATED AFTER 5 DAYSREPORT STATUS FINAL 09/27/2020 Name Value Range Interpretation Code Description Data Erlinda rce(s) Supporting Document(s) ID Date Data Source [id number] 09/27/2020 08:34:03 AM EST [facility] SPECIMEN DESCRIPTION PERITONEAL F LUIDSPECIAL REQUESTS NONEGRAM STAIN RARE (<1/LPF) WHITE BLOOD CELLS NO BACTERIACULTURE RESULTS NO GROWTH 5 DAYSREPORT STATUS FINAL 09/27/2020 Name Value Range Interpretation Code Description Data Erlinda rce(s) Supporting Document(s) ID Date Data Source [id number] 09/21/2020 03:13:48 PM EST [facility] CenterPATIE NT INFORMATIONPatient MRN Name Date of Age Gend*PT [id number] Itzel Naeem 1940 79 years M IPPT Location Admission Date/Time Visit ID Attending ProviderD-[id number] 09/20/202321 --- Elizabeth Gilbert MD([id number]) EPI ID CSN Admitting Provider [id number] Bharath Dennis MD([id number])Inpatient Consult NoteConsultLotan [id number] yearsReason for consult: MAXIME vs CKD.History:HPI:Mr. Robbins is a 79 year old male with PMH of alcohol abuse, tobacco abuse,atrial fibrillation, cirrhosis, CKD III, HTN, DM II, hypothyroidism who wastransferred [facility] for T[facility] work up.He never followed with a Lard Renderer, his baseline creatinine is reportedly ~1.6-2.0 mg/dl, he presented to [facility] with weight gain/increased abdominalgirth, he had paracentesis done there, I am not sure if he was on diureticsthere, patient claimed that his legs edema has much improved c/w previous. [facility] he stopped diuretics fwe months ago as he was told so by his PCP becauseof worsening renal function and since then he has been noticing increasedabdominal girth. Workup in [facility] showed severe and he was transferredhere for [...] Take 1,000 mg by mouth daily withbreakfast [place]-3 Fatty Acids (FISH OIL PO) Take 1 [...] Infusions: heparin (porcine) in NaCl Stopped (09/21/20 6118)PRN Meds:.atropine sulfate, heparin (porcine), LORazepam, Morphine Sulfate [...] on phone: None Gets together: None Attends faith service: None Active member of club or [...] HTN, DM II, hypothyroidism who wastransferred to [facility] for TAVR work up.He never followed with a Lard Renderer, his baseline creatinine is reportedly ~1.6-2.0 mg/dl, he presented to [facility] with weight gain/increased abdominalgirth, he had paracentesis done there, I am not sure if he was on diureticsthere, patient claimed that his legs edema has much improved c/w previous. Heclaims he stopped diuretics fwe months ago as he was told so by his PCP becauseof worsening renal function and since then he has been noticing increasedabdominal girth. Workup in [facility] showed severe and he was transferredhere for evaluation of TAVR, he had paracentesis there, reportedly ~ 1 L offluids removed.Patient's creatinine today is 2.17 mg/dl, he has cruz catheter placed.1. MAXIME on CKD: Reportedly his baseline creatinine is ~ 1.6-2.0 mg/dl, and his crtoday is 2.17 mg/dl.I am not sure if he has been receiving diuretic at [facility].He has trace woody edema, large ascites, [...] he was givendiuretics and how much at [facility]).Monitor BMP daily and UOP, tomorrow I [...] renal recovery.Thank you for this consult. Will follow.Alli Pratt MDFebruary :54 PM Name Value Range Interpretation Code Description Data Erlinda rce(s) Supporting Document(s) ID Date Data Source [id number] 09/21/2020 02:23:37 PM EST [facility] Name Value Range Interpretation Code Description Data Erlinda rce(s) Supporting Document(s) POC NOVA GLU 152 mg/dL (70-99) H [facility] [place] [facility] ID Date Data Source [id number] 09/21/2020 10:47:12 AM EST [address] [place], [place] [address]Yektmsf Name: NAEEM TRUJILLOOB: 1940ex: MOrdering Provider: ELIZABETH Salazar Prov: ELIZABETH Alexandererrmyron Provider: Procedure Performed: XR CHEST PORTABLEExam Date: 09/21/2020 10:28MRN: [id number] Number: [id number] Class: InpatientAccount #: [id number] for Exam: verify picc placement Left upper [...] ADAMA ROWLEY On 09/21/2020 10:47 AMWorkstation ID: [id number] Name Value Range Interpretation Code Description Data Erlinda rce(s) Supporting Document(s) ID Date Data Source [id number] 09/21/2020 10:14:01 AM EST [facility] Name Value Range Interpretation Code Description Data Erlinda rce(s) Supporting Document(s) &PDF [facility] RSRVVz6cQeBOLfVe53/THPubGMAju1CrMEgyDNs0GVboTXDeT5SnhWkpPTpUIW6UHbzAF81MGYZeWMLw waW [file] AgICAgICAgICAgICAgICAgICAgICAgICAgICAgICAg ICAgICAgICAgICAgICAgICAgICAgICAgICAgICAgICAgDQogICAgICAgICAgICAgICAgICAgICAgICAg ICAgICAgICAgICAgICAgICAgICAgICAgICAgICAgICAgICAgICAgICAgICAgICAgICAgICAgICAgICAg ICAgICAgICAgICAgICAgDQogICAgICAgICAgICAgIC AgICAgICAgICAgICAgICAgICAgICAgICAgICAgICAgICAgICAgICAgICAgICAgICAgICAgICAgICAgIC AgICAgICAgICAgICAgICAgICAgICAgICAgDQogICAgICAgICAgICAgICAgICAgICAgICAgICAgICAgIC AgICAgICAgICAgICAgICAgICAgICAgICAgICAgICAg ICAgICAgICAgICAgICAgICAgICAgICAgICAgICAgICAgICAgDQogICAgICAgICAgICAgICAgICAgICAg ICAgICAgICAgICAgICAgICAgICAgICAgICAgICAgICAgICAgICAgICAgICAgICAgICAgICAgICAgICAg ICAgICAgICAgICAgICAgICAgDQogICAgICAgICAgIC AgICAgICAgICAgICAgICAgICAgICAgICAgICAgICAgICAgICAgICAgICAgICAgICAgICAgICAgICAgIC AgICAgICAgICAgICAgICAgICAgICAgICAgICAgDQogICAgICAgICAgICAgICAgICAgICAgICAgICAgIC AgICAgICAgICAgICAgICAgICAgICAgICAgICAgICAg ICAgICAgICAgICAgICAgICAgICAgICAgICAgICAgICAgICAgICAgDQogICAgICAgICAgICAgICAgICAg ICAgICAgICAgICAgICAgICAgICAgICAgICAgICAgICAgICAgICAgICAgICAgICAgICAgICAgICAgICAg ICAgICAgICAgICAgICAgICAgICAgDQogICAgICAgIC AgICAgICAgICAgICAgICAgICAgICAgICAgICAgICAgICAgICAgICAgICAgICAgICAgICAgICAgICAgIC AgICAgICAgICAgICAgICAgICAgICAgICAgICAgICAgDQogICAgICAgICAgICAgICAgICAgICAgICAgIC AgICAgICAgICAgICAgICAgICAgICAgICAgICAgICAg HUFtNGLjJXBjRLKnQWOqWKGnCXCiQYUdONZpSWMnWAOdVPOmUSPcGMDqWJp9E5iwQIChXIKaCZ7xYPq7 Jz8+HYaUMxAjXUA4zdJkeI3JZU5jv2NlKVwrUGLwd2XoHRa8KQ6PSTMiQAdjSJ8OMOeigt7OWGFnRDZt iDDWc5utSvAeMCZ7GYIhNwnaQA6RDAKqJ9vecqMuXK NhDYXVKSdiCFQJBQ7JGbExX9BqwL06YQWPCf3+UJglnrCoDyfQGkN2SJMql1DkCQt5OR1ACUEtBSvxZP 8UVASnbR7pVZpbII4BHzLmPSSfIJUTVaEdB88vqXEtAAk6B6NbUpIdIZDtOhoaPGBxRTqsHjNjUXRjXx BdDQogID4+ID4+FQppDZ3WQIxzweHkNBStFh4RGGTb RPS0CJSxeBWvSgLeNSHSNNcoUE5EpGXwRIJ9bQ2dXBwrQNNcRPTjK3cUAoDrjQwlDD74xHbqouPzfVKh DQo+Li2TML7ml3SzJHj9urFrKPwxTXI6JKygPRKfWFPvNOTpGCH9WLU5MOMVWtBdPMQkXGYfNZhvZRPs JRJuqt8ZHEHgZGDcGWT4WAXnBTSpCYNvMLwvNBLqIO H8WwK8LYWuUYYlEW2SSqKfAJUxDKCqPPwxFOIgDVKcpi8HQJVpCSQeDoC9VCOxFUEkDUJmQVcsXBYwRL NlHcG0JWFxSDDbUC8SQhWrGVEdKVToFgZcQGXmRXJwwz7AYEDoSVDdVmK2XNExLMUrUQLgDTtcNWOtQE N9RdS3PQIpBYLaQJ0OOnTtLVYdKHt4ZjMnXYUhUYOs uv1KDYVyGEJrIotfGeDyBDPdIUZfCTisPUIiUGS4Dyl6AGExKUXtBG8AGxTpEPFcCDd4EopzOSFcBCHr lu7LWCVyACXfRQQ7IRDjTESxRJZlJHynXHJzNWCsEVVcYJZfRQNiUG3FXrMqQAUqKCIeAkuoPUDnVHGg lk2RENMsTJGuEWK5UTEhGQPwTSYuSXknXOPsBTF2Ul svZMXbMQPoST9CLdOyFDIjSSO2RazdMTExFQYxet2FZXSbFNBcBZt1LCMfVXKkIMZjBMtwDOUtZTG7IQ W1JWOjFHLwCY7LCwTeUKAbBUHcWkwfLUImCQPwek0SVRGgMTEjCBYhIdYaPKLvHPWpQEmgTIXrJGF8UI O4RHKaEKKzWL5VNdMoMGXkJkEtNZJkBLVmYUVetx0L BCBxYCLvFqR0ABJhHQYbNAAqJLu0nlMghHWxFRw0LH5JW5IfdfDqHspDBb7Ie510UCL8QDSfHi0GD0uo Ui1dAKVfUZFAQr0URJc6Rqu9ENfvHcP2ZhAsNge6NMp1KCc6JRcoCAOnZnyuEZD+UPx8RIMbFFIjVPVd KHP2Bkw2EzlxGCuoPDUmVIIfMqYbLU5rHCCLAw1+SNsxaBUrgDtoNFZDLaY4HsD6DYrbTEVSGf7H ID Date Data Source [id number] 09/21/2020 10:03:00 AM EST [facility] Name Value Range Interpretation Code Description Data Erlinda rce(s) Supporting Document(s) EKG [facility] WPDCBo4aTlICAmAnb7GfQtHhMOXjPQ1dwpu4N0Y4jEOlA6HzqOHwp8vzB3DrX0BkBVLkHXKHVL6GnDYw jb2 [file] nN8C48R+5X3G+151Ea92Wqry2R+9Pgc8uF9+14vn2i /AU3zZQd5/62ptbM7gk0lQngmu8caWqa9N63b+0919/0X5lnv2j6KfLi8dAjn+30qNyE1/uypewfpM5i fQ7ia+80XX/balLAf75w0bUkikSy8/erelUheN0qz0D997/7XR83+Da9Ex80jb1y3EUMO9TxlONCCHGB gQCltq82b1gnORv5y1rqyzDB/JQFlGVM/423MMIr64 9o9fev/KFl93Nrzl2/m0NOapt+P/0t6BqgcW9n2+nv/qfu7j92MuP23ss4u4x999U/w14nr100MgAEJ9 +6dy141Uj7QWG+xflIqoiBgEIzxr6l/T1K4U/t199/v/f0/U18CS23/J4b3ut//P4Gzf1zZ3n3C42mom /v3+8r//71d+S9+q6szUf7iZOFVkrOjXs6fTS2P8K+ 7f89I/aq3f1eGR1fKdkqXW/X3+d259zuFQ/d78ng+/v9/LjmUZ5v22/lfZ9Wh60+tdT9Kar811Q3bzy0 45G/5dvkfm5z08/5ey9eQf/f5/fzHzo/5/7ev3+/P3lN3t/7972sL00bah/9rb9D+cIyz0npyxt9ToR6 f45jzV9+7/J7/+yyU33n2uu4SFl5/fu7f+1v/vXrp+ rvd1Bds40+hCHs9VN0lszJ+hUfz/309zsNocbLOQzh+9u/h9082Gd+XoHX71771t1ydjW1ch4it0zJKP RkS9U5L16o9e8z4jpFLmzp7T7/pL/jkd/bd/2Q/o7+0VQCt9t+fvp7/5brTcox+d3lev/6lfrq/i3lr3 x38Pkr6z5nh/W/ICZq662gXcQ/TVtia/f+vR Ge9Z0svjdo3zjeZ/D/n9W4/U7Lwy4x5/n/XorAXnaIOaw8/IVgTLo9HTCeeyq+T3feb5/H3L7yG/x7su bIQQ1a8ZT9WJO3+n18C7pCuoXm/j8eJkDpI+fdajlteMr/1HX71/y+8u10t/j756//74Ofrq/ds/3y2/ 74/n1FfJ/6UYad1HI8BT8avWy2iwI5fnz/r73N+d1/ Tvvqe+qt+HXH/iuco0+k0jtPzg26lC9Vvqc+T6JfV+hie3qr0PR/JGXJHt1BwdNoOKmvbB+wmCEI7Br/ dvXCzpb+qr+/nK99TS17p8giecqxvy621OurSS9s+X/L6k/C2/n3uaOEbytkl6Q7jwLB200dV/t69fu7 36/crD4Y3t/d3jq3d/q4IePXAd5nt30kI8h7+n/D6l PUt+C6U88PaE/d3xyN/a3sO8L2Z/IfNVyHwV/ZG/9VmH52o0dw/ld8NMhG0F8zXnB+P04Hd9nygGwmEV 95ot12/5PeT6b/ye4wa+v9/hi2IA84/vPHCOGniv7/L7kN+HlG/vvHROGXj/osob0yb9kbpysAExT25Q MbAuivET6nq7AX/z73Oi3hs/6KucD8/JAu/s4YvR6A v90k3Cp/PzOVTg+/xa64FT79/y+/p1cO1NgJXgMUsi/g13ndLifdNgG8u01znMltEyN8++2iae5yoeq6 2sOfZdf9tc70/yj756/90Fv5F5iDsR+fe3y/Uu13/l0xo23XjrR1/4tpv3dDF55YY/j76q34++qj6Ob/ 48Nfk682p/v64441z+evqe/s7627+/TX4//H8AAEgx [file] LD03aw05Nml9645w6i5f6wrh4hysxAH7m7UR0RoNs7 usMurp6l49Xjb+zbi6/rzL8m1uV+OF7V/fTQurB5vx/1v+g8y3Skoy6TXD+Ek9ogGJ947daY1f2gi6pZ v/76iRzfu4Dp+Oqptnq/H0/g9cr7A4+E1wIpcAdnLvwlNUU1Fhk5sBpRG+yDbfP526lZ3w6na3jfit4j cx9g2hz1ru+rqb+gbKE5niNqar0l3dh/cUeuiw2ui/ 3lrfDV7gw6n47c/re3V8d4k4j/9/5Xob/V7wdy6SI27amR1yoYd//RUx1HiaUdRy1Ru5xpT2Y5/kg31q tW6Ho5heWCK21f6m79wwCyQQj+vwf/8yNDd4d0ZsFpCg6O3/R+UE/v9/LpvCvC9h7nMaCMLpux7705Pk Pe5uD6WXf4szVr18+W+OqGv/AVWmW4yZ5U8Pv98WhY 9MLuyxkw8JyS64q1lX5Os2i8qezlzD7+SO/23Sis57p8TimSfYTE4R9/r7s4Xh26K6+m9/4onrvVHiRe u9V/JB67LZ+ZJ/XDK0DY3tF/umHrPPE/wjv7LL9crEm90P/SzL+RHv+juiIe+3Yee9njCxplciY3tkxz Q4xyNRHyAT/a9jlsNuW8p6SjLnZVgHtOZ3n3rD0hKq 0L+Jzav9P64C5z0GOFXrzin/kQ+BoGEt1FSfe1gI1ZU/u7BL4q/ge++sLWeRz5/bRY7T1if2lJ3i51Yi IQ+XcX2273s9r3Quqei9VkjvYZe92ut8m+boRarS6dRrwMiRXrUGRQwNaW5s/JE1EcltnfEbqdQ/l3z6 OOW5RudK5g/R91Fym9e2G1FOaXQP6HTgj7Orc8d7dy G7Jn4r95aqBMktt1QUcpB+kb/dmo/jI51AenQl6OWH/gqy/c/Pb79y7zlU7eGqW/zBtR0i0pYQhTdlao Tovqfx5f+Ny19V4nhVL0I/2gXcjzgjyn/wkZdDxmzgs8F7vW47Gtat4f6djdN/Td0kV4me5xzWDLP14x qb+pMXC95Xqol+sgvfVXtlu/YNifOl41EGTw/1fiq/ x/KD7mryA/LD5J6XKyDEFP5yclblA4D9rK+ul2kXUZ4hlysEP6ctEaOZ8Z+ocJxOXsbcDZs7rXmUbxD2 DJh2tfG6oasxm5xuGO9JVI9xcIG8aq/pT1hOkpm9VY2m5ru/an97/+4A9So51/+dTZ3xnGL6B8ls/1xF zRox2cG48d+dPz1x+zDvsn//58MwjnRy9/rW/3p/U5 jvNBz/PBJ9uN+7Gnv9Juv/e3122LliFb4IIqk0u8oZN672u4oR1lsk9Wfw/Elaina/lo+/nPR0NOimgQv5j 5bgCX+Ue1vN+e/Ao7EBz8kju3nm3Uf4ElYbfI7n1bi66l5/rs3fzmF/atv063mD+u+u79lPZuK+uFf7u t3veb4/zX8/32eYT8stcOfcxLp+3Vm4gmCW+vef99s rzjndU/XG//WDk0t49sxVM3/4mG51qA2qZ++39Lfa4pB9575luEn7sz5c7mhT5kHbcgYJ1cOZdwxS+n+ Oz9XWO+1c+e//rs/U5fpciMlkK25k9hAmU8pS6Cn4Obf+XoPSNxRa6IoeVA6fmotfe99PCecA/389x7f Qy60DJlapiQ/Cu8pP5nqh5p9iK4y2bA/M3zwcr/SB/ 3yf01F/efIj89sj8hh3BUj7uEbvR837omVar+qbLe55VsVi7jlw2g1yj/ZWX/riPslbMvnUJ3OsXzbkg sq4fPR58dPpI225/7tbzuHJ3+zzyy9YW2bwR/Xz6RS1r0a/7k+7LH1b2mPvL167m37/cD+uqbylq3ay6 atGv71Q56b5MV62/w+v+VYb7/pWvPu/35vt8qxJamo /09I2E3GWudL+Z4mpiuksyA2D6mA3bk36PzHf6gr7M4A9l2hupxb/IL449ykBMGV4O/Pj/5zfEvu392S e5Du8+L/PtH+7yvZB/oZ4+D/XEV5V+4S6lUbdll11dNF0U2XjlLlYV5pnAIg6Z+hw/rc/x0/cZ/OD7Qn /lB9/2HCIQ6vj5fiNSB4bm5noB1jpv5PrK87q8Hj+f g1dug2ML3/H5WWG3JJBb+9QwVcW3gYeW+7xsPX3/fW1Y9JrtNY/Xs5F+kL/5dUw9V4f++n+5qtQ0CQyx vf+/C/hu5ry19qC+FiDGa0GwOm6D/H33DD5UaJ8bJ7vO95ZC94WGWjnq7p4o6cuzP/r/u6T/O4wI3JX5 9Cx01yvk6grkdskuRORYhLql2E/kx/fF/ejO81FLoo /ST/hhLl6YfY0V3T9gPwWOHz0huc258+f5Qqb3+8RA6hs5xyi2nAVvP1pbXyH12AyyU+Rf1uF+r7HmRv 1pzaLCnV/7fcrSfp+c7u1n4ZjHK2bMzOa1sJPwWgEw3lwSxk+sdEN+O7ui0IS/xqsL+TfSN/IfjKvvT6 58P+hlJ8C+vhnGa/3bErhBi2L3/V5yWe+HwnT1vTVd B/SnlTXu4glVNfks5y6FCoMc56m3nv/4vnm//bmyzVZudiqgQw9caT/Ij/G5pfdWy20zmUk0nrBS36R1 ywynw2TkAzUo/R5n+DF87Es4Tb2H49SVnwf75h6XkaA+kk9iJna/g7JdQLz8cp+e6lislQlky7+r76us rJsb7e82OG6VO/Ng1iwyU84BI49Y/mW36242lRsiwc 9bga/y/vMqhQ2bQxs9fgY2Huc6F/MF1mjZ7Yy3B036oqBBkwwU12UXa/q0042xkziX2mm84hS8Ap3tK+ Cr6tvO+8/Up3b0A7vw+OqxrPMdb+7fV+Cr3C+cO52XCJqP+27bpdu8+Es0hFMJ+u0xqzoq8D48kxrzN9 A9w2/6yPTxnUevk/v9qP/Lpe0a23F8f+qF62r86dEp 3/1+njWsvh9bKhnhzt17ki67ajHo1aN2zgnq75wP0yNznidljx/gq4bXl1h/qVtK46Zg+rmadOz7HH45 hApc00E8l8t64rU4A1F0+cjChc8NB56J5/48nkLpxk4y7qw1U6qCfQ80ekQ9QZDL9f/oz/7m+3428h/U 0/K7d31Tz6oQ9WL1Cu69ss+3TeAIpxcyR7FPBJ24G1 f/f/fn4Th09/1gpi/Jj9RBmokZ1mjat3+Pmvz3ljBV3Wqr0NtZocm30oqXnI+Ns4aeMk6/3OZwT7VrX0 z43f2u01xeqwyqr/RnI/2iSxvh0Lh8WemQ3rgF2ka/aM++v6Kn6541P/Oe6cHDa+74MsxByWj1I+1ivH Rb7kAyu/Y82Y19BxaT/h9tfZA+rW6sI8jmicj+8OTW fo+ovlqPS6c/sKG/6fc1js1L7G1ekoFJymC/7wOMuuJE7EZ65/FOo7UEl2X0yp9uhWnZ9/sVzp1d5Xw9 53u9kfGh/lS7Tj8tX+2FW5ZrvK2t4888rjS9bqc05oe60CV+u7Cb6Spr+36kBr5FxTpV+z3O9n6/v73f /27v/gW22edf4T+709a84DdrP9+lLAFfbeCrnfqrKr zFW4947cnywxjFz8FRpW309ufCCkwP+7l20gS7edfe+OL8s8UUbx2f9DV/4aF7VNQ3/I+Ar/bCeBfGu/ j9772DnfoT16CoBw3WM11JI5px/eAXI9s35rHl8qn35cbyv+55CnftOEZFkNtxG9Rr+oZkz2ZrzJkk4I /9xt6Yv/qxy93v2gpvMd2/7zp97tt0/nfn+8FT4e7/ tS80gs6YloHlCLT9adKFk+/T+ud9+v0pAbffFrsj+qvq/8a4IM+v73VcbNl+T6/P5+n3++dcpA7Zu+8+ bzH2vs98z8Zt/v+exFdlmbD/v+fp/a04ux62Une5A/1Z1m31/ug8G+kH/Aq9kScddVP9Q8lX6249n/HG gX2Gk/oGAenTb8Z9EH/AeAfGOwzpjnRH/WkfqcIfTj 6Jr+Ic8yS+0cvs9eEeuX5hcjfJO/VA0g6tR+kQJI53G9UStG70x9F0xhIj0tjR9jiE9+ehB/dvRY0m0T [facility]+uS1TdiN+mLz7D5xJB9jfsr/Zi1oKrExLW0C6+d2fv9M/S9H9Y1WcHpwDHhu2A5G+OdGC/h9Hd8Oh [file] 3Zzea0CmkWV/Sandra/LF+EZdoWiJQ/fgtkZwpyYVnfwpffcNJLLEZjseZmNEn3B3V6jVvIt2KjdnuVOelH VqBtN0/HN6gpG6uHC37cdZlh/li+iH0/8fTHUr/39M hFmhRFtl54vnQBdSqwKcaFcA8jlBTVNnDP0EFhZFeBRC8eSQtq+YexQ7bDE9fO7NLaOjcPjFvJOzNA8n aEpD+Tp8KREeDA7na+JDBLuSvgpOWSuMitHNhykpDx0qzse+MQXT3pfNYbzvlg/Jason+WL5sA1/OKQeOO5 rlj+MUASyCAoJpA29j57DneC66Fw9ftMB+YvljuWU2 2+Yf0DYcLrvvpZleRSPsA8FMLJSA5Ydpy+FufjQYjar8fYbHuR/YIg+Fo1C5GG1VZcryZIetOOmaA+cL Ydc7Agk25TiIKDu12NYzk6aOTdwKSwRyyvQfGZI0ozThHDG022HsSJIlcCckLP4qG8QYQ5mXEwnwYV7H m0Nq3gBECwC/ArQrd6pm2kBS0fewPW8EgLP7RYfcNg 7ly1CiJD5Cu9ax0u1DuP+CD7B3C55m14q4w+hYcAYrJiSPqNkEf3hpg+IsWo0yebxJUL6KRZTZhUM/UR t8E3LvN0KMT1o9bwYlX0m+9c9//koXkWQZ11y//r9//uO/x//58+//9+e//b8HlJ81E/lunchroom supervisor//4TT1x+/5 CwivEiyB8/VoZ/6SffjL/43dii9Vvnxb/nKHBnD9x6 IU3P8C/2Si7ntbQVeDDrU80erWweI91m+K1/SN822413O7NT255vhk9R6ZE59FQzE53B3qn+0Nc3DlA/ X4zxSC3tgO+fIcNv+o65j9dTWf/oga46uZb/8EwvF59xnW6oiFVwl3FjzzD+eRB+0zXzTOR/xytpWejF cW38msU1jRX4Nl/hAdNkm5mctOo69MGfUr031wIE14 v1EeMu7AnfFagomKh9+68Xbh8zRJtvWZZFE9c8F3ldlvbusrRjIZSt+L9zCOpvmjWwvZEr7Bz8vQMzx+ 94LWXphYNf+fxpJ0NQYn4WA44m+UU0iFwhWcVl04ropEihmspBpzI05B/5toSWZe2e0QH9AGNN9KkzyR DS3/H+so1VczFI+e873h+6zxG9TDXf6xWv4p9gT18o e0i4Z8P1jWE85eWt+5k019D4lCf2ehMwkcchbv76VbZFpP4Im9BNjOEe1829+qwZtm+XVhBjX00n8jb8 BkrOGzPXANdg4wwi27YG964smIBGY8sk56NfaItiSjTbqA6y3g++50vqzz4cvk4P7Gw/Q57Lt0/Is1a4 +kOb9rpLf+shzzlnPeTZ0+ZU6U87qEl4If48Zt70Ss 07arPmIf7YwIuy0+sx82xNkBhTsiq28680JU+uU9uXr5r+9XS76+b0N12xWV/PJ1xraQ2tHcxk+bK058 fDsureBi1vuDlI0s+UFdBFQj91o/QcMhcb7TaWlm5mOG+uBkhOjvHso3B6C0Mr/GK22+8OzL80roXyaB q8b5du7Aj9MA54/DcjRcfp1a5r86fx79qi355nzEp/ [file] XkEVHcQYPKIp8Ko651SXTlGWMELdg+UeuovNAnhEeoHINQDKxjEpeACOAJS8O= ID Date Data Source [id number] 09/21/2020 09:40:31 AM EST [facility] Name Value Range Interpretation Code Description Data Erlinda rce(s) Supporting Document(s) POC NOVA GLU 150 mg/dL (70-99) H [facility] PERFORMED BY [facility] ID Date Data Source [id number] 09/21/2020 09:27:26 AM EST [facility] NT INFORMATIONPatient MRN Name Date of Age Gend*PT [id number] Naeem Robbins 1940 79 years M IPPT Location Admission Date/Time Visit ID Attending [id number] 09/20/202321 --- Elizabeth Gilbert MD([id number]) EPI ID CSN Admitting Provider [id number] Bharath Dennis MD([id number])Cardiology NoteLonny TusMRN: [id number]: 79-year-old quit alcohol abuse 8 years ago still smoking atrialfibrillation cirrhosis CKD ascites hypertension diabetes hypothyroidism wastransferred from outside hospital for TAVR work-up after was found to severe ASis unclear if he is compliant with medications had a peritoneal tap in [facility] 09/18 postbed stitcher consulted for TAVR work-up denies any angina [...] file Gets together: Not on file Attends faith service: Not on file Active member of [...] 202 1Results from last 7 daysLab Units [id number] I ng/mL <0.05Results from last 7 daysLab Units SODIUM mmol/L 144POTASSIUM mmol/L 3.9CHLORIDE mmol/L 108CO2 mmol/L 29BUN mg/dL 69*CREATININE mg/dL 2.17*GFRAA ml/min/1.73m2 36*GFRNAA ml/min/1.73m2 29*GLUCOSE mg/dL 174*CALCIUM mg/dL 8.9Results from last 7 daysLab Units [id number] I ng/mL <0.05Assessment and Plan:Principal Problem: Severe aortic stenosisActive Problems: Anemia Moderate mitral insufficiency Nonrheumatic tricuspid valve regurgitation LVH (left ventricular hypertrophy) Right foot pain Fall at home Weakness Atrial fibrillation HTN (hypertension) CKD (chronic kidney disease) stage 3, GFR 30-59 ml/min Alcoholic cirrhosis Diabetes mellitus Ascites HypothyroidismClinically severe with evidence of CKD and cirrhosis and ascites post.Peritoneal tap at [facility] we will order a repeat echo since the echo report isnot available. I spoke with the attending hospitalist to get GI and nephrologyon board cirrhosis midodrine end-stage in light of the severe abdominaldistention and ascites we will ask GI for GI assessment of cirrhosis outcome.If patient is end-stage we will not proceed with TAVR work-up. We will continuefollowing up along with you.Signature: Júnior Shaw, MDDate: September 21, 2020Time: 9:22 AM Name Value Range Interpretation Code Description Data Erlinda rce(s) Supporting Document(s) ID Date Data Source [id number] 09/21/2020 08:40:[address] [address] Name: NAEEM TRUJILLOOB: 1940ex: MOrdering Provider: AHSAN DONAuthorizing Prov: AHSAN DONReferrmyron Provider: Procedure Performed: XR FOOT COMPLETE RIGHTExam Date: 09/21/2020 08:22MRN: [id number] Number: [id number] Class: InpatientAccount #: [id number] for Exam: s/p fall at home/traumaTechnique: AP, lateral and obliques obtained.Comparison: NoneFINDINGS:The osseous structures of the foot are unremarkableNo fractures identifiedThere are degenerative changes in the talonavicular joint with proliferative changes. Dorsal osteophytes are noted.Calcifications noted in the distal Achilles tendon.No foreign body identifiedSoft tissues within normal limitsIMPRESSION:Degenerative changes. No acute diseaseReport electronically signed by: ALYSSA EDGE On 09/21/2020 8:40 AMWorkstation ID: [id number] Name Value Range Interpretation Code Description Data Erlinda rce(s) Supporting Document(s) ID Date Data Source [id number] 09/21/2020 02:30:05 PM EST [facility] Name Value Range Interpretation Code Description Data Erlinda rce(s) Supporting Document(s) PT 15.6 s (9.2-11.9) [facility] INR 1.52 [facility] SUGGESTED THERAPEUTIC RANGES USING INR F ORSTABILIZED ANTICOAGULATED PATIENTS:STANDARD DOSE THERAPY INR 2.0-3.0 DVT, PE, PREVENT DVT OR EMBOLISMHIGH DOSE THERAPY INR 2.5-3.5 PREVENT EMBOLISM FROM MECHANICAL HEART VALVE ID Date Data Source [id number] 09/21/2020 07:49:23 AM EST [facility] Name Value Range Interpretation Code Description Data Erlinda rce(s) Supporting Document(s) APTT 31.4 s (22.0-34.3) [facility] ID Date Data Source [id number] 09/21/2020 06:50:38 AM EST [facility] Name Value Range Interpretation Code Description Data Erlinda rce(s) Supporting Document(s) NT PRO BNP 45397 pg/mL (0-450) [facility] [place] ID Date Data Source [id number] 09/21/2020 06:50:38 AM EST [facility] Name Value Range Interpretation Code Description Data Erlinda rce(s) Supporting Document(s) TSH,ULTRASENSITIVE @ 0.380 mIU/L (0.360-4.170) [facility] PERFORMED AT [address] [place] [address] ELEONORA Flores [address] ID Date Data Source [id number] 09/21/2020 06:50:38 AM EST [facility] Name Value Range Interpretation Code Description Data Erlinda rce(s) Supporting Document(s) SODIUM 144 mmol/L (136-145) [facility] POTASSIUM 3.9 mmol/L (3.6-5.2) [facility] CHLORIDE 108 mmol/L (100-108) [facility] CO2 29 mmol/L (22-31) [facility] ANION GAP 7 mmol/L (7-16) [facility] UREA NITROGEN 69 mg/dL (7-24) [facility] CREATININE 2.17 mg/dL (0.80-1.30) [facility] BUN/CREAT RATIO 31.8 RATIO (10.0-20.0) [facility] GLUCOSE 174 mg/dL (70-99) [facility] CALCIUM 8.9 mg/dL (8.4-10.2) [facility] TOTAL PROTEIN 6.5 g/dL (6.4-8.2) [facility] ALBUMIN 2.6 g/dL (3.2-4.5) L [facility] GLOBULIN 3.9 g/dL (2.7-4.3) [facility] ALB/GLOB RATIO 0.7 RATIO [facility] ALKALINE PHOSPHATASE 84 U/L (45-117) [facility] BILIRUBIN,TOTAL 1.4 mg/dL (0.0-1.0) [facility] PLEASE NOTE:Total bilirubin results may be falselyelevated in patients taking Eltrombopag. AST (SGOT) 6 U/L (11-39) L [facility] ALT (SGPT) 12 U/L (12-78) [facility] GFR 29 ml/min/1.73m2 (>59) L [facility] GFR ( AMER) 36 ml/min/1.73m2 (>59) L [facility] GFR INTERPRETATION [facility] --NORMAL KIDNEY FUNCTION OR MILD DISEASE - GFR >OR= 60CHRONIC KIDNEY DISEASE - GFR 15 - 59RENAL FAILURE - GFR <15 Est. GFR calculation based on the MDRDstudy equation, which assumes a steadystate for creatinine. Est. GFR should notbe used for medication dosing. ID Date Data Source [id number] 09/21/2020 06:50:38 AM EST [facility] Name Value Range Interpretation Code Description Data Erlinda rce(s) Supporting Document(s) TROPONIN I <0.05 ng/mL (<0.05) [facility] [place] Less than 0.05: Myocardial injury unlike lyGreater than or equal to 0.05: Highly suggestive of myocardial injuryCorrelation with rise and/or fall ofserial troponins, clinical symptomsand ECG changes is necessary. ID Date Data Source [id number] 09/21/2020 06:32:20 AM EST [facility] Name Value Range Interpretation Code Description Data Erlinda rce(s) Supporting Document(s) MAGNESIUM 2.5 mg/dL (1.7-2.4) H [facility] ID Date Data Source [id number] 09/21/2020 06:06:37 AM EST [facility] Name Value Range Interpretation Code Description Data Erlinda rce(s) Supporting Document(s) HEMOGLOBIN A1C @ 5.8 % (4.0-6.0) [facility] [place] Performed using Siemens [place] immunoassa y.Care must be taken when interpreting WhG1bmqnnbqh in patients with a hemoglobin variantor decreased erythrocyte lifespan. Values 5.7 - 6.4% suggest prediabetes.Values >=6.5% are diagnostic for diabetes.REFERENCE: DIABETES CARE 2018: 41(S13-S27).PERFORMED AT [address] [place] [address] EST AVERAGE GLUCOSE 120 mg/dL [facility] ID Date Data Source [id number] 09/21/2020 05:35:02 AM EST [facility] Name Value Range Interpretation Code Description Data Erlinda rce(s) Supporting Document(s) WBC 11.1 10*3/uL (4.1-11.0) [facility] RBC 4.82 10*6/uL (4.60-6.10) [facility] HGB 11.6 g/dL (13.5-18.0) L [facility] HCT 35.5 % (41.0-53.0) [facility] MCV 73.7 fL (80.0-95.0) L [facility] MCH 24.1 pg (27.0-32.0) [facility] MCHC 32.7 g/dL (32.0-36.0) [facility] RDW 18.1 % (10.5-14.5) [facility] PLT 202 10*3/uL (150-450) [facility] MPV 8.1 fL (7.1-10.7) [facility] NEUT % 84.4 % (35.0-75.0) [facility] LYMPH % 3.0 % (16.0-52.0) [facility] MONO % 10.4 % (0.0-8.0) [facility] EOS % 0.0 % (0.0-5.0) [facility] BASO % 2.2 % (0.0-4.0) [facility] NEUT # 9.4 10*3/uL (1.8-7.7) [facility] LYMPH # 0.3 10*3/uL (1.2-4.8) [facility] MONO # 1.2 10*3/uL (0.0-0.8) [facility] Eosinophils [#/volume] in Blood by Automated count 0.0 10*3/uL (0.0-0 .5) [facility] BASO # 0.2 10*3/uL (0.0-0.2) [facility] ID Date Data Source [id number] 09/22/2020 05:04:23 PM EST [facility] [place], [place] [address]Tel# MISCELLANEOUS CYTOLOGY REPORTAccession Number: [id number] [id number] Specimen(s): A: Ascites FluidClinical Diagnosis and History: Ascites, paracentesisGross DescriptionAscites Fluid: 35 cc of cloudy yellow fluid with 2 prepared slidesreceived Final DiagnosisSpecimen AdequacySatisfactoryFinal DiagnosisNEGATIVE FOR MALIGNANCYMesothelial cells, histiocytes, scant neutrophils and lymphocytes. Processed and screened at [facility], [address] [place] [address], [facility].As applicable, positive and negative controls for all immunohistochemicaland/or special stains were reviewed and considered appropriate. Reported: 09/22/2020E lectronically Signed Out By Beto Chawla MDMassena [facility] Hospital PatholoCytotechnologist: Liseth Nicolas CT(ASCP)[facility]jjfICD code: R18.8CPT code: A: 90752W Name Value Range Interpretation Code Description Data Erlinda rce(s) Supporting Document(s) ID Date Data Source [id number] 09/17/2020 11:43:00 AM EST [facility] Name Value Range Interpretation Code Description Data Erlinda rce(s) Supporting Document(s) SARS coronavirus 2 RNA [Presence] in Res piratory specimen by TAY with probe detection NEGATIVE [facility] This lab was ordered by [facility] a nd reported by [facility]. ID Date Data Source [id number] 05/17/2020 01:17:38 PM EDT [facility] In-House Blood TestsDate/Time Colle cted: May 17, 2020 1:18 PMTest Result Reference Range Normal ValueComments: bood drawn in right AC Pt tolerated well. Denver Chen SPECIAL EDUCATION TEACHING ASSISTANT, May 17, 2020 1:18 PMAssessment & Plan Orders:[id number] Vst-Est Level I [CPT-16993] 12907 - Venipuncture [CPT- 42195] Name Value Range Interpretation Code Description Data Erlinda rce(s) Supporting Document(s) ID Date Data Source [id number] 05/17/2020 12:00:00 PM EDT [facility] Name Value Range Interpretation Code Description Data Erlinda rce(s) Supporting Document(s) HGBA1C 6.0 % N [facility] ID Date Data Source [id number] 05/17/2020 12:00:00 PM EDT [facility] Name Value Range Interpretation Code Description Data Erlinda rce(s) Supporting Document(s) BG FASTING 83 mg/dL 70-100 N [facility] TSH 6.220 microintl units/mL 0.358-3.740 H [facility] ID Date Data Source [id number] 04/04/2020 11:28:15 AM EDT [facility] Labs In-House Blood TestsDate/Time Colle cted: April 04, 2020 10:50 AMTest Result Reference Range Normal ValueComments: Taken in office. Taken from LAC. Tolerated well Linn Salazar MA, April 04, 2020 11:29 AMAssessment & Plan Orders:[id number] Vst-Est Level I [CPT-93504] 28795 - Venipuncture [CPT-83482] Name Value Range Interpretation Code Description Data Erlinda rce(s) Supporting Document(s) ID Date Data Source [id number] 04/04/2020 10:50:00 AM EDT [facility] Name Value Range Interpretation Code Description Data Erlinda rce(s) Supporting Document(s) BG FASTING 120 mg/dL 70-100 H [facility] ID Date Data Source [id number] 03/03/2020 10:33:05 AM EDT [facility] Vital SignsPulse Rate: 65 beats/ minuteBlood [...] during this visit, including review of any acbr-ram-azfamru medications, herbal therapies, and/or supplements.Allergy ReviewAllergy List was reviewed and/or updated during this visit.Review of Systems General: Denies chills, dizziness, fatigue, fever. Cardiovascular: Denies chest pain. Respiratory: Denies shortness of breath. Gastrointestinal: Denies diarrhea, constipation. Rate Your HealthIn general, would you say your health is? 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 If it is the Lasux then this should improve. If not we need to explore other etiologies.15 minutes spend on phone with patient.Assessed:Hypothyroidism, unspecified (CCN72-C29.9) Assessment: Instructions: Poor control and this may be some of the cauase of his weight gain, leg swelling and possibly his leg discomfort.Increase levothyroxine from 25 to 50 daily and recheck labs in 2-3 months.Diabetes mellitus without mention of complication, type II or unspecified type, not stated as uncontrolled (ICD- 250.00) (PVZ02-E98.9) Assessment: Instructions: A1C is 7.1.Continued efforts at [...] LEVOTHYROXINE SODIUM 25 MCG ORAL TABLET Qty: [id number] Refills: 30[Tablet] To: LEVO-T 50 MCG ORAL TABLET-One tablet by mouth every day Qty: 30[Tablet] Refills: 2 To: KETOCONAZOLE 2 % EXTERNAL SHAMPOO-Aplly every other day as needed to scalp seborrhea. Qty: 2[Container] Refills: 1Allergies:* SHELLFISH (Severe)Orders:Telephone E&M 11-20 min Medical Discussion [CPT-50488] COMP METABOLIC PANEL [CPT-38390] Medications:KETOCONAZOLE 2 % EXTERNAL SHAMPOO (KETOCONAZOLE) Aplly every other day as needed to scalp seborrhea. #2[Container] x 1 Entered and Authorized by: Mich Hall MD Method used: Electronically to [facility] (retail) [address] [place] [address] Note to Pharmacy: Route: EXT; RxID: [id number] FUROSEMIDE 40 MG ORAL TABLET (FUROSEMIDE) one half tab daily #90[Tablet] x 0 Route:ORAL Entered and Authorized by: Mich Hall MD Method used: Electronically to [facility] (retail) [address] [place] [address] RxID: [id number] 50 MCG ORAL TABLET (LEVOTHYROXINE SODIUM) One tablet by mouth every day #30[Tablet] x 2 Route:ORAL Entered and Authorized by: Mich Hall MD Method used: Electronically to [facility] (retail) [address] [place] [address] Fax: Note to Pharmacy: Route: ORAL; RxID: [id number] signed by Mich Hall MD on 03/03/2020 at 11:14 AM Name Value Range Interpretation Code Description Data Erlinda rce(s) Supporting Document(s) ID Date Data Source [id number] 02/25/2020 11:05:37 AM EDT [facility] Labs In-House Blood TestsDate/Time Colle cted: February 25, 2020 9:42 AMTest Result Reference Range Normal ValueComments: Blood drawn in office. Taken from left forearm. Tolerated well.Linn Salazar MA, February 25, 2020 11:06 AMAssessment & Plan Orders:[id number] Vst-Est Level I [CPT-40140] 10143 - Venipuncture [CPT-29885] Name Value Range Interpretation Code Description Data Erlinda rce(s) Supporting Document(s) ID Date Data Source [id number] 02/25/2020 09:42:00 AM EDT [facility] Name Value Range Interpretation Code Description Data Erlinda rce(s) Supporting Document(s) BG FASTING 108 mg/dL 70-100 H [facility] TSH 6.990 microintl units/mL 0.358-3.740 H [facility] ID Date Data Source [id number] 02/25/2020 09:42:00 AM EDT [facility] Name Value Range Interpretation Code Description Data Erlinda rce(s) Supporting Document(s) HGBA1C 7.1 % N [facility] ID Date Data Source [id number] 10/13/2019 10:20:10 AM EST [facility] Measurements & CalculationsHeight: 71 inches (5 [...] during this visit, including review of any ibig-zap-kpzqclr medications, herbal therapies, and/or supplements.Allergy ReviewAllergy List [...] Bilateral cramp of muscle of lower limbs (DJH75-D70.2) Assessment: Instructions: Drink more fluids and work [...] (Severe)Orders:Adult - Ofc Vst, EST, Level III [CPT-29850] Medications:ELIQUIS 5 MG ORAL TABLET (APIXABAN) twice daily #90[Tablet] x 0 Route:ORAL Entered and Authorized by: Mich Hall MD Method used: Electronically to [facility] (retail) [address] [place] [address] Note to Pharmacy: Route: ORAL; RxID: [id number]] Name Value Range Interpretation Code Description Data Erlinda rce(s) Supporting Document(s) ID Date Data Source [id number] 09/15/2019 09:20:00 AM [facility] Name Value Range Interpretation Code Description Data Erlinda rce(s) Supporting Document(s) HCT 38.3 % 42.0-52.0 L [facility] HGB 11.7 g/dL 13.5-17.5 L [facility] MCH 30.5 G/DL pg 32.0-36.5 L [facility] MCHC 26.5 PG % 27.0-33.0 L [facility] PLATELETS 141 10 10*3/mm3 150-450 L [facility] RBC 4.41 10 10*6/mm3 4.30-6.10 N [facility] RDW 18.9 % 11.5-14.5 H [facility] WBC TOTAL 6.1 4.0-10.0 N [facility] ID Date Data Source [id number] 09/15/2019 09:20:00 AM [facility] Name Value Range Interpretation Code Description Data Erlinda rce(s) Supporting Document(s) HGBA1C 6.3 % N [facility] ID Date Data Source [id number] 09/15/2019 09:20:00 AM [facility] Name Value Range Interpretation Code Description Data Erlinda rce(s) Supporting Document(s) HEP C AB 0.1 <0.8 [facility] BG FASTING 181 mg/dL 70-100 H [facility] TSH 4.960 microintl units/mL 0.358-3.740 H [facility] ID Date Data Source [id number] 09/15/2019 08:29:29 AM [facility] Measurements & CalculationsHeight: 71 inches (5 ft. [...] Old records unavailable. Was being seen in [facility] by a PCP and GI doctor for [...] during this visit, including review of any [id number] medications, herbal therapies, and/or supplements.Allergy ReviewAllergy List [...] Problems:Added: Alcoholic cirrhosis of liver without ascites (OJV58-J35.30)Hypothyroidism, unspecified (MHU09-Z31.9)Diabetes mellitus without mention of complication, type II or unspecified type, not stated as uncontrolled (ICD-250.00) (PIR63-N78.9)Liver function tests abnormal (ICD-794.8) (CJF65-D30.5) Assessment: Instructions: Check labs today including hepatitis panel.Work on referral to GI.Mixed hyperlipidemia (HWS48-W75.2) Assessment: Instructions: Hold Zocor for now due [...] Refills: 0 Method: ElectronicAllergies:* SHELLFISH (Severe)Orders:CBC W/DIFF [CPT-39607] COMP METABOLIC PANEL [CPT-19044] HgBA1c [CPT-82375] TSH [CPT-77254] HepA IgG [CPT- 06915] HBsAg [CPT-13303] HEPATITIS B SURF ANTIBODY HBSAB [CPT-18052] HEPATITIS B CORE ANTIBODY HBCAB TOTAL [CPT-43668] Hep C Virus Ab [[id number]] Adult - Ofc Vst, NEW, Level III [CPT-58482] 40529 - Venipuncture [CPT-44644] Follow-Up Return to clinic: 1 month for follow upVaccines Administered/Entered:Vaccination Group: H1N1 InfluenzaSeries: 1 NOT GIVENVaccination: Influenza A (H1N1) Monoval PF Intramuscular SuspensionReason Not Given: Patient decisionEntered Date: 09/15/2019 12:00 AMComments: pt refusedEntered by: Gianna TERRELL [facility] In-House Blood TestsDate/Time Collected: September 15, [...] 09/26/2020 12:00:00 AM EST Not Currently completed [facility] Cigarette pack-years 09/26/2020 12:00:00 AM EST UNK completed [facility] Cigarettes smoked current (pack per day) - Reported 09/26/19 12:00:00 AM EST UNK completed [facility] Smoking 09/26/2020 12:00:00 AM EST Former smoker completed Former smoker [facility] Vital Signs ID Date Data Source UNK Name Value Range Interpretation Code Description Data Source(s) Heart rate 74 /min 74 /min [facility] Diastolic blood pressure 63 mm[Hg] 63 mm[Hg] [facility] Systolic blood pressure 135 mm[Hg] 135 mm[Hg] [facility] Oxygen saturation in Arterial blood by Pulse oximetry 95 % 95 % [facility] Respiratory rate 16 /min 16 /min [facility] Body temperature 36.39 Lisset 36.39 Lisset [facility] Body mass index (BMI) [Ratio] 24.52 kg/m2 24.52 kg/m2 [facility] Body weight 79.742 kg 79.742 kg [facility] Body height 180.3 cm 180.3 cm [facility] Body weight 3296 [oz_av] 3296 [oz_av] [facility] ([facility]) Systolic blood pressure 112 mm[Hg] 112 mm[Hg] [facility] ([facility]) Body mass index (BMI) [Ratio] 28.7 kg/m2 28.7 k g/m2 [facility] ([facility]) Body height 71 [in_i] 71 [in_i] [facility] ([facility]) Diastolic blood pressure 58 mm[Hg] 58 mm[Hg] [facility] ([facility]) Body weight 3296 [oz_av] 3296 [oz_av] [facility] ([facility]) Systolic blood pressure 112 mm[Hg] 112 mm[Hg] A [facility] ([facility]) Body mass index (BMI) [Ratio] 28.7 kg/m2 28.7 k g/m2 [facility] ([facility]) Body height 71 [in_i] 71 [in_i] [facility] ([facility]) Diastolic blood pressure 58 mm[Hg] 58 mm[Hg] [facility] ([facility]) Systolic blood pressure 109 mm[Hg] 109 mm[Hg] A [facility] ([facility]) Diastolic blood pressure 57 mm[Hg] 57 mm[Hg] [facility] ([facility]) Systolic blood pressure 109 mm[Hg] 109 mm[Hg] [facility] Diastolic blood pressure 57 mm[Hg] 57 mm[Hg] [facility] ([facility]) Body weight 2928 [oz_av] 2928 [oz_av] [facility] ([facility]) Systolic blood pressure 130 mm[Hg] 130 mm[Hg] A [facility] ([facility]) Body height 71 [in_i] 71 [in_i] [facility] ([facility]) Diastolic blood pressure 67 mm[Hg] 67 mm[Hg] [facility] ([facility]) Body weight 2928 [oz_av] 2928 [oz_av] [facility] ([facility]) Systolic blood pressure 130 mm[Hg] 130 mm[Hg] A [facility] ([facility]) Body height 71 [in_i] 71 [in_i] [facility] ([facility]) Diastolic blood pressure 67 mm[Hg] 67 mm[Hg] [facility] ([facility]) Body weight 2976 [oz_av] 2976 [oz_av] [facility] ([facility]) Systolic blood pressure 128 mm[Hg] 128 mm[Hg] [facility] Body height 71 [in_i] 71 [in_i] [facility] ([facility]) Diastolic blood pressure 62 mm[Hg] 62 mm[Hg] [facility] ([facility]) Body weight 2976 [oz_av] 2976 [oz_av] [facility] ([facility]) Systolic blood pressure 128 mm[Hg] 128 mm[Hg] A [facility] ([facility]) Body height 71 [in_i] 71 [in_i] [facility] ([facility]) Diastolic blood pressure 62 mm[Hg] 62 mm[Hg] [facility] ([facility]) Patient Treatment Plan of Care Planned Activity Planned Date Details Description Data Source (s) Thiamine 100 MG Oral Tablet 09/29/2020 12:00:00 AM EST [facility] Folic Acid 1 MG Oral Tablet 09/29/2020 12:00:00 AM EST [facility] Lisinopril 2.5 MG Oral Tablet 09/29/2020 12:00:00 AM EST [facility] Spironolactone 25 MG Oral Tablet 09/28/2020 12:00:00 AM EST [facility] lidocaine (ASPERCREME) 4 % [facility] 09/28/2020 12:00:00 AM EST [facility] Acetaminophen 325 MG / Hydrocodone Bitartrate 7.5 MG O ral Tablet 09/28/2020 12:00:00 AM EST [facility] gabapentin 100 MG Oral Capsule 09/28/2020 12:00:00 AM EST [facility] Furosemide 40 MG Oral Tablet 09/28/2020 12:00:00 AM [facility] carvedilol 3.125 MG Oral Tablet 09/28/2020 12:00:00 AM EST [facility] Lisinopril 40 MG Oral Tablet [facility] Hydrochlorothiazide 25 MG Oral Tablet [facility] carvedilol 25 MG Oral Tablet [facility] Amlodipine 10 MG Oral Tablet [facility] Trazodone Hydrochloride 50 MG Oral Tablet [facility] ([facility]) Levothyroxine Sodium 0.025 MG Oral Tablet [facility] ([facility]) apixaban 5 MG Oral Tablet [Eliquis] [facility] ([facility]) Trazodone Hydrochloride 50 MG Oral Tablet [facility] ([facility]) Levothyroxine Sodium 0.025 MG Oral Tablet [facility] ([facility]) apixaban 5 MG Oral Tablet [Eliquis] [facility] ([facility])
[2020-09-29 11:11] VITALS: BP 111/60
== END 2020-09-29 11:25 | disposition home or self-care (01) ==
LOC: M ED 09:13
DX: R33.9 Retention of urine, unspecified (principal); I12.9 Hypertensive chronic kidney disease with stage 1 through stage 4 chronic kidney disease, or unspecified chronic kidney disease; N18.9 Chronic kidney disease, unspecified; E11.9 Type 2 diabetes mellitus without complications; I27.20 Pulmonary hypertension, unspecified; Z91.018 Allergy to other foods; Z79.899 Other long term (current) drug therapy; Z79.84 Long term (current) use of oral hypoglycemic drugs; Z79.01 Long term (current) use of anticoagulants; F17.210 Nicotine dependence, cigarettes, uncomplicated

== ENCOUNTER → 2020-10-16 | Outpatient (REF) | payer OTHER ==
[~2020-10-16] MED LIST changes: -THERTAB20 PO; +THERTAB21 PO
[2020-10-16 18:21] LABS: HEMOGLOBIN A1c 5.8 %
[2020-10-16 18:34] LABS: ALBUMIN 3.1 GM/DL (3.2-5.2); BILIRUBIN,DIRECT 0.5 MG/DL (0.0-0.2); BILIRUBIN,TOTAL 0.7 MG/DL (0.2-1.0); CALCIUM LEVEL 9.1 MG/DL (8.8-10.2); CREATININE FOR GFR 1.59 MG/DL (0.70-1.30); GLOMERULAR FILTRATION RATE 44.9 (>42); PHOSPHORUS LEVEL 4.2 MG/DL (2.5-4.9); POTASSIUM SERUM 5.1 MEQ/L (3.5-5.1); THYROID STIMULATING HORMONE 2.34 uIU/ML (0.358-3.740); TOTAL PROTEIN 7.9 GM/DL (6.4-8.2)
== END ==
LOC: M LAB REF 17:13
PROVIDERS: ATTEND Pediatrics
DX: N18.30 Chronic kidney disease, stage 3 unspecified (principal); E03.9 Hypothyroidism, unspecified; E11.22 Type 2 diabetes mellitus with diabetic chronic kidney disease; K70.31 Alcoholic cirrhosis of liver with ascites; I12.9 Hypertensive chronic kidney disease with stage 1 through stage 4 chronic kidney disease, or unspecified chronic kidney disease

== ENCOUNTER → 2020-12-18 | Outpatient (REF) | payer OTHER | LOC: M LAB REF 16:28 | PROVIDERS: ATTEND Pediatrics | DX: R63.5 Abnormal weight gain (principal); Z79.01 Long term (current) use of anticoagulants; Z79.899 Other long term (current) drug therapy ==

== ENCOUNTER → 2021-11-29 | Outpatient (REF) | payer OTHER ==
[~2021-11-29] MED LIST changes: +ALPR0.254 PO; +CARV12.5 PO; +FARX1TAB3 PO; +FISH1000 PO; +FOLI1TAB11 PO; +FURO40TA2 PO; +IRON65TA2 PO; +ROPI1TAB86 PO; +SPIR-10; +[UNRECOGNIZED DRUG - CODE] PO
[2021-11-29 16:25] LABS: CALCIUM LEVEL 10.3 MG/DL (8.8-10.2); CREATININE FOR GFR 2.17 MG/DL (0.70-1.30); GLOMERULAR FILTRATION RATE 31.2 (>35); POTASSIUM SERUM 4.9 MEQ/L (3.5-5.1)
== END ==
LOC: M WUC 15:31
PROVIDERS: ATTEND Physician Assistant
DX: I50.22 Chronic systolic (congestive) heart failure (principal)

== ENCOUNTER 2022-02-16 21:06 | Emergency (ER) | payer OTHER ==
[2022-02-16] MEDS ORDERED: PROPOFOL 1,000 MG/100 ML VIAL As Ordered ONE (21:46)
[2022-02-16] MEDS ORDERED: propofoL 1,000 MG in IV 1 EA IV SCH (21:50)
[2022-02-16] MEDS ORDERED: ROCURONIUM BROMIDE 50 MG/5 ML VIAL IV ONE (21:50)
[2022-02-16] MEDS ORDERED: ETOMIDATE INJ 20MG/10ML VIAL IV ONE (21:50)
[2022-02-16 21:52] LABS: BASO # 0.1 10^3/uL (0.0-0.2); BASO % 0.6 % (0.0-1.0); EOS # 0.2 10^3/uL (0.0-0.5); EOS % 2.1 % (0.0-3.0); HEMATOCRIT 48.2 % (42.0-52.0); HEMOGLOBIN 16.1 g/dl (13.5-17.5); LYMPH # 2.8 10^3/uL (1.5-5.0); LYMPH % 23.7 % (24.0-44.0); MEAN CORPUSCULAR HEMOGLOBIN 30.4 pg (27.0-33.0); MEAN CORPUSCULAR HGB CONC 33.4 g/dl (32.0-36.5); MEAN CORPUSCULAR VOLUME 90.9 fl (80.0-96.0); MONO # 0.7 10^3/uL (0.0-0.8); MONO % 6.3 % (2.0-8.0); NEUTROPHILS # 7.6 10^3/uL (1.5-8.5); NEUTROPHILS % 65.7 % (36.0-66.0); PLATELET COUNT, AUTOMATED 191 10^3/uL (150-450); WHITE BLOOD COUNT 11.6 10^3/uL (4.0-10.0)
[2022-02-16] MEDS ORDERED: ROCURONIUM BROMIDE 50 MG/5 ML VIAL IV SCH (21:55)
[2022-02-16 22:03] LABS: INR 0.93; PROTHROMBIN TIME 12.9 SECONDS (12.7-14.5)
[2022-02-16 22:16] LABS: CREATININE FOR GFR 1.85 MG/DL (0.70-1.30); GLOMERULAR FILTRATION RATE 37.5 (>35); POTASSIUM SERUM 4.6 MEQ/L (3.5-5.1)
[2022-02-16 22:17] LABS: ALBUMIN 3.4 GM/DL (3.2-5.2); BILIRUBIN,DIRECT 0.2 MG/DL (0.0-0.2); BILIRUBIN,TOTAL 0.5 MG/DL (0.2-1.0); ETHYL ALCOHOL (ETHANOL) 0.237 % (0.000-0.010); TOTAL PROTEIN 7.7 GM/DL (6.4-8.2)
[2022-02-16 22:24] LABS: ABG BASE EXCESS -4.2 (-2.0-2.0); ABG HCO3 20.3 MEQ/L (22.0-26.0); ABG O2 SATURATION 99.6 % (95.0-99.0); ABG PARTIAL PRESSURE CO2 35.9 mmHg (35.0-45.0); ABG PARTIAL PRESSURE O2 281.3 mmHg (75.0-100.0); ABG STANDARD HCO3 21.1 MEQ/L (22.0-26.0); ABG TOTAL CO2 21.4 MEQ/L (23.0-31.0); ABG pH (ARTERIAL) 7.371 UNITS (7.350-7.450)
[2022-02-16] MEDS ORDERED: KCENTRA IV ONE (22:35)
[2022-02-16 22:36] LABS: AMPHETAMINES LEVEL URINE NEGATIVE (NEGATIVE); BARBITURATES URINE NEGATIVE (NEGATIVE); BENZODIAZEPINES URINE NEGATIVE (NEGATIVE); CANNABINOIDS URINE NEGATIVE (NEGATIVE); COCAINE METABOLITE URINE NEGATIVE (NEGATIVE); METHADONE URINE NEGATIVE (NEGATIVE); OPIATES URINE NEGATIVE (NEGATIVE); PHENCYCLIDINE URINE NEGATIVE (NEGATIVE)
[2022-02-16 22:49] LABS: RSV AMPLIFICATION NEGATIVE (NEGATIVE)
[2022-02-16] MEDS ORDERED: levETIRAcetam INJection 1,000 MG in D5W 100 ML IV ONE (22:50)
[2022-02-16] MEDS ORDERED: PHYTONADIONE 1 MG/0.5 ML SYRINGE (J3430) SQ ONE (22:50)
[2022-02-16] MEDS ORDERED: PHYTONADIONE 10MG/ML INJECTION (J3430) SC ONE (22:55)
[2022-02-16] MEDS ORDERED: PROTHROMBIN COMPLEX CONCEN IV ONE (23:00)
[2022-02-16] MEDS: ROCURONIUM BROMIDE 50 MG/5 ML VIAL IV PRN (23:36)
[2022-02-17] MEDS ORDERED: REFRIGERATOR IV KEYS XX PRN (00:05)
[2022-02-17] MEDS ORDERED: MIDAZOLAM HCL 100 MG in D5W 80 ML IV SCH (00:05)
[2022-02-17] MEDS ORDERED: MIDAZOLAM 5MG/ML 1ML VIAL (J2250 PER 1MG) IV ONE (00:05)
[2022-02-17] MEDS ORDERED: MIDAZOLAM 5MG/ML 1ML VIAL (J2250 PER 1MG) As Ordered ONE (00:07)
[2022-02-17] MEDS ORDERED: NOREPINEPHRINE 4 MG/4 ML AMP As Ordered ONE (03:43)
[2022-02-17] MEDS ORDERED: NOREPINEPHRINE/DEXTROSE 8 MG in IV 1 EA IV SCH (03:45)
[2022-02-17] MEDS: ROCURONIUM BROMIDE 50 MG/5 ML VIAL IV PRN (04:37)
[2022-02-17 06:54] VITALS: BP 120/56
[2022-02-17] MEDS ORDERED: PHYTONADIONE 10MG/ML INJECTION (J3430) SC ONE (07:00)
== END 2022-02-17 07:25 | disposition short-term general hospital (02) ==
LOC: M ED 21:06 → EDBD 21:06 → M ED 02-17 07:25
DX: I60.9 Nontraumatic subarachnoid hemorrhage, unspecified (principal); F10.229 Alcohol dependence with intoxication, unspecified; Y90.1 Blood alcohol level of 20-39 mg/100 ml; I10 Essential (primary) hypertension; K70.30 Alcoholic cirrhosis of liver without ascites; Z91.018 Allergy to other foods; Z79.899 Other long term (current) drug therapy; Z79.890 Hormone replacement therapy; Z79.01 Long term (current) use of anticoagulants
CPT/HCPCS: 31500; 36556; 36600; 51702; 70450; 70486; 71045; 71250; 72125; 74176; 80048; 80076; 80307; 82077; 82803; 85025; 85610; 85730; 86850; 86900; 86901; 87631; 93005; 93041; 94760; 96365; 96367; 96368; 96375; 99291; J1953; J2250; J3430; J7168

== ENCOUNTER 2022-05-07 21:33 | Emergency (ER) | payer MEDICARE, OTHER ==
[2022-05-07 21:48] VITALS: BP 137/98
[2022-05-07] MEDS ORDERED: ISOVUE-370 76% 100ML VIAL As Ordered ONE (21:58)
[2022-05-07 22:02] LABS: BASO % 0.3 % (0.0-1.0); EOS # 0.2 10^3/uL (0.0-0.5); EOS % 2.1 % (0.0-3.0); HEMATOCRIT 45.3 % (42.0-52.0); HEMOGLOBIN 14.8 g/dl (13.5-17.5); LYMPH # 1.5 10^3/uL (1.5-5.0); MEAN CORPUSCULAR HEMOGLOBIN 29.4 pg (27.0-33.0); MEAN CORPUSCULAR HGB CONC 32.7 g/dl (32.0-36.5); MEAN CORPUSCULAR VOLUME 89.9 fl (80.0-96.0); MONO % 10.9 % (2.0-8.0); NEUTROPHILS # 6.5 10^3/uL (1.5-8.5); NEUTROPHILS % 70.3 % (36.0-66.0); PLATELET COUNT, AUTOMATED 160 10^3/uL (150-450); RED BLOOD COUNT 5.04 10^6/uL (4.30-6.10); WHITE BLOOD COUNT 9.3 10^3/uL (4.0-10.0)
[2022-05-07 22:35] LABS: RSV AMPLIFICATION NEGATIVE (NEGATIVE)
[2022-05-07 22:40] LABS: CK-MB VALUE MASS < 1.0 NG/ML (<3.6); CPK CREATINE PHOSPHOKINASE 65 U/L (39-308); MB/CK RELATIVE INDEX 1.54 (< OR =4)
[2022-05-07] MEDS ORDERED: niCARdipine IV 40 MG in IV 1 EA IV SCH (23:05)
[2022-05-07] MEDS ORDERED: STERILE WATER IV ONE (23:05)
[2022-05-07] MEDS ORDERED: PROTHROMBIN COMPLEX CONCEN IV ONE (23:05)
[2022-05-08 01:10] VITALS: BP 130/65
== END 2022-05-08 01:15 | disposition short-term general hospital (02) ==
LOC: M ED 21:33 → EDBD 21:33 → M ED 05-08 01:15
DX: I60.9 Nontraumatic subarachnoid hemorrhage, unspecified (principal); I65.21 Occlusion and stenosis of right carotid artery; I48.91 Unspecified atrial fibrillation; R47.89 Other speech disturbances; Z91.013 Allergy to seafood; Z99.89 Dependence on other enabling machines and devices
CPT/HCPCS: 70450; 70496; 70498; 71045; 80047; 82550; 82553; 84484; 85025; 85730; 87631; 93005; 93041; 94760; 96365; 96366; 96368; 99285; J7168; Q9967

== ENCOUNTER → 2022-06-14 | Outpatient (CLI) | payer MEDICARE ==
[~2022-06-14] MED LIST changes: +BARIUM SULFATE 700 MG TABLET (E-Z-DISK) As Ordered ONE; +E-Z-PAQUE 96% w/w SUSP 176GM BTL As Ordered ONE; +VARIBAR NECTAR 40% w/v 240ML SUSP BTL As Ordered ONE; +VARIBAR PUDDING 40% w/v 230ML TUBE As Ordered ONE
== END ==
LOC: M RAD 09:57
PROVIDERS: ATTEND Pediatrics
DX: R13.10 Dysphagia, unspecified (principal)

== ENCOUNTER → 2022-11-05 | Outpatient (REF) | payer MEDICARE ==
[~2022-11-05] MED LIST changes: -BARIUM SULFATE 700 MG TABLET (E-Z-DISK) As Ordered ONE; -E-Z-PAQUE 96% w/w SUSP 176GM BTL As Ordered ONE; -VARIBAR NECTAR 40% w/v 240ML SUSP BTL As Ordered ONE; -VARIBAR PUDDING 40% w/v 230ML TUBE As Ordered ONE
[2022-11-05 17:03] LABS: ALBUMIN 3.6 G/DL (3.2-5.2); BILIRUBIN,TOTAL 0.6 MG/DL (0.3-1.2); CALCIUM LEVEL 9.8 MG/DL (8.3-10.6); CHOLESTEROL RISK RATIO 3.76 (<5); CREATININE FOR GFR 1.43 MG/DL (0.70-1.30); GLOMERULAR FILTRATION RATE 50.4 (>35); HDL CHOLESTEROL 35.1 MG/DL (>40); LDL CHOLESTEROL 63.9 MG/DL (<100); NON-HDL-C 96.9 MG/DL; POTASSIUM SERUM 4.2 MMOL/L (3.5-5.1); TOTAL PROTEIN 7.6 G/DL (5.7-8.2)
[2022-11-05 17:26] LABS: BASO % 0.7 % (0.0-1.0); EOS # 0.1 10^3/uL (0.0-0.5); EOS % 2.1 % (0.0-3.0); HEMATOCRIT 49.3 % (42.0-52.0); HEMOGLOBIN 15.1 g/dl (13.5-17.5); LYMPH # 1.2 10^3/uL (1.5-5.0); LYMPH % 21.9 % (24.0-44.0); MEAN CORPUSCULAR HEMOGLOBIN 28.3 pg (27.0-33.0); MEAN CORPUSCULAR HGB CONC 30.6 g/dl (32.0-36.5); MEAN CORPUSCULAR VOLUME 92.5 fl (80.0-96.0); MONO # 0.6 10^3/uL (0.0-0.8); MONO % 10.3 % (2.0-8.0); NEUTROPHILS # 3.6 10^3/uL (1.5-8.5); NEUTROPHILS % 64.5 % (36.0-66.0); PLATELET COUNT, AUTOMATED 155 10^3/uL (150-450); RED BLOOD COUNT 5.33 10^6/uL (4.30-6.10); WHITE BLOOD COUNT 5.6 10^3/uL (4.0-10.0)
[2022-11-05 17:28] LABS: THYROID STIMULATING HORMONE 2.719 uIU/ML (0.55-4.78)
[2022-11-05 17:54] LABS: HEMOGLOBIN A1c 6.3 % (4.0-6.0)
== END ==
LOC: M LAB REF 16:19
PROVIDERS: ATTEND Pediatrics
DX: E11.22 Type 2 diabetes mellitus with diabetic chronic kidney disease (principal); E78.2 Mixed hyperlipidemia

== ENCOUNTER 2023-03-16 16:03 | Emergency (ER) | payer MEDICARE, OTHER ==
[~2023-03-16] VITALS: Ht 182.9 cm; Wt 79.6 kg
[~2023-03-16 16:03] MED LIST changes: -ROPI0.253 PO; +ROPI5TAB19 PO
[2023-03-16 17:21] LABS: BASO % 0.5 % (0.0-1.0); EOS # 0.5 10^3/uL (0.0-0.5); EOS % 5.7 % (0.0-3.0); HEMATOCRIT 47.8 % (42.0-52.0); HEMOGLOBIN 15.7 g/dl (13.5-17.5); LYMPH # 1.7 10^3/uL (1.5-5.0); LYMPH % 18.9 % (24.0-44.0); MEAN CORPUSCULAR HEMOGLOBIN 28.6 pg (27.0-33.0); MEAN CORPUSCULAR HGB CONC 32.8 g/dl (32.0-36.5); MEAN CORPUSCULAR VOLUME 87.2 fl (80.0-96.0); MONO % 11.4 % (2.0-8.0); NEUTROPHILS # 5.6 10^3/uL (1.5-8.5); NEUTROPHILS % 63.2 % (36.0-66.0); PLATELET COUNT, AUTOMATED 121 10^3/uL (150-450); RED BLOOD COUNT 5.48 10^6/uL (4.30-6.10); WHITE BLOOD COUNT 8.9 10^3/uL (4.0-10.0)
[2023-03-16 17:41] LABS: ETHYL ALCOHOL (ETHANOL) < 0.003 % (0.000-0.010)
[2023-03-16 17:43] LABS: INR 1.05; PROTHROMBIN TIME 13.9 SECONDS (12.5-14.5)
[2023-03-16 17:54] LABS: ALBUMIN 3.3 G/DL (3.2-5.2); ALKALINE PHOSPHATASE 165 U/L (46-116); ALT/SGPT 21 U/L (7.0-40); AST/SGOT 9 U/L (<34); BILIRUBIN,DIRECT 0.2 MG/DL (<0.4); BILIRUBIN,TOTAL 0.6 MG/DL (0.3-1.2); BLOOD UREA NITROGEN 73 MG/DL (9-23); CALCIUM LEVEL 9.5 MG/DL (8.3-10.6); CARBON DIOXIDE LEVEL 30 MMOL/L (20-31); CHLORIDE LEVEL 96 MMOL/L (98-107); CREATININE FOR GFR 1.53 MG/DL (0.70-1.30); GLOMERULAR FILTRATION RATE 46.6 (>35); GLUCOSE, FASTING 440 MG/DL (74-106); POTASSIUM SERUM 4.3 MMOL/L (3.5-5.1); SODIUM LEVEL 134 MMOL/L (136-145); TOTAL PROTEIN 7.2 G/DL (5.7-8.2)
[2023-03-16] MEDS ORDERED: HumuLIN R (REGULAR) INSULIN (NovoLIN R) **100U/ML** PER UNIT SC ONE (18:00)
[2023-03-16] MEDS ORDERED: NS 500 ML IV ONE (18:00)
[2023-03-16 19:10] VITALS: TEMP 98.5
[2023-03-16] MEDS ORDERED: ATOR40TA75 PO (19:15)
[2023-03-16] MEDS ORDERED: BUSP10TA PO (19:15)
[2023-03-16] MEDS ORDERED: ROPI5TAB19 (19:15)
[2023-03-16] MEDS ORDERED: HOME MED LIST COMPLETE! XX SCH (19:20)
[2023-03-16 19:55] VITALS: BP 15/88; O2SAT 96
== END 2023-03-16 20:02 | disposition home or self-care (01) ==
LOC: EDBD 16:03 → M ED 16:03
DX: E86.0 Dehydration (principal); N17.8 Other acute kidney failure; I48.91 Unspecified atrial fibrillation; I50.20 Unspecified systolic (congestive) heart failure; I12.9 Hypertensive chronic kidney disease with stage 1 through stage 4 chronic kidney disease, or unspecified chronic kidney disease; N18.30 Chronic kidney disease, stage 3 unspecified; E11.9 Type 2 diabetes mellitus without complications; K70.30 Alcoholic cirrhosis of liver without ascites; I27.20 Pulmonary hypertension, unspecified; I35.0 Nonrheumatic aortic (valve) stenosis; Z87.891 Personal history of nicotine dependence; Z91.013 Allergy to seafood; Z79.01 Long term (current) use of anticoagulants; Z79.84 Long term (current) use of oral hypoglycemic drugs; Z79.899 Other long term (current) drug therapy
CPT/HCPCS: 36415; 70450; 71045; 80048; 80076; 81001; 82077; 82140; 85025; 85610; 87086; 87635; 93005; 99284; J1815

== ENCOUNTER → 2023-03-18 | Outpatient (REF) | payer MEDICARE ==
[~2023-03-18] MED LIST changes: +ATOR40TA75 PO; +BUSP10TA PO; +ROPI5TAB19
[2023-03-18 18:30] LABS: HEMOGLOBIN A1c 11.4 % (4.0-6.0)
== END ==
LOC: M LAB REF 11:17
PROVIDERS: ATTEND Pediatrics
DX: E11.22 Type 2 diabetes mellitus with diabetic chronic kidney disease (principal); R82.90 Unspecified abnormal findings in urine; E03.9 Hypothyroidism, unspecified

== ENCOUNTER 2023-04-21 17:32 | Emergency (ER) | payer MEDICARE ==
[2023-04-21] MEDS ORDERED: rOPINIRole 0.25 MG TAB(REQUIP) PO SCH ×2 (21:00)
[2023-04-21] MEDS ORDERED: ROPI0.5T33 PO (21:58)
[2023-04-21] MEDS ORDERED: SPIR-10 PO (22:00)
[2023-04-21] MEDS ORDERED: SEMA3TAB4 PO (22:00)
[2023-04-21] MEDS ORDERED: busPIRone 10 MG TAB PO ONE (22:35)
[2023-04-21] MEDS ORDERED: CARVedilol 12.5 MG TAB PO ONE (22:35)
[2023-04-21] MEDS ORDERED: APIXABAN 2.5 MG TAB (ELIQUIS) PO ONE (22:35)
[2023-04-21 23:16] VITALS: BP 133/79
[2023-04-22] MEDS ORDERED: diazePAM 2 MG TAB PO ONE (00:10)
[2023-04-22 09:30] VITALS: BP 164/79; TEMP 97.5; O2SAT 97
[2023-04-22] MEDS ORDERED: rOPINIRole 0.25 MG TAB(REQUIP) PO SCH (21:00)
== END 2023-04-22 10:56 | disposition home or self-care (01) ==
LOC: M ED 17:32
DX: Z13.30 Encounter for screening examination for mental health and behavioral disorders, unspecified (principal); I10 Essential (primary) hypertension; E78.5 Hyperlipidemia, unspecified; K70.31 Alcoholic cirrhosis of liver with ascites; E11.9 Type 2 diabetes mellitus without complications; Z87.891 Personal history of nicotine dependence; Z79.01 Long term (current) use of anticoagulants; Z86.79 Personal history of other diseases of the circulatory system; Z91.013 Allergy to seafood; Z79.4 Long term (current) use of insulin; Z79.899 Other long term (current) drug therapy

== ENCOUNTER → 2023-04-25 | Outpatient (REF) | payer MEDICARE ==
[~2023-04-25] MED LIST changes: +ROPI0.5T33 PO; +SEMA3TAB4 PO; +SPIR-10 PO
[2023-04-25 12:43] LABS: ALBUMIN 3.8 G/DL (3.2-5.2); BILIRUBIN,DIRECT 0.3 MG/DL (<0.4); BILIRUBIN,TOTAL 0.6 MG/DL (0.3-1.2); CREATININE FOR GFR 1.54 MG/DL (0.70-1.30); FERRITIN 50.2 NG/ML (10.5-307.3); GLOMERULAR FILTRATION RATE 46.3 (>35); POTASSIUM SERUM 4.8 MMOL/L (3.5-5.1); TOTAL PROTEIN 7.5 G/DL (5.7-8.2)
[2023-04-25 17:27] LABS: APPEARANCE, URINE CLEAR (CLEAR); BACTERIA, URINE AUTO NEGATIVE (NEGATIVE); BILIRUBIN, URINE AUTO NEGATIVE (NEGATIVE); BLOOD, URINE BLOOD NEGATIVE (NEGATIVE); COLOR, URINE YELLOW (YELLOW); GLUCOSE, URINE (UA) AUTO NEGATIVE (NEGATIVE); KETONE, URINE AUTO NEGATIVE (NEGATIVE); LEUKOCYTE ESTERASE, URINE AUTO NEGATIVE (NEGATIVE); NITRITE, URINE AUTO NEGATIVE (NEGATIVE); PROTEIN, URINE AUTO NEGATIVE (NEGATIVE); RBC, URINE AUTO 0 /HPF (0-3); SPECIFIC GRAVITY URINE AUTO 1.009 (1.002-1.035); SQUAMOUS EPITHELIAL CELL UR AU 0 /HPF (0-6); UROBILINOGEN, URINE AUTO 0.2 mg/dL (0.0-2.0); WBC, URINE AUTO 0 /HPF (0-3)
== END ==
LOC: M LAB REF 11:00
PROVIDERS: ATTEND Pediatrics
DX: G25.81 Restless legs syndrome (principal); I50.9 Heart failure, unspecified; K70.31 Alcoholic cirrhosis of liver with ascites; R30.0 Dysuria

== ENCOUNTER → 2023-05-26 | Outpatient (REF) | payer MEDICARE ==
[~2023-05-26] MED LIST changes: +FLOM0.4C39 PO
== END ==
LOC: M LAB REF 17:00
PROVIDERS: ATTEND Pediatrics
DX: E03.9 Hypothyroidism, unspecified (principal)

== ENCOUNTER 2023-06-06 22:03 | Emergency (ER) | payer MEDICARE, MEDICAID ==
[~2023-06-06] VITALS: Ht 180.3 cm; Wt 70.5 kg
[2023-06-06 22:15] VITALS: TEMP 97.2
[2023-06-06 23:45] VITALS: BP 130/63
[2023-06-06 23:48] VITALS: O2SAT 97
== END 2023-06-07 00:17 | disposition home or self-care (01) ==
LOC: M ED 22:03 → EDBD 22:03 → M ED 06-07 00:17
DX: R33.9 Retention of urine, unspecified (principal); I48.91 Unspecified atrial fibrillation; I25.10 Atherosclerotic heart disease of native coronary artery without angina pectoris; E11.9 Type 2 diabetes mellitus without complications; N18.9 Chronic kidney disease, unspecified; N40.0 Benign prostatic hyperplasia without lower urinary tract symptoms; Z87.891 Personal history of nicotine dependence; Z79.01 Long term (current) use of anticoagulants; Z79.899 Other long term (current) drug therapy; Z91.013 Allergy to seafood

== ENCOUNTER → 2023-06-16 | Outpatient (CLI) | payer MEDICARE, MEDICAID | LOC: M RAD 12:36 | PROVIDERS: ATTEND Pediatrics | DX: I70.203 Unspecified atherosclerosis of native arteries of extremities, bilateral legs (principal); M79.604 Pain in right leg; M79.605 Pain in left leg ==

== ENCOUNTER → 2023-07-08 | Outpatient (REF) | payer MEDICARE, MEDICAID ==
[2023-07-08 17:44] LABS: APPEARANCE, URINE CLOUDY (CLEAR); BACTERIA, URINE AUTO 3+ (NEGATIVE); BILIRUBIN, URINE AUTO NEGATIVE (NEGATIVE); BLOOD, URINE BLOOD NEGATIVE (NEGATIVE); COLOR, URINE YELLOW (YELLOW); GLUCOSE, URINE (UA) AUTO NEGATIVE (NEGATIVE); KETONE, URINE AUTO NEGATIVE (NEGATIVE); LEUKOCYTE ESTERASE, URINE AUTO 3+ (NEGATIVE); NITRITE, URINE AUTO NEGATIVE (NEGATIVE); PROTEIN, URINE AUTO NEGATIVE (NEGATIVE); RBC, URINE AUTO 0 /HPF (0-3); SPECIFIC GRAVITY URINE AUTO 1.013 (1.002-1.035); SQUAMOUS EPITHELIAL CELL UR AU 0 /HPF (0-6); UROBILINOGEN, URINE AUTO 0.2 mg/dL (0.0-2.0); WBC, URINE AUTO TNTC /HPF (0-3)
== END ==
LOC: M LAB REF 16:37
PROVIDERS: ATTEND Nurse Practitioner Family
DX: R30.0 Dysuria (principal)

== ENCOUNTER 2023-09-08 15:47 | Inpatient (IN) | payer MEDICARE, MEDICAID ==
[~2023-09-08] VITALS: Ht 177.8 cm; Wt 71.3 kg
[2023-09-08 16:31] LABS: BASO % 0.4 % (0.0-1.0); EOS % 0.2 % (0.0-3.0); HEMATOCRIT 53.3 % (42.0-52.0); HEMOGLOBIN 17.4 g/dl (13.5-17.5); LYMPH # 0.8 10^3/uL (1.5-5.0); LYMPH % 14.7 % (24.0-44.0); MEAN CORPUSCULAR HEMOGLOBIN 29.7 pg (27.0-33.0); MEAN CORPUSCULAR HGB CONC 32.6 g/dl (32.0-36.5); MONO # 0.3 10^3/uL (0.0-0.8); MONO % 5.4 % (2.0-8.0); NEUTROPHILS # 4.4 10^3/uL (1.5-8.5); NEUTROPHILS % 78.9 % (36.0-66.0); PLATELET COUNT, AUTOMATED 199 10^3/uL (150-450); RED BLOOD COUNT 5.86 10^6/uL (4.30-6.10); WHITE BLOOD COUNT 5.5 10^3/uL (4.0-10.0)
[2023-09-08] MEDS: ACETAMINOPHEN TAB 650MG DOSE (2X325MG) PO ONE (16:48)
[2023-09-08] MEDS: cefTRIAXone SOD 2 GM in D5W MINI-BAG PLUS 50 ML IV ONE (16:48)
[2023-09-08] MEDS ORDERED: SEMA7TAB2 PO (16:56)
[2023-09-08] MEDS ORDERED: LEXA1TAB PO (16:56)
[2023-09-08] MEDS ORDERED: FINA5TAB2 PO (16:56)
[2023-09-08 17:04] LABS: ALBUMIN 3.2 G/DL (3.2-5.2); ALKALINE PHOSPHATASE 113 U/L (46-116); ALT/SGPT 20 U/L (7.0-40); AST/SGOT 21 U/L (<34); BILIRUBIN,DIRECT 0.4 MG/DL (<0.4); BLOOD UREA NITROGEN 55 MG/DL (9-23); CALCIUM LEVEL 10.1 MG/DL (8.3-10.6); CARBON DIOXIDE LEVEL 26 MMOL/L (20-31); CHLORIDE LEVEL 100 MMOL/L (98-107); CK-MB VALUE MASS < 1.0 NG/ML (<3.6); CREATININE FOR GFR 1.68 MG/DL (0.70-1.30); GLOMERULAR FILTRATION RATE 41.9 (>35); GLUCOSE, FASTING 149 MG/DL (74-106); POTASSIUM SERUM 5.2 MMOL/L (3.5-5.1); SODIUM LEVEL 136 MMOL/L (136-145); TOTAL PROTEIN 7.5 G/DL (5.7-8.2)
[2023-09-08 17:06] LABS: CPK CREATINE PHOSPHOKINASE 48 U/L (46-171); MB/CK RELATIVE INDEX 2.08 (< OR =4); THYROID STIMULATING HORMONE 0.726 uIU/ML (0.55-4.78)
[2023-09-08] MEDS ORDERED: ISOVUE-370 76% 100ML VIAL As Ordered ONE (17:14)
[2023-09-08] MEDS ORDERED: HOME MED LIST COMPLETE! XX SCH (17:45)
[2023-09-08] MEDS: NS 2,040 ML in IV 1 EA IV ONE (17:55)
[2023-09-08] MEDS ORDERED: ALBUTEROL SULFATE 2.5MG/0.5ML INH NEB SOLN NEB PRN (18:40)
[2023-09-08] MEDS ORDERED: HEPARIN SOD (PORCINE) 5000UNITS/ML 1ML VIAL/SYRINGE SC SCH (18:40)
[2023-09-08] MEDS ORDERED: GLUCOSE 4GM CHEW TABLET PO PRN (19:05)
[2023-09-08] MEDS ORDERED: DEXTROSE 50% 50ML SYRINGE IV PRN (19:05)
[2023-09-08] MEDS ORDERED: GLUCAGON INJ 1MG VIAL SC PRN (19:05)
[2023-09-08 19:47] LABS: PROCALCITONIN 0.54 ng/ml
[2023-09-08] MEDS: AMIODARONE HCL 150 MG in IV 1 EA IV ONE (20:37)
[2023-09-08] MEDS: ENOXAPARIN 60MG/0.6ML SYRINGE (J1650 PER 10MG) SC SCH (20:56)
[2023-09-08] MEDS: AMIODARONE HCL 360 MG in IV 1 EA IV SCH (21:11)
[2023-09-08] MEDS: DOXYCYCLINE HYCLATE 100 MG in D5W MINI-BAG PLUS 100 ML IV SCH (21:14)
[2023-09-08] MEDS: LACTATED RINGER'S 1000 ML IV ONE (21:35)
[2023-09-08] MEDS: NOREPINEPHRINE 4MG IN D5 250ML 4 MG in IV 1 EA IV SCH (22:11)
[2023-09-08 23:23] VITALS: BP 97/60; TEMP 99; O2SAT 92
[2023-09-08 23:31] VITALS: BP 117/61; O2SAT 92
[2023-09-08 23:46] VITALS: BP 134/54; O2SAT 93
[2023-09-08] MEDS: INSULIN LISPRO (NovoLOG) PER UNIT SC SCH (23:46)
[2023-09-09] VITALS (75 sets, daily range): BP systolic 71–136; BP diastolic 43–80; TEMP 97–98.9; O2SAT 91–97
[2023-09-09] MEDS: rOPINIRole 0.25 MG TAB(REQUIP) PO SCH (00:39)
[2023-09-09] MEDS: DOCUSATE SODIUM 100MG CAPSULE PO ONE (00:39)
[2023-09-09] MEDS: AMIODARONE HCL 360 MG in IV 1 EA IV SCH (02:58)
[2023-09-09 04:49] LABS: HEMATOCRIT 39.8 % (42.0-52.0); MEAN CORPUSCULAR HEMOGLOBIN 30.1 pg (27.0-33.0); MEAN CORPUSCULAR HGB CONC 32.9 g/dl (32.0-36.5); MEAN CORPUSCULAR VOLUME 91.5 fl (80.0-96.0); PLATELET COUNT, AUTOMATED 159 10^3/uL (150-450); RED BLOOD COUNT 4.35 10^6/uL (4.30-6.10); WHITE BLOOD COUNT 18.7 10^3/uL (4.0-10.0)
[2023-09-09 04:50] LABS: HEMOGLOBIN 13.1 g/dl (13.5-17.5)
[2023-09-09 05:17] LABS: ALBUMIN 2.3 G/DL (3.2-5.2); BILIRUBIN,TOTAL 0.5 MG/DL (0.3-1.2); CREATININE FOR GFR 1.73 MG/DL (0.70-1.30); GLOMERULAR FILTRATION RATE 40.5 (>35); POTASSIUM SERUM 4.5 MMOL/L (3.5-5.1); TOTAL PROTEIN 5.6 G/DL (5.7-8.2)
[2023-09-09] MEDS: LEVOTHYROXINE 75MCG TABLET (0.075MG) PO SCH (05:39)
[2023-09-09] MEDS: cefTRIAXone SOD 2 GM in D5W MINI-BAG PLUS 50 ML IV SCH (12:45)
[2023-09-09] MEDS: ATORVASTATIN 20 MG TAB PO SCH (12:47)
[2023-09-09] MEDS: ENOXAPARIN 80MG/0.8ML SYRINGE (J1650 PER 10MG) SC SCH (18:50)
[2023-09-09] MEDS: INSULIN LISPRO (NovoLOG) PER UNIT SC SCH (21:00)
[2023-09-10] VITALS (12 sets, daily range): BP systolic 101–135; BP diastolic 56–66; TEMP 97.7–98.8; O2SAT 90–95
[2023-09-10 04:23] LABS: HEMATOCRIT 33.9 % (42.0-52.0); HEMOGLOBIN 11.4 g/dl (13.5-17.5); MEAN CORPUSCULAR HEMOGLOBIN 30.5 pg (27.0-33.0); MEAN CORPUSCULAR HGB CONC 33.6 g/dl (32.0-36.5); MEAN CORPUSCULAR VOLUME 90.6 fl (80.0-96.0); PLATELET COUNT, AUTOMATED 105 10^3/uL (150-450); RED BLOOD COUNT 3.74 10^6/uL (4.30-6.10); WHITE BLOOD COUNT 9.7 10^3/uL (4.0-10.0)
[2023-09-10 04:47] LABS: ALBUMIN 2.1 G/DL (3.2-5.2); BILIRUBIN,TOTAL 0.3 MG/DL (0.3-1.2); CALCIUM LEVEL 8.3 MG/DL (8.3-10.6); CREATININE FOR GFR 1.62 MG/DL (0.70-1.30); GLOMERULAR FILTRATION RATE 43.6 (>35); POTASSIUM SERUM 3.2 MMOL/L (3.5-5.1)
[2023-09-10] MEDS: KCL 20MEQ IN 100ML SWI (KRUN) 20 MEQ in IV 1 EA IV SCH (05:23)
[2023-09-10] MEDS: INSULIN LISPRO (NovoLOG) PER UNIT SC SCH (07:30)
[2023-09-10] MEDS ORDERED: BARIUM SULFATE 700 MG TABLET (E-Z-DISK) As Ordered ONE (08:53)
[2023-09-10] MEDS ORDERED: E-Z-PAQUE 96% w/w SUSP 176GM BTL As Ordered ONE (08:53)
[2023-09-10] MEDS ORDERED: VARIBAR PUDDING 40% w/v 230ML TUBE As Ordered ONE (08:53)
[2023-09-10] MEDS ORDERED: VARIBAR NECTAR 40% w/v 240ML SUSP BTL As Ordered ONE (08:53)
[2023-09-10] MEDS: AMIODARONE 200 MG TAB (PACERONE) PO SCH (09:08)
[2023-09-10] MEDS: NEOSPORIN OINT 0.9 GM PKT TOP ONE (17:51)
[2023-09-11] VITALS: BP 108/59; TEMP 98.8; O2SAT 93; O2SAT 94
[2023-09-11 04:00] VITALS: BP 109/58; TEMP 97.7; O2SAT 94
[2023-09-11 08:00] VITALS: BP 91/54; TEMP 98.1; O2SAT 94
[2023-09-11] MEDS: APIXABAN 2.5 MG TAB (ELIQUIS) PO SCH (08:12)
[2023-09-11 10:06] LABS: HEMATOCRIT 35.9 % (42.0-52.0); HEMOGLOBIN 11.7 g/dl (13.5-17.5); MEAN CORPUSCULAR HEMOGLOBIN 29.7 pg (27.0-33.0); MEAN CORPUSCULAR HGB CONC 32.6 g/dl (32.0-36.5); MEAN CORPUSCULAR VOLUME 91.1 fl (80.0-96.0); PLATELET COUNT, AUTOMATED 100 10^3/uL (150-450); RED BLOOD COUNT 3.94 10^6/uL (4.30-6.10); WHITE BLOOD COUNT 9.2 10^3/uL (4.0-10.0)
[2023-09-11 10:33] LABS: BILIRUBIN,TOTAL 0.4 MG/DL (0.3-1.2); CALCIUM LEVEL 8.8 MG/DL (8.3-10.6); CREATININE FOR GFR 1.33 MG/DL (0.70-1.30); GLOMERULAR FILTRATION RATE 54.8 (>35); TOTAL PROTEIN 5.5 G/DL (5.7-8.2)
[2023-09-11 11:30] VITALS: BP 102/53; O2SAT 94
[2023-09-11] MEDS: CEFDINIR 300 MG CAP (OMNICEF) PO SCH (13:14)
[2023-09-11 14:00] VITALS: BP 128/74; TEMP 98.2; O2SAT 97
[2023-09-11] MEDS: CARBAMIDE PEROXIDE 6.5% OTIC SOLN 15ML AU SCH (21:43)
[2023-09-11] MEDS: DOXYCYCLINE HYCLATE 100MG TABLET PO SCH (21:44)
[2023-09-12 05:55] LABS: HEMATOCRIT 36.1 % (42.0-52.0); HEMOGLOBIN 11.5 g/dl (13.5-17.5); MEAN CORPUSCULAR HEMOGLOBIN 29.1 pg (27.0-33.0); MEAN CORPUSCULAR HGB CONC 31.9 g/dl (32.0-36.5); MEAN CORPUSCULAR VOLUME 91.4 fl (80.0-96.0); PLATELET COUNT, AUTOMATED 106 10^3/uL (150-450); RED BLOOD COUNT 3.95 10^6/uL (4.30-6.10); WHITE BLOOD COUNT 6.8 10^3/uL (4.0-10.0)
[2023-09-12 06:00] VITALS: BP 126/70; TEMP 97; O2SAT 94
[2023-09-12 06:23] LABS: BILIRUBIN,TOTAL 0.5 MG/DL (0.3-1.2); CALCIUM LEVEL 9.1 MG/DL (8.3-10.6); CREATININE FOR GFR 1.24 MG/DL (0.70-1.30); GLOMERULAR FILTRATION RATE 59.4 (>35); POTASSIUM SERUM 3.9 MMOL/L (3.5-5.1); TOTAL PROTEIN 5.2 G/DL (5.7-8.2)
[2023-09-12 09:00] VITALS: BP 125/68; TEMP 97.3; O2SAT 98
[2023-09-12 12:58] LABS: MAGNESIUM LEVEL 1.9 MG/DL (1.8-2.4)
[2023-09-12 14:00] VITALS: BP 123/67; TEMP 97.5; O2SAT 95
[2023-09-12 22:00] VITALS: BP 122/66; TEMP 98.1; O2SAT 97
[2023-09-13] MEDS: NS 1,000 ML IV SCH (05:04)
[2023-09-13 06:00] VITALS: BP 122/64; TEMP 97.7; O2SAT 93
[2023-09-13 06:44] LABS: HEMATOCRIT 36.2 % (42.0-52.0); HEMOGLOBIN 11.7 g/dl (13.5-17.5); MEAN CORPUSCULAR HEMOGLOBIN 29.8 pg (27.0-33.0); MEAN CORPUSCULAR HGB CONC 32.3 g/dl (32.0-36.5); MEAN CORPUSCULAR VOLUME 92.3 fl (80.0-96.0); PLATELET COUNT, AUTOMATED 113 10^3/uL (150-450); RED BLOOD COUNT 3.92 10^6/uL (4.30-6.10); WHITE BLOOD COUNT 6.8 10^3/uL (4.0-10.0)
[2023-09-13 07:11] LABS: ALBUMIN 1.9 G/DL (3.2-5.2); ALKALINE PHOSPHATASE 105 U/L (46-116); ALT/SGPT 19 U/L (7.0-40); AST/SGOT 14 U/L (<34); BILIRUBIN,TOTAL 0.6 MG/DL (0.3-1.2); BLOOD UREA NITROGEN 28 MG/DL (9-23); CARBON DIOXIDE LEVEL 23 MMOL/L (20-31); CHLORIDE LEVEL 111 MMOL/L (98-107); CREATININE FOR GFR 1.16 MG/DL (0.70-1.30); GLOMERULAR FILTRATION RATE > 60.0 (>35); GLUCOSE, FASTING 105 MG/DL (74-106); MAGNESIUM LEVEL 1.8 MG/DL (1.8-2.4); SODIUM LEVEL 141 MMOL/L (136-145); TOTAL PROTEIN 5.5 G/DL (5.7-8.2)
[2023-09-13] MEDS: SPIRONOLACTONE 25 MG TAB PO SCH (09:04)
[2023-09-13] MEDS: busPIRone 10 MG TAB PO SCH (09:04)
[2023-09-13 09:05] VITALS: BP 121/64
[2023-09-13 14:00] VITALS: BP 121/64; TEMP 97.2; O2SAT 94
[2023-09-13 22:00] VITALS: BP 119/70; TEMP 98.8; O2SAT 92
[2023-09-14 04:52] VITALS: BP 121/71; TEMP 98.2; O2SAT 95
[2023-09-14 06:24] LABS: HEMATOCRIT 39.9 % (42.0-52.0); HEMOGLOBIN 12.6 g/dl (13.5-17.5); MEAN CORPUSCULAR HEMOGLOBIN 29.5 pg (27.0-33.0); MEAN CORPUSCULAR HGB CONC 31.6 g/dl (32.0-36.5); MEAN CORPUSCULAR VOLUME 93.4 fl (80.0-96.0); PLATELET COUNT, AUTOMATED 150 10^3/uL (150-450); RED BLOOD COUNT 4.27 10^6/uL (4.30-6.10); WHITE BLOOD COUNT 6.5 10^3/uL (4.0-10.0)
[2023-09-14 06:47] LABS: ALBUMIN 2.1 G/DL (3.2-5.2); ALKALINE PHOSPHATASE 126 U/L (46-116); ALT/SGPT 22 U/L (7.0-40); AST/SGOT 14 U/L (<34); BILIRUBIN,TOTAL 0.7 MG/DL (0.3-1.2); BLOOD UREA NITROGEN 25 MG/DL (9-23); CALCIUM LEVEL 9.3 MG/DL (8.3-10.6); CARBON DIOXIDE LEVEL 25 MMOL/L (20-31); CHLORIDE LEVEL 110 MMOL/L (98-107); CREATININE FOR GFR 1.15 MG/DL (0.70-1.30); GLOMERULAR FILTRATION RATE > 60.0 (>35); GLUCOSE, FASTING 112 MG/DL (74-106); POTASSIUM SERUM 4.1 MMOL/L (3.5-5.1); SODIUM LEVEL 143 MMOL/L (136-145)
[2023-09-14 08:55] VITALS: BP 122/72
[2023-09-14] MEDS: SENOKOT S TAB PO SCH (11:57)
[2023-09-14 14:00] VITALS: BP 106/58; TEMP 97.7; O2SAT 96
[2023-09-14 20:20] VITALS: BP 116/60; TEMP 97.7; O2SAT 98
[2023-09-14] MEDS ORDERED: CARVedilol 12.5 MG TAB PO SCH (21:00)
[2023-09-15 05:40] LABS: HEMATOCRIT 38.5 % (42.0-52.0); HEMOGLOBIN 12.1 g/dl (13.5-17.5); MEAN CORPUSCULAR HEMOGLOBIN 29.1 pg (27.0-33.0); MEAN CORPUSCULAR HGB CONC 31.4 g/dl (32.0-36.5); MEAN CORPUSCULAR VOLUME 92.5 fl (80.0-96.0); PLATELET COUNT, AUTOMATED 170 10^3/uL (150-450); RED BLOOD COUNT 4.16 10^6/uL (4.30-6.10); WHITE BLOOD COUNT 6.9 10^3/uL (4.0-10.0)
[2023-09-15 05:43] VITALS: BP 119/78; TEMP 97.3; O2SAT 96
[2023-09-15 06:08] LABS: ALKALINE PHOSPHATASE 115 U/L (46-116); ALT/SGPT 22 U/L (7.0-40); AST/SGOT 13 U/L (<34); BILIRUBIN,TOTAL 0.7 MG/DL (0.3-1.2); BLOOD UREA NITROGEN 27 MG/DL (9-23); CALCIUM LEVEL 9.3 MG/DL (8.3-10.6); CARBON DIOXIDE LEVEL 25 MMOL/L (20-31); CHLORIDE LEVEL 112 MMOL/L (98-107); CREATININE FOR GFR 1.18 MG/DL (0.70-1.30); GLOMERULAR FILTRATION RATE > 60.0 (>35); GLUCOSE, FASTING 94 MG/DL (74-106); POTASSIUM SERUM 4.3 MMOL/L (3.5-5.1); SODIUM LEVEL 144 MMOL/L (136-145); TOTAL PROTEIN 5.4 G/DL (5.7-8.2)
[2023-09-15] MEDS: CARVedilol 6.25 MG TAB PO SCH (10:57)
[2023-09-15] MEDS: ESCITALOPRAM OXALATE 10 MG TAB (LEXAPRO) PO SCH (10:57)
[2023-09-15 14:00] VITALS: BP 112/56; TEMP 97.5; O2SAT 96
[2023-09-15 20:00] VITALS: BP 131/66; TEMP 97.5; O2SAT 96
[2023-09-15 22:00] VITALS: BP 129/67; TEMP 99; O2SAT 97
[2023-09-16 06:00] VITALS: BP 122/70; TEMP 97.9; O2SAT 94
[2023-09-16] MEDS: ACETAMINOPHEN TAB 650MG DOSE (2X325MG) PO PRN (13:12)
[2023-09-16 14:00] VITALS: BP 112/60; TEMP 97.7; O2SAT 95
[2023-09-16 20:50] VITALS: BP 119/63; TEMP 97.5; O2SAT 97
[2023-09-17 04:50] VITALS: BP 103/51; TEMP 97.5; O2SAT 93
[2023-09-17 06:47] LABS: BLOOD UREA NITROGEN 30 MG/DL (9-23); CALCIUM LEVEL 8.8 MG/DL (8.3-10.6); CARBON DIOXIDE LEVEL 24 MMOL/L (20-31); CHLORIDE LEVEL 111 MMOL/L (98-107); CREATININE FOR GFR 1.17 MG/DL (0.70-1.30); GLOMERULAR FILTRATION RATE > 60.0 (>35); GLUCOSE, FASTING 85 MG/DL (74-106); MAGNESIUM LEVEL 1.9 MG/DL (1.8-2.4); POTASSIUM SERUM 4.4 MMOL/L (3.5-5.1); SODIUM LEVEL 141 MMOL/L (136-145)
[2023-09-17 09:00] VITALS: BP 92/52
[2023-09-18 05:10] VITALS: BP 111/60; TEMP 97.7; O2SAT 94
[2023-09-18 06:46] LABS: BLOOD UREA NITROGEN 27 MG/DL (9-23); CARBON DIOXIDE LEVEL 27 MMOL/L (20-31); CHLORIDE LEVEL 108 MMOL/L (98-107); CREATININE FOR GFR 1.17 MG/DL (0.70-1.30); GLOMERULAR FILTRATION RATE > 60.0 (>35); GLUCOSE, FASTING 80 MG/DL (74-106); MAGNESIUM LEVEL 1.9 MG/DL (1.8-2.4); POTASSIUM SERUM 4.4 MMOL/L (3.5-5.1); SODIUM LEVEL 141 MMOL/L (136-145)
[2023-09-18 09:00] VITALS: BP 101/57; TEMP 97.5; O2SAT 94
[2023-09-18] MEDS ORDERED: CARV6.25 PO (12:58)
== END 2023-09-18 15:29 | disposition home or self-care (01) | DRG 871 ==
LOC: EDBD 15:47 → M ED 15:47 → M ED INP 18:38 → M ICU 23:16 → M MSPAV 09-11 13:50
PROVIDERS: ADMIT Internal Medicine Pulmonary Disease; ATTEND Student in an Organized Health Care Education/Training Program
PROC: 02HV33Z Insertion of Infusion Device into Superior Vena Cava, Percutaneous Approach (ICD-10-PCS; principal; 2023-09-08)
PROC: B246ZZZ Ultrasonography of Right and Left Heart (ICD-10-PCS; 2023-09-09)
DX: A41.9 Sepsis, unspecified organism (principal); R65.21 Severe sepsis with septic shock; J15.9 Unspecified bacterial pneumonia; J12.9 Viral pneumonia, unspecified; I13.0 Hypertensive heart and chronic kidney disease with heart failure and stage 1 through stage 4 chronic kidney disease, or unspecified chronic kidney disease; I50.32 Chronic diastolic (congestive) heart failure; E87.20 Acidosis, unspecified; E11.22 Type 2 diabetes mellitus with diabetic chronic kidney disease; E78.5 Hyperlipidemia, unspecified; K70.30 Alcoholic cirrhosis of liver without ascites; N18.30 Chronic kidney disease, stage 3 unspecified; R13.10 Dysphagia, unspecified; N40.0 Benign prostatic hyperplasia without lower urinary tract symptoms; I48.91 Unspecified atrial fibrillation; E87.6 Hypokalemia; I27.20 Pulmonary hypertension, unspecified; I08.3 Combined rheumatic disorders of mitral, aortic and tricuspid valves; Z87.891 Personal history of nicotine dependence; B34.8 Other viral infections of unspecified site; Z79.01 Long term (current) use of anticoagulants; Z79.890 Hormone replacement therapy; Z79.899 Other long term (current) drug therapy; Z91.013 Allergy to seafood; Z79.84 Long term (current) use of oral hypoglycemic drugs; Z20.822 Contact with and (suspected) exposure to COVID-19; R33.9 Retention of urine, unspecified

== ENCOUNTER 2023-09-28 23:03 | Emergency (ER) | payer MEDICARE, MEDICAID ==
[~2023-09-28 23:03] MED LIST changes: +CARV6.25 PO; +FINA5TAB2 PO; +LEXA1TAB PO; +SEMA7TAB2 PO
[2023-09-28 23:19] VITALS: BP 138/80; TEMP 97; O2SAT 99
[2023-09-29] MEDS: NS 500 ML IV ONE (00:47)
[2023-09-29] MEDS: ONDANSETRON 4MG 2ML VIAL IV ONE (00:49)
[2023-09-29 00:57] LABS: BASO # 0.1 10^3/uL (0.0-0.2); BASO % 0.9 % (0.0-1.0); EOS # 0.1 10^3/uL (0.0-0.5); EOS % 1.2 % (0.0-3.0); HEMATOCRIT 49.4 % (42.0-52.0); HEMOGLOBIN 15.8 g/dl (13.5-17.5); LYMPH # 1.7 10^3/uL (1.5-5.0); MEAN CORPUSCULAR HEMOGLOBIN 28.9 pg (27.0-33.0); MEAN CORPUSCULAR VOLUME 90.5 fl (80.0-96.0); MONO # 0.9 10^3/uL (0.0-0.8); MONO % 9.7 % (2.0-8.0); NEUTROPHILS # 6.5 10^3/uL (1.5-8.5); NEUTROPHILS % 69.8 % (36.0-66.0); PLATELET COUNT, AUTOMATED 265 10^3/uL (150-450); RED BLOOD COUNT 5.46 10^6/uL (4.30-6.10); WHITE BLOOD COUNT 9.3 10^3/uL (4.0-10.0)
[2023-09-29 01:19] LABS: CALCIUM LEVEL 11.4 MG/DL (8.3-10.6); CREATININE FOR GFR 1.93 MG/DL (0.70-1.30); GLOMERULAR FILTRATION RATE 35.7 (>35); POTASSIUM SERUM 4.9 MMOL/L (3.5-5.1)
[2023-09-29] MEDS ORDERED: METF10004 PO (02:07)
[2023-09-29] MEDS ORDERED: LEVO75TA4 PO (02:07)
[2023-09-29] MEDS ORDERED: ROPI0.5T33 PO (02:07)
[2023-09-29] MEDS ORDERED: SPIR-10 PO (02:07)
[2023-09-29] MEDS ORDERED: FINA5TAB2 PO (02:07)
[2023-09-29] MEDS ORDERED: SEMA7TAB2 PO (02:07)
[2023-09-29] MEDS ORDERED: CARV6.25 PO (02:07)
[2023-09-29] MEDS ORDERED: BUSP10TA PO (02:07)
== END 2023-09-29 03:11 | disposition home or self-care (01) ==
LOC: EDBD 23:03 → M ED 23:03
DX: T17.920A Food in respiratory tract, part unspecified causing asphyxiation, initial encounter (principal); E86.0 Dehydration; I45.81 Long QT syndrome; I44.4 Left anterior fascicular block; I48.91 Unspecified atrial fibrillation; Z91.013 Allergy to seafood; Z79.01 Long term (current) use of anticoagulants; Z79.02 Long term (current) use of antithrombotics/antiplatelets; Z79.4 Long term (current) use of insulin; Z79.899 Other long term (current) drug therapy; Y92.9 Unspecified place or not applicable; Y93.9 Activity, unspecified; Y99.9 Unspecified external cause status
CPT/HCPCS: 71045; 80048; 83605; 85025; 93005; 96361; 96374; 99284; J2405

== ENCOUNTER → 2023-10-08 | Outpatient (REF) | payer MEDICARE, MEDICAID, OTHER ==
[2023-10-08 18:23] LABS: ALBUMIN 3.3 G/DL (3.2-5.2); BILIRUBIN,TOTAL 0.8 MG/DL (0.3-1.2); CALCIUM LEVEL 10.2 MG/DL (8.3-10.6); CREATININE FOR GFR 1.69 MG/DL (0.70-1.30); GLOMERULAR FILTRATION RATE 41.6 (>35); POTASSIUM SERUM 5.5 MMOL/L (3.5-5.1); TOTAL PROTEIN 6.8 G/DL (5.7-8.2)
[2023-10-08 18:24] LABS: THYROID STIMULATING HORMONE 2.707 uIU/ML (0.55-4.78)
[2023-10-08 18:41] LABS: HEMOGLOBIN A1c 5.5 % (4.0-6.0)
== END ==
LOC: M LAB REF 17:29
PROVIDERS: ATTEND Family Medicine Addiction Medicine
DX: E03.9 Hypothyroidism, unspecified (principal); E11.22 Type 2 diabetes mellitus with diabetic chronic kidney disease

== ENCOUNTER → 2024-01-19 | Outpatient (REF) | payer MEDICARE, MEDICAID, OTHER ==
[~2024-01-19] MED LIST changes: +ONDA-282 SL; -ONDA4TAB6 SL; +ROPI1TA PO; -ROPI1TAB86 PO
[2024-01-19 14:06] LABS: THYROID STIMULATING HORMONE 2.119 uIU/ML (0.55-4.78)
[2024-01-19 14:07] LABS: CREATININE FOR GFR 2.03 MG/DL (0.70-1.30); GLOMERULAR FILTRATION RATE 33.6 (>35); POTASSIUM SERUM 4.7 MMOL/L (3.5-5.1)
[2024-01-19 14:27] LABS: HEMOGLOBIN A1c 5.4 % (4.0-6.0)
== END ==
LOC: M LAB REF 13:30
PROVIDERS: ATTEND Pediatrics
DX: N18.30 Chronic kidney disease, stage 3 unspecified (principal); E11.22 Type 2 diabetes mellitus with diabetic chronic kidney disease; E03.9 Hypothyroidism, unspecified; I50.9 Heart failure, unspecified

== ENCOUNTER → 2024-04-26 | Outpatient (REF) | payer MEDICARE, MEDICAID, OTHER ==
[~2024-04-26] MED LIST changes: +CEFD300CAP PO; +DOXY100T PO; +ELIQ2.5T PO; +PROBCAP14 PO; +THERTAB52 PO
[2024-04-26 17:25] LABS: CREATININE, URINE 57.8 MG/DL; MAU/CREAT RATIO 20.7 MCG/MG (0.0-30.0)
[2024-04-26 17:47] LABS: BASO % 0.6 % (0.0-1.0); EOS # 0.1 10^3/uL (0.0-0.5); EOS % 1.9 % (0.0-3.0); HEMATOCRIT 42.6 % (42.0-52.0); HEMOGLOBIN 13.3 g/dl (13.5-17.5); LYMPH # 1.2 10^3/uL (1.5-5.0); LYMPH % 18.3 % (24.0-44.0); MEAN CORPUSCULAR HEMOGLOBIN 28.5 pg (27.0-33.0); MEAN CORPUSCULAR HGB CONC 31.2 g/dl (32.0-36.5); MEAN CORPUSCULAR VOLUME 91.4 fl (80.0-96.0); MONO # 0.7 10^3/uL (0.0-0.8); MONO % 9.9 % (2.0-8.0); NEUTROPHILS # 4.7 10^3/uL (1.5-8.5); NEUTROPHILS % 69.2 % (36.0-66.0); PLATELET COUNT, AUTOMATED 198 10^3/uL (150-450); RED BLOOD COUNT 4.66 10^6/uL (4.30-6.10); WHITE BLOOD COUNT 6.8 10^3/uL (4.0-10.0)
[2024-04-26 18:18] LABS: ALBUMIN 3.6 G/DL (3.2-5.2); BILIRUBIN,TOTAL 0.8 MG/DL (0.3-1.2); CALCIUM LEVEL 9.9 MG/DL (8.3-10.6); CHOLESTEROL RISK RATIO 3.18 (<5); CREATININE FOR GFR 2.13 MG/DL (0.70-1.30); GLOMERULAR FILTRATION RATE 31.7 (>35); HDL CHOLESTEROL 33.3 MG/DL (>40); LDL CHOLESTEROL 48.5 MG/DL (<100); NON-HDL-C 72.7 MG/DL; POTASSIUM SERUM 4.9 MMOL/L (3.5-5.1); TOTAL PROTEIN 7.5 G/DL (5.7-8.2)
[2024-04-26 18:19] LABS: THYROID STIMULATING HORMONE 1.213 uIU/ML (0.55-4.78)
[2024-04-26 18:39] LABS: HEMOGLOBIN A1c 5.5 % (4.0-6.0)
== END ==
LOC: M LAB REF 16:36
PROVIDERS: ATTEND Pediatrics
DX: E11.22 Type 2 diabetes mellitus with diabetic chronic kidney disease (principal); E78.2 Mixed hyperlipidemia; E03.9 Hypothyroidism, unspecified

== ENCOUNTER 2024-04-28 15:38 | Inpatient (IN) | payer MEDICARE, MEDICAID ==
[~2024-04-28] VITALS: Ht 177.8 cm; Wt 64.9 kg
[~2024-04-28 15:38] MED LIST changes: -CEFD300CAP PO; -DOXY100T PO; -ELIQ2.5T PO; -PROBCAP14 PO; -THERTAB52 PO
[2024-04-28 16:33] LABS: BASO % 0.3 % (0.0-1.0); EOS % 0.5 % (0.0-3.0); HEMATOCRIT 36.6 % (42.0-52.0); HEMOGLOBIN 11.8 g/dl (13.5-17.5); LYMPH # 0.5 10^3/uL (1.5-5.0); LYMPH % 7.5 % (24.0-44.0); MEAN CORPUSCULAR HGB CONC 32.2 g/dl (32.0-36.5); MEAN CORPUSCULAR VOLUME 89.9 fl (80.0-96.0); MONO # 1.1 10^3/uL (0.0-0.8); MONO % 16.4 % (2.0-8.0); NEUTROPHILS # 4.8 10^3/uL (1.5-8.5); PLATELET COUNT, AUTOMATED 134 10^3/uL (150-450); RED BLOOD COUNT 4.07 10^6/uL (4.30-6.10); WHITE BLOOD COUNT 6.4 10^3/uL (4.0-10.0)
[2024-04-28] MEDS: PANTOPRAZOLE 40MG VIAL IV ONE (17:54)
[2024-04-28] MEDS: ACETAMINOPHEN TAB 650MG DOSE (2X325MG) PO ONE (17:54)
[2024-04-28] MEDS: NS 1,000 ML IV ONE (17:54)
[2024-04-28 18:19] LABS: INR 1.41; PARTIAL THROMBOPLASTIN TIME 37.8 SECONDS (24.8-34.2); PROTHROMBIN TIME 16.8 SECONDS (12.5-14.5)
[2024-04-28 18:22] LABS: CK-MB VALUE MASS < 1.0 NG/ML (<3.6)
[2024-04-28 18:28] LABS: ALBUMIN 3.1 G/DL (3.2-5.2); ALKALINE PHOSPHATASE 108 U/L (46-116); ALT/SGPT 13 U/L (7.0-40); AST/SGOT 25 U/L (<34); BILIRUBIN,DIRECT 0.3 MG/DL (<0.4); BILIRUBIN,TOTAL 0.9 MG/DL (0.3-1.2); BLOOD UREA NITROGEN 46 MG/DL (9-23); CALCIUM LEVEL 9.4 MG/DL (8.3-10.6); CARBON DIOXIDE LEVEL 23 MMOL/L (20-31); CHLORIDE LEVEL 105 MMOL/L (98-107); CPK CREATINE PHOSPHOKINASE 41 U/L (46-171); CREATININE FOR GFR 1.97 MG/DL (0.70-1.30); GLOMERULAR FILTRATION RATE 34.7 (>35); GLUCOSE, FASTING 85 MG/DL (74-106); MB/CK RELATIVE INDEX 2.43 (< OR =4); POTASSIUM SERUM 4.9 MMOL/L (3.5-5.1); SODIUM LEVEL 135 MMOL/L (136-145); TOTAL PROTEIN 6.8 G/DL (5.7-8.2)
[2024-04-28] MEDS: CEFEPIME HCL 2 GM in D5W MINI-BAG PLUS 50 ML IV ONE (19:16)
[2024-04-28] MEDS ORDERED: THERTAB52 PO (19:55)
[2024-04-28] MEDS ORDERED: CARV6.25 PO (19:55)
[2024-04-28] MEDS ORDERED: ELIQ2.5T PO (19:55)
[2024-04-28] MEDS ORDERED: HOME MED LIST COMPLETE! XX SCH (20:00)
[2024-04-28] MEDS ORDERED: GLUCOSE 4 GM CHEW PO PRN (20:25)
[2024-04-28] MEDS ORDERED: DEXTROSE 50% 50ML SYRINGE IV PRN (20:25)
[2024-04-28] MEDS ORDERED: GLUCAGON INJ 1MG VIAL SC PRN (20:25)
[2024-04-28] MEDS: INSULIN LISPRO (NovoLOG) PER UNIT SC SCH (21:28)
[2024-04-28] MEDS: CARVedilol 6.25 MG TAB PO SCH (21:39)
[2024-04-28] MEDS: rOPINIRole 0.25 MG TAB(REQUIP) PO SCH (21:41)
[2024-04-28] MEDS: APIXABAN 2.5 MG TAB (ELIQUIS) PO SCH (21:42)
[2024-04-28] MEDS: AZITHROMYCIN 250MG TABLET PO ONE (21:42)
[2024-04-28] MEDS: guaiFENesin ER TABLET 600 MG TAB PO SCH (21:42)
[2024-04-28] MEDS: NS 1,000 ML IV SCH (21:44)
[2024-04-29] VITALS (7 sets, daily range): BP systolic 94–119; BP diastolic 57–91; TEMP 97.7–98.6; O2SAT 93–98
[2024-04-29 05:20] LABS: HEMOGLOBIN 10.8 g/dl (13.5-17.5); MEAN CORPUSCULAR HEMOGLOBIN 28.3 pg (27.0-33.0); MEAN CORPUSCULAR HGB CONC 31.8 g/dl (32.0-36.5); MEAN CORPUSCULAR VOLUME 89.2 fl (80.0-96.0); PLATELET COUNT, AUTOMATED 108 10^3/uL (150-450); RED BLOOD COUNT 3.81 10^6/uL (4.30-6.10); WHITE BLOOD COUNT 3.6 10^3/uL (4.0-10.0)
[2024-04-29 05:44] LABS: CALCIUM LEVEL 8.7 MG/DL (8.3-10.6); CREATININE FOR GFR 1.99 MG/DL (0.70-1.30); GLOMERULAR FILTRATION RATE 34.3 (>35)
[2024-04-29 05:55] LABS: PROCALCITONIN 0.13 ng/ml
[2024-04-29] MEDS: LEVOTHYROXINE 75MCG TABLET (0.075MG) PO SCH (06:21)
[2024-04-29] MEDS ORDERED: AZITHROMYCIN 250MG TABLET PO SCH (09:00)
[2024-04-29] MEDS: FINASTERIDE 5MG TAB PO SCH (09:46)
[2024-04-29] MEDS: ATORVASTATIN 20 MG TAB PO SCH (09:46)
[2024-04-29] MEDS: DOXYCYCLINE HYCLATE 100MG TABLET PO SCH (09:46)
[2024-04-29] MEDS ORDERED: MIRALAX *UNIT DOSE* 17GM PACKET PO PRN (10:55)
[2024-04-29] MEDS ORDERED: SENNA 8.6 MG TAB (SENOKOT) PO PRN (10:55)
[2024-04-29] MEDS: MIDODRINE 2.5 MG TAB PO ONE (11:08)
[2024-04-29] MEDS: FUROSEMIDE 40MG/4ML VIAL IV ONE (11:30)
[2024-04-29] MEDS ORDERED: ONDANSETRON 4MG 2ML VIAL IV PRN (17:05)
[2024-04-29] MEDS: ONDANSETRON 4MG 2ML VIAL IV ONE ×2 (17:14→21:11)
[2024-04-30] VITALS (8 sets, daily range): BP systolic 90–104; BP diastolic 52–63; TEMP 97.7–98.8; O2SAT 91–98
[2024-04-30 06:48] LABS: BLOOD UREA NITROGEN 55 MG/DL (9-23); CALCIUM LEVEL 9.3 MG/DL (8.3-10.6); CARBON DIOXIDE LEVEL 26 MMOL/L (20-31); CHLORIDE LEVEL 106 MMOL/L (98-107); CREATININE FOR GFR 2.21 MG/DL (0.70-1.30); GLOMERULAR FILTRATION RATE 30.4 (>35); GLUCOSE, FASTING 125 MG/DL (74-106); MAGNESIUM LEVEL 2.2 MG/DL (1.8-2.4); POTASSIUM SERUM 4.4 MMOL/L (3.5-5.1); SODIUM LEVEL 138 MMOL/L (136-145)
[2024-04-30] MEDS: CEFDINIR 300 MG CAP (OMNICEF) PO SCH (08:27)
[2024-04-30] MEDS: ESCITALOPRAM OXALATE 10 MG TAB (LEXAPRO) PO SCH (08:27)
[2024-04-30] MEDS ORDERED: cefTRIAXone SOD 1 GM in D5W MINI-BAG PLUS 50 ML IV SCH (09:00)
[2024-04-30] MEDS: BISACODYL 5MG TAB PO SCH (10:47)
[2024-04-30] MEDS: SENOKOT S TAB PO SCH (10:48)
[2024-04-30] MEDS: SPIRONOLACTONE 25 MG TAB PO SCH (12:29)
[2024-04-30] MEDS: FUROSEMIDE 40 MG TAB PO SCH (12:30)
[2024-04-30 14:56] LABS: VITAMIN B12 LEVEL 1320 PG/ML (211-911)
[2024-04-30 15:07] LABS: IRON (FE) 19 UG/DL (65-175)
[2024-04-30 15:10] LABS: FOLATE > 24.00 NG/ML (>5.4)
[2024-04-30] MEDS: ACETAMINOPHEN TAB 650MG DOSE (2X325MG) PO PRN (17:35)
[2024-05-01] VITALS (10 sets, daily range): BP systolic 97–113; BP diastolic 52–70; TEMP 97–98.1; O2SAT 92–98
[2024-05-01 06:52] LABS: HEMATOCRIT 36.9 % (42.0-52.0); HEMOGLOBIN 11.5 g/dl (13.5-17.5); MEAN CORPUSCULAR HEMOGLOBIN 28.3 pg (27.0-33.0); MEAN CORPUSCULAR HGB CONC 31.2 g/dl (32.0-36.5); MEAN CORPUSCULAR VOLUME 90.9 fl (80.0-96.0); PLATELET COUNT, AUTOMATED 109 10^3/uL (150-450); RED BLOOD COUNT 4.06 10^6/uL (4.30-6.10); WHITE BLOOD COUNT 2.8 10^3/uL (4.0-10.0)
[2024-05-01 07:09] LABS: CALCIUM LEVEL 9.3 MG/DL (8.3-10.6); CREATININE FOR GFR 2.25 MG/DL (0.70-1.30); GLOMERULAR FILTRATION RATE 29.8 (>35); POTASSIUM SERUM 4.1 MMOL/L (3.5-5.1)
[2024-05-01] MEDS: BISACODYL 10MG SUPP PR SCH (20:50)
[2024-05-01] MEDS: SENOKOT S TAB PO SCH (20:54)
[2024-05-02 04:00] VITALS: BP_SYST 108; BP_SYST 124; BP_DIAS 49; BP_DIAS 75; TEMP 97; TEMP 97.3; O2SAT 96; O2SAT 99
[2024-05-03 04:00] VITALS: BP 110/63; TEMP 97.9; O2SAT 97
[2024-05-03 06:40] LABS: HEMATOCRIT 37.3 % (42.0-52.0); HEMOGLOBIN 11.6 g/dl (13.5-17.5); MEAN CORPUSCULAR HGB CONC 31.1 g/dl (32.0-36.5); MEAN CORPUSCULAR VOLUME 89.9 fl (80.0-96.0); PLATELET COUNT, AUTOMATED 119 10^3/uL (150-450); RED BLOOD COUNT 4.15 10^6/uL (4.30-6.10); WHITE BLOOD COUNT 3.5 10^3/uL (4.0-10.0)
[2024-05-03 07:08] LABS: ALBUMIN 2.8 G/DL (3.2-5.2); CALCIUM LEVEL 8.9 MG/DL (8.3-10.6); CREATININE FOR GFR 1.7 MG/DL (0.70-1.30); GLOMERULAR FILTRATION RATE 41.2 (>35); PHOSPHORUS LEVEL 2.1 MG/DL (2.4-5.1); POTASSIUM SERUM 4.3 MMOL/L (3.5-5.1)
[2024-05-03 08:07] VITALS: BP 109/63
[2024-05-03] MEDS ORDERED: CEFD300CAP PO (12:19)
[2024-05-03] MEDS ORDERED: DOXY100T PO (12:19)
[2024-05-03] MEDS ORDERED: PROBCAP14 PO (12:20)
[2024-05-03] MEDS ORDERED: CEFDINIR 300 MG CAP (OMNICEF) PO SCH (21:00)
== END 2024-05-03 17:47 | disposition home health service (06) | DRG 314 ==
LOC: M ED 15:38 → EDBD 15:38 → M ED INP 15:39 → OBSVTOIN 21:06 → M MSPAV 04-29 00:24
PROVIDERS: ADMIT Preventive Medicine Undersea and Hyperbaric Medicine; ATTEND Student in an Organized Health Care Education/Training Program
DX: I95.9 Hypotension, unspecified (principal); J15.69 Pneumonia due to other Gram-negative bacteria; I50.32 Chronic diastolic (congestive) heart failure; I48.20 Chronic atrial fibrillation, unspecified; N17.9 Acute kidney failure, unspecified; R64 Cachexia; D61.818 Other pancytopenia; E46 Unspecified protein-calorie malnutrition; I13.0 Hypertensive heart and chronic kidney disease with heart failure and stage 1 through stage 4 chronic kidney disease, or unspecified chronic kidney disease; D63.8 Anemia in other chronic diseases classified elsewhere; E11.22 Type 2 diabetes mellitus with diabetic chronic kidney disease; E78.5 Hyperlipidemia, unspecified; K59.00 Constipation, unspecified; K70.30 Alcoholic cirrhosis of liver without ascites; N18.32 Chronic kidney disease, stage 3b; R32 Unspecified urinary incontinence; D63.1 Anemia in chronic kidney disease; N40.0 Benign prostatic hyperplasia without lower urinary tract symptoms; I27.20 Pulmonary hypertension, unspecified; I35.0 Nonrheumatic aortic (valve) stenosis; E86.0 Dehydration; Z79.01 Long term (current) use of anticoagulants; Z79.890 Hormone replacement therapy; Z79.899 Other long term (current) drug therapy; Z91.013 Allergy to seafood; Z87.891 Personal history of nicotine dependence; Z86.16 Personal history of COVID-19

== ENCOUNTER 2024-06-26 09:23 | Inpatient (IN) | payer MEDICARE, MEDICAID ==
[~2024-06-26] VITALS: Ht 182.9 cm; Wt 72.2 kg
[2024-06-26] MEDS: THIAMINE 100 MG TAB PO SCH (09:00)
[~2024-06-26 09:23] MED LIST changes: +CEFD300CAP PO; +DOXY100T PO; +ELIQ2.5T PO; +PROBCAP14 PO; +THERTAB52 PO
[2024-06-26 10:26] LABS: BASO % 0.4 % (0.0-1.0); EOS % 0.1 % (0.0-3.0); HEMATOCRIT 47.1 % (42.0-52.0); HEMOGLOBIN 13.8 g/dl (13.5-17.5); LYMPH # 1.3 10^3/uL (1.5-5.0); LYMPH % 16.3 % (24.0-44.0); MEAN CORPUSCULAR HEMOGLOBIN 26.9 pg (27.0-33.0); MEAN CORPUSCULAR HGB CONC 29.3 g/dl (32.0-36.5); MEAN CORPUSCULAR VOLUME 91.8 fl (80.0-96.0); MONO # 0.7 10^3/uL (0.0-0.8); MONO % 8.8 % (2.0-8.0); PLATELET COUNT, AUTOMATED 150 10^3/uL (150-450); RED BLOOD COUNT 5.13 10^6/uL (4.30-6.10); WHITE BLOOD COUNT 8.1 10^3/uL (4.0-10.0)
[2024-06-26 10:43] LABS: INR 2.5
[2024-06-26 10:53] LABS: LIPASE 59 U/L (12-53)
[2024-06-26 10:54] LABS: ETHYL ALCOHOL (ETHANOL) < 0.003 % (0.000-0.010)
[2024-06-26 11:10] LABS: ALKALINE PHOSPHATASE 135 U/L (40-129); ALT/SGPT 44 U/L (7.0-40); AST/SGOT 43 U/L (<34); BILIRUBIN,DIRECT 0.6 MG/DL (<0.4); BILIRUBIN,TOTAL 1.1 MG/DL (0.3-1.2); BLOOD UREA NITROGEN 112 MG/DL (9-23); CALCIUM LEVEL 10.1 MG/DL (8.3-10.6); CARBON DIOXIDE LEVEL 16 MMOL/L (20-31); CHLORIDE LEVEL 103 MMOL/L (98-107); CREATININE FOR GFR 4.66 MG/DL (0.70-1.30); GLOMERULAR FILTRATION RATE 12.9 (>35); GLUCOSE, FASTING 135 MG/DL (74-106); MAGNESIUM LEVEL 3.1 MG/DL (1.8-2.4); SODIUM LEVEL 138 MMOL/L (136-145); TOTAL PROTEIN 6.4 G/DL (5.7-8.2)
[2024-06-26] MEDS ORDERED: NS 500 ML IV ONE (11:20)
[2024-06-26 11:26] LABS: VENOUS BASE EXCESS -13.2 (-2.0-2.0); VENOUS HCO3 13.1 MMOL/L (23.0-27.0); VENOUS O2 SATURATION 57.4 % (60.0-80.0); VENOUS PARTIAL PRESSURE CO2 32.2 mmHg (38.0-50.0); VENOUS PARTIAL PRESSURE O2 37.2 mmHg (30.0-50.0); VENOUS PH 7.228 UNITS (7.330-7.430); VENOUS STANDARD HCO3 13.6 MMOL/L; VENOUS TOTAL CO2 14.1 MMOL/L (24.0-28.0)
[2024-06-26] MEDS: CALCIUM CHLORIDE 10% 1 GM in D5W 100 ML IV ONE ×2 (11:34→22:53)
[2024-06-26] MEDS: HumuLIN R (REGULAR) INSULIN (NovoLIN R) **100U/ML** PER UNIT IV STA ×2 (11:50→22:52)
[2024-06-26] MEDS: DEXTROSE 50% 50ML SYRINGE IV STA ×2 (11:50→22:51)
[2024-06-26] MEDS: NS 1,000 ML IV ONE (11:51)
[2024-06-26] MEDS: SODIUM BICARBONATE 150 MEQ in D5W 1,000 ML IV SCH (11:59)
[2024-06-26] MEDS: INSULIN LISPRO (NovoLOG) PER UNIT SC SCH (12:00)
[2024-06-26] MEDS ORDERED: HEPARIN SOD (PORCINE) 5000UNITS/ML 1ML VIAL/SYRINGE SC SCH (12:25)
[2024-06-26] MEDS ORDERED: DEXTROSE 50% 50ML SYRINGE IV PRN (13:10)
[2024-06-26] MEDS ORDERED: GLUCOSE 4 GM CHEW PO PRN (13:10)
[2024-06-26] MEDS ORDERED: GLUCAGON INJ 1MG VIAL SC PRN (13:10)
[2024-06-26 13:50] LABS: PROCALCITONIN 0.12 ng/ml
[2024-06-26 13:54] LABS: INR 2.5; PROTHROMBIN TIME 27.1 SECONDS (12.5-14.5)
[2024-06-26 14:00] VITALS: BP 109/56; TEMP 96.9; O2SAT 92
[2024-06-26] MEDS ORDERED: DOCU100C16 PO (14:03)
[2024-06-26] MEDS ORDERED: HOME MED LIST COMPLETE! XX SCH (14:05)
[2024-06-26 14:08] LABS: CALCIUM LEVEL 10.5 MG/DL (8.3-10.6); CREATININE FOR GFR 4.45 MG/DL (0.70-1.30); GLOMERULAR FILTRATION RATE 13.6 (>35); POTASSIUM SERUM 5.9 MMOL/L (3.5-5.1)
[2024-06-26] MEDS ORDERED: DOCUSATE SODIUM 100MG CAPSULE PO PRN (16:25)
[2024-06-26] MEDS: PATIROMER SORBITEX CALCIUM 8.4 GM POWDER PACKET (VELTASSA) PO ONE (17:38)
[2024-06-26 20:15] VITALS: BP 114/59; TEMP 97; O2SAT 94
[2024-06-26 20:51] LABS: ALBUMIN 2.9 G/DL (3.2-5.2); BILIRUBIN,TOTAL 1.1 MG/DL (0.3-1.2); CREATININE FOR GFR 4.47 MG/DL (0.70-1.30); GLOMERULAR FILTRATION RATE 13.5 (>35); POTASSIUM SERUM 6.1 MMOL/L (3.5-5.1); TOTAL PROTEIN 6.1 G/DL (5.7-8.2)
[2024-06-26] MEDS ORDERED: CALCIUM CHLORIDE 10% 1 GM in D5W 100 ML IV ONE (21:00)
[2024-06-26] MEDS: rOPINIRole 0.25 MG TAB(REQUIP) PO SCH (21:30)
[2024-06-26] MEDS: SODIUM CHLORIDE 0.9% 500 ML IV SCH (22:52)
[2024-06-26 23:48] VITALS: BP 109/55; TEMP 96.9; O2SAT 96
[2024-06-27 03:53] VITALS: BP 100/54; TEMP 97; O2SAT 94
[2024-06-27] MEDS: LEVOTHYROXINE 75MCG TABLET (0.075MG) PO SCH (05:54)
[2024-06-27 06:43] LABS: HEMATOCRIT 43.3 % (42.0-52.0); HEMOGLOBIN 13.1 g/dl (13.5-17.5); MEAN CORPUSCULAR HEMOGLOBIN 26.6 pg (27.0-33.0); MEAN CORPUSCULAR HGB CONC 30.3 g/dl (32.0-36.5); PLATELET COUNT, AUTOMATED 106 10^3/uL (150-450); RED BLOOD COUNT 4.92 10^6/uL (4.30-6.10); WHITE BLOOD COUNT 7.7 10^3/uL (4.0-10.0)
[2024-06-27 06:51] LABS: INR 2.08; PARTIAL THROMBOPLASTIN TIME 39.2 SECONDS (24.8-34.2); PROTHROMBIN TIME 23.5 SECONDS (12.5-14.5)
[2024-06-27] MEDS: NS 0.45% 1,000 ML IV SCH (06:53)
[2024-06-27 07:04] LABS: BILIRUBIN,TOTAL 1.1 MG/DL (0.3-1.2); CALCIUM LEVEL 10.8 MG/DL (8.3-10.6); CREATININE FOR GFR 4.36 MG/DL (0.70-1.30); GLOMERULAR FILTRATION RATE 13.9 (>35); POTASSIUM SERUM 5.5 MMOL/L (3.5-5.1); TOTAL PROTEIN 6.2 G/DL (5.7-8.2)
[2024-06-27 07:48] VITALS: BP 110/57; TEMP 97
[2024-06-27] MEDS ORDERED: THIAMINE 100 MG TAB PO SCH (09:00)
[2024-06-27] MEDS: ESCITALOPRAM OXALATE 10 MG TAB (LEXAPRO) PO SCH (09:17)
[2024-06-27] MEDS: FINASTERIDE 5MG TAB PO SCH (09:26)
[2024-06-27 12:29] VITALS: BP 119/58; TEMP 97.2; O2SAT 95
[2024-06-27 16:14] VITALS: BP_SYST 119; BP_SYST 144; BP_DIAS 60; BP_DIAS 62; TEMP 96.9; O2SAT 100
[2024-06-27 17:48] LABS: ALBUMIN 2.7 G/DL (3.2-5.2); BILIRUBIN,TOTAL 0.9 MG/DL (0.3-1.2); CALCIUM LEVEL 9.4 MG/DL (8.3-10.6); GLOMERULAR FILTRATION RATE 15.3 (>35); POTASSIUM SERUM 5.9 MMOL/L (3.5-5.1); TOTAL PROTEIN 6.1 G/DL (5.7-8.2)
[2024-06-27 20:20] VITALS: BP 100/60; TEMP 97.3; O2SAT 97
[2024-06-27] MEDS: PATIROMER SORBITEX CALCIUM 8.4 GM POWDER PACKET (VELTASSA) PO ONE (21:19)
[2024-06-27 23:28] VITALS: BP 98/52; TEMP 97.8; O2SAT 92
[2024-06-28 03:40] VITALS: BP 96/60; TEMP 97.9; O2SAT 94
[2024-06-28] MEDS: NS 500 ML IV ONE (05:03)
[2024-06-28 07:11] LABS: HEMATOCRIT 38.2 % (42.0-52.0); HEMOGLOBIN 11.6 g/dl (13.5-17.5); MEAN CORPUSCULAR HEMOGLOBIN 26.6 pg (27.0-33.0); MEAN CORPUSCULAR HGB CONC 30.4 g/dl (32.0-36.5); MEAN CORPUSCULAR VOLUME 87.6 fl (80.0-96.0); PLATELET COUNT, AUTOMATED 101 10^3/uL (150-450); RED BLOOD COUNT 4.36 10^6/uL (4.30-6.10); WHITE BLOOD COUNT 6.4 10^3/uL (4.0-10.0)
[2024-06-28 07:20] LABS: INR 1.66; PARTIAL THROMBOPLASTIN TIME 39.5 SECONDS (24.8-34.2); PROTHROMBIN TIME 19.8 SECONDS (12.5-14.5)
[2024-06-28 07:36] LABS: ALBUMIN 2.7 G/DL (3.2-5.2); BILIRUBIN,TOTAL 0.9 MG/DL (0.3-1.2); CALCIUM LEVEL 9.5 MG/DL (8.3-10.6); CREATININE FOR GFR 3.86 MG/DL (0.70-1.30); TOTAL PROTEIN 5.7 G/DL (5.7-8.2)
[2024-06-28 07:47] VITALS: BP 100/60; TEMP 97.8; O2SAT 94
[2024-06-28 11:38] VITALS: BP 103/59; TEMP 97.7; O2SAT 94
[2024-06-28 15:00] VITALS: BP 92/54; O2SAT 100
[2024-06-28] MEDS: HEPARIN SOD (PORCINE) 5000UNITS/ML 1ML VIAL/SYRINGE SQ ONE (15:25)
[2024-06-28 16:18] VITALS: BP 95/58; TEMP 97; O2SAT 97
[2024-06-28 20:13] VITALS: BP 99/54; TEMP 97.1; O2SAT 93
[2024-06-29] VITALS (8 sets, daily range): BP systolic 86–102; BP diastolic 50–66; TEMP 96.5–98.2; O2SAT 94–99
[2024-06-29] MEDS: NS 500 ML IV ONE (00:34)
[2024-06-29 06:46] LABS: HEMATOCRIT 39.7 % (42.0-52.0); HEMOGLOBIN 12.3 g/dl (13.5-17.5); INR 1.32; MEAN CORPUSCULAR VOLUME 87.3 fl (80.0-96.0); PARTIAL THROMBOPLASTIN TIME 37.7 SECONDS (24.8-34.2); PLATELET COUNT, AUTOMATED 106 10^3/uL (150-450); PROTHROMBIN TIME 16.6 SECONDS (12.5-14.5); RED BLOOD COUNT 4.55 10^6/uL (4.30-6.10); WHITE BLOOD COUNT 6.4 10^3/uL (4.0-10.0)
[2024-06-29 06:58] LABS: ALBUMIN 2.7 G/DL (3.2-5.2); CALCIUM LEVEL 9.1 MG/DL (8.3-10.6); CREATININE FOR GFR 3.19 MG/DL (0.70-1.30); GLOMERULAR FILTRATION RATE 19.9 (>35); POTASSIUM SERUM 4.6 MMOL/L (3.5-5.1); TOTAL PROTEIN 5.8 G/DL (5.7-8.2)
[2024-06-29] MEDS: ONDANSETRON 4MG ORAL DISINTEGRATING TAB SL PRN (13:57)
[2024-06-29] MEDS: ACETAMINOPHEN 325 MG TAB PO PRN (13:57)
[2024-06-30 03:56] VITALS: BP 106/62; TEMP 97.5; O2SAT 96
[2024-06-30 08:00] VITALS: BP 100/62; TEMP 97.1; O2SAT 98
[2024-06-30 10:14] LABS: ALBUMIN 2.7 G/DL (3.2-5.2); BILIRUBIN,TOTAL 1.4 MG/DL (0.3-1.2); CALCIUM LEVEL 9.3 MG/DL (8.3-10.6); CREATININE FOR GFR 2.85 MG/DL (0.70-1.30); GLOMERULAR FILTRATION RATE 22.7 (>35); POTASSIUM SERUM 5.1 MMOL/L (3.5-5.1); TOTAL PROTEIN 6.1 G/DL (5.7-8.2)
[2024-06-30] MEDS ORDERED: ONDANSETRON 4MG ORAL DISINTEGRATING TAB SL PRN (11:05)
[2024-06-30] MEDS ORDERED: ACETAMINOPHEN 325 MG TAB PO PRN (11:10)
[2024-06-30] MEDS ORDERED: LORazepam 1 MG TAB PO PRN (11:10)
[2024-06-30] MEDS: MORPHINE 10MG/0.5ML ORAL CONCENTRATE SOLUTION U/D SL PRN (20:15)
[2024-07-03] MEDS: HYOSCYAMINE SULFATE 0.125 MG SUBL TABLET PO PRN (03:02)
== END 2024-07-04 02:45 | disposition expired | DRG 682 ==
LOC: EDBD 09:23 → M ED 09:23 → M ED INP 12:25 → M PCU 13:46 → M MS5PR 06-30 22:03
PROVIDERS: ADMIT Internal Medicine; ATTEND Hospitalist
DX: N17.9 Acute kidney failure, unspecified (principal); G93.41 Metabolic encephalopathy; E43 Unspecified severe protein-calorie malnutrition; I50.32 Chronic diastolic (congestive) heart failure; I13.0 Hypertensive heart and chronic kidney disease with heart failure and stage 1 through stage 4 chronic kidney disease, or unspecified chronic kidney disease; E87.20 Acidosis, unspecified; R47.01 Aphasia; E87.1 Hypo-osmolality and hyponatremia; K70.30 Alcoholic cirrhosis of liver without ascites; Z66 Do not resuscitate; E11.22 Type 2 diabetes mellitus with diabetic chronic kidney disease; F03.90 Unspecified dementia, unspecified severity, without behavioral disturbance, psychotic disturbance, mood disturbance, and anxiety; E78.5 Hyperlipidemia, unspecified; N18.30 Chronic kidney disease, stage 3 unspecified; R79.1 Abnormal coagulation profile; E86.0 Dehydration; N40.0 Benign prostatic hyperplasia without lower urinary tract symptoms; I48.91 Unspecified atrial fibrillation; E83.52 Hypercalcemia; I27.20 Pulmonary hypertension, unspecified; I35.0 Nonrheumatic aortic (valve) stenosis; E87.5 Hyperkalemia; I69.391 Dysphagia following cerebral infarction; Z87.891 Personal history of nicotine dependence; R74.01 Elevation of levels of liver transaminase levels; I95.9 Hypotension, unspecified; R43.8 Other disturbances of smell and taste; U09.9 Post COVID-19 condition, unspecified; Z79.01 Long term (current) use of anticoagulants; Z79.2 Long term (current) use of antibiotics; Z79.890 Hormone replacement therapy; Z79.84 Long term (current) use of oral hypoglycemic drugs; Z79.899 Other long term (current) drug therapy; Z91.013 Allergy to seafood